=== PATIENT | male | born 1945 | race Caucasian/White ===

== ENCOUNTER 2016-08-31 17:15 | Observation (INO) | payer OTHER ==
[~2016-08-31] VITALS: Ht 162.6 cm; Wt 79.0 kg
[~2016-08-31 17:15] MED LIST: ASPI81TA21 PO; CITA20TA9 PO; LISI-729 PO; LPT/40 PO; METF500T PO; NITR0.4S UT; PLV75 PO; TRAV0.00 OPB; ZIPR60CA PO
[2016-08-31 19:19] LABS: BASO % 0.5 %; BASO ABS # 0.04 K/uL (0-0.2); COMPLETE YES; EOS % 1.8 %; HEMATOCRIT 40.5 % (42-52); IG% 0.4 %; LYMPH % 16.1 %; LYMPH ABS # 1.24 K/uL (1.2-3.4); MEAN CELL VOLUME 91.6 fL (80-100); MEAN CORPUSCULAR HEMOGLOBIN 32.1 pg (25-34); MEAN CORPUSCULAR HGB CONC 35.1 g/dl (32-36); MEAN PLATELET VOLUME 10.1 fL (7.4-10.4); NEUT % 75.2 %; PLATELET COUNT 170 K/uL (130-400); RED BLOOD COUNT 4.42 M/uL (4.7-6.1); WHITE BLOOD COUNT 7.72 K/uL (4.8-10.8)
--- NOTE | 2016-08-31 19:31 | DIAGNOSTIC IMAGING REPORT ---
CHEST ONE VIEW PORTABLE CLINICAL HISTORY: Chest pain. Short of breath. COMPARISON STUDY: Chest radiograph April 03, 2015. FINDINGS: Lung volumes are normal. There is no consolidation. There is no evidence of pulmonary edema. Cardiomediastinal silhouette is normal. There is no pneumothorax or pleural effusion. IMPRESSION: No acute cardiopulmonary findings. Electronically signed by: Benjie Calhoun M.D. 08/31/2016 7:29 PM Dictated Date/Time: 08/31/2016 7:28 PM
[2016-08-31 19:41] LABS: BLOOD UREA NITROGEN 11 mg/dl (7-18); BUN/CREATININE RATIO 8.5 (10-20); CALCIUM 8.4 mg/dl (8.5-10.1); CARBON DIOXIDE 29 mmol/L (21-32); CHLORIDE 110 mmol/L (98-107); GLUCOSE 102 mg/dl (70-99); POTASSIUM 4.2 mmol/L (3.5-5.1); SODIUM 143 mmol/L (136-145)
[2016-08-31 19:46] LABS: CKMB/CK RATIO 1.4 (0-3.0)
[2016-08-31 20:44] LABS: PARTIAL THROMBOPLASTIN RATIO 1.1
[2016-08-31] MEDS ORDERED: NITROGLYCERIN 0.4 MG SL PER TAB CHARGE SL PRN (21:00)
[2016-08-31] MEDS ORDERED: TRAMADOL HCL 50 MG TAB PO PRN (21:00)
[2016-08-31] MEDS ORDERED: DEXTROSE 50% 50 ML SYR IV PRN (21:00)
[2016-08-31] MEDS ORDERED: GLUCAGON FOR INJ 1 MG VIAL SQ PRN (21:00)
[2016-08-31] MEDS ORDERED: ACETAMINOPHEN 325 MG TAB PO PRN (21:00)
[2016-08-31] MEDS ORDERED: GLUCOSE 40% GEL 15 GM TUBE PO PRN (21:00)
[2016-08-31] MEDS ORDERED: HYDROmorphone INJ 0.5 MG/0.5 ML SYR IV PRN (21:00)
[2016-08-31] MEDS ORDERED: GLUCOSE 10 TABS/TUBE PO PRN (21:00)
[2016-08-31] MEDS ORDERED: LORAZEPAM 2 MG/ML 1 ML VIAL IV PRN (21:00)
[2016-08-31] MEDS ORDERED: ONDANSETRON INJ 2 MG/ML 2 ML VIAL IV PRN (21:00)
[2016-08-31 21:04] LABS: ALKALINE PHOSPHATASE 101 U/L (45-117); ALT/SGPT 35 U/L (12-78)
[2016-08-31 21:08] LABS: AST/SGOT 24 U/L (15-37)
[2016-08-31] MEDS ORDERED: IV FLUIDS COMPLETED PRN (21:15)
--- NOTE | 2016-08-31 21:58 | EMERGENCY ROOM VISIT NOTE ---
History Report prepared by Mahendraibangelo: Kelby Hargrove Under the Supervision of: Dr. Estuardo Berger D.O. First contact with patient: 18:27 Chief Complaint: CHEST PAIN Stated Complaint: CHEST PAIN, SOB History of Present Illness The patient is a 70 year old male who presents to the Emergency Room with complaints of resolved chest tightness that occurred at 1500 today. The patient had pain and shortness of breath with exertion. The pain was rated 3/10 in severity and did not radiate to his arms or jaw. The pain lasted about 30 minutes. The patient has not had pain like this since he had stents placed. He was six stents in total. He has not had coronary bypass. The patient had a baby aspirin today. His last bowel movement was earlier today which was normal. Patient denies headache, change in vision, fevers, nausea, vomiting, diarrhea, pain with urination, and melena. Source of History: patient Onset: 1500 today Position: chest Symptom Intensity: 3/10 Quality: other (tightness) Timing: resolved Modifying Factors (Worsening): exertion Associated Symptoms: + SOB, No diarrhea, No fevers, No headache, No melena, No nausea, No urinary symptoms, No vomiting Review of Systems See HPI for pertinent positives & negatives. A total of 10 systems reviewed and were otherwise negative. Past Medical & Surgical Medical Problems: (1) CAD (coronary artery disease) (2) CKD (chronic kidney disease), stage III (3) Depression (4) DM type 2 (diabetes mellitus, type 2) (5) Duodenal ulcer (6) Dyslipidemia (7) GERD (gastroesophageal reflux disease) (8) Glaucoma (9) Paranoid schizophrenia Surgical Problems: (1) H/O colonoscopy (2) S/P cardiac cath (3) S/P tonsillectomy and adenoidectomy Family History Cancer Diabetes mellitus FH: depression SISTER FH: heart disease MOTHER UNCLE FH: leukemia Hypertension Social History Smoking Status: Never Smoker Alcohol Use: none Marital Status: Housing Status: lives with family Occupation Status: employed Current/Historical Medications Scheduled Aspirin Enteric Coated (Ecotrin Or Generic), 81 MG PO QAM Atorvastatin (Lipitor), 20 MG PO QPM Citalopram Hydrobromide (Celexa), 20 MG PO HS Clopidogrel Bisulfate (Clopidogrel), 75 MG PO QAM Lisinopril (Zestril), 5 MG PO QAM Metformin Hcl (Glucophage), 500 MG PO QAM Travoprost (Travatan Z), 1 DROP OPB HS Ziprasidone Hcl (Geodon), 60 MG PO BID Scheduled PRN Nitroglycerin (Nitrostat), 0.4 MG UT UD PRN for Chest Pain Allergies Coded Allergies: Codeine (Verified Allergy, Unknown, UNKNOWN, 08/31/16) Morphine (Verified Allergy, Unknown, unknown, 06/23/15) Physical Exam Vital Signs Date Time Temp Pulse Resp B/P Pulse Ox O2 Delivery O2 Flow Rate FiO2 08/31/16 21:10 54 18 131/90 96 Room Air 08/31/16 20:00 54 18 141/89 96 Room Air 08/31/16 19:00 57 18 153/87 98 Room Air 08/31/16 18:43 59 08/31/16 17:17 36.8 72 18 172/84 99 Room Air Physical Exam GENERAL: Sitting up in bed, chronically ill appearing, disheveled, no acute distress. EYE EXAM: normal conjunctiva. OROPHARYNX: no exudate, no erythema, lips, buccal mucosa, and tongue normal and mucous membranes are moist NECK: supple, no nuchal rigidity, no adenopathy, non-tender LUNGS: Clear to auscultation. Normal chest wall mechanics HEART: no murmurs, S1 normal and S2 normal ABDOMEN: abdomen soft, non-tender, normo-active bowel sounds, no masses, no rebound or guarding. BACK: Back is symmetrical on inspection and there is no deformity, no midline tenderness, no CVA tenderness. SKIN: no rashes and no bruising UPPER EXTREMITIES: upper extremities are grossly normal. LOWER EXTREMITIES: No pitting edema. Calves are equal bilaterally. NEURO EXAM: Normal sensorium, cranial nerves II-XII grossly intact, normal speech, no gross weakness of arms, no gross weakness of legs. Gross sensation intact. Medical Decision & Procedures ER Provider Diagnostic Interpretation: Xray results per the radiologist and my interpretation. CHEST ONE VIEW PORTABLE CLINICAL HISTORY: Chest pain. Short of breath. COMPARISON STUDY: Chest radiograph April 03, 2015. FINDINGS: Lung volumes are normal. There is no consolidation. There is no evidence of pulmonary edema. Cardiomediastinal silhouette is normal. There is no pneumothorax or pleural effusion. IMPRESSION: No acute cardiopulmonary findings. Electronically signed by: Benjie Calhoun M.D. 08/31/2016 7:29 PM Dictated Date/Time: 08/31/2016 7:28 PM Laboratory Results 08/31/16 19:00 Red Blood Count 4.42, Mean Corpuscular Volume 91.6, Mean Corpuscular Hemoglobin 32.1, Mean Corpuscular Hemoglobin Concent 35.1, Mean Platelet Volume 10.1, Neutrophils (%) (Auto) 75.2, Lymphocytes (%) (Auto) 16.1, Monocytes (%) (Auto) 6.0, Eosinophils (%) (Auto) 1.8, Basophils (%) (Auto) 0.5, Neutrophils # (Auto) 5.81, Lymphocytes # (Auto) 1.24, Monocytes # (Auto) 0.46, Eosinophils # (Auto) 0.14, Basophils # (Auto) 0.04 08/31/16 19:00 Test 08/31/16 19:00 White Blood Count 7.72 K/uL (4.8-10.8) Red Blood Count 4.42 M/uL (4.7-6.1) Hemoglobin 14.2 g/dL (14.0-18.0) Hematocrit 40.5 % (42-52) Mean Corpuscular Volume 91.6 fL (80-100) Mean Corpuscular Hemoglobin 32.1 pg (25-34) Mean Corpuscular Hemoglobin Concent 35.1 g/dl (32-36) Platelet Count 170 K/uL (130-400) Mean Platelet Volume 10.1 fL (7.4-10.4) Neutrophils (%) (Auto) 75.2 % Lymphocytes (%) (Auto) 16.1 % Monocytes (%) (Auto) 6.0 % Eosinophils (%) (Auto) 1.8 % Basophils (%) (Auto) 0.5 % Neutrophils # (Auto) 5.81 K/uL (1.4-6.5) Lymphocytes # (Auto) 1.24 K/uL (1.2-3.4) Monocytes # (Auto) 0.46 K/uL (0.11-0.59) Eosinophils # (Auto) 0.14 K/uL (0-0.5) Basophils # (Auto) 0.04 K/uL (0-0.2) RDW Standard Deviation 48.3 fL (36.4-46.3) RDW Coefficient of Variation 14.2 % (11.5-14.5) Immature Granulocyte % (Auto) 0.4 % Immature Granulocyte # (Auto) 0.03 K/uL (0.00-0.02) Activated Partial Thromboplast Time 27.6 SECONDS (21.0-31.0) Partial Thromboplastin Ratio 1.1 Anion Gap 4.0 mmol/L (3-11) Est Creatinine Clear Calc Drug Dose 52.1 ml/min Estimated GFR () 64.5 Estimated GFR (Non- 55.7 BUN/Creatinine Ratio 8.5 (10-20) Calcium Level 8.4 mg/dl (8.5-10.1) Magnesium Level 2.0 mg/dl (1.8-2.4) Total Bilirubin 0.2 mg/dl (0.2-1) Direct Bilirubin < 0.1 mg/dl (0-0.2) Aspartate Amino Transf (AST/SGOT) 24 U/L (15-37) Alanine Aminotransferase (ALT/SGPT) 35 U/L (12-78) Alkaline Phosphatase 101 U/L (45-117) Total Creatine Kinase 95 U/L (39-308) Creatine Kinase MB 1.3 ng/ml (0.5-3.6) Creatine Kinase MB Ratio 1.4 (0-3.0) Troponin I < 0.015 ng/ml (0-0.045) Total Protein 7.0 gm/dl (6.4-8.2) Albumin 3.8 gm/dl (3.4-5.0) Thyroid Stimulating Hormone (TSH) 2.040 uIu/ml (0.300-4.500) Laboratory results per my review. ECG Indication: chest pain Rate (beats per minute): 72 Rhythm: sinus rhythm Findings: left axis deviation, no ectopy, other (poor baseline inferiorly) ED Course ED COURSE: Vital signs were reviewed and showed hypertension. The patients medical record was reviewed The above diagnostic studies were performed and reviewed. ED treatments and interventions as stated above. 1830: The patient was evaluated in room C1a. A complete history and physical examination was performed. 2018: Case discussed with Dr. Joe, [facility]. The patient will be evaluated. 2020: Upon reevaluation, the patient is stable.I discussed my findings with the patient and he understands and agrees with the treatment plan. Based on the patients age, coexisting illnesses, exam and lab findings the decision to treat as an inpatient was made. The patient remained stable while under my care. The patient will be evaluated for further management. Medical Decision Differential diagnoses includes but is not limited to acute coronary syndrome, myocardial infarction, pericarditis, pulmonary embolus, aortic dissection, pneumonia, pneumothorax, musculoskeletal, shingles, esophageal. Patient is a 70-year-old male who presents the ER for exertional chest pain which felt like his previous MIs. He has a total of 6/10. Last cath was several years ago. He is chest pain-free at this time. He did take aspirin. EKG shows no acute ischemia. Troponin was negative. No significant leukocytosis or anemia. Chest x-ray was unremarkable. Patient was updated bedside admitted to internal medicine. Consults Time Called: 2009 [facility]ing Physician[facility]: 2017 2018: Case discussed with Brandon Dobbins. The patient will be evaluated. Impression Primary Impression: Exertional chest pain Scribe Attestation The scribe's documentation has been prepared under my direction and personally reviewed by me in its entirety. I confirm that the note above accurately reflects all work, treatment, procedures, and medical decision making performed by me. Departure Information Dispostion Being Evaluated By Hospitalist Referrals Horace Marc D.O. (PCP) Patient Instructions My [facility]
--- NOTE | 2016-08-31 22:54 | HISTORY & PHYSICAL EXAMINATION ---
DATE OF ADMISSION: 08/31/2016 PRIMARY CARE DOCTOR: Dr. Marc. History obtained from patient and records. CHIEF COMPLAINT: Chest pain. HISTORY OF PRESENT ILLNESS: Medical history significant for CAD status post stenting, hypertension, hyperlipidemia, schizophrenia, depression, chronic bradycardia. DM2, on oral meds. Recent confinement 2014, for chest pain attributed to anxiety. The patient was walking up the hill to his garage earlier today. He had substernal discomfort with some shortness of breath, nonradiating, similar to an anginal attack in the past. Spontaneous resolution. Compliant with medications. No unusual cough symptoms. MEDICAL HISTORY: As above. SURGERIES: He has had tonsillectomy, adenoidectomy. HOME MEDICATIONS: Include Lipitor, Ecotrin, Celexa, Plavix, lisinopril, metformin, Nitrostat, Geodon. ALLERGIES: CODEINE, MORPHINE. FAMILY HISTORY: heart disease, diabetes. PERSONAL AND SOCIAL HISTORY: Nonsmoker, no chronic intake of alcoholic beverages. 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 REVIEW OF SYSTEMS: As per HPI, all other ROS negative. PHYSICAL EXAMINATION: VITAL SIGNS: Blood pressure was noted to be 170/80, later 140/80, pulse 76, respiratory rate 18, temperature 36.6, sats 98 on room air. GENERAL: Noted to be obese, slightly anxious, no respiratory distress. SKIN: Normal color. HEENT: [place] palpebral conjunctivae. Dry buccal mucosa. NECK: Short neck. LUNGS: Decreased breath sounds. HEART: Bradycardic. ABDOMEN: Some distention, nontender. EXTREMITIES: No edema, no tenderness. NEUROLOGIC: No gross focality. LABS: Hemoglobin was 14.2, hematocrit 40, white cells 7.7, platelets 170. Sodium 140, potassium 4.2, chloride 110, CO2 29, BUN 11, creatinine 1.3, glucose 102, Troponin was normal. Hemoglobin A1c from March 2016 was 5.5. Chest x-ray showed no acute cardiopulmonary findings. EKG rate of 75, normal sinus rhythm, negative ischemia. ASSESSMENT: 1. Chest pain possible unstable angina history of coronary artery disease status post-stenting 2. hypertension, slightly elevated 3. hyperlipidemia on statin therapy 4. DM2, on oral medications, well controlled as of recent HgA1c. 5. Chronic bradycardia 6. mood disorder/schizophrenia stable on medications as per patient. PLAN: Observation PCU. Continue antiplatelets, statin medications for secondary CAD prevention. follow cardiac markers, 2D echo, Cardio consult RE chest pain. Patient known to Dr. Henry. ISS BG goal 140-180. Patient due for hemoglobin A1c check. DVT prophylaxis with Lovenox subQ. Full code. MTDD
[2016-08-31 23:13] LABS: INR 0.9 (0.9-1.1)
[2016-08-31 23:37] VITALS: BP 165/78; PULSE 56; TEMP 36.4; O2SAT 98; Ht 162.6 cm; Wt 79.0 kg
[2016-09-01] VITALS (19 sets, daily range): BP systolic 109–144; BP diastolic 61–86; PULSE 51–97; TEMP 36.4–36.9; O2SAT 95–99
[2016-09-01] MEDS ORDERED: CALCIUM GLUCONATE 10% 1,000 MG in SODIUM CHLORIDE 0.9% 50ML 50 ML IV STA (00:05)
[2016-09-01] MEDS: SODIUM CHLORIDE 0.45% 1000ML 1,000 ML IV SCH ×2 (00:36→17:11)
[2016-09-01 06:34] LABS: ESTIMATED AVERAGE GLUCOSE 111 mg/dl; HA1C FLAG Normal (Normal)
[2016-09-01] MEDS: INSULIN ASPART 100 UNITS/ML 3 ML PEN SC SCH ×4 (07:00→21:44)
[2016-09-01] MEDS ORDERED: PERFLUTREN LIPID MICROSPHERE (DEFINITY) IV ONE (07:22)
[2016-09-01 07:52] LABS: BASO % 0.6 %; BASO ABS # 0.03 K/uL (0-0.2); COMPLETE YES; EOS % 2.6 %; HEMATOCRIT 40.1 % (42-52); IG% 0.6 %; LYMPH % 19.5 %; LYMPH ABS # 1.04 K/uL (1.2-3.4); MEAN CELL VOLUME 92.8 fL (80-100); MEAN CORPUSCULAR HEMOGLOBIN 33.1 pg (25-34); MEAN CORPUSCULAR HGB CONC 35.7 g/dl (32-36); MEAN PLATELET VOLUME 10.4 fL (7.4-10.4); NEUT % 69.7 %; PLATELET COUNT 162 K/uL (130-400); RED BLOOD COUNT 4.32 M/uL (4.7-6.1); WHITE BLOOD COUNT 5.32 K/uL (4.8-10.8)
[2016-09-01] MEDS: ENOXAPARIN 40 MG/0.4 ML SYR SC SCH (08:40)
[2016-09-01] MEDS: ZIPRASIDONE 20 MG CAP PO SCH ×2 (08:40→20:39)
[2016-09-01] MEDS: ASPIRIN 81 MG ECTAB PO SCH (08:41)
[2016-09-01] MEDS: LISINOPRIL 5 MG TAB PO SCH (08:41)
[2016-09-01] MEDS: CLOPIDOGREL BISULFATE 75 MG TAB PO SCH (08:41)
--- NOTE | 2016-09-01 09:01 | ECHOCARDIOGRAM REPORT ---
*NOTICE TO RECEIVING LIBERTARIAN AGENCY This information is strictly Confidential and protected under [place] law. [place] law prohibits you from making any further disclosure of this information unless further disclosure is expressly permitted by the written consent of the person to whom it pertains or is authorized by law. A general authorization for the release of medical or other information is not sufficient for this purpose. Hospital accepts no responsibility if the information is made available to any other person, INCLUDING THE PATIENT. Interpretation Summary * Name: ROMI QUIROGA Study Date: 09/01/2016 06:50 AM BP: 134/75 mmHg * Patient Location: C.2T\S\S242\S\1 HR: 51 * : 1945 (M/d/yyyy) Gender: Male Height: 64 in * Age: 71 yrs Ethnicity: CA Weight: 182 lb * Ordering Physician: Clint Joe * Performed By: Kelly Aleman RDCS * * Reason For Study: Chest pain * BSA: 1.9 m2 * The study was technically adequate. * Compared to prior study, there is no significant change. * -- Conclusions -- * Left ventricular systolic function is normal. * Ejection Fraction = 55-60%. * There is mild concentric left ventricular hypertrophy. * Grade I diastolic dysfunction, (abnormal relaxation pattern). * No significant valvular pathology. Procedure Details * A complete two-dimensional transthoracic echocardiogram was performed (2D, M-mode, Doppler and color flow Doppler). * A contrast injection of Definity was performed to improve assessment of LV function. * Contrast was injected into an intravenous site in the left arm. * One vial of Definity ultrasound contrast was diluted in normal saline to a total volume of 10 ml. A total of '2' ml of solution was administered during imaging. * Lot # [id number] of Definity utilized for procedure. * Expiration date SEP 19. * The attending nurse who injected the contrast agent was Tequila Lyons RN. Left Ventricle * The left ventricle is normal in size. * There is no thrombus. * There is mild concentric left ventricular hypertrophy. * Ejection Fraction = 55-60%. * Left ventricular systolic function is normal. * No regional wall motion abnormalities noted. Right Ventricle * The right ventricle is normal size. * The right ventricular systolic function is normal as assessed by tricuspid annular plane systolic excursion (TAPSE) (normal >1.5 cm). Atria * The left atrial size is normal. * Right atrial size is normal. * There is no evidence of atrial septal defect, but resolution does not allow assessment for a patent foramen ovale. Mitral Valve * The mitral valve is normal. * The mitral valve leaflets appear thickened, but open well. * There is no mitral valve stenosis. * Significant mitral regurgitation is absent. Tricuspid Valve * The tricuspid valve is normal. * There is no tricuspid stenosis. * Significant tricuspid regurgitation is absent. Aortic Valve * The aortic valve is trileaflet. * Aortic stenosis is absent. * There is no significant aortic regurgitation. Pulmonic Valve * The pulmonary valve is not well seen, but the Doppler examination is normal without significant regurgitation or stenosis. Great Vessels * The aortic root and proximal ascending aorta are normal sized. Pericardium/Pleural * There is no pericardial effusion. Great Vessels * Normal inferior vena cava diameter and respiratory variation suggests normal central venous pressure. Left Ventricular Diastolic Function * Grade I diastolic dysfunction, (abnormal relaxation pattern). MMode 2D Measurements and Calculations IVSd 1.3 cm LVIDd 4.2 cm LVIDs 2.9 cm LVPWd 1.1 cm IVS/LVPW 1.1 FS 31.2 % EDV(Teich) 78.5 ml ESV(Teich) 31.9 ml EF(Teich) 59.4 % EDV(cubed) 74.0 ml ESV(cubed) 24.1 ml EF(cubed) 67.4 % LV mass(C)d 179.4 grams LV mass(C)dI 95.5 grams/m\S\2 CO(Teich) 2.8 l/min CI(Teich) 1.5 l/min/m\S\2 SV(Teich) 46.6 ml SI(Teich) 24.8 ml/m\S\2 CO(cubed) 3.0 l/min CI(cubed) 1.6 l/min/m\S\2 SV(cubed) 49.9 ml SI(cubed) 26.5 ml/m\S\2 Ao root diam 2.9 cm Ao root area 6.4 cm\S\2 ACS 1.8 cm asc Aorta Diam 3.2 cm LVOT diam 2.0 cm LVOT area 3.0 cm\S\2 LVAd ap4 29.8 cm\S\2 LVLd ap4 7.9 cm EDV(MOD-sp4) 91.6 ml LVAs ap4 17.1 cm\S\2 LVLs ap4 6.4 cm ESV(MOD-sp4) 37.6 ml EF(MOD-sp4) 59.0 % LVAd ap2 33.9 cm\S\2 LVLd ap2 8.3 cm EDV(MOD-sp2) 114.0 ml LVAs ap2 17.8 cm\S\2 LVLs ap2 6.0 cm ESV(MOD-sp2) 43.3 ml EF(MOD-sp2) 62.0 % CO(MOD-sp4) 3.2 l/min CI(MOD-sp4) 1.7 l/min/m\S\2 SV(MOD-sp4) 54.0 ml SI(MOD-sp4) 28.7 ml/m\S\2 CO(MOD-sp2) 4.2 l/min CI(MOD-sp2) 2.3 l/min/m\S\2 SV(MOD-sp2) 70.7 ml SI(MOD-sp2) 37.6 ml/m\S\2 Doppler Measurements and Calculations MV E max uma 68.9 cm/sec MV A max uma 79.5 cm/sec MV E/A 0.87 MV dec time 0.20 sec Ao V2 max 86.2 cm/sec Ao max PG 3.0 mmHg Ao max PG (full) 1.6 mmHg MICHELLE(V,A) 2.1 cm\S\2 MICHELLE(V,D) 2.1 cm\S\2 LV V1 max PG 1.4 mmHg LV V1 max 59.2 cm/sec PA V2 max 96.4 cm/sec PA max PG 3.7 mmHg PA acc slope 535.1 cm/sec\S\2 PA acc time 0.09 sec TR max uma 225.3 cm/sec PA pr(Accel) 37.8 mmHg
[2016-09-01] MEDS ORDERED: NiCARDipine HCL INJ 2.5 MG/ML 10 ML AMP ONE (10:49)
[2016-09-01] MEDS ORDERED: HEPARIN SOD (PORCINE) 1000 UNIT/ML 10 ML VIAL ONE (10:49)
[2016-09-01] MEDS ORDERED: MIDAZOLAM HCL 1 MG/ML 2ML VIAL ONE (10:49)
[2016-09-01] MEDS ORDERED: FENTANYL CITRATE INJ 50 MCG/1 ML 2 ML VIAL ONE (10:49)
[2016-09-01] MEDS ORDERED: NITROGLYCERIN/D5W 100MCG/ML 20ML SYR ONE (10:50)
[2016-09-01] MEDS ORDERED: ADENOSINE IV SOLN 3 MG/ML 20 ML VIAL ONE (11:39)
--- NOTE | 2016-09-01 11:43 | Procedure Note ---
Pre-Mod Sedation Assessment General Date of Moderate Sedation: Sep 01, 2016. Vital Signs: Vital Signs Past 12 Hours Date Time Temp Pulse Resp B/P Pulse Ox O2 Delivery O2 Flow Rate FiO2 09/01/16 10:38 36.5 59 20 139/86 98 Room Air 09/01/16 08:50 139/86 09/01/16 08:15 36.5 59 20 130/73 98 Room Air 09/01/16 08:00 Room Air 09/01/16 04:00 Room Air 09/01/16 03:33 36.4 51 17 134/75 97 Room Air Review Cardiovascular: regular rate, rhythm, no edema, no gallop Abdomen: normal bowel sounds, non tender, soft Lungs: chest non-tender, lungs clear Pre-Sedation Airway Assessment Oral Cavity: Dentures Short Thick Neck: No Hx of Sleep Apnea: No Smoking Status: Never Smoker ASA Classification: Class III Procedure Planning Contraindications-for Mod Sed: None Yes Notes The planned sedation has been discussed with the patient and consent obtained. I have identified the patient, determined the appropriateness of sedation and have assessed the patient immediately prior to the procedure. All medicine(s) and interventions are by my order.
--- NOTE | 2016-09-01 11:44 | Procedure Note ---
Post-Mod Sedation Assessment General Date of Moderate Sedation Sep 01, 2016. Vital Signs: Vital Signs Past 12 Hours Date Time Temp Pulse Resp B/P Pulse Ox O2 Delivery O2 Flow Rate FiO2 09/01/16 10:38 36.5 59 20 139/86 98 Room Air 09/01/16 08:50 139/86 09/01/16 08:15 36.5 59 20 130/73 98 Room Air 09/01/16 08:00 Room Air 09/01/16 04:00 Room Air 09/01/16 03:33 36.4 51 17 134/75 97 Room Air Review - Discharge Criteria Vital Signs Stable: Yes Alert/Oriented/Conversant: Yes Returned to Baseline Mental St: Yes Nausea Absent/Minimal: Yes Pain/Discomfort/Absent/Minimal: Yes Normal/Baseline Respirations: Yes Active Bleeding?: No Pt Received D/C Instructions: N/A Prescriptions Given: None Specific Proced. D/C Criteria Distal Pulses Present (Cardiac: N/A Groin site assessed-Card Cath: N/A Voided Prior To Discharge: N/A Discharged Patients Adult Escort/Transportation: Yes
--- NOTE | 2016-09-01 11:47 | [facility] Post Operative Brief Note ---
Preliminary Procedure Note Procedure Date Sep 01, 2016. Pre-Procedure Diagnosis Acute Coronary Syndrome, Angina Post-Procedure Diagnosis Severe CAD Procedure(s) Performed Coronary Angiography, Left Heart Cath Technical Sales Engineer Dr. Henry Business Information Manager(s) Tori CORK CUTTER Estimated Blood Loss 5cc Medication(s) Heparin, Nicardipine, Nitroglycerin, Versed, Lidocaine 1% Preliminary Findings Moderate and diffuse proximal to ostial LAD Severe distal diagonal branch vessel disease Patent LAD, diagonal, RCA, and OM stents. Recommendations management recommendations (patient remained in cardiac cath tech for FFR to LAD band possible IVUS) Specimens None Procedural Complication(s) None Disposition patient remained in cardiac cath tech for FFR
--- NOTE | 2016-09-01 12:01 | CARDIOLOGY CONSULTATION ---
DATE OF CONSULTATION: 09/01/2016 REFERRING PHYSICIAN: Dr. Clint Lucas. REASON FOR CONSULTATION: Chest discomfort, history of CAD and stenting. CHIEF COMPLAINT ON ADMISSION: Chest pain. HISTORY OF PRESENT ILLNESS: Mr. Bill is a 71-year-old gentleman who [facility] listed below. He was walking up a hill yesterday when he developed moderate 5/10 chest tightness and heaviness with associated shortness of breath. Discomfort was identical to previously reported angina. With rest, his discomfort improved to 2/10. He proceeded to the Emergency Department for further evaluation. Cardiac enzymes have been negative. He received a dose of nitro which resolved his pain. He had a recurrent episode of chest discomfort at rest this a.m., which was relieved with sublingual nitroglycerin. His resting 2D transthoracic echo was performed, demonstrating no regional wall motion abnormalities or significant valvular disease. He has been maintained on chronic dual antiplatelet therapy due to history of stent thrombosis in 2014. Complex history listed below. He is currently asymptomatic and resting comfortably. REVIEW OF SYSTEMS: The pertinent positive noted above, a comprehensive 10-system review is otherwise negative. PAST MEDICAL HISTORY: 1. Complex coronary disease with drug-eluting stent implantation to the LAD and diagonal branch vessel 12/10/2014. 2. Acute stent thrombosis 12/10/2014, requiring emergent catheterization and bare-metal stenting to diagonal branch vessel. 3. Drug-eluting stent implantation to the right coronary artery and obtuse marginal in October 2011. 4. Diabetes type 2. 5. Dyslipidemia. 6. Chronic bradycardia with beta piedad intolerance. PAST SURGICAL HISTORY: Cardiac catheterization as noted above. SOCIAL HISTORY: Lifelong nonsmoker. Denies any alcohol or illicit drug use. FAMILY HISTORY: Negative for premature coronary artery disease or sudden cardiac . ALLERGIES: CODEINE, MORPHINE. CURRENT OUTPATIENT MEDICATIONS: 1. Glucophage XR 500 mg daily. 2. Atorvastatin 40 mg daily. 3. Plavix 75 mg daily. 4. Lisinopril 5 mg daily. 5. Sublingual nitroglycerin as needed. 6. Ativan 0.5 mg every 12 hours as needed. 7. Travatan eyedrops. 8. Celexa 20 mg at bedtime. 9. Aspirin 81 mg daily. 10. Geodon 60 mg twice daily. LABORATORY DATA: Cardiac enzymes are negative x2 sets. White blood cell count 5.32, hemoglobin is 14.3, platelet count is 162. Sodium 143, potassium 4.2, chloride 110, CO2 29, BUN is 11, creatinine is 1.30. Troponin negative x3 sets. Chest x-ray on admission: No acute cardiopulmonary findings. ECG: Sinus rhythm. No acute ST changes. PHYSICAL EXAMINATION: VITAL SIGNS: Stable. GENERAL: NAD, awake, alert and oriented x3. THROAT: His mucous membranes are moist. There is no scleral icterus. The conjunctivae are pink. NECK: Supple without JVD or HJR. No carotid bruit. HEART: Regular with a normal S1 and S2. There is no murmur, rub, or gallop. LUNGS: Clear without rales, rhonchi or wheeze. ABDOMEN: Soft, nontender. No rebound or guarding. Normal bowel sounds. EXTREMITIES: Warm and dry without clubbing, cyanosis, or edema. NEUROLOGIC: Demonstrates no focal motor deficit. FINAL IMPRESSION: 1. A 71-year-old male presents with unstable angina. 2. Complex cardiovascular disease with history of multivessel stenting as listed above as well as acute stent thrombosis in December 2014. 3. History of symptomatic bradycardia, current beta piedad intolerance. 4. Diabetes type 2. 5. Dyslipidemia. 6. Chronic kidney disease stage III. 7. History of upper gastrointestinal bleeding. PLAN AND RECOMMENDATIONS: I had a long discussion with the patient regarding his recurrent symptoms and underlying coronary disease. I suspect high probability of recurrent obstructive coronary disease. Further evaluation including stress testing versus coronary angiography and left heart catheterization were discussed at length. The patient is agreeable to cardiac catheterization with coronary angiography at [facility]. Risks, benefits, alternatives to procedure discussed at length. We will continue current medications as noted above. Further recommendations, pending result of catheterization.
--- NOTE | 2016-09-01 17:29 | Cardiology Progress Note ---
Cardiology Progress Note Date of Service Sep 01, 2016. Cardiology Progress Note Patient underwent FFR evaluation of an intermediate proximal LAD stenosis, that was not hemodynamically significant. Recommend ongoing medication therapy. Start Imdur 30 mg daily. Patient has history of sinus bradycardia and is not able to tolerate beta blockers. I discussed the plan with patient and spouse at the bedside, and they were agreeable with pt staying in hospital tonight, increasing activity tomorrow and starting imdur tomorrow. Dr Henry to see patient tomorrow. Mita Aguilar, DO
--- NOTE | 2016-09-01 18:12 | Progress Note ---
Internal Med Progress Note Date of Service: Sep 01, 2016. Provider Documentation: SUBJECTIVE: patient had a episode of chest pain early in am but resolved with nitro denies sob or dizziness no sweating say s came to er yesterday as he had chest pain while going up hill 5/10 in severity had stents placed couple of times in the past OBJECTIVE: Vital Signs-as noted below Exam: General-alert and oriented x 3 Not in distress ENT-normal hearing Neck-no neck masses Lungs-cta b/l no wheezing no crackles Heart-s1 and s2 heard regular rate and rhythm no murmurs' Abdomen-soft bowel sounds present non tender no distension Extremities-no edema no erythema Neuro-alert and awake moves extremities Lab data as noted below. ASSESSMENT & PLAN: 1. Chest pain possible unstable angina hx of cad s/p stenting s/p cardiac cath today - intermediate proximal LAD stenosis. previous stents patent plan to add Imdur and monitor to continue aspirin and Plavix and statin. No b piedad secondary to bradycardia. 2. hypertension, on lisinopril Imdur added will monitor. 3. hyperlipidemia on statin therapy. 4. DM2, on oral medications, metformin on hold hba1c 5.5. 5. Chronic bradycardia 6. mood disorder/schizophrenia stable on medications as per patient DVT PROPHYLAXIS lovenox DISPOSITION monitor in tele Vital Signs: Date Time Temp Pulse Resp B/P Pulse Ox O2 Delivery O2 Flow Rate FiO2 09/01/16 17:30 66 18 131/74 97 Room Air 09/01/16 17:00 61 18 139/77 97 Room Air 09/01/16 16:30 63 18 144/81 99 Room Air 09/01/16 16:00 36.5 58 18 128/76 98 Room Air 09/01/16 16:00 Room Air 09/01/16 15:30 56 18 125/76 98 Room Air 09/01/16 15:00 54 18 117/66 98 Room Air 09/01/16 14:30 63 18 122/82 98 Room Air 09/01/16 14:00 58 18 121/74 97 Room Air 09/01/16 13:30 58 18 124/74 98 Room Air 09/01/16 13:00 54 18 123/70 98 Room Air 09/01/16 12:45 54 18 115/62 98 Room Air 09/01/16 12:30 57 18 109/67 98 Room Air 09/01/16 12:20 Room Air 09/01/16 12:20 36.4 55 18 109/61 98 Room Air 09/01/16 10:38 36.5 59 20 139/86 98 Room Air 09/01/16 08:50 139/86 09/01/16 08:15 36.5 59 20 130/73 98 Room Air 09/01/16 08:00 Room Air 09/01/16 04:00 Room Air 09/01/16 03:33 36.4 51 17 134/75 97 Room Air 08/31/16 23:37 36.4 56 18 165/78 98 Room Air 08/31/16 23:03 Room Air 08/31/16 22:17 36.8 57 18 123/69 98 08/31/16 22:16 57 18 123/69 98 Room Air 08/31/16 21:10 54 18 131/90 96 Room Air 08/31/16 20:00 54 18 141/89 96 Room Air 08/31/16 19:00 57 18 153/87 98 Room Air 08/31/16 18:43 59 Lab Results: Results Past 24 Hours Test 08/31/16 19:00 08/31/16 23:30 09/01/16 06:55 09/01/16 07:37 Range/Units White Blood Count 7.72 5.32 4.8-10.8 K/uL Red Blood Count 4.42 4.32 4.7-6.1 M/uL Hemoglobin 14.2 14.3 14.0-18.0 g/dL Hematocrit 40.5 40.1 42-52 % Mean Corpuscular Volume 91.6 92.8 80-100 fL Mean Corpuscular Hemoglobin 32.1 33.1 25-34 pg Mean Corpuscular Hemoglobin Concent 35.1 35.7 32-36 g/dl Platelet Count 170 162 130-400 K/uL Mean Platelet Volume 10.1 10.4 7.4-10.4 fL Neutrophils (%) (Auto) 75.2 69.7 % Lymphocytes (%) (Auto) 16.1 19.5 % Monocytes (%) (Auto) 6.0 7.0 % Eosinophils (%) (Auto) 1.8 2.6 % Basophils (%) (Auto) 0.5 0.6 % Neutrophils # (Auto) 5.81 3.71 1.4-6.5 K/uL Lymphocytes # (Auto) 1.24 1.04 1.2-3.4 K/uL Monocytes # (Auto) 0.46 0.37 0.11-0.59 K/uL Eosinophils # (Auto) 0.14 0.14 0-0.5 K/uL Basophils # (Auto) 0.04 0.03 0-0.2 K/uL RDW Standard Deviation 48.3 48.3 36.4-46.3 fL RDW Coefficient of Variation 14.2 14.1 11.5-14.5 % Immature Granulocyte % (Auto) 0.4 0.6 % Immature Granulocyte # (Auto) 0.03 0.03 0.00-0.02 K/uL Prothrombin Time 10.0 9.0-12.0 SECONDS Prothromb Time International Ratio 0.9 0.9-1.1 Activated Partial Thromboplast Time 27.6 21.0-31.0 SECONDS Partial Thromboplastin Ratio 1.1 Sodium Level 143 136-145 mmol/L Potassium Level 4.2 3.5-5.1 mmol/L Chloride Level 110 98-107 mmol/L Carbon Dioxide Level 29 21-32 mmol/L Anion Gap 4.0 3-11 mmol/L Blood Urea Nitrogen 11 7-18 mg/dl Creatinine 1.30 0.60-1.40 mg/dl Est Creatinine Clear Calc Drug Dose 52.1 ml/min Estimated GFR () 64.5 Estimated GFR (Non- 55.7 BUN/Creatinine Ratio 8.5 10-20 Random Glucose 102 70-99 mg/dl Estimated Average Glucose 111 mg/dl Hemoglobin A1c 5.5 4.5-5.6 % Calcium Level 8.4 8.5-10.1 mg/dl Magnesium Level 2.0 1.8-2.4 mg/dl Total Bilirubin 0.2 0.2-1 mg/dl Direct Bilirubin < 0.1 0-0.2 mg/dl Aspartate Amino Transf (AST/SGOT) 24 15-37 U/L Alanine Aminotransferase (ALT/SGPT) 35 12-78 U/L Alkaline Phosphatase 101 45-117 U/L Total Creatine Kinase 95 39-308 U/L Creatine Kinase MB 1.3 0.5-3.6 ng/ml Creatine Kinase MB Ratio 1.4 0-3.0 Troponin I < 0.015 < 0.015 < 0.015 0-0.045 ng/ml Total Protein 7.0 6.4-8.2 gm/dl Albumin 3.8 3.4-5.0 gm/dl Thyroid Stimulating Hormone (TSH) 2.040 0.300-4.500 uIu/ml Bedside Glucose 96 70-99 mg/dl Test 09/01/16 11:46 09/01/16 16:26 Range/Units Kaolin Activated Coagulation Time 219 94-140 SECONDS Bedside Glucose 86 70-99 mg/dl
[2016-09-01] MEDS ORDERED: TRAVOPROST Z 0.004% OPH SOLN 2.5 ML BTL OPB SCH (21:00)
[2016-09-01] MEDS ORDERED: ATORVASTATIN 20 MG TAB PO SCH (21:00)
[2016-09-01] MEDS ORDERED: CITALOPRAM 20 MG TAB PO SCH (21:00)
--- NOTE | 2016-09-01 23:52 | Cardiac Catheterization ---
Procedure Note Procedure Date Sep 01, 2016. Pre-Procedure Diagnosis Angina AUC Score 7 Post-Procedure Diagnosis Moderate CAD Procedure(s) Performed Fractional Flow [place] Old[employer] Worker Specialist Dr. Bartholomew Sausage Inspector(s) Tori Estimated Blood Loss 10 Medication(s) Fentanyl, Versed, Adenosine Summary of Findings FFR Procedure Briefly, patient found to have an intermediate ostial LAD stenosis on diagnostic angiography by Dr. Henry. Decision made to proceed with FFR to further evaluate. LM cannulated with JL3.0 guide FFR wire placed into mid LAD. FFR 0.82 Post procedure angiogram showed no coronary complications. Arterial access closure with TR Band Hemodynamics Rest Ao: 97/60/76 Final Ao: 124/58/86 LV: 128/9 Recommendations Medical therapy and/or Counseling Specimens None Radiation Exposure (mGy) 1082 Contrast (mls) 90 Opti Anesthesia moderate Procedural Complication(s) None Disposition PCU ACC Data Cardiac Status Clinical evaluation leading to the procedure CAD Presntation: Stable angina Anginal Classification: CCS III Heart Failure: No, NYHA Class: CCS I Cardiogenic Shock w/in 24Hrs: No Cardiac Arrest w/in 24Hrs: No Imaging studies past 6 months: Yes Stress studies past 6 months: Yes Standard Exercise Stress Test: No Stress Echocardiogram: No Stress Testing w/SPECT MPI: No Cardiac CTA: No Diagnostic Physician's Name: Hilario Bartholomew MD Closure Device Percutaneous Entry Location: Radial Closure Device: Radial Band Recommendations: Medical therapy and/or Counseling Lesion Segment Name: ostial LAD Culprit Artery: Yes Stenosis Prior to Rx (%): 60-70 FFR: Yes Ratio: greater than 0.75% Pre-Procedure BO Flow: 3 Previously Treated Lesion: No Lesion Complexity: Non-High/Non-C Thrombus Present: No Bifurcation Lesion: No Guidewire Across Lesion: Yes Guidewire: Device(s) Deployed: No Intraprocedure Events Significant Dissection: No Perforation: No
[2016-09-02 03:26] VITALS: BP 116/69; PULSE 78; TEMP 36.6; O2SAT 90
[2016-09-02] MEDS: INSULIN ASPART 100 UNITS/ML 3 ML PEN SC SCH ×2 (07:00→11:00)
[2016-09-02 07:52] VITALS: BP 116/72; PULSE 82; TEMP 36.5; O2SAT 97
[2016-09-02] MEDS: ZIPRASIDONE 20 MG CAP PO SCH (07:53)
[2016-09-02] MEDS: ASPIRIN 81 MG ECTAB PO SCH (07:53)
[2016-09-02] MEDS: LISINOPRIL 5 MG TAB PO SCH (07:54)
[2016-09-02] MEDS: ENOXAPARIN 40 MG/0.4 ML SYR SC SCH (07:54)
[2016-09-02] MEDS: CLOPIDOGREL BISULFATE 75 MG TAB PO SCH (07:55)
[2016-09-02] MEDS ORDERED: NURSING VERBAL MED ORDER ONE (08:00)
[2016-09-02] MEDS ORDERED: ISOSORBIDE MONONITRATE 30 MG TABCR PO SCH (09:00)
--- NOTE | 2016-09-02 10:10 | Cardiac Catheterization ---
Procedure Note Procedure Date Sep 02, 2016. Pre-Procedure Diagnosis Angina AUC Score 8 Post-Procedure Diagnosis Severe CAD Procedure(s) Performed Coronary Angiography (Start time 1057, Stop Time 1133. Light sedation.), Left Heart Cath Procedure Manager Dr. Henry Group Insurance Specialist(s) Tori SHARP. Qualified monitoring RN: Ben Jeffers RN Estimated Blood Loss 5cc Medication(s) Heparin, Nicardipine, Nitroglycerin, Versed (2mg), Lidocaine 1% Summary of Findings Moderate and diffuse proximal to ostial LAD Severe distal diagonal branch vessel disease, (distal to previously placed stent ) Patent LAD, diagonal, RCA, and OM stents. Hemodynamics Rest Ao: 97/60/76 Final Ao: 124/60/86 LV: 128/1/9 Recommendations management recommendations (Interventional cardiology consulted for FFR to LAD. 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 ACC Data Cardiac Status Clinical evaluation leading to the procedure CAD Presntation: Unstable angina Anginal Classification: CCS III Heart Failure: No Cardiogenic Shock w/in 24Hrs: No Cardiac Arrest w/in 24Hrs: No Imaging studies past 6 months: No Stress studies past 6 months: No Coronary Anatomy Dominant: Right Left Main (% Stenosis): Ostial (0%), Proximal (0%), Mid (20%), Distal (30% taper) LAD (% Stenosis): Ostial (60%), Proximal (50%), Mid (stent patent), Distal (10% ) D1 (% Stenosis): Ostial (30%), Proximal (stent patent with 20% ISR.), Mid (90% stenosis distal to stent), Distal (10%) Circumflex (% Stenosis): Ostial (30%), Proximal (10%) OM1 (% Stenosis): Ostial (30%), Proximal (10%), Mid (10%), Distal (10%) OM2 (% Stenosis): Ostial (0%), Proximal (10%), Mid (stent patent), Distal (10%) RCA (% Stenosis): Ostial (0%), Proximal (10%), Mid (stent patent with 30% ISR) , Distal (0%) R PDA (% Stenosis): Normal R PL1 (% Stenosis): Normal Diagnostic Status: Urgent Closure Device Percutaneous Entry Location: Radial Closure Device: Radial Band Intraprocedure Events Significant Dissection: No Perforation: No
--- NOTE | 2016-09-02 10:20 | Cardiology Follow-Up ---
Subjective General Date of Service: Sep 02, 2016. Pt evaluation today including: conversation w/ patient, conversation w/ family , physical exam, chart review, lab review, review of studies, conversation w/ wireless sales consultant, review of inpatient medication list History of Present Illness The patient is a 71 year old male seen in follow up. Feels well today. No recurrent CP overnight. LAD FFR not significant. Diagonal stenosis not amenable to PCI due to small caliber vessel. Patient tolerated 2 doses of imdur. Offers no complaints. Allergies Coded Allergies: Codeine (Verified Allergy, Unknown, UNKNOWN, 08/31/16) Morphine (Verified Allergy, Unknown, unknown, 06/23/15) Social History Smoking Status: Never Smoker Hx Tobacco Use In Past Year?: No Hx Alcohol Use - Type And Amou: No Hx Substance Use - Type And Am: No Problem List Medical Problems: (1) Exertional chest pain Status: Acute Review of Systems Respiratory: + dyspnea on exertion, No cough, No dyspnea at rest, No hemoptysis , No shortness of breath, No wheezing Cardiac: No PND, No chest pain, No edema, No orthopnea, No palpitations Physical Exam Vital Signs Last Vital Signs Documentation Date Time Temp Pulse Resp B/P Pulse Ox O2 Delivery O2 Flow Rate FiO2 09/02/16 08:04 Room Air 09/02/16 07:52 36.5 82 18 116/72 97 Physical Exam Constitutional: General Apperance: well-nourished Level of Distress: NAD Ambulation: ambulating normally Head: normocephalic, atraumatic ENMT: normal ENT inspection Neck: supple Lungs: Auscultation: breath sounds normal, no wheezing, no rales/crackles, no rhonchi Cardiovascular: Heart Auscultation: RRR, normal S1, normal S2, no murmurs Peripheral Pulses: Radial Pulse: normal on the left, normal on the right Abdomen: Bowel Sounds: normal Inspection & Palpation: soft, non-distended, no tenderness, guarding & rebound, no masses Liver: non-tender Extremities: no cyanosis, no edema, no clubbing, no ulcers Neurologic: Gait & Station: pertinent finding (No focal motor deficit.) Cranial Nerves: grossly intact Assessment and Plan Assessment and Plan Imp: 1. 71 year old admitted with exertional angina - LAD FFR not significant - small diagonal branch vessel stenosis not amenable to PCI - tolerating imdur without recurrent CP 2. Chronic complex CAD with h/o multivessel PCI 3. Dyslipidemia 4. Chronic bradycardia with beta piedad intolerance 5. CKD - 3 Plan/Recommendations: Continue imdur 30mg daily in addition to other cardiovascular medications as previous ordered. Repeat BMP in 1 week. (ordered by laborer tanbark) Post-catheterization activity restrictions : Excess manipulation of the wrist should be avoided for the next 24-48 hours. * No lifting over 2 pounds (approximately a 1/2 gallon of milk) with the utilized arm for 24 hours. * No strenuous activity such as bowling or tennis for 3 days. * Keep the site of the procedure covered with a bandage for 24 hours. *You may shower the day after the procedure. Do not take a tub bath or submerge the puncture site in water for the next 3 days. *Do not operate any motorized equipment for 3 days. SPECIAL CARE INSTRUCTIONS: The site may be slightly bruised and sore following your procedure. Should any of the following occur, contact the Dr. who performed your procedure. 1. Redness/inflammation, swelling, chills, or fever, or colored drainage at procedure site within 3-7 days after your procedure. 2. Coldness, discoloration, ongoing numbness, severe pain, or swelling. Expect mild tingling of hand and tenderness at the puncture site for up to three days. If this persists beyond three days, or other symptoms develop, notify the Dr. who performed your procedure. BLEEDING: If the procedure site on your wrist begins to bleed, do not panic 1. Place 1 or 2 fingers firmly just slightly above the insertion site to stop the bleeding. You may be able to feel your pulse as you hold pressure. 2. Lift your finger after 5 minutes to see if the bleeding has stopped. 3. Once the bleeding has stopped, gently wipe the wrist area clean with a bandage. * If the bleeding from your wrist does not stop after 10 minutes, or if there is a large amount of bleeding or spurting, call 911 (do not drive yourself to the hospital). SKIN IRRITATION: * You may experience some redness and/or swelling in the area where radiation was administered. If any skin irritation occurs, please contact your family physician. FOLLOW UP VISIT: Patient may be discharged from a cardiovascular perspective. I will schedule cardiology follow up in 2-4 weeks. Laboratory Results Last 24 Hours Test 09/01/16 11:46 09/01/16 16:26 09/01/16 21:04 09/02/16 06:40 Kaolin Activated Coagulation Time 219 SECONDS Bedside Glucose 86 mg/dl 96 mg/dl 94 mg/dl
[2016-09-02 12:43] VITALS: BP 97/56; PULSE 80; TEMP 36.5; O2SAT 96
[2016-09-02] MEDS ORDERED: IMDSR30 PO (13:09)
--- NOTE | 2016-09-02 13:12 | Discharge Instructions ---
Discharge Instructions Date of Service Sep 02, 2016. Admission Reason for Admission: Chest Pain Discharge Discharge Diagnosis / Problem: chest pain Discharge Goals Goal(s): Decrease discomfort, Improve function Activity Recommendations Activity Limitations: resume your previous activity .Post-catheterization activity restrictions : Excess manipulation of the wrist should be avoided for the next 24-48 hours. * No lifting over 2 pounds (approximately a 1/2 gallon of milk) with the utilized arm for 24 hours. * No strenuous activity such as bowling or tennis for 3 days. * Keep the site of the procedure covered with a bandage for 24 hours. *You may shower the day after the procedure. Do not take a tub bath or submerge the puncture site in water for the next 3 days. *Do not operate any motorized equipment for 3 days. SPECIAL CARE INSTRUCTIONS: The site may be slightly bruised and sore following your procedure. Should any of the following occur, contact the Dr. who performed your procedure. 1. Redness/inflammation, swelling, chills, or fever, or colored drainage at procedure site within 3-7 days after your procedure. 2. Coldness, discoloration, ongoing numbness, severe pain, or swelling. Expect mild tingling of hand and tenderness at the puncture site for up to three days. If this persists beyond three days, or other symptoms develop, notify the Dr. who performed your procedure. BLEEDING: If the procedure site on your wrist begins to bleed, do not panic 1. Place 1 or 2 fingers firmly just slightly above the insertion site to stop the bleeding. You may be able to feel your pulse as you hold pressure. 2. Lift your finger after 5 minutes to see if the bleeding has stopped. 3. Once the bleeding has stopped, gently wipe the wrist area clean with a bandage. * If the bleeding from your wrist does not stop after 10 minutes, or if there is a large amount of bleeding or spurting, call 911 (do not drive yourself to the hospital). SKIN IRRITATION: * You may experience some redness and/or swelling in the area where radiation was administered. If any skin irritation occurs, please contact your family physician. Instructions / Follow-Up Instructions / Follow-Up FOLLOWUP WITH FAMILY DOCTOR Horace Alston ON September AT 11:10AM FOLLOWUP WITH CARDIOLOGY SCHEDULED IN 2-4 WEEKS LAB: BMP IN ONE WEEK AND FOLLOW RESULTS WITH FAMILY DOCTOR. Current Hospital Diet Patient's current hospital diet: Diabetes Type 2 Diet, AHA Diet (Heart Healthy) Discharge Diet Recommended Diet: AHA Diet (Heart Healthy) Pending Studies Studies pending at discharge: no Laboratory Results Hemoglobin A1c Test 08/31/16 19:00 Range/Units Estimated Average Glucose 111 mg/dl Hemoglobin A1c 5.5 4.5-5.6 % Medical Emergencies . Who to Call and When: Medical Emergencies: If at any time you feel your situation is an emergency, please call 911 immediately. . Non-Emergent Contact Non-Emergency issues call your: Primary Care Provider . . "Provider Documentation" section prepared by Jostin Luis. VTE Core Measure Inpt VTE Proph given/why not?: Enoxaparin (Lovenox)SQ
[2016-09-02 13:31] VITALS: BP 97/56; PULSE 80; TEMP 36.5; O2SAT 96
--- NOTE | 2016-09-02 18:48 | Progress Note ---
Internal Med Progress Note Date of Service: Sep 02, 2016. Provider Documentation: SUBJECTIVE: denies chest pain or sob afebrile ok to go home OBJECTIVE: Vital Signs-as noted below Exam: General-alert and oriented x 3 Not in distress ENT-normal hearing Neck-no neck masses Lungs-cta b/l no wheezing no crackles Heart-s1 and s2 heard regular rate and rhythm no murmurs' Abdomen-soft bowel sounds present non tender no distension Extremities-no edema no erythema Neuro-alert and awake moves extremities Lab data as noted below. ASSESSMENT & PLAN: 1. Chest pain possible unstable angina hx of cad s/p stenting s/p cardiac cath today - intermediate proximal LAD stenosis. previous stents patent plan to add Imdur and monitor to continue aspirin and Plavix and statin. No b piedad secondary to bradycardia. stable 2. hypertension, on lisinopril Imdur added f/u with pcp 3. hyperlipidemia on statin therapy. 4. DM2, on oral medications, metformin on hold hba1c 5.5. 5. Chronic bradycardia 6. mood disorder/schizophrenia stable on medications as per patient Discharged home Vital Signs: Date Time Temp Pulse Resp B/P Pulse Ox O2 Delivery O2 Flow Rate FiO2 09/02/16 13:31 36.5 80 18 96 Room Air 09/02/16 12:43 36.5 80 18 97/56 96 Room Air 09/02/16 08:04 Room Air 09/02/16 07:52 36.5 82 18 116/72 97 Room Air 09/02/16 04:00 Room Air 09/02/16 03:26 36.6 78 17 116/69 90 Room Air 09/01/16 23:59 Room Air 09/01/16 23:48 36.7 97 17 112/68 97 Room Air 09/01/16 20:30 36.9 70 20 111/70 95 Room Air 09/01/16 20:00 Room Air Lab Results: Results Past 24 Hours Test 09/01/16 21:04 09/02/16 06:40 09/02/16 11:41 Range/Units Bedside Glucose 96 94 99 70-99 mg/dl
--- NOTE | 2016-09-02 18:53 | Discharge Summary ---
Discharge Summary Date of Service Sep 02, 2016. Discharge Summary Admission Date: Aug 31, 2016 at 20:34 Discharge Date: Sep 02, 2016 Discharge Disposition: Home Principal Diagnosis: CHEST PAIN Secondary Diagnoses/Problems: CAD status post stenting, hypertension, hyperlipidemia, schizophrenia, depression, chronic bradycardia. DM2, on oral meds. Procedures: S/P CARDIAC CATH Consultations: CARDIOLOGY Medication Reconciliation New Medications: Isosorbide Mononitrate (Isosorbide Mononitrate ER) 30 Mg Tabcr 30 MG PO QAM, #30 2 Refills Continued Medications: Aspirin Enteric Coated (Ecotrin Or Generic) 81 Mg Tab 81 MG PO QAM, TAB Atorvastatin (Lipitor) 40 Mg Tab 20 MG PO QPM, TAB at 5 pm Citalopram Hydrobromide (Celexa) 20 Mg Tab 20 MG PO HS, TAB Clopidogrel Bisulfate (Clopidogrel) 75 Mg Tab 75 MG PO QAM, #30 Lisinopril (Zestril) 5 Mg Tab 5 MG PO QAM, TAB Metformin Hcl (Glucophage) 500 Mg Tab 500 MG PO QAM, TAB Nitroglycerin (Nitrostat) 0.4 Mg Sub 0.4 MG UT UD PRN for Chest Pain, SUB Travoprost (Travatan Z) 0.004 % Celso 1 DROP OPB HS Ziprasidone Hcl (Geodon) 60 Mg Cap 60 MG PO BID, CAP Admission Information HPI (per Admitting provider): Medical history significant for CAD status post stenting, hypertension, hyperlipidemia, schizophrenia, depression, chronic bradycardia. DM2, on oral meds. Recent confinement 2014, for chest pain attributed to anxiety. The patient was walking up the hill to his garage earlier today. He had substernal discomfort with some shortness of breath, nonradiating, similar to an anginal attack in the past. Spontaneous resolution. Compliant with medications. No unusual cough symptoms Physical Exam (per Admitting): VITAL SIGNS: Blood pressure was noted to be 170/80, later 140/80, pulse 76, respiratory rate 18, temperature 36.6, sats 98 on room air. GENERAL: Noted to be obese, slightly anxious, no respiratory distress. SKIN: Normal color. HEENT: [place] palpebral conjunctivae. Dry buccal mucosa. NECK: Short neck. LUNGS: Decreased breath sounds. HEART: Bradycardic. ABDOMEN: Some distention, nontender. EXTREMITIES: No edema, no tenderness. NEUROLOGIC: No gross focality. Hospital Course 1. Chest pain possible unstable angina hx of cad s/p stenting s/p cardiac cath today - intermediate proximal LAD stenosis. previous stents patent plan to add Imdur and monitor to continue aspirin and Plavix and statin. No b piedad secondary to bradycardia. stable 2. hypertension, on lisinopril Imdur added f/u with pcp 3. hyperlipidemia on statin therapy. 4. DM2, on oral medications, metformin on hold hba1c 5.5. 5. Chronic bradycardia 6. mood disorder/schizophrenia stable on medications as per patient Discharged home Total time spent on discharge = 35MINUTES This includes examination of the patient, discharge planning, medication reconciliation, and communication with other providers. Discharge Instructions Discharge Instructions Date of Service Sep 02, 2016. Admission Reason for Admission: Chest Pain Discharge Discharge Diagnosis / Problem: chest pain Discharge Goals Goal(s): Decrease discomfort, Improve function Activity Recommendations Activity Limitations: resume your previous activity .Post-catheterization activity restrictions : Excess manipulation of the wrist should be avoided for the next 24-48 hours. * No lifting over 2 pounds (approximately a 1/2 gallon of milk) with the utilized arm for 24 hours. * No strenuous activity such as bowling or tennis for 3 days. * Keep the site of the procedure covered with a bandage for 24 hours. *You may shower the day after the procedure. Do not take a tub bath or submerge the puncture site in water for the next 3 days. *Do not operate any motorized equipment for 3 days. SPECIAL CARE INSTRUCTIONS: The site may be slightly bruised and sore following your procedure. Should any of the following occur, contact the Dr. who performed your procedure. 1. Redness/inflammation, swelling, chills, or fever, or colored drainage at procedure site within 3-7 days after your procedure. 2. Coldness, discoloration, ongoing numbness, severe pain, or swelling. Expect mild tingling of hand and tenderness at the puncture site for up to three days. If this persists beyond three days, or other symptoms develop, notify the Dr. who performed your procedure. BLEEDING: If the procedure site on your wrist begins to bleed, do not panic 1. Place 1 or 2 fingers firmly just slightly above the insertion site to stop the bleeding. You may be able to feel your pulse as you hold pressure. 2. Lift your finger after 5 minutes to see if the bleeding has stopped. 3. Once the bleeding has stopped, gently wipe the wrist area clean with a bandage. * If the bleeding from your wrist does not stop after 10 minutes, or if there is a large amount of bleeding or spurting, call 911 (do not drive yourself to the hospital). SKIN IRRITATION: * You may experience some redness and/or swelling in the area where radiation was administered. If any skin irritation occurs, please contact your family physician. Instructions / Follow-Up Instructions / Follow-Up FOLLOWUP WITH FAMILY DOCTOR Horace Alston ON September AT 11:10AM FOLLOWUP WITH CARDIOLOGY SCHEDULED IN 2-4 WEEKS LAB: BMP IN ONE WEEK AND FOLLOW RESULTS WITH FAMILY DOCTOR. Current Hospital Diet Patient's current hospital diet: Diabetes Type 2 Diet, AHA Diet (Heart Healthy) Discharge Diet Recommended Diet: AHA Diet (Heart Healthy) Pending Studies Studies pending at discharge: no Laboratory Results Hemoglobin A1c Test 08/31/16 19:00 Range/Units Estimated Average Glucose 111 mg/dl Hemoglobin A1c 5.5 4.5-5.6 % Medical Emergencies . Who to Call and When: Medical Emergencies: If at any time you feel your situation is an emergency, please call 911 immediately. . Non-Emergent Contact Non-Emergency issues call your: Primary Care Provider . . "Provider Documentation" section prepared by Jostin Luis. VTE Core Measure Inpt VTE Proph given/why not?: Enoxaparin (Lovenox)SQ
== END 2016-09-02 13:49 | disposition home or self-care (01) ==
LOC: ENRESERVTM → ENRESERVDT → C.EDB 17:16 → C.2T 20:34
PROVIDERS: ADMIT Internal Medicine; ATTEND Internal Medicine
DX: I25.10 Atherosclerotic heart disease of native coronary artery without angina pectoris (principal); E78.5 Hyperlipidemia, unspecified; F20.9 Schizophrenia, unspecified; R00.1 Bradycardia, unspecified; E11.9 Type 2 diabetes mellitus without complications; I12.9 Hypertensive chronic kidney disease with stage 1 through stage 4 chronic kidney disease, or unspecified chronic kidney disease; N18.3 Chronic kidney disease, stage 3 (moderate); K21.9 Gastro-esophageal reflux disease without esophagitis; Z98.62 Peripheral vascular angioplasty status; Z79.82 Long term (current) use of aspirin; Z82.49 Family history of ischemic heart disease and other diseases of the circulatory system; Z83.3 Family history of diabetes mellitus

== ENCOUNTER 2018-11-29 15:09 | Observation (INO) ==
--- OUTSIDE RECORDS SUMMARY | 2018-11-29 15:12 | External Medical Summary | Continuity of Care Document ---
:1945 Author Name Todd Billings Address Unavailable Unavailable , Care Team Providers Name Role Phone Puma Billings Unavailable [email or web address], [email or web address] Unavailable Unavailable Problems Active medical history not documented Allergies and Adverse Reactions Allergy history not documented Medications Medications not documented Procedures Procedures not documented Immunizations Immunizations not documented Plan of Treatment Planned Observations Planned Goals not documented Results No Known Results Results not documented
[2018-11-29 15:34] LABS: Basophils # (auto) 0.04 K/uL (0-0.2); Basophils % (auto) 0.6 %; Eosinophils # (auto) 0.19 K/uL (0-0.5); Eosinophils % (auto) 2.7 %; Hematocrit (blood only) 41.8 % (42-52); Hemoglobin 14.7 g/dL (14.0-18.0); Immature Granulocytes # (auto) 0.03 K/uL (0.00-0.02); Immature Granulocytes % (auto) 0.4 %; Lymphocytes # (auto) 2.05 K/uL (1.2-3.4); Lymphocytes % (auto) 28.8 %; Mean Corpuscular Hgb Conc 35.2 g/dL (32-36); Mean Platelet Volume 10.4 fL (7.4-10.4); Monocytes # (auto) 0.69 K/uL (0.11-0.59); Monocytes % (auto) 9.7 %; Neutrophils # (auto) 4.12 K/uL (1.4-6.5); Neutrophils % (auto) 57.8 %; Platelet Count 166 K/uL (130-400); RDW Coefficient of Variation 14.1 % (11.5-14.5); RDW Standard Deviation 49.4 fL (36.4-46.3); White Blood Count 7.12 K/uL (4.8-10.8)
[2018-11-29] MEDS ORDERED: ASPIRIN CHEW 324 MG PO STA (15:34)
[2018-11-29] MEDS ORDERED: NITROGLYCERIN SL 0.4 MG/TAB TAB SL STA (15:34)
--- NOTE | 2018-11-29 15:37 | XRay Report ---
XR chest 1V portable CLINICAL HISTORY: Chest Pain dyspnea COMPARISON STUDY: 08/31/2016 FINDINGS: The bones soft tissues and hemidiaphragms are normal. The cardiomediastinal silhouette is n ormal. The lungs are clear. The pulmonary vasculature is normal. IMPRESSION: Negative chest. The above report was generated using voice recognition software. It may contain grammatical, syntax or spelling errors. Electronically signed by: Bam Flores M.D. 11/29/2018 3:36 PM
[2018-11-29 15:46] LABS: Partial Thromboplastin Time 26.9 Seconds (21.0-31.0); Prothrombin Time 10.3 Seconds (9.0-12.0)
[2018-11-29 15:53] LABS: Alanine Aminotransferase 36 U/L (12-78); Albumin Level 3.9 gm/dl (3.4-5.0); Aspartate Aminotransferase 22 U/L (15-37); BUN Creatinine Ratio 10.6 (10-20); Blood Urea Nitrogen 15 mg/dl (7-18); Calcium 8.9 mg/dl (8.5-10.1); Carbon Dioxide 24 mmol/L (21-32); Chloride 110 mmol/L (98-107); Creatinine Clr Calc Pharmacy 45.5 ml/min; Est GFR (African American) 55.4; Est GFR (Non-African American) 47.8; Glucose 110 mg/dl (70-99); Magnesium 2.2 mg/dl (1.8-2.4); Potassium 3.9 mmol/L (3.5-5.1); Sodium 141 mmol/L (136-145)
[2018-11-29 15:59] LABS: Albumin Globulin Ratio 1.2 (0.9-2); Alkaline Phosphatase 97 U/L (45-117); Bilirubin,Total 0.4 mg/dl (0.2-1); Globulin 3.3 gm/dl (2.5-4.0); Total Protein 7.2 gm/dl (6.4-8.2); Troponin I < 0.015 ng/ml (0-0.045)
[2018-11-29] MEDS ORDERED: GLUCOSE 10 TABS/TUBE PO PRN (17:52)
[2018-11-29] MEDS ORDERED: CARBOHYDRATES FOR HYPOGLYCEMIA PO PRN (17:52)
[2018-11-29] MEDS ORDERED: GLUCAGON FOR INJ 1 MG VIAL SQ PRN (17:52)
[2018-11-29] MEDS ORDERED: DEXTROSE 50% 50 ML SYRINGE IV PRN (17:52)
[2018-11-29] MEDS ORDERED: GLUCOSE 40% GEL 15 GM TUBE PO PRN (17:52)
--- NOTE | 2018-11-29 17:58 | History & Physical Report ---
Date of Service November 29, 2018 Assessment & Plan (1) Chest pain: This is a 73yo M with a PMH of CAD (s/p stents in 2011, 2014), DM II CKD III, paranoid schizophrenia and other medical problems listed below who presents after 2 episodes of chest pain at home that have since resolved. -H/o CAD with stents placed in 2011 and 2014 -Cardiac cath performed in August 2016 with patent stents, no intervention required -Initial troponin negative. EKG with normal sinus rhythm. CXR negative for acute abnormalities -Given full dose aspirin in ED. Will increase atorvastatin to 80mg -Trend serial cardiac enzymes -Check 2D echo -Repeat EKG in am -Routine cardiology consult (2) CAD (coronary artery disease): Continue aspirin, statin, Imdur -Intolerant to beta piedad due to history of symptomatic bradycardia (3) DM type 2 (diabetes mellitus, type 2): A1c of 5.2 in Jul 2018 -Hold home agents -SSI while in-patient -BSG AC HS (4) CKD (chronic kidney disease), stage III: Kidney function at baseline -Continue monitoring BMP (5) Dyslipidemia: Increased statin dose to 80mg (6) Paranoid schizophrenia: Continue Geodon (7) Depression: Continue Celexa DVT Ppx: SQ Lovenox Code status: FULL PCP: Ritesh Marc Dispo: Observation tele. Plan to return home once medically stable. Patient seen in collaboration with Dr. Snigleton. Please see addendum. History of Present Illness Chief Complaint: chest pain Primary Care Provider: Horace Marc, DO This is a 73yo M with a PMH of CAD (s/p stents in 2011, 2014), DM II CKD III, paranoid schizophrenia and other medical problems listed below who presents after 2 episodes of chest pain at home that have since resolved. Patient was sitting at home this morning when he developed sharp pressure his chest with associated shortness of breath. Pain radiated down left arm and episode lasted a few minutes before resolving. Denies any associated diaphoresis, nausea or vomiting. Few hours later, patient was driving when pain returned, similar in character and duration 2 episode prior. Came to ED for further evaluation. Patient was given sublingual nitroglycerin and full dose aspirin to chew upon arrival. Pain has since resolved. Still feels a bit lightheaded when he sits upright. Denies fever, chills, headache, visual changes, cough, chest pain, palpitations, shortness of breath, abdominal pain, nausea, vomiting, dysuria, constipation or diarrhea. Has history of SAMARA to RCA and OM in 2011 as well as SAMARA to LAD and diagonal branch vessel in 2014. Is on aspirin and Plavix but states he has not taken aspirin for the past few months. Cardiac catheterization in 2017 revealed patent stents. Follows with Dr. Henry in clinic. Allergies Allergy/AdvReac Type Severity Reaction Status Date / Time codeine Allergy Unknown UNKNOWN Verified 11/29/18 15:47 morphine Allergy Unknown unknown Verified 11/29/18 15:47 Home Medications Home Medications Medication Instructions Recorded Confirmed Type albuterol sulfate [ProAir HFA] 2 puff INHALATION QID PRN 11/29/18 11/29/18 History aspirin [Aspir-81] 81 mg PO DAILY 11/29/18 11/29/18 History atorvastatin [Lipitor] 20 mg PO HS 11/29/18 11/29/18 History citalopram [Celexa] 20 mg PO QPM 11/29/18 11/29/18 History clopidogrel [Plavix] 75 mg PO QAM 11/29/18 11/29/18 History isosorbide mononitrate 30 mg PO QAM 11/29/18 11/29/18 History lisinopril 5 mg PO DAILY 11/29/18 11/29/18 History metformin 500 mg PO QAM 11/29/18 11/29/18 History nitroglycerin [Nitrostat] 0.4 mg SUBLINGUAL UD PRN 11/29/18 11/29/18 History tamsulosin [Flomax] 0.4 mg PO DAILY 11/29/18 11/29/18 History travoprost [Travatan Z] 1 drp OPB HS 11/29/18 11/29/18 History ziprasidone HCl [Geodon] 60 mg PO BID 11/29/18 11/29/18 History Past Med/Surg History Medical History CAD (coronary artery disease) (Chronic) "echo 08/29/2013- LV EF =50-55%" DM type 2 (diabetes mellitus, type 2) (Chronic) Depression (Chronic) Paranoid schizophrenia (Chronic) GERD (gastroesophageal reflux disease) (Chronic) Glaucoma (Chronic) Duodenal ulcer (Resolved) "seen on EGD with GI bleeding 08/2013" CKD (chronic kidney disease), stage III (Chronic) Dyslipidemia (Chronic) Surgical History S/P tonsillectomy and adenoidectomy (Chronic) H/O colonoscopy (Chronic) S/P cardiac cath (Chronic) "10/20/2011- SAMARA to RCA and OM 12/10/2014- SAMARA to LAD and diagonal branch vessel. 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, had 2nd bare metal stent to diagonal branch vessel" Hx of heart artery stent (Chronic) SAMARA to RCA and OM in 2011 SAMARA to LAD and diagonal branch vessel in 2014 Family History Other Cancer Diabetes Hypertension Social History Preferred Language: Romanian Communication Ability: Effective Beliefs That Will Affect Care: None marital status: Current Living Situation: Spouse current occupational status: retired Other Information That Helps Us Care for You: No Feels Safe at Home: Yes Safety Concerns: Feels Safe At This Time Smoking Status: Never smoker Do You Dip or Chew Tobacco: No Second Hand Exposure: No Tobacco Cessation Education Requested by Patient: No Hx Alcohol Use: No Hx Substance Use: No Review of Systems Review of Systems: At least ten systems reviewed and negative except as noted in the HPI. Physical Exam Physical Exam: General Appearance: WD/WN, resting comfortably, no apparent distress Head: normocephalic, atraumatic Eyes: normal inspection, PERRL, EOMI ENT: hearing grossly normal, pharynx normal (moist mucous membranes) Neck: supple, no JVD, no adenopathy Respiratory/Chest: No chest wall tenderness. Lungs clear to auscultation. No wheezes, rales or rhonci. No respiratory distress or accessory muscle use Cardiovascular: regular rate, rhythm, no murmur, normal peripheral pulses Abdomen/GI: normal bowel sounds, soft, non-tender to palpation Extremities/Musculoskelatal: normal inspection, no calf tenderness, normal capillary refill, no pedal edema Neurologic/Psych: alert, normal mood/affect, oriented x 3 Skin: normal color, warm/dry Results & Data Vital Signs (Past 12 Hours) Vital Signs Temp Pulse Resp BP Pulse Ox 11/29/18 17:00 76 23 97 11/29/18 16:39 66 16 129/79 11/29/18 16:00 68 14 06/28/19 15:26 81 22 11/29/18 15:20 86 16 175/95 H 11/29/18 15:19 83 98 11/29/18 15:10 36.4 C L 90 20 182/87 H 97 Laboratory Results Short CBC 11/29/18 Range/Units 15:23 WBC 7.12 (4.8-10.8) K/uL Hgb 14.7 (14.0-18.0) g/dL Hct 41.8 L (42-52) % Plt Count 166 (130-400) K/uL BMP 11/29/18 15:23 Sodium 141 Potassium 3.9 Chloride 110 H Carbon Dioxide 24 BUN 15 Creatinine 1.45 H Glucose 110 H Calcium 8.9 Cardiac Enzymes 11/29/18 Range/Units 15:23 Troponin I < 0.015 (0-0.045) ng/ml Liver Function 11/29/18 Range/Units 15:23 Total Bilirubin 0.4 (0.2-1) mg/dl AST 22 (15-37) U/L ALT 36 (12-78) U/L Alkaline Phosphatase 97 (45-117) U/L Albumin 3.9 (3.4-5.0) gm/dl Diagnostic Findings CXR: IMPRESSION: Negative chest. ECG Rhythm: normal sinus Supervising Physician Co-Signing Physician Notes I have seen and examined the patient and have discussed the case with the provider above. I agree with the assessment and plan as stated with the following exceptions. Mr. Bill reports only one episode of chest pain to me that began while driving this afternoon. He states his pain was a 1 out of 10 and was substernal without radiation. He reports that his concern came because of some shortness of breath. He states the pain did not improve until he received nitroglycerin at the ER. He did report having nitroglycerin on his person, but did not take it and he cannot tell me why. He reports compliance with his medications except for aspirin which he stopped taking a couple of months ago. He also has stopped taking metformin at least a year ago with a nondiabetic A1c reported earlier this year. He denies any history of chest pain since his last cardiac cath in August 2016 and has been on Imdur since that time per his report. He is very sedentary in his lifestyle reporting his most active thing weekly is taking the garbage out. He reports he can climb a flight of stairs without stopping. He reports feeling his day with shuttling grandchildren around in his vehicle. He lives alone and takes care of himself. He reports not being able to exercise secondary to hip arthritis. He is currently hemodynamically stable and my physical exam is consistent with above findings. Patient reports his pain as his index angina. Trending cardiac enzymes which are currently negative, EKG not reflecting acute ischemia. Increase Lipitor to 80 mg, continue aspirin with load given in ER. Intolerant of beta-piedad historically. Reports no issues with hypertension in the past and does not take his blood pressure regularly. Continue to monitor this closely as was elevated to 180 systolic on arrival. Continue lisinopril 5 per home regimen. Insulin sliding scale ordered but this may be discontinued if consistently below range. No carb coverage was ordered with nondiabetic A1c. Cardiology consulted, appreciate recommendations. DO Mani
[2018-11-29] MEDS ORDERED: ATORVASTATIN 40 MG TAB PO ONE (18:23)
[2018-11-29] MEDS ORDERED: ACETAMINOPHEN 325 MG TAB PO PRN (18:26)
[2018-11-29] MEDS ORDERED: ALBUTEROL HFA 8 GM INHALER INH PRN (18:26)
[2018-11-29] MEDS ORDERED: POLYETHYLENE (MIRALAX) 17 GM PACK PO PRN (18:26)
[2018-11-29] MEDS ORDERED: NITROGLYCERIN SL 0.4 MG/TAB TAB SL PRN (18:26)
[2018-11-29] MEDS ORDERED: ATORVASTATIN 40 MG TAB PO SCH ×2 (18:30→21:00)
--- NOTE | 2018-11-29 19:35 | Emergency Department Note ---
Entered by Lucrecia Mccormick acting as a scribe for History of Present Illness General Chief complaint: Cardiac Assessment Stated complaint: SOB,PAIN IN LEFT ARM Time Seen by Provider: 11/29/18 15:14 Source: patient History of Present Illness Onset (ago): hour(s) (2.5) Location: chest Severity: similar to prior episodes (for need of stent placement) Pain Consistency: + intermittent Maximum Pain Intensity: 1 Quality: + other (shortness of breath) Exacerbated By: + movement (walking) Associated symptoms: + denies other symptoms (leg swelling, abdominal pain, calf pain) and + other (left arm pain); no chest pain, no cough, no fever/chills and no nausea/vomiting The patient is a 73 male w/ PMHx CAD, DM, Depression, Paranoid Schizophrenia, GERD, Glaucoma, CKD, Dyslipidemia, and Cardiac Stents who presents to the ED w/ CC of intermittent shortness of breath starting 2.5 hours ago. The patient states that he was driving when he suddenly started to feel short of breath. He states that over the past 2.5 hours it has come and gone, but he became concerned when he started having left arm pain 1.5 hours ago. He states that this feels similar to his prior issues which required stent placement, but not as severe. He notes that his shortness of breath is worse with walking. The patient notes that he is on Plavix and is supposed to be on Aspirin, but he forgets to take it. He notes that he just started taking Flomax a few days ago. The patient denies leg swelling, a history of blood clots, recent long travel, cough, fever, chills, abdominal pain, nausea, vomiting, calf pain, and chest pain. Home Medications Home Medications Medication Instructions Recorded Confirmed Type albuterol sulfate [ProAir HFA] 2 puff INHALATION QID PRN 11/29/18 11/29/18 History aspirin [Aspir-81] 81 mg PO DAILY 11/29/18 11/29/18 History atorvastatin [Lipitor] 20 mg PO HS 11/29/18 11/29/18 History citalopram [Celexa] 20 mg PO QPM 11/29/18 11/29/18 History clopidogrel [Plavix] 75 mg PO QAM 11/29/18 11/29/18 History isosorbide mononitrate 30 mg PO QAM 11/29/18 11/29/18 History lisinopril 5 mg PO DAILY 11/29/18 11/29/18 History metformin 500 mg PO QAM 11/29/18 11/29/18 History nitroglycerin [Nitrostat] 0.4 mg SUBLINGUAL UD PRN 11/29/18 11/29/18 History tamsulosin [Flomax] 0.4 mg PO DAILY 11/29/18 11/29/18 History travoprost [Travatan Z] 1 drp OPB HS 11/29/18 11/29/18 History ziprasidone HCl [Geodon] 60 mg PO BID 11/29/18 11/29/18 History Allergies Allergy/AdvReac Type Severity Reaction Status Date / Time codeine Allergy Unknown UNKNOWN Verified 11/29/18 15:47 morphine Allergy Unknown unknown Verified 11/29/18 15:47 Past Med/Surg History Medical History CAD (coronary artery disease) (Chronic) "echo 08/29/2013- LV EF =50-55%" DM type 2 (diabetes mellitus, type 2) (Chronic) Depression (Chronic) Paranoid schizophrenia (Chronic) GERD (gastroesophageal reflux disease) (Chronic) Glaucoma (Chronic) Duodenal ulcer (Resolved) "seen on EGD with GI bleeding 08/2013" CKD (chronic kidney disease), stage III (Chronic) Dyslipidemia (Chronic) Surgical History S/P tonsillectomy and adenoidectomy (Chronic) H/O colonoscopy (Chronic) S/P cardiac cath (Chronic) "10/20/2011- SAMARA to RCA and OM 12/10/2014- SAMARA to LAD and diagonal branch vessel. 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, had 2nd bare metal stent to diagonal branch vessel" Hx of heart artery stent (Chronic) SAMARA to RCA and OM in 2011 SAMARA to LAD and diagonal branch vessel in 2014 Family History Other Cancer Diabetes Hypertension Social History Preferred Language: Bengali Communication Ability: Effective Beliefs That Will Affect Care: None marital status: Current Living Situation: Spouse current occupational status: retired Other Information That Helps Us Care for You: No Feels Safe at Home: Yes Safety Concerns: Feels Safe At This Time Smoking Status: Never smoker Do You Dip or Chew Tobacco: No Second Hand Exposure: No Tobacco Cessation Education Requested by Patient: No Hx Alcohol Use: No Hx Substance Use: No Review of Systems See HPI for pertinent positives & negatives. and A total of 10 systems reviewed and were otherwise negative Physical Exam Vital Signs Vital Signs - 24 hr 11/29/18 15:10 11/29/18 15:19 11/29/18 15:20 Temperature 36.4 C L Temperature Source Oral Sepsis Recent Fever Within 48 Hours No Sepsis New/Unexplained Change in Mental Status No Sepsis Action Taken by Nursing No Action Required Pulse Rate 90 83 86 Pulse Rhythm Regular Respiratory Rate 20 16 Respiratory Effort / Characteristics Non-Labored Spontaneous Blood Pressure 182/87 H 175/95 H Blood Pressure Mean 118 121 Blood Pressure Position Sitting Pulse Oximetry 97 98 Oxygen Delivery Method Room Air Room Air 11/29/18 15:26 11/29/18 16:00 11/29/18 16:39 Temperature Temperature Source Sepsis Recent Fever Within 48 Hours Sepsis New/Unexplained Change in Mental Status Sepsis Action Taken by Nursing Pulse Rate 81 68 66 Pulse Rhythm Respiratory Rate 22 14 16 Respiratory Effort / Characteristics Blood Pressure 129/79 Blood Pressure Mean 95 Blood Pressure Position Pulse Oximetry Oxygen Delivery Method GENERAL: Well appearing, well nourished, NAD, non-toxic. Wearing glasses. EYE EXAM: Normal conjunctiva. PERRL, no anisocoria and EOM's grossly intact w/o pain. OROPHARYNX: Moist mucous membranes. Grossly normal dentition. NECK: Supple, no nuchal rigidity, no adenopathy, non-tender. No signs of meningismus. LUNGS: Clear to auscultation. Normal chest wall mechanics. HEART: NSR, no MRG. ABDOMEN: Abdomen soft, non-tender, normo-active bowel sounds, no masses, no rebound or guarding. BACK: No CVA TTP. SKIN: No rashes and no bruising. UPPER EXTREMITIES: Upper extremities are grossly normal. LOWER EXTREMITIES: Trace pretibial edema. No erythema. No calf pain. Negative Edwin's sign. NEURO EXAM: A&O x3, cranial nerves II-XII grossly intact, normal speech, moves all 4 extremities on command w/o issue. Course 1529: Past medical records reviewed. The patient was evaluated in room B3B. A complete history and physical exam was performed. 1614: I reevaluated the patient and he is still short of breath. I updated him on his test results. I discussed the treatment plan with him. He verbally agrees and understands. 1621: I discussed the patient's case with ANA Quinonez Hospitalist. She will evaluate the patient for further management. Consultations Consultation #1: I discussed the patient's case with ANA Quinonezist. She will evaluate the patient for further management. Time: 16:21 Administered Medications Discontinued Medications Aspirin (Aspirin) 324 mg PO NOW STA Stop: 11/29/18 15:35 Last Admin: 11/29/18 16:21 Dose: 324 mg Documented by: [id number] Nitroglycerin (Nitrostat) 0.4 mg SL NOW STA Stop: 11/29/18 15:35 Last Admin: 11/29/18 16:21 Dose: 0.4 mg Documented by: [id number] Medical Decision Making Medical Records Attestation: I reviewed the patient's medical records. Home Medications Current Medication List: was personally reviewed by me Laboratory Data Attestation: I reviewed the patient's lab results. Result diagrams: 11/29/18 15:23 11/29/18 15:23 Lab Results 11/29/18 11/29/18 11/29/18 Range/Units 15:23 15:23 15:23 WBC 7.12 (4.8-10.8) K/uL RBC 4.40 L (4.7-6.1) M/uL Hgb 14.7 (14.0-18.0) g/dL Hct 41.8 L (42-52) % MCV 95.0 (80-100) fL MCH 33.4 (25-34) pg MCHC 35.2 (32-36) g/dL RDW Std Deviation 49.4 H (36.4-46.3) fL RDW Coeff of Shilo 14.1 (11.5-14.5) % Plt Count 166 (130-400) K/uL MPV 10.4 (7.4-10.4) fL Immature Gran % (Auto) 0.4 % Neut % (Auto) 57.8 % Lymph % (Auto) 28.8 % [place] % (Auto) 9.7 % Eos % (Auto) 2.7 % Baso % (Auto) 0.6 % Immature Gran # (Auto) 0.03 H (0.00-0.02) K/uL Neut # (Auto) 4.12 (1.4-6.5) K/uL Lymph # (Auto) 2.05 (1.2-3.4) K/uL [place] # (Auto) 0.69 H (0.11-0.59) K/uL Eos # (Auto) 0.19 (0-0.5) K/uL Baso # (Auto) 0.04 (0-0.2) K/uL PT 10.3 (9.0-12.0) Seconds INR 1.0 (0.9-1.1) APTT 26.9 (21.0-31.0) Seconds PTT Ratio 1.0 Sodium 141 (136-145) mmol/L Potassium 3.9 (3.5-5.1) mmol/L Chloride 110 H (98-107) mmol/L Carbon Dioxide 24 (21-32) mmol/L Anion Gap 7.0 (3-11) BUN 15 (7-18) mg/dl Creatinine 1.45 H (0.6-1.4) mg/dl Est Cr Clr Drug Dosing 45.5 ml/min Est GFR ( Amer) 55.4 Est GFR (Non-Af Amer) 47.8 BUN/Creatinine Ratio 10.6 (10-20) Glucose 110 H (70-99) mg/dl Calcium 8.9 (8.5-10.1) mg/dl Magnesium 2.2 (1.8-2.4) mg/dl Total Bilirubin 0.4 (0.2-1) mg/dl AST 22 (15-37) U/L ALT 36 (12-78) U/L Alkaline Phosphatase 97 (45-117) U/L Troponin I < 0.015 (0-0.045) ng/ml Total Protein 7.2 (6.4-8.2) gm/dl Albumin 3.9 (3.4-5.0) gm/dl Globulin 3.3 (2.5-4.0) gm/dl Albumin/Globulin Ratio 1.2 (0.9-2) Lipase 361 (73-393) U/L Imaging Data Radiologist's Impression: Radiology results as stated below per my review and the radiologist's interpretation: XR chest 1V portable CLINICAL HISTORY: Chest Pain dyspnea COMPARISON STUDY: 08/31/2016 FINDINGS: The bones soft tissues and hemidiaphragms are normal. The cardiomediastinal silhouette is normal. The lungs are clear. The pulmonary vasculature is normal. IMPRESSION: Negative chest. The above report was generated using voice recognition software. It may contain grammatical, syntax or spelling errors. Electronically signed by: Bam Flores M.D. 11/29/2018 3:36 PM ECG Data Attestation: I personally reviewed and interpreted this ECG as follows: Indication: SOB/dyspnea Rate (beats per minute): 81 Rhythm: sinus rhythm Findings: + other (normal intervals) and + left axis deviation; no ST depression, no ST elevation and no acute ischemic change Blood Pressure Blood Pressure Findings: Elevated blood pressure Blood Pressure Disposition: further management by hospitalist PAT Narrative The patient is a 73 male w/ PMHx CAD, DM, Depression, Paranoid Schizophrenia, GERD, Glaucoma, CKD, Dyslipidemia, and Cardiac Stents who presents to the ED w/ CC of intermittent shortness of breath starting 2.5 hours ago. Differential diagnoses includes but is not limited to pneumonia, bronchitis, COPD/Asthma exacerbation, pneumothorax, pulmonary embolism, congestive heart failure, acute coronary syndrome. Patient was seen and evaluated the bedside. Patient was complaining of some shortness of breath and associated left upper extremity pain. The patient states that it is not severe but is similar to when he had prior PR. Patient has had 2 separate cardiac catheterizations that did require a total of 6 stents 3 to each time. The patient does not complain of chest pain. The patient does have some mild pretibial edema but is fairly unremarkable. Patient does not have any calf pain. No prior history of DVT or PE. The patient does follow with Dr. Henry. Patient did a blood work completed along with an EKG troponin chest x-ray. Patient has a normal white count. The patient's creatinine is more or less at baseline. Patient has an undetectable troponin. EKG does not show any acute ischemic change. Patient was given a nitro to see this as well as an anginal. Given the relatively early onset of symptoms I believe optimization, cardiac enzyme trending. I did speak with the patient discussed this and he is agreeable to stay. I did speak the on-call hospitalist who agreed to further evaluate treat the patient. Impression & Plan Shortness of breath Discharge Plan Visit Data *Final* Discharge Date/Time: 11/29/18 18:30 Chief Complaint: Cardiac Assessment Stated Complaint: SOB,PAIN IN LEFT ARM ED Provider: Mukund Lowery Discharge Problem: Shortness of breath Patient Disposition: Admitted As Inpatient Discharge Instructions Interventions: ED Discharge Assessment Last Done: 11/29/18 18:30 The scribe's documentation has been prepared under my direction and personally reviewed by me in its entirety. I confirm that the note above accurately reflects all work, treatment, procedures, and medical decision making performed by me.
[2018-11-29] MEDS: ZIPRASIDONE HCL 20 MG CAP PO SCH (19:43)
[2018-11-29] MEDS ORDERED: CITALOPRAM 20 MG TAB PO SCH (21:00)
[2018-11-29] MEDS ORDERED: TRAVOPROST Z 0.004% OPH SOLN 2.5 ML BTL OPB SCH (21:00)
[2018-11-29] MEDS ORDERED: ENOXAPARIN INJ 40 MG/0.4 ML SYR SQ SCH (21:00)
[2018-11-29] MEDS: INSULIN ASPART 100 UNITS/ML 3 ML PEN SC SCH (21:06)
[2018-11-30 03:38] LABS: Hematocrit (blood only) 37.9 % (42-52); Hemoglobin 13.2 g/dL (14.0-18.0); Mean Corpuscular Hgb Conc 34.8 g/dL (32-36); Mean Corpuscular Volume 93.8 fL (80-100); Mean Platelet Volume 10.4 fL (7.4-10.4); Platelet Count 144 K/uL (130-400); RDW Coefficient of Variation 14.1 % (11.5-14.5); RDW Standard Deviation 48.7 fL (36.4-46.3); Red Blood Count 4.04 M/uL (4.7-6.1); White Blood Count 4.56 K/uL (4.8-10.8)
[2018-11-30 03:55] LABS: BUN Creatinine Ratio 11.3 (10-20); Blood Urea Nitrogen 14 mg/dl (7-18); Calcium 8.1 mg/dl (8.5-10.1); Carbon Dioxide 26 mmol/L (21-32); Chloride 112 mmol/L (98-107); Creatinine Clr Calc Pharmacy 51.7 ml/min; Est GFR (Non-African American) 56.1; Glucose 86 mg/dl (70-99); Sodium 141 mmol/L (136-145)
[2018-11-30 04:00] LABS: Chol HDL Ratio 2; Cholesterol 91 mg/dl (0-200); HDL Cholesterol 49 mg/dl; LDL Cholesterol Calculated 29 mg/dl; Triglycerides 67 mg/dl (0-150); Troponin I < 0.015 ng/ml (0-0.045); VLDL Cholesterol 13 mg/dl
[2018-11-30 07:37] LABS: Estimated Average Glucose 117 mg/dl; Hemoglobin A1C 5.7 % (4.5-5.6)
[2018-11-30] MEDS: INSULIN ASPART 100 UNITS/ML 3 ML PEN SC SCH ×2 (08:40→13:08)
[2018-11-30] MEDS: ZIPRASIDONE HCL 20 MG CAP PO SCH (08:42)
[2018-11-30] MEDS ORDERED: TAMSULOSIN HCL 0.4 MG CAP PO SCH (09:00)
[2018-11-30] MEDS ORDERED: CLOPIDOGREL BISULFATE 75 MG TAB PO SCH (09:00)
[2018-11-30] MEDS ORDERED: ASPIRIN 81 MG ECTAB PO SCH (09:00)
[2018-11-30] MEDS ORDERED: LISINOPRIL 5 MG TAB PO SCH (09:00)
[2018-11-30] MEDS ORDERED: ATORVASTATIN 40 MG TAB PO SCH (09:00)
[2018-11-30] MEDS ORDERED: ISOSORBIDE MONO EXTENDED REL 30 MG TABCR PO SCH (09:00)
[2018-11-30] MEDS ORDERED: DOBUTamine HCL 12.5 MG/ML 20 ML VIAL IV ONE (12:03)
[2018-11-30] MEDS ORDERED: METOPROLOL TARTRATE 1 MG/ML VIAL IV ONE (12:03)
[2018-11-30] MEDS ORDERED: ATROPINE SULFATE 0.1 MG/ML 10ML SYR IV ONE (12:04)
--- NOTE | 2018-11-30 13:31 | Hospitalist Progress Note ---
Date of Service November 30, 2018 Assessment & Plan (1) Chest pain: This is a 73yo M with a PMH of CAD (s/p stents in 2011, 2014), DM II CKD III, paranoid schizophrenia and other medical problems listed below who presents after 2 episodes of chest pain at home that have since resolved. NON CARDIAC CHEST PAIN -H/o CAD with stents placed in 2011 and 2014 -Cardiac cath performed in August 2016 with patent stents, no intervention required -Given full dose aspirin in ED. and increased atorvastatin to 80mg when presented to the ED on 11/30/18 for chest pain. Pain symptoms appeared generally resolved or benign when assessed by admitting hospitalist -clear lung nicolas on X ray -negative troponins x 3, normal Left ventricular systolic function on echocardiogram with EF of 55-60%, and stress test that was not inducible for ischemia -patient was seen by blood bank assistant Dr. Reyes and cleared to go home -Patient recommended to resume home medications and should be on aspirin 81 mg and resume home dose atorvastatin 20 mg and follow up with primary care doctor 12/03/2018 2:40 PM Provider Horace Marc DO [facility] 01/15/2019 8:50 AM Provider Horace Marc DO [facility] 06/03/2019 3:00 PM Provider Abdi Henry DO Department Cardiology, [facility] (2) CAD (coronary artery disease): Continue aspirin, statin, Imdur -Intolerant to beta piedad due to history of symptomatic bradycardia (3) DM type 2 (diabetes mellitus, type 2): Type 2 diabetes mellitus without [place] [facility] current use of insulin and without complications HbA1c 5.7 -SSI while in-patient -patient may resume home dose metformin on discharge (4) CKD (chronic kidney disease), stage III: Kidney function at baseline (5) Dyslipidemia: -Given full dose aspirin in ED. and increased atorvastatin to 80mg when presented to the ED on 11/30/18 for chest pain. -given good lipid panel and acute coronary syndrome ruled out, the patient can continue atorvastatin 20 mg daily (6) Paranoid schizophrenia: on ziprasidone 60 mg BID patient cooperative on exam. no acute behavioral issues (7) Depression: on Celexa DVT Ppx: SQ Lovenox Code status: FULL Discharge Diagnosis non cardiac chest pain; Type 2 diabetes mellitus without filler leaf cutter long current use of insulin and without complications, chronic kidney disease stage 3 Subjective Patient seen and examined prior to stress test and no chest pain or symptoms. stress test was reported to be negative by blood bank assistant Dr. Reyes. patient seen after stress test and no symptoms. no chest pain. no shortness of breath. no palpitations. no dizziness. no headache. discharge plans discussed with patient and patient's at bedside Physical Exam Constitutional: WD/WN, vitals as above Eyes: PERRL, conjunctivae normal, anicteric sclerae EOM intact bilaterally ENMT: external ear and nose normal, oropharynx normal Neck: trachea midline, no thyromegaly normal visual inspection Respiratory: normal respiratory effort, lungs clear to auscultation Cardiovascular: RRR, no murmur, no edema Gastrointestinal (Abdomen): normal bowel sounds, soft, nontender, no hepatosplenomegaly Musculoskeletal: no cyanosis or clubbing, extremities motor strength 5/5 Head/Neck/Chest: normocephalic and head atraumatic Neurologic: PERRL, EOMI, accommodation nl, no face palsy, no dysarthria CN's II-XI intact bilaterally Psychiatric: A+Ox3, euthymic affect Results & Data Vital Signs (Past 12 Hours) Vital Signs Temp Pulse Pulse Resp BP Pulse Ox 11/30/18 11:08 36.5 C 72 19 123/68 95 11/30/18 07:44 64 11/30/18 07:29 36.7 C 62 20 138/83 95 11/30/18 03:56 36.6 C 65 19 138/73 93
--- NOTE | 2018-11-30 13:41 | Discharge Summary ---
Date of Service November 30, 2018 Admission HPI Per Admitting Provider This is a 73yo M with a PMH of CAD (s/p stents in 2011, 2014), DM II CKD III, paranoid schizophrenia and other medical problems listed below who presents after 2 episodes of chest pain at home that have since resolved. Patient was sitting at home this morning when he developed sharp pressure his chest with associated shortness of breath. Pain radiated down left arm and episode lasted a few minutes before resolving. Denies any associated diaphoresis, nausea or vomiting. Few hours later, patient was driving when pain returned, similar in character and duration 2 episode prior. Came to ED for further evaluation. Patient was given sublingual nitroglycerin and full dose aspirin to chew upon arrival. Pain has since resolved. Still feels a bit lightheaded when he sits upright. Denies fever, chills, headache, visual changes, cough, chest pain, palpitations, shortness of breath, abdominal pain, nausea, vomiting, dysuria, constipation or diarrhea. Has history of SAMARA to RCA and OM in 2011 as well as SAMARA to LAD and diagonal branch vessel in 2014. Is on aspirin and Plavix but states he has not taken aspirin for the past few months. Cardiac catheterization in 2017 revealed patent stents. Follows with Dr. Henry in clinic. Admission Exam Per Admitting Provider General Appearance: WD/WN, resting comfortably, no apparent distress Head: normocephalic, atraumatic Eyes: normal inspection, PERRL, EOMI ENT: hearing grossly normal, pharynx normal (moist mucous membranes) Neck: supple, no JVD, no adenopathy Respiratory/Chest: No chest wall tenderness. Lungs clear to auscultation. No wheezes, rales or rhonci. No respiratory distress or accessory muscle use Cardiovascular: regular rate, rhythm, no murmur, normal peripheral pulses Abdomen/GI: normal bowel sounds, soft, non-tender to palpation Extremities/Musculoskelatal: normal inspection, no calf tenderness, normal capillary refill, no pedal edema Neurologic/Psych: alert, normal mood/affect, oriented x 3 Skin: normal color, warm/dry Principal Diagnosis non cardiac chest pain; Type 2 diabetes mellitus without remote computer terminal operator current use of insulin and without complications, chronic kidney disease stage 3 Discharge Exam Constitutional WD/WN, vitals as above Eyes PERRL, conjunctivae normal, anicteric sclerae EOM intact bilaterally ENMT external ear and nose normal, oropharynx normal Neck trachea midline, no thyromegaly normal visual inspection Respiratory normal respiratory effort, lungs clear to auscultation Cardiovascular RRR, no murmur, no edema Gastrointestinal (Abdomen) normal bowel sounds, soft, nontender, no hepatosplenomegaly Musculoskeletal no cyanosis or clubbing, extremities motor strength 5/5 Head/Neck/Chest: normocephalic and head atraumatic Neurologic PERRL, EOMI, accommodation nl, no face palsy, no dysarthria CN's II-XI intact bilaterally Psychiatric A+Ox3, euthymic affect Discharge Data Allergies Allergy/AdvReac Type Severity Reaction Status Date / Time codeine Allergy Unknown UNKNOWN Verified 11/29/18 15:47 morphine Allergy Unknown unknown Verified 11/29/18 15:47 Consultations 11/29/18 16:22 ED Decision to Admit Stat 11/30/18 08:00 Consult Cardiology Routine Hospital Course (1) Chest pain: This is a 73yo M with a PMH of CAD (s/p stents in 2011, 2014), DM II CKD III, paranoid schizophrenia and other medical problems listed below who presents after 2 episodes of chest pain at home that have since resolved. NON CARDIAC CHEST PAIN -H/o CAD with stents placed in 2011 and 2014 -Cardiac cath performed in August 2016 with patent stents, no intervention required -Given full dose aspirin in ED. and increased atorvastatin to 80mg when presented to the ED on 11/30/18 for chest pain. Pain symptoms appeared generally resolved or benign when assessed by admitting hospitalist -clear lung nicolas on X ray -negative troponins x 3, normal Left ventricular systolic function on echocardiogram with EF of 55-60%, and stress test that was not inducible for ischemia -patient was seen by mirror polisher Dr. Reyes and cleared to go home -Patient recommended to resume home medications and should be on aspirin 81 mg and resume home dose atorvastatin 20 mg and follow up with primary care doctor 12/03/2018 2:40 PM Provider Horace Marc DO Department [facility] 01/15/2019 8:50 AM Provider DO David Ragsdale [facility] 06/03/2019 3:00 PM Provider Abdi Henry DO Department Cardiology, [facility] (2) CAD (coronary artery disease): Continue aspirin, statin, Imdur -Intolerant to beta piedad due to history of symptomatic bradycardia (3) DM type 2 (diabetes mellitus, type 2): Type 2 diabetes mellitus without remote computer terminal operator current use of insulin and without complications HbA1c 5.7 -SSI while in-patient -patient may resume home dose metformin on discharge (4) CKD (chronic kidney disease), stage III: Kidney function at baseline (5) Dyslipidemia: -Given full dose aspirin in ED. and increased atorvastatin to 80mg when presented to the ED on 11/30/18 for chest pain. -given good lipid panel and acute coronary syndrome ruled out, the patient can continue atorvastatin 20 mg daily (6) Paranoid schizophrenia: on ziprasidone 60 mg BID patient cooperative on exam. no acute behavioral issues (7) Depression: on Celexa DVT Ppx: SQ Lovenox Code status: FULL Discharge Diagnosis non cardiac chest pain; Type 2 diabetes mellitus without detention current use of insulin and without complications, chronic kidney disease stage 3 Total Time Total Time Spent Total Time Spent (In Minutes): 40 minutes Total Time Includes: Examination of the Patient, Discharge Planning, Medication Reconciliation and Communication With Other Providers Discharge Plan Discharge Items Patient Disposition: Home - Self-Care Reason For Visit: CHEST PAIN Discharge Diagnosis: non cardiac chest pain; Type 2 diabetes mellitus without detention current use of insulin and without complications, chronic kidney disease stage 3 Condition: Good Discharge Goals: Improve disease control Activity: Per 'Additional Instructions' section Non-emergency contact: Primary Care Provider Call non-emergency contact if: you have any medication questions Follow-up/Referrals: Horace Marc DO [Primary Care Provider] - Diet: Heart Healthy Addtl Provider Instructions: Patient was evaluated for chest pain with clear lung nicolas on X ray, negative troponins x 3, normal Left ventricular systolic function on echocardiogram with EF of 55-60%, and stress test that was not inducible for ischemia Patient recommended to resume home medications and should be on aspirin 81 mg and resume home dose atorvastatin 20 mg and follow up with primary care doctor 12/03/2018 2:40 PM Provider DO David Ragsdale [facility] 01/15/2019 8:50 AM Provider DO David Ragsdale [facility] 06/03/2019 3:00 PM Provider Abdi Henry DO Department Cardiology, [facility] Prescriptions: Continued atorvastatin [Lipitor] 40 mg tablet 20 mg PO HS RF: 0 metformin 500 mg Tablet 500 mg PO QAM RF: 0 isosorbide mononitrate 30 mg tablet extended release 24 hr 30 mg PO QAM RF: 0 Travatan Z 0.004 % drops 1 drp OPB HS RF: 0 clopidogrel [Plavix] 75 mg tablet 75 mg PO QAM RF: 0 aspirin [Aspir-81] 81 mg Tablet,Delayed Release (Dr/Ec) 81 mg PO DAILY RF: 0 citalopram [Celexa] 20 mg tablet 20 mg PO QPM RF: 0 nitroglycerin [Nitrostat] 0.4 mg tablet, sublingual 0.4 mg sublingual UD PRN (Reason: Chest Pain) RF: 0 lisinopril 5 mg tablet 5 mg PO DAILY RF: 0 ziprasidone HCl [Geodon] 60 mg capsule 60 mg PO BID RF: 0 tamsulosin [Flomax] 0.4 mg capsule 0.4 mg PO DAILY RF: 0 albuterol sulfate [ProAir HFA] 90 mcg/actuation HFA aerosol inhaler 2 puff inhalation QID PRN (Reason: Shortness Of Breath Or Wheezing) RF: 0 Stand-Alone Forms: [facility] Discharge Orders: Discharge Order (Routine); Ordered 11/30/18 Ordered By: Javier Church Admission Data Admit Date/Time: 11/29/18 16:50 Attending Provider: Javier Church Admit Provider: Clare Singleton Primary Care Provider: Horace Marc Other Providers: Clare Singleton ; Hossein Reyes Service: Telemetry
--- NOTE | 2018-11-30 14:41 | Consultation Report ---
DATE OF CONSULTATION: 11/30/2018 INPATIENT CARDIOLOGY CONSULTATION CONSULTATION REQUESTED BY: Elmer Ghosh PA-C. REASON FOR CONSULTATION: Chest pain. HISTORY OF PRESENT ILLNESS: Mr. Bill is a 73-year-old gentleman who normally follows with Dr. Henry of our cardiology practice, who presented to [facility] on 11/29/2018 with complaints of chest pain. The patient states he was sitting at home in his normal state of health on the morning of presentation when he suddenly developed a sharp stabbing chest pain in the center of his chest. He states it felt as though a knife was plunged into his chest and he became short of breath with this. He states that the pain radiated down his left arm and lasted for a few moments. He states it was somewhat but not completely similar to the pain he had prior to his previous PCIs. Upon presentation to [facility], he has been symptom free and ischemic workup has been unremarkable so far. Of note, the patient states that a few months ago he stopped taking his aspirin due to concern for GI upset, but he has continued his Plavix. He neglected to mention this to Dr. Henry at his last visit on 11/13. PAST SURGICAL HISTORY: 1. PCI to the RCA and OM in 2011. 2. Drug-eluting stent to the LAD and diagonal in 2014. 3. Acute stent thrombosis with balloon angioplasty of the LAD and a second bare-metal stent implant to the diagonal. 4. Cardiac catheterization in 2016 with a negative FFR of the proximal LAD lesion. 5. Colonoscopies. 6. Tonsillectomy as a child. MEDICAL ILLNESSES: 1. Coronary artery disease with multiple PCIs. 2. Diabetes. 3. Depression. 4. Paranoid schizophrenia. 5. GERD. 6. History of beta piedad intolerance with significant bradycardia. 7. Asthma. FAMILY HISTORY: Noncontributory. SOCIAL HISTORY: Denies any alcohol, tobacco or recreational drug use. REVIEW OF SYSTEMS: As per HPI, all other review of systems are reviewed and negative at this time. ALLERGIES: 1. CODEINE. 2. MORPHINE. MEDICATIONS AN OUTPATIENT: 1. Aspirin 81 mg daily, again not taking for several months. 2. Plavix 75 mg daily. 3. Lisinopril 5 mg daily. 4. Imdur 30 mg daily. 5. Atorvastatin 20 mg daily. 6. Celexa. 7. Geodon. 8. Flomax. PHYSICAL EXAMINATION: VITAL SIGNS: Temperature 36.5, pulse 72, respiratory rate 12, blood pressure 123/68. GENERAL: Awake, alert, oriented x3, in no acute distress, flattened affect. HEENT: Normocephalic, atraumatic. Pupils equal, round, reactive to light and accommodation. Extraocular muscles intact. Anicteric sclerae. Moist mucous membranes. NECK: No JVD, no bruit. CARDIOVASCULAR: Regular. Positive S4. Normal S1 and S2. No S3. No murmurs or rubs. PULMONARY: Clear to auscultation bilaterally. No rales, rhonchi, or wheezing. ABDOMEN: Bowel sounds x4, soft. No rebound, guarding, or tenderness. No organomegaly. EXTREMITIES: No clubbing, cyanosis or edema. +2 pedal pulses bilaterally. SKIN: Warm and dry. TEST RESULTS: Laboratory studies of significance: Troponin negative x3. A 12-lead EKG performed in the Emergency Department independently reviewed at this time shows normal sinus rhythm at 81 beats per minute, normal axis, normal intervals, no signs of active ischemia, normal study. Dobutamine stress echocardiogram was nonischemic. IMPRESSION: 1. Chest pain with nonischemic dobutamine stress echocardiogram. 2. Extensive coronary artery disease, stable. 3. Paranoid schizophrenia. 4. Diabetes. RECOMMENDATIONS: It was my pleasure to see Mr. Bill in consultation today. From a cardiac standpoint, given the fact that his stress test was nonischemic, no further cardiac testing or intervention is necessary at this time, and the pain does not appear to be ischemic in nature. It is okay for the patient to be discharged to home from a cardiac standpoint. I would recommend followup with his primary care provider for further evaluation of the discomfort. Otherwise, he should follow up with Dr. Henry as regularly scheduled in May. His aspirin will be restarted today. Otherwise, no other medication changes will be made.
== END 2018-11-30 14:41 | disposition home or self-care (01) ==
LOC: 2E 15:09 → ED 15:09 → SUATTDRO 16:50 → 2E 18:30

== ENCOUNTER 2020-09-08 21:31 | Inpatient (IN) ==
--- NOTE | 2020-09-08 21:59 | Emergency Department Note ---
Impression & Plan Acute respiratory distress, Hypoxia, Pneumonia due to 2019 novel coronavirus, Acute kidney injury, Acidosis, lactic, Acute non-ST elevation myocardial infarction (NSTEMI) ED Provider Note NAME: ROMI QUIROGA AGE: 75 SEX: M : 1945 ARRIVES VIA: Ambulance INFORMANT: Patient, the patient's significant other, the prehospital personnel ED PROVIDER(S): Saqib Huitron DO CHIEF COMPLAINT: Shortness of breath HPI: The patient is a 75-year-old male who presented to the emergency department by ambulance for shortness of breath. The patient was experiencing shortness of breath since yesterday according to his significant other. The patient describes a very severe shortness of breath. He has had a slight cough. He denies having any fever. The patient has had no recent traveling. The patient was found to have very agonal respirations. He was placed on BiPAP prior to arrival. His initial oxygen saturation was noted to be in the 20s. It was then improved into the 70s on supplemental oxygen and positive pressure ventilation. The patient states the symptoms began yesterday and have been slowly worsening. He has no history of venous thromboembolic disease. He denies having any chest pain. He denies having any fever. The patient has no recent trauma. His symptoms are moderate to severe. They are mildly improved after the BiPAP. ROS: See above HPI for pertinent positives & negatives. A total of 10 systems reviewed and were otherwise negative. PAST MEDICAL HISTORY: See Below PAST SURGICAL HISTORY: See Below FAMILY HISTORY: See Below SOCIAL HISTORY: See Below HOME MEDICATIONS: See Below ALLERGIES: See Below VITALS: See Below PHYSICAL EXAMINATION: GENERAL: The patient is awake and alert. The patient is very anxious appearing. EYES: The conjunctivae are clear. The pupils are round and reactive. EARS, NOSE, MOUTH AND THROAT: The nose is without any evidence of any deformity. NECK: The neck is nontender and supple. RESPIRATORY: Shallow respirations were noted. Diminished breath sounds are noted in the right lung field. There were rales in the left lung field. CARDIOVASCULAR: Tachycardic rate with regular rhythm was noted. There is no definite murmur. GASTROINTESTINAL: The abdomen was moderately distended. There was no tenderness guarding or rigidity. MUSCULOSKELETAL/EXTREMITIES: There is no evidence of gross deformity full range of motion is noted in the hips and shoulders. SKIN: There is no obvious evidence of any rash. Trace pedal edema was noted bilaterally. NEUROLOGIC: Patient is awake alert and oriented x3. MEDICAL DECISION MAKING: The patient is a 75-year-old male who presented to the emergency department with respiratory distress. The patient was found to be hypoxic in the field. He was placed on positive pressure ventilation. He arrived at the emergency department significantly improved. I discussed the patient's laboratory and radiographic studies with him. [facility] At this time the patient's condition is significantly improved. He was treated with IV fluids IV Decadron and IV antibiotics. The patient may require IV heparin given the elevated troponin. He also may require a CT of the chest to rule out pulmonary venous thromboembolic disease but given the elevated creatinine I do not feel the CAT scan should be done at this time. Triage Nursing notes reviewed. Prior medical records reviewed Vital Signs: reviewed and remarkable for hypotension, tachycardia, tachypnea and hypoxia. Differential diagnosis: Reactive airway disease, pneumonia, pneumothorax, COPD, CHF, infections, cardiac ischemia, pulmonary embolism, musculoskeletal, gastrointestinal, as well as other pathologies. ER treatment provided: See below Diagnostics interpreted by me: ECG: EKG was obtained in the emergency department. My interpretation is sinus tachycardia at 119 bpm. There was no ectopy. There is diffuse ST segment abnormalities noted. This was compared to a tracing from November 302018. The ST segment abnormalities are new compared to the previous tracing. Cardiac Monitoring: An order was placed for continuous cardiac monitoring. The monitor shows a rate of 110 bpm with sinus tachycardia rhythm. Laboratory studies: As stated above and show below. Imaging studies: See below Consultation(s): I discussed this case with Dr. Godwin who [facility] He will evaluate the patient. ED COURSE: Procedures: none PDMP:reviewed and no issues Critical Care: I have personally spent greater than 45 minutes of critical care time in the direct management of this patient. This includes bedside care, interpretation of diagnostic studies, and testing, discussion with consultants, patient, and family members, and other required patient management activities. This 45 minutes is in excess of all separately billable procedures. Past Med/Surg History Medical History CAD (coronary artery disease) "echo 08/29/2013- LV EF =50-55%" CKD (chronic kidney disease), stage III Depression DM type 2 (diabetes mellitus, type 2) Duodenal ulcer "seen on EGD with GI bleeding 08/2013" Dyslipidemia GERD (gastroesophageal reflux disease) Glaucoma Paranoid schizophrenia Surgical History H/O colonoscopy Hx of heart artery stent SAMARA to RCA and OM in 2011 SAMARA to LAD and diagonal branch vessel in 2014 S/P cardiac cath "10/20/2011- SAMARA to RCA and OM 12/10/2014- SAMARA to LAD and diagonal branch vessel. 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 diagonal branch vessel" S/P tonsillectomy and adenoidectomy Family History Other Cancer Diabetes Hypertension Social History Smoking Status: Unknown if ever smoked Second Hand Exposure: No; Hx Alcohol Use: No Hx Substance Use: No Preferred Language: Bengali Communication Ability: Effective Beliefs That Will Affect Care: None marital status: Current Living Situation: Spouse current occupational status: retired Feels Safe at Home: Yes Assistive Devices: Glasses Allergies Allergies Allergy/AdvReac Type Severity Reaction Status Date / Time codeine Allergy Unknown UNKNOWN Verified 09/08/20 22:48 morphine Allergy Unknown unknown Verified 09/08/20 22:48 Home Meds Home Medications Medication Instructions Recorded Confirmed albuterol sulfate [ProAir HFA] 2 puff INHALATION Q4 PRN 09/08/20 09/08/20 aspirin [Baby Aspirin] 81 mg PO DAILY 09/08/20 09/08/20 atorvastatin [Lipitor] 20 mg PO QPM 09/08/20 09/08/20 citalopram 20 mg PO HS 09/08/20 09/08/20 clopidogrel 75 mg PO DAILY 09/08/20 09/08/20 cyclobenzaprine 10 mg PO UD PRN 09/08/20 09/08/20 isosorbide mononitrate 30 mg PO DAILY 09/08/20 09/08/20 lisinopril 5 mg PO DAILY 09/08/20 09/08/20 nitroglycerin [Nitrostat] 0.4 mg SUBLINGUAL UD PRN 09/08/20 09/08/20 tamsulosin 0.4 mg PO DAILY 09/08/20 09/08/20 triamcinolone acetonide 1 applic TOPICAL BID 09/08/20 09/08/20 ziprasidone HCl [Geodon] 60 mg PO BID 09/08/20 09/08/20 Results & Data (ED) Vital Signs Vital Signs - 24 hr 09/08/20 21:37 09/08/20 21:51 09/08/20 21:59 Temperature 36.1 C L Temperature Source Temporal Artery Scan Pulse Rate 111 H 117 H Pulse Rate from SpO2 Sensor Respiratory Rate 36 H 32 H Respiratory Effort / Characteristics Spontaneous Labored Respiratory Depth Deep Respiratory Pattern Tachypnea Blood Pressure 120/87 Blood Pressure Mean 98 Pulse Oximetry 97 98 97 Oxygen Delivery Method CPAP CPAP Oxygen Flow Rate 98 Fraction of Inspired Oxygen 100 Sepsis Recent Fever Within 48 Hours No Sepsis New/Unexplained Change in Mental Status N/A Sepsis Action Taken by Nursing Physician Notified 09/08/20 22:02 09/08/20 22:17 09/08/20 22:30 Temperature Temperature Source Pulse Rate 111 H 110 H Pulse Rate from SpO2 Sensor 112 H 110 H Respiratory Rate 32 H 31 H Respiratory Effort / Characteristics Labored Respiratory Depth Respiratory Pattern Blood Pressure 93/62 L 94/64 L Blood Pressure Mean 72 74 Pulse Oximetry 97 92 Oxygen Delivery Method CPAP CPAP Oxygen Flow Rate Fraction of Inspired Oxygen Sepsis Recent Fever Within 48 Hours Sepsis New/Unexplained Change in Mental Status Sepsis Action Taken by Nursing 09/08/20 23:00 09/08/20 23:30 09/09/20 00:00 Temperature Temperature Source Pulse Rate 107 H 101 H 108 H Pulse Rate from SpO2 Sensor 108 H 101 H 108 H Respiratory Rate 16 20 25 H Respiratory Effort / Characteristics Respiratory Depth Respiratory Pattern Blood Pressure 88/63 L 79/53 L 92/71 L Blood Pressure Mean 71 61 78 Pulse Oximetry 92 92 94 Oxygen Delivery Method BiPAP Oxygen Flow Rate Fraction of Inspired Oxygen 100 Sepsis Recent Fever Within 48 Hours Sepsis New/Unexplained Change in Mental Status Sepsis Action Taken by Nursing 09/09/20 00:30 09/09/20 00:59 09/09/20 01:00 Temperature Temperature Source Pulse Rate 108 H 109 H 110 H Pulse Rate from SpO2 Sensor 107 H 111 H Respiratory Rate 19 22 21 Respiratory Effort / Characteristics Non-Labored Spontaneous Respiratory Depth Normal Respiratory Pattern Regular Blood Pressure 109/68 120/78 Blood Pressure Mean 81 92 Pulse Oximetry 96 93 94 Oxygen Delivery Method BiPAP Oxygen Flow Rate Fraction of Inspired Oxygen 90 90 Sepsis Recent Fever Within 48 Hours Sepsis New/Unexplained Change in Mental Status Sepsis Action Taken by Nursing 09/09/20 01:30 09/09/20 01:31 09/09/20 02:00 Temperature Temperature Source Pulse Rate 108 H 105 H 104 H Pulse Rate from SpO2 Sensor 107 H 105 H 105 H Respiratory Rate 21 20 32 H Respiratory Effort / Characteristics Respiratory Depth Respiratory Pattern Blood Pressure 112/78 108/76 Blood Pressure Mean 89 86 Pulse Oximetry 92 91 89 L Oxygen Delivery Method BiPAP Oxygen Flow Rate Fraction of Inspired Oxygen 90 Sepsis Recent Fever Within 48 Hours Sepsis New/Unexplained Change in Mental Status Sepsis Action Taken by [facility] Medications Current Medication List: was personally reviewed by me Laboratory Data Attestation: I reviewed the patient's lab results. Result diagrams: 09/08/20 22:03 09/09/20 00:20 Lab Results 09/08/20 09/08/20 09/08/20 Range/Units 21:50 21:50 22:00 WBC (4.8-10.8) K/uL RBC (4.7-6.1) M/uL Hgb (14.0-18.0) g/dL Hct (42-52) % MCV (80-100) fL MCH (25-34) pg MCHC (32-36) g/dL RDW Std Deviation (36.4-46.3) fL RDW Coeff of Shilo (11.5-14.5) % Plt Count (130-400) K/uL MPV (7.4-10.4) fL Immature Gran % (Auto) % Neut % (Auto) % Lymph % (Auto) % [place] % (Auto) % Eos % (Auto) % Baso % (Auto) % Neut # (Auto) (1.4-6.5) K/uL Lymph # (Auto) (1.2-3.4) K/uL [place] # (Auto) (0.11-0.59) K/uL Eos # (Auto) (0-0.5) K/uL Baso # (Auto) (0-0.2) K/uL Immature Gran # (Auto) (0.00-0.02) K/uL ESR (0-14) mm/hr PT (9.0-12.0) Seconds INR (0.9-1.1) APTT (21.0-31.0) Seconds PTT Ratio D-Dimer (0-500) ug/L FEU VBG pH (7.36-7.41) VBG pCO2 (38-50) mmHg VBG pO2 mmHg VBG HCO3 mmol/L VBG O2 Saturation % VBG Base Excess mEq/L Barometric Pressure mm/Hg Sodium (136-145) mmol/L Potassium (3.5-5.1) mmol/L Chloride (98-107) mmol/L Carbon Dioxide (21-32) mmol/L Anion Gap (3-11) BUN (7-18) mg/dl Creatinine (0.6-1.4) mg/dl Est Cr Clr Drug Dosing ml/min Est GFR ( Amer) Est GFR (Non-Af Amer) BUN/Creatinine Ratio (10-20) Glucose (70-99) mg/dl Lactate (0.4-2.0) mmol/L Calcium (8.5-10.1) mg/dl Magnesium (1.8-2.4) mg/dl Total Bilirubin (0.2-1) mg/dl AST (15-37) U/L ALT (12-78) U/L Alkaline Phosphatase (45-117) U/L Troponin I (0-0.045) ng/ml C-Reactive Protein (0-0.29) mg/dl NT-Pro-B Natriuret Pep (0-900) pg/ml Total Protein (6.4-8.2) gm/dl Albumin (3.4-5.0) gm/dl Globulin (2.5-4.0) gm/dl Albumin/Globulin Ratio (0.9-2) Procalcitonin 0.40 (0-0.5) ng/ml COVID-19 Eval Order CovFluRsv at [facility] SARS-CoV-2 (PCR) POSITIVE A* (Negative) Influenza Type A (PCR) Negative (Neg) Influenza Type B (PCR) Negative (Neg) RSV (RT-PCR) Negative (Neg) Blood Type Antibody Screen 09/08/20 09/08/20 09/08/20 Range/Units 22:03 22:03 22:03 WBC 7.99 (4.8-10.8) K/uL RBC 4.06 L (4.7-6.1) M/uL Hgb 13.7 L (14.0-18.0) g/dL Hct 39.2 L (42-52) % MCV 96.6 (80-100) fL MCH 33.7 (25-34) pg MCHC 34.9 (32-36) g/dL RDW Std Deviation 49.7 H (36.4-46.3) fL RDW Coeff of Shilo 13.9 (11.5-14.5) % Plt Count 139 (130-400) K/uL MPV 9.8 (7.4-10.4) fL Immature Gran % (Auto) 0.3 % Neut % (Auto) 88.2 % Lymph % (Auto) 7.5 % [place] % (Auto) 3.9 % Eos % (Auto) 0.0 % Baso % (Auto) 0.1 % Neut # (Auto) 7.05 H (1.4-6.5) K/uL Lymph # (Auto) 0.60 L (1.2-3.4) K/uL [place] # (Auto) 0.31 (0.11-0.59) K/uL Eos # (Auto) 0.00 (0-0.5) K/uL Baso # (Auto) 0.01 (0-0.2) K/uL Immature Gran # (Auto) 0.02 (0.00-0.02) K/uL ESR 41 H (0-14) mm/hr PT 10.5 (9.0-12.0) Seconds INR 1.0 (0.9-1.1) APTT 28.5 (21.0-31.0) Seconds PTT Ratio 1.1 D-Dimer 2550 H* (0-500) ug/L FEU VBG pH (7.36-7.41) VBG pCO2 (38-50) mmHg VBG pO2 mmHg VBG HCO3 mmol/L VBG O2 Saturation % VBG Base Excess mEq/L Barometric Pressure mm/Hg Sodium (136-145) mmol/L Potassium (3.5-5.1) mmol/L Chloride (98-107) mmol/L Carbon Dioxide (21-32) mmol/L Anion Gap (3-11) BUN (7-18) mg/dl Creatinine (0.6-1.4) mg/dl Est Cr Clr Drug Dosing ml/min Est GFR ( Amer) Est GFR (Non-Af Amer) BUN/Creatinine Ratio (10-20) Glucose (70-99) mg/dl Lactate (0.4-2.0) mmol/L Calcium (8.5-10.1) mg/dl Magnesium (1.8-2.4) mg/dl Total Bilirubin (0.2-1) mg/dl AST (15-37) U/L ALT (12-78) U/L Alkaline Phosphatase (45-117) U/L Troponin I (0-0.045) ng/ml C-Reactive Protein (0-0.29) mg/dl NT-Pro-B Natriuret Pep (0-900) pg/ml Total Protein (6.4-8.2) gm/dl Albumin (3.4-5.0) gm/dl Globulin (2.5-4.0) gm/dl Albumin/Globulin Ratio (0.9-2) Procalcitonin (0-0.5) ng/ml COVID-19 Eval Order SARS-CoV-2 (PCR) (Negative) Influenza Type A (PCR) (Neg) Influenza Type B (PCR) (Neg) RSV (RT-PCR) (Neg) Blood Type Antibody Screen 09/08/20 09/08/20 09/08/20 Range/Units 22:03 22:03 22:09 WBC (4.8-10.8) K/uL RBC (4.7-6.1) M/uL Hgb (14.0-18.0) g/dL Hct (42-52) % MCV (80-100) fL MCH (25-34) pg MCHC (32-36) g/dL RDW Std Deviation (36.4-46.3) fL RDW Coeff of Shilo (11.5-14.5) % Plt Count (130-400) K/uL MPV (7.4-10.4) fL Immature Gran % (Auto) % Neut % (Auto) % Lymph % (Auto) % [place] % (Auto) % Eos % (Auto) % Baso % (Auto) % Neut # (Auto) (1.4-6.5) K/uL Lymph # (Auto) (1.2-3.4) K/uL [place] # (Auto) (0.11-0.59) K/uL Eos # (Auto) (0-0.5) K/uL Baso # (Auto) (0-0.2) K/uL Immature Gran # (Auto) (0.00-0.02) K/uL ESR (0-14) mm/hr PT (9.0-12.0) Seconds INR (0.9-1.1) APTT (21.0-31.0) Seconds PTT Ratio D-Dimer (0-500) ug/L FEU VBG pH 7.32 L (7.36-7.41) VBG pCO2 38 (38-50) mmHg VBG pO2 28 mmHg VBG HCO3 19 mmol/L VBG O2 Saturation < 60.0 % VBG Base Excess -6.8 mEq/L Barometric Pressure 731.5 mm/Hg Sodium 137 (136-145) mmol/L Potassium 5.0 (3.5-5.1) mmol/L Chloride 106 (98-107) mmol/L Carbon Dioxide 19 L (21-32) mmol/L Anion Gap 12.0 H (3-11) BUN 32 H (7-18) mg/dl Creatinine 2.34 H (0.6-1.4) mg/dl Est Cr Clr Drug Dosing 26.1 ml/min Est GFR ( Amer) 30.6 Est GFR (Non-Af Amer) 26.4 BUN/Creatinine Ratio 13.7 (10-20) Glucose 165 H (70-99) mg/dl Lactate 6.8 H* (0.4-2.0) mmol/L Calcium 7.1 L (8.5-10.1) mg/dl Magnesium 2.5 H (1.8-2.4) mg/dl Total Bilirubin 0.6 (0.2-1) mg/dl AST 66 H (15-37) U/L ALT 36 (12-78) U/L Alkaline Phosphatase 70 (45-117) U/L Troponin I 4.200 H* (0-0.045) ng/ml C-Reactive Protein 13.70 H (0-0.29) mg/dl NT-Pro-B Natriuret Pep 428 (0-900) pg/ml Total Protein 5.9 L (6.4-8.2) gm/dl Albumin 2.7 L (3.4-5.0) gm/dl Globulin 3.2 (2.5-4.0) gm/dl Albumin/Globulin Ratio 0.8 L (0.9-2) Procalcitonin (0-0.5) ng/ml COVID-19 Eval Order SARS-CoV-2 (PCR) (Negative) Influenza Type A (PCR) (Neg) Influenza Type B (PCR) (Neg) RSV (RT-PCR) (Neg) Blood Type Antibody Screen 09/09/20 09/09/20 09/09/20 Range/Units 00:20 00:20 00:20 WBC (4.8-10.8) K/uL RBC (4.7-6.1) M/uL Hgb (14.0-18.0) g/dL Hct (42-52) % MCV (80-100) fL MCH (25-34) pg MCHC (32-36) g/dL RDW Std Deviation (36.4-46.3) fL RDW Coeff of Shilo (11.5-14.5) % Plt Count (130-400) K/uL MPV (7.4-10.4) fL Immature Gran % (Auto) % Neut % (Auto) % Lymph % (Auto) % [place] % (Auto) % Eos % (Auto) % Baso % (Auto) % Neut # (Auto) (1.4-6.5) K/uL Lymph # (Auto) (1.2-3.4) K/uL [place] # (Auto) (0.11-0.59) K/uL Eos # (Auto) (0-0.5) K/uL Baso # (Auto) (0-0.2) K/uL Immature Gran # (Auto) (0.00-0.02) K/uL ESR (0-14) mm/hr PT (9.0-12.0) Seconds INR (0.9-1.1) APTT (21.0-31.0) Seconds PTT Ratio D-Dimer (0-500) ug/L FEU VBG pH (7.36-7.41) VBG pCO2 (38-50) mmHg VBG pO2 mmHg VBG HCO3 mmol/L VBG O2 Saturation % VBG Base Excess mEq/L Barometric Pressure mm/Hg Sodium 138 (136-145) mmol/L Potassium 4.4 (3.5-5.1) mmol/L Chloride 109 H (98-107) mmol/L Carbon Dioxide 22 (21-32) mmol/L Anion Gap 7.0 (3-11) BUN 34 H (7-18) mg/dl Creatinine 2.03 H D (0.6-1.4) mg/dl Est Cr Clr Drug Dosing 30.1 ml/min Est GFR ( Amer) 36.3 Est GFR (Non-Af Amer) 31.4 BUN/Creatinine Ratio 16.6 (10-20) Glucose 146 H (70-99) mg/dl Lactate 2.3 H* (0.4-2.0) mmol/L Calcium 6.7 L (8.5-10.1) mg/dl Magnesium (1.8-2.4) mg/dl Total Bilirubin (0.2-1) mg/dl AST (15-37) U/L ALT (12-78) U/L Alkaline Phosphatase (45-117) U/L Troponin I 16.600 H* (0-0.045) ng/ml C-Reactive Protein (0-0.29) mg/dl NT-Pro-B Natriuret Pep (0-900) pg/ml Total Protein (6.4-8.2) gm/dl Albumin (3.4-5.0) gm/dl Globulin (2.5-4.0) gm/dl Albumin/Globulin Ratio (0.9-2) Procalcitonin (0-0.5) ng/ml COVID-19 Eval Order SARS-CoV-2 (PCR) (Negative) Influenza Type A (PCR) (Neg) Influenza Type B (PCR) (Neg) RSV (RT-PCR) (Neg) Blood Type A Positive Antibody Screen NEGATIVE Administered Medications Lactated Ringer's (Lr) 1,000 mls @ 200 mls/hr IV .Q5H STA Stop: 09/09/20 06:01 Last Admin: 09/09/20 01:02 Dose: 200 mls/hr Documented by: [id number] Heparin Sodium/Dextrose (Heparin Sodium/Dextrose) 25,000 units in 500 mls @ 24 mls/hr IV .[id number] [facility]; Protocol Stop: 10/09/20 01:14 Last Admin: 09/09/20 01:15 Dose: 1,200 units/hr, 24 mls/hr Documented by: [id number] Cosigned by: [id number] Discontinued Medications Dexamethasone Sodium Phosphate (DexamethasonePf 10 Mg/Ml Vial) 10 mg IV NOW ONE Stop: 09/08/20 22:50 Last Admin: 09/08/20 23:06 Dose: 10 mg Documented by: [id number] Heparin Sodium/Dextrose (Heparin Iv Standard *No* Bolus) 1 ea N/A NOW STA; Protocol Stop: 09/09/20 01:05 Last Admin: 09/09/20 01:18 Dose: 1 ea Documented by: [id number] Heparin Sodium/Dextrose (Heparin 70944 Unit/500 Ml D5w) Confirm Administered Dose 25,000 units IV .STK-MED ONE Stop: 09/09/20 01:11 Last Admin: 09/09/20 01:26 Dose: Not Given Documented by: [id number] Sodium Chloride (Nss 1000ml) 500 mls @ 999 mls/hr IV .Q31M ONE Stop: 09/08/20 22:40 Last Infusion: 09/08/20 23:07 Dose: 0 mls/hr Documented by: [id number] Admin: 09/08/20 22:13 Dose: 999 mls/hr Documented by: [id number] Piperacillin Sod/Tazobactam Sod (Zosyn) 4.5 gm in 120 mls @ 240 mls/hr IV NOW ONE Stop: 09/08/20 23:18 Last Infusion: 09/08/20 23:48 Dose: 0 mls/hr Documented by: [id number] Admin: 09/08/20 23:06 Dose: 240 mls/hr Documented by: [id number] Sodium Chloride (Nss) 500 mls @ 999 mls/hr IV .Q31M ONE Stop: 09/08/20 23:19 Last Infusion: 09/08/20 23:48 Dose: 0 mls/hr Documented by: [id number] Admin: 09/08/20 23:06 Dose: 999 mls/hr Documented by: [id number] Sodium Chloride (Nss 1000ml) 1,000 mls @ 999 mls/hr IV .Q1H1M ONE Stop: 09/09/20 00:22 Last Infusion: 09/09/20 00:56 Dose: 0 mls/hr Documented by: [id number] Admin: 09/08/20 23:47 Dose: 999 mls/hr Documented by: [id number] Sodium Chloride (Nss 1000ml) 1,000 mls @ 200 mls/hr IV .Q5H ONE Stop: 09/09/20 04:27 Last Admin: 09/09/20 00:56 Dose: Not Given Documented by: [id number] Sodium Chloride (Nss 1000ml) 1,000 mls @ 200 mls/hr IV .Q5H STA Stop: 09/09/20 04:33 Last Admin: 09/09/20 00:56 Dose: Not Given Documented by: [id number] Calcium Gluconate 1,000 mg/ (Sodium Chloride) 60 mls @ 240 mls/hr IV NOW STA Stop: 09/08/20 23:57 Last Infusion: 09/09/20 00:40 Dose: 0 mls/hr Documented by: [id number] Admin: 09/09/20 00:24 Dose: 240 mls/hr Documented by: [id number] Imaging Data Attestation: I personally reviewed and interpreted this imaging study as follows: My Impression: 1 view chest x-ray was obtained in the emergency department. My interpretation is bilateral hazy infiltrates noted left greater than right. There is no free air, poor inspiratory effort was noted. Discharge Plan Visit Data Chief Complaint: Shortness of Breath/Dyspnea Stated Complaint: HYPOXIA, SOB ED Provider: Saqib Huitron Discharge Problem: Acute respiratory distress, Hypoxia, Pneumonia due to 2019 novel coronavirus, Acute kidney injury, Acidosis, lactic, Acute non-ST elevation myocardial infarction (NSTEMI) Patient Disposition: Admitted As Inpatient Condition: Good Forms Stand Alone Forms: My [facility] Prescriptions Prescriptions: No Action cyclobenzaprine 10 mg Tablet 10 mg PO UD PRN (Reason: Muscle Spasm) RF: 0 atorvastatin [Lipitor] 40 mg tablet 20 mg PO QPM RF: 0 isosorbide mononitrate 30 mg tablet extended release 24 hr 30 mg PO DAILY RF: 0 clopidogrel 75 mg tablet 75 mg PO DAILY RF: 0 citalopram 20 mg tablet 20 mg PO HS RF: 0 tamsulosin 0.4 mg capsule 0.4 mg PO DAILY RF: 0 triamcinolone acetonide 0.1 % ointment 1 applic TOPICAL BID RF: 0 nitroglycerin [Nitrostat] 0.4 mg Tablet, Sublingual 0.4 mg sublingual UD PRN (Reason: Chest Pain) RF: 0 aspirin [Baby Aspirin] 81 mg Tablet,Chewable 81 mg PO DAILY RF: 0 lisinopril 5 mg tablet 5 mg PO DAILY RF: 0 albuterol sulfate [ProAir HFA] 90 mcg/actuation Hfa Aerosol Inhaler 2 puff INHALATION Q4 PRN (Reason: Wheezing) RF: 0 ziprasidone HCl [Geodon] 60 mg capsule 60 mg PO BID RF: 0 Referrals Referrals: Horace Marc DO [Primary Care Provider] -
[2020-09-08] MEDS ORDERED: SODIUM CHLORIDE 0.9% 1000ML 500 ML IV ONE (22:10)
[2020-09-08 22:16] LABS: Basophils # (auto) 0.01 K/uL (0-0.2); Basophils % (auto) 0.1 %; Hematocrit (blood only) 39.2 % (42-52); Hemoglobin 13.7 g/dL (14.0-18.0); Immature Granulocytes # (auto) 0.02 K/uL (0.00-0.02); Immature Granulocytes % (auto) 0.3 %; Lymphocytes % (auto) 7.5 %; Mean Corpuscular Hemoglobin 33.7 pg (25-34); Mean Corpuscular Hgb Conc 34.9 g/dL (32-36); Mean Corpuscular Volume 96.6 fL (80-100); Mean Platelet Volume 9.8 fL (7.4-10.4); Monocytes # (auto) 0.31 K/uL (0.11-0.59); Monocytes % (auto) 3.9 %; Neutrophils # (auto) 7.05 K/uL (1.4-6.5); Neutrophils % (auto) 88.2 %; Platelet Count 139 K/uL (130-400); RDW Coefficient of Variation 13.9 % (11.5-14.5); RDW Standard Deviation 49.7 fL (36.4-46.3); Red Blood Count 4.06 M/uL (4.7-6.1); White Blood Count 7.99 K/uL (4.8-10.8)
[2020-09-08 22:19] LABS: Base Excess VBG -6.8 mEq/L; HCO3 VBG 19 mmol/L; PCO2 VBG 38 mmHg (38-50); PO2 VBG 28 mmHg; pH VBG 7.32 (7.36-7.41)
[2020-09-08 22:22] LABS: Oxygen Saturation VBG < 60.0 %
[2020-09-08 22:31] LABS: Partial Thromboplastin Ratio 1.1; Partial Thromboplastin Time 28.5 Seconds (21.0-31.0); Prothrombin Time 10.5 Seconds (9.0-12.0)
[2020-09-08 22:36] LABS: Influenza A virus by PCR Negative (Neg); Influenza B virus by PCR Negative (Neg); RSV by PCR Negative (Neg)
[2020-09-08 22:38] LABS: D Dimer 2550 ug/L FEU (0-500)
[2020-09-08 22:48] LABS: SARS CoV2 RNA(COVID-19) InHosp POSITIVE (Negative)
[2020-09-08] MEDS ORDERED: PIPERACILLIN/TAZOBACTAM 4.5 GM/120 ML BAG IV ONE (22:49)
[2020-09-08] MEDS ORDERED: PIPERACILL/TAZOBAC CONSULT ACTIVE PRN (22:49)
[2020-09-08] MEDS ORDERED: SODIUM CHLORIDE 0.9% 500 ML IV ONE (22:49)
[2020-09-08] MEDS ORDERED: dexAMETHasone**PF** 10 MG/ML VIAL IV ONE (22:49)
[2020-09-08 23:09] LABS: Albumin Level 2.7 gm/dl (3.4-5.0); BUN Creatinine Ratio 13.7 (10-20); Calcium 7.1 mg/dl (8.5-10.1); Creatinine Clr Calc Pharmacy 26.1 ml/min; Est GFR (African American) 30.6; Est GFR (Non-African American) 26.4; Magnesium 2.5 mg/dl (1.8-2.4)
[2020-09-08] MEDS ORDERED: SODIUM CHLORIDE 0.9% 1000ML 1,000 ML IV ONE ×2 (23:22→23:28)
[2020-09-08] MEDS ORDERED: LEVALBUTEROL TARTRATE 15 GM HFA.AER.AD INH STA (23:23)
[2020-09-08 23:25] LABS: Albumin Globulin Ratio 0.8 (0.9-2); Bilirubin,Total 0.6 mg/dl (0.2-1); C Reactive Protein 13.7 mg/dl (0-0.29); Globulin 3.2 gm/dl (2.5-4.0); Total Protein 5.9 gm/dl (6.4-8.2); Troponin I 4.2 ng/ml (0-0.045)
[2020-09-08] MEDS ORDERED: ALBUMIN 25% 12.5 GM/50 ML VIAL IV SCH (23:30)
[2020-09-08] MEDS ORDERED: SODIUM CHLORIDE 0.9% 1000ML 1,000 ML IV STA (23:34)
[2020-09-08] MEDS ORDERED: CALCIUM GLUCONATE 10% 1,000 MG in SODIUM CHLORIDE 0.9% 50 ML IV STA (23:43)
--- NOTE | 2020-09-09 00:33 | History & Physical Report ---
Date of Service September 09, 2020 Assessment & Plan (1) Acute hypoxemic respiratory failure: Severe COVID-19 pneumonia Rule out pulmonary embolism given troponin elevation HTN, patient hypotensive upon arrival at the ER Improved BP post initial fluid resuscitation at the ER ARF on CRI, lactic acidosis secondary to illness hx CAD status post stenting schizophrenia/depression at baseline Hyperglycemia, possible prediabetes, hemoglobin A1c of 5.08 December 2019 PCU Continue BiPAP Decadron indicated for severe COVID-19 pneumonia Remdesivir first dose once kidney function improves. Pulmonology consult if without improvement in a.m. IVF, follow lactic acid Appropriate to hold antihypertensives for now given hypotension Follow troponin TTE Re: Troponin elevation IV heparin for presumptive PE/DVT until PE work-up results known LE venous Dopplers rule out DVT, CT angio currently precluded by kidney dysfunction Check hemoglobin A1c DVT prophylaxis. IV heparin Full code Patient's requesting updates from providers. Ms. Geeta Bill, contact #[phone]. Total critical care time was 45 minutes. Text document was generated using [employer] voice recognition software. It may contain grammatical or spelling errors. Kindly contact undersigned for clarification of any documentation item in question. History of Present Illness Chief Complaint: Shortness of breath Primary Care Provider: Horace Marc, History obtained from patient, family, and records. Medical history significant for CAD status post stenting, hypertension, hyperlipidemia, CRI (baseline creatinine 1.7), schizophrenia, depression. Last confinement November 2018 for chest pain. 2 days history of dry cough symptoms with worsening shortness of breath, poor appetite. No chest pain. No fever. Some chills. No known recent COVID-19 contacts. Patient noted to be in respiratory distress upon EMS arrival at home. O2 sats 20s as per report. BiPAP initiated by EMS. Patient hypotensive upon arrival at the ER. Decadron and Zosyn given at the ER. SBP currently 100s. Patient feeling much better. MEDICAL HISTORY: As above. SURGERIES: He has had tonsillectomy, adenoidectomy, cataract surgery, goniotomy FAMILY HISTORY: heart disease, diabetes. PERSONAL AND SOCIAL HISTORY: Nonsmoker, no chronic intake of alcoholic beverages. Retired [employer]/ vet. Allergies Allergy/AdvReac Type Severity Reaction Status Date / Time codeine Allergy Unknown UNKNOWN Verified 09/08/20 22:48 morphine Allergy Unknown unknown Verified 09/08/20 22:48 Home Medications Medication Instructions Recorded Confirmed Type albuterol sulfate [ProAir HFA] 2 puff INHALATION Q4 PRN 09/08/20 09/08/20 History aspirin [Baby Aspirin] 81 mg PO DAILY 09/08/20 09/08/20 History atorvastatin [Lipitor] 20 mg PO QPM 09/08/20 09/08/20 History citalopram 20 mg PO HS 09/08/20 09/08/20 History clopidogrel 75 mg PO DAILY 09/08/20 09/08/20 History cyclobenzaprine 10 mg PO UD PRN 09/08/20 09/08/20 History isosorbide mononitrate 30 mg PO DAILY 09/08/20 09/08/20 History lisinopril 5 mg PO DAILY 09/08/20 09/08/20 History nitroglycerin [Nitrostat] 0.4 mg SUBLINGUAL UD PRN 09/08/20 09/08/20 History tamsulosin 0.4 mg PO DAILY 09/08/20 09/08/20 History triamcinolone acetonide 1 applic TOPICAL BID 09/08/20 09/08/20 History ziprasidone HCl [Geodon] 60 mg PO BID 09/08/20 09/08/20 History Past Med/Surg History Medical History CAD (coronary artery disease) "echo 08/29/2013- LV EF =50-55%" CKD (chronic kidney disease), stage III Depression DM type 2 (diabetes mellitus, type 2) Duodenal ulcer "seen on EGD with GI bleeding 08/2013" Dyslipidemia GERD (gastroesophageal reflux disease) Glaucoma Paranoid schizophrenia Surgical History H/O colonoscopy Hx of heart artery stent SAMARA to RCA and OM in 2011 SAMARA to LAD and diagonal branch vessel in 2014 S/P cardiac cath "10/20/2011- SAMARA to RCA and OM 12/10/2014- SAMARA to LAD and diagonal branch vessel. 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" S/P tonsillectomy and adenoidectomy Family History Other Cancer Diabetes Hypertension Social History Smoking Status: Never smoker Second Hand Exposure: No; Hx Alcohol Use: No Hx Substance Use: No Preferred Language: Romansh Communication Ability: Effective Climate Change Analyst Required: No Beliefs That Will Affect Care: None marital status: Current Living Situation: Spouse current occupational status: retired Other Information That Helps Us Care for You: No Feels Safe at Home: Yes Safety Concerns: Feels Safe At This Time Assistive Devices: Denture - Upper and Denture - Lower Review of Systems Review of Systems: As per HPI, all 10 systems reviewed, all other ROS negative Physical Exam Physical Exam: GENERAL: Slightly anxious and uncomfortable, no respiratory distress SKIN: Normal color, warm HEENT: Alopecia, pink palpebral conjunctivae, no ptosis, dry buccal mucosa, BiPAP in place NECK : Supple, no tenderness CHEST : Decreased breath sounds, occasional expiratory wheezes, no tenderness HEART : Tachycardic, no obvious murmurs ABDOMEN: Some distention, nontender EXTREMITIES : No LE swelling/tenderness, no other conspicuous deformities noted NEUROLOGIC : Coherent, no facial asymmetry, no other gross focality Results & Data Results & Data ([facility]) Vital Signs (Past 12 Hours) Vital Signs Temp Pulse Resp BP Pulse Ox 09/09/20 00:30 108 H 19 109/68 96 09/09/20 00:00 108 H 25 H 92/71 L 94 09/08/20 23:30 101 H 20 79/53 L 92 09/08/20 23:00 107 H 16 88/63 L 92 09/08/20 22:30 110 H 31 H 94/64 L 92 09/08/20 22:02 111 H 32 H 93/62 L 97 09/08/20 21:59 117 H 32 H 97 09/08/20 21:51 98 09/08/20 21:37 36.1 C L 111 H 36 H 120/87 97 Laboratory Results Laboratory Results WBC 7.99 K/uL (4.8-10.8) 09/08/20 22:03 RBC 4.06 M/uL (4.7-6.1) L 09/08/20 22:03 Hgb 13.7 g/dL (14.0-18.0) L 09/08/20 22:03 Hct 39.2 % (42-52) L 09/08/20 22:03 MCV 96.6 fL (80-100) 09/08/20 22:03 MCH 33.7 pg (25-34) 09/08/20 22:03 MCHC 34.9 g/dL (32-36) 09/08/20 22:03 RDW Std Deviation 49.7 fL (36.4-46.3) H 09/08/20 22:03 RDW Coeff of Shilo 13.9 % (11.5-14.5) 09/08/20 22:03 Plt Count 139 K/uL (130-400) 09/08/20 22:03 MPV 9.8 fL (7.4-10.4) 09/08/20 22:03 Immature Gran % (Auto) 0.3 % 09/08/20 22:03 Neut % (Auto) 88.2 % 09/08/20 22:03 Lymph % (Auto) 7.5 % 09/08/20 22:03 [place] % (Auto) 3.9 % 09/08/20 22:03 Eos % (Auto) 0.0 % 09/08/20 22:03 Baso % (Auto) 0.1 % 09/08/20 22:03 Neut # (Auto) 7.05 K/uL (1.4-6.5) H 09/08/20 22:03 Lymph # (Auto) 0.60 K/uL (1.2-3.4) L 09/08/20 22:03 [place] # (Auto) 0.31 K/uL (0.11-0.59) 09/08/20 22:03 Eos # (Auto) 0.00 K/uL (0-0.5) 09/08/20 22:03 Baso # (Auto) 0.01 K/uL (0-0.2) 09/08/20 22:03 Immature Gran # (Auto) 0.02 K/uL (0.00-0.02) 09/08/20 22:03 ESR 41 mm/hr (0-14) H 09/08/20 22:03 PT 10.5 Seconds (9.0-12.0) 09/08/20 22:03 INR 1.0 (0.9-1.1) 09/08/20 22:03 APTT 28.5 Seconds (21.0-31.0) 09/08/20 22:03 PTT Ratio 1.1 09/08/20 22:03 D-Dimer 2550 ug/L FEU (0-500) H* 09/08/20 22:03 VBG pH 7.32 (7.36-7.41) L 09/08/20 22:03 VBG pCO2 38 mmHg (38-50) 09/08/20 22:03 VBG pO2 28 mmHg 09/08/20 22:03 VBG HCO3 19 mmol/L 09/08/20 22:03 VBG O2 Saturation < 60.0 % 09/08/20 22:03 VBG Base Excess -6.8 mEq/L 09/08/20 22:03 Barometric Pressure 731.5 mm/Hg 09/08/20 22:03 Sodium 137 mmol/L (136-145) 09/08/20 22:09 Potassium 5.0 mmol/L (3.5-5.1) 09/08/20 22:09 Chloride 106 mmol/L (98-107) 09/08/20 22:09 Carbon Dioxide 19 mmol/L (21-32) L 09/08/20 22:09 Anion Gap 12.0 (3-11) H 09/08/20 22:09 BUN 32 mg/dl (7-18) H 09/08/20 22:09 Creatinine 2.34 mg/dl (0.6-1.4) H 09/08/20 22:09 Est Cr Clr Drug Dosing 26.1 ml/min 09/08/20 22:09 Est GFR ( Amer) 30.6 09/08/20 22:09 Est GFR (Non-Af Amer) 26.4 09/08/20 22:09 BUN/Creatinine Ratio 13.7 (10-20) 09/08/20 22:09 Glucose 165 mg/dl (70-99) H 09/08/20 22:09 Lactate 6.8 mmol/L (0.4-2.0) H* 09/08/20 22:03 Calcium 7.1 mg/dl (8.5-10.1) L 09/08/20 22:09 Magnesium 2.5 mg/dl (1.8-2.4) H 09/08/20 22:09 Total Bilirubin 0.6 mg/dl (0.2-1) 09/08/20 22:09 AST 66 U/L (15-37) H 09/08/20 22:09 ALT 36 U/L (12-78) 09/08/20 22:09 Alkaline Phosphatase 70 U/L (45-117) 09/08/20 22:09 Troponin I 4.200 ng/ml (0-0.045) H* 09/08/20 22:09 C-Reactive Protein 13.70 mg/dl (0-0.29) H 09/08/20 22:09 NT-Pro-B Natriuret Pep 428 pg/ml (0-900) 09/08/20 22:09 Total Protein 5.9 gm/dl (6.4-8.2) L 09/08/20 22:09 Albumin 2.7 gm/dl (3.4-5.0) L 09/08/20 22:09 Globulin 3.2 gm/dl (2.5-4.0) 09/08/20 22:09 Albumin/Globulin Ratio 0.8 (0.9-2) L 09/08/20 22:09 Procalcitonin 0.40 ng/ml (0-0.5) 09/08/20 22:00 COVID-19 Eval [address] CovFluRsv at [facility] 09/08/20 21:50 SARS-CoV-2 (PCR) POSITIVE (Negative) A* 09/08/20 21:50 Influenza Type A (PCR) Negative (Neg) 09/08/20 21:50 Influenza Type B (PCR) Negative (Neg) 09/08/20 21:50 RSV (RT-PCR) Negative (Neg) 09/08/20 21:50 Diagnostic Findings Chest x-ray as per my interpretation bilateral opacities EKG could not be located at time of dictation
[2020-09-09 00:48] LABS: BUN Creatinine Ratio 16.6 (10-20); Calcium 6.7 mg/dl (8.5-10.1); Creatinine Clr Calc Pharmacy 30.1 ml/min; Est GFR (African American) 36.3; Est GFR (Non-African American) 31.4; Potassium 4.4 mmol/L (3.5-5.1)
[2020-09-09 01:01] LABS: Troponin I 16.6 ng/ml (0-0.045)
[2020-09-09] MEDS ORDERED: LACTATED RINGER'S 1,000 ML IV STA (01:02)
[2020-09-09] MEDS ORDERED: Heparin IV Adult Wt-Based Standard *NO* Bolus Protocol STA (01:04)
[2020-09-09] MEDS ORDERED: HEPARIN 25000 UNIT/500 ML D5W IV ONE (01:10)
[2020-09-09] MEDS: HEPARIN SODIUM/DEXTROSE 25,000 UNITS/500 ML BAG IV SCH (01:15)
[2020-09-09] MEDS ORDERED: REMDESIVIR 200 MG in SODIUM CHLORIDE 0.9% 210 ML IV STA (02:16)
[2020-09-09] MEDS ORDERED: NSS 30mL Flush, Days 1-5 IV SCH (02:45)
[2020-09-09] MEDS ORDERED: ACETAMINOPHEN 325 MG TAB PO PRN (03:52)
[2020-09-09] MEDS ORDERED: PROMETHAZINE HCL 12.5 MG in SODIUM CHLORIDE 0.9% 50 ML IV PRN (03:52)
[2020-09-09] MEDS ORDERED: traMADol HCL 50 MG TABLET PO PRN (03:52)
--- NOTE | 2020-09-09 04:34 | Communication Note ---
Date of Service: September 09, 2020 Made aware by RN of worsening respiratory distress on BiPAP. Transfer to ICU for closer monitoring and potential intubation. Case discussed with ICU provider, Cyrus Williamson PA-C.
[2020-09-09] MEDS: dexAMETHasone 6 MG in SYRINGE 0 ML IV SCH (05:02)
[2020-09-09] MEDS ORDERED: RAPID SEQUENCE INDUCTION BAG ONE (05:03)
[2020-09-09] MEDS ORDERED: STAT IV Infusion **Titration per Protocol STA ×2 (05:04→05:57)
[2020-09-09] MEDS ORDERED: PHENYLEPHRINE 100MCG/ML 5ML SYR IV PRN (05:05)
--- NOTE | 2020-09-09 05:06 | Critical Care Consultation ---
Date of Consultation September 09, 2020 Assessment & Plan (1) Admitted to intensive care unit: Reason Critically Ill: Patient is a 75-year-old male with acute hypoxic respiratory failure in the setting of COVID-19 pneumonia requiring emergent endotracheal and close ongoing monitoring. NEURO - * CAM ICU: Initially negative. Now sedated. * Sedation: Versed * Pain: Fentanyl * Paralytic: Nimbex CARDIAC/VASCULAR - * NSTEMI: * Troponin trending up from 4 --> 16 * Heparin gtt started in the setting of ??cardiac ischemia vs. PE vs. demand * Trend troponins. * EKGs as needed. * Borderline Hypotension: * Initially responded to IV fluids. * Will start on Levophed as sedation has caused acute hypotension. * Monitor on telemetry. RESPIRATORY - * Acute hypoxic respiratory failure: * Secondary to COVID-19 pneumonia. * Failed noninvasive ventilatory techniques. * Emergently intubated. * Patient currently proned * PRONE AT 0630. * ARDSNet protocol currently. * Wean down settings as tolerated. * Currently on Dex, remdesivir. * Tocilizumab added per attending. GI/NUTRITION - * OG in place. * Prophylaxis: Famotidine RENAL/LYTES - * EDUARD on CKD III: * Initially responded well to IVF. * Making great amounts of urine currently. - * Colvin in place - Strict I&Os. ENDO - * DMII * BSGs per unit protocol. ISS --> gtt per unit policy. HEME - * Stable H&H ID - * COVID-19 Pneumonia: * Initially treated w/ Zosyn, Decadron, remdesivir. * Will add Tocilizumab as patient meets criteria. * PCT initially not elevated. * Lactate trending down. LINES/IV ACCESS - * PIVs x2 * LEFT Subclavian CVL * LEFT Radial Arterial Line * Colvin * ET Tube * OG DVT PROPHYLAXIS - * Heparin gtt * SCDs I have personally spent 65 minutes of critical care time in the direct management of this patient. This is a life/limb threatening event. This includes time spent evaluating patient, direct bedside care, chart review, placing or ders, interpretation of diagnostic studies, discussion with consultants, patient, and family members, as well as other required patient management activities. This time is exclusive of all separately billable procedures, and teaching time and separate from and in addition to any other critical care service time. Thank you for allowing us to participate in the care of this patient. Please refer to my attending physician's documentation for any further recommendations. (2) Acute hypoxemic respiratory failure: (3) Pneumonia due to 2019 novel coronavirus: (4) Hypoxia: (5) Acute respiratory distress: (6) Acute kidney injury: (7) Acute non-ST elevation myocardial infarction (NSTEMI): (8) Acidosis, lactic: (9) CAD (coronary artery disease): (10) DM type 2 (diabetes mellitus, type 2): (11) CKD (chronic kidney disease), stage III: (12) Duodenal ulcer: History of Present Illness Attending Physician: Andreas Branch MD History of Present Illness Patient is a 75-year-old male with a significant past medical history of coronary artery disease, hypertension, hyperlipidemia, CKD 3, and diabetes who presented to the emergency department today in respiratory distress. Patient developed shortness of breath acutely on 46. His symptoms worsened which promp robert him to contact EMS. Upon EMS arrival, the patient was noted to be saturating in the 20s apparently. He was placed on CPAP at 100% in route and his saturations improved to the 70s. His symptoms apparently stabilized while in the emergency department and they were able to trend down his FiO2 slightly. Patient was noted to have an elevated troponin of 4 which did bump to 16. Patient was placed on a heparin drip with concern for coronary injury versus possible PE. Patient was noted to decompensate upon arrival in room 209. Patient became increasingly hypoxic and tachypneic. He was long and ashen. I was contacted by hospitalist for evaluation for admission to the ICU. Upon evaluation at the bedside, the patient is awake, alert, and oriented. He is in respiratory distress on BiPAP with high settings at 100%. He is saturating in the high 80s. Patient reports feeling tired and is having continued complaints of difficulty with breathing. He denies any complaints of chest pain. He denies any palpitations. Otherwise, HPI and ROS limited secondary to current state of extremis. Allergies Allergy/AdvReac Type Severity Reaction Status Date / Time codeine Allergy Unknown UNKNOWN Verified 09/08/20 22:48 morphine Allergy Unknown unknown Verified 09/08/20 22:48 Home Medications Medication Instructions Recorded Confirmed Type albuterol sulfate [ProAir HFA] 2 puff INHALATION Q4 PRN 09/08/20 09/08/20 History aspirin [Baby Aspirin] 81 mg PO DAILY 09/08/20 09/08/20 History atorvastatin [Lipitor] 20 mg PO QPM 09/08/20 09/08/20 History citalopram 20 mg PO HS 09/08/20 09/08/20 History clopidogrel 75 mg PO DAILY 09/08/20 09/08/20 History cyclobenzaprine 10 mg PO UD PRN 09/08/20 09/08/20 History isosorbide mononitrate 30 mg PO DAILY 09/08/20 09/08/20 History lisinopril 5 mg PO DAILY 09/08/20 09/08/20 History nitroglycerin [Nitrostat] 0.4 mg SUBLINGUAL UD PRN 09/08/20 09/08/20 History tamsulosin 0.4 mg PO DAILY 09/08/20 09/08/20 History triamcinolone acetonide 1 applic TOPICAL BID 09/08/20 09/08/20 History ziprasidone HCl [Geodon] 60 mg PO BID 09/08/20 09/08/20 History Patient History Medical History CAD (coronary artery disease) "echo 08/29/2013- LV EF =50-55%" CKD (chronic kidney disease), stage III Depression DM type 2 (diabetes mellitus, type 2) Duodenal ulcer "seen on EGD with GI bleeding 08/2013" Dyslipidemia GERD (gastroesophageal reflux disease) Glaucoma Paranoid schizophrenia Surgical History H/O colonoscopy Hx of heart artery stent SAMARA to RCA and OM in 2011 SAMARA to LAD and diagonal branch vessel in 2014 S/P cardiac cath "10/20/2011- SAMARA to RCA and OM 12/10/2014- SAMARA to LAD and diagonal branch vessel. 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" S/P tonsillectomy and adenoidectomy Family History Other Cancer Diabetes Hypertension Social History Smoking Status: Never smoker Second Hand Exposure: No; Hx Alcohol Use: No Hx Substance Use: No Preferred Language: Citizen [place] Communication Ability: Effective Custodial Maintenance Worker Required: No Beliefs That Will Affect Care: None marital status: Current Living Situation: Spouse current occupational status: retired Other Information That Helps Us Care for You: No Feels Safe at Home: Yes Safety Concerns: Feels Safe At This Time Assistive Devices: Denture - Upper and Denture - Lower Review of Systems Review of Systems: A complete 10 point review of systems was reviewed with the patient with pertinent positives and negatives as per history of present illness. All else were negative. Physical Exam Physical Exam: VITAL SIGNS - Vital signs and nursing notes were reviewed. GENERAL - 75-year-old male appearing his stated age who is in significant respiratory distress. SKIN - Without rashes. HEAD - NC/AT. EYES - PERRL with EOMI bilaterally. Sclera anicteric. EARS - No deformities of external structures noted on gross examination bilaterally. NOSE - Midline and without cyanosis. No epistaxis or purulent drainage noted. MOUTH/OROPHARYNX - Without perioral cyanosis. NECK - Neck with FROM. Supple to palpation. No nuchal rigidity. LUNGS -tachypneic and in respiratory distress. Accessory muscle use noted. Coarse breath sounds noted. CARDIAC - RRR with S1/S2. No murmur, rubs, or gallops appreciated. ABDOMEN - Abdominal contour protuberant without pulsations or visible masses. BS normoactive all four quadrants. No tenderness, palpable masses, hepatosplenomegaly, or ascites noted. EXTREMITIES - No clubbing or peripheral cyanosis. No pretibial edema present. +3/5 radial and dorsalis pedis pulses palpated throughout. NEUROLOGIC - Cranial nerves II through XII grossly intact. PSYCH - A&Ox3 and cooperates fully with examiner. Results & Data Results & Data ([facility]) Vital Signs (Past 12 Hours) Vital Signs Temp Pulse Pulse Resp BP BP Pulse Ox 09/09/20 03:33 119 H 35 H 88 L 09/09/20 03:15 37 C 115 H 30 H 135/84 88 L 09/09/20 02:30 106 H 32 H 108/83 88 L 09/09/20 02:00 104 H 32 H 108/76 89 L 09/09/20 01:31 105 H 20 112/78 91 09/09/20 01:30 108 H 21 92 09/09/20 01:00 110 H 21 120/78 94 09/09/20 00:59 109 H 22 93 09/09/20 00:30 108 H 19 109/68 96 09/09/20 00:00 108 H 25 H 92/71 L 94 09/08/20 23:30 101 H 20 79/53 L 92 09/08/20 23:00 107 H 16 88/63 L 92 09/08/20 22:30 110 H 31 H 94/64 L 92 09/08/20 22:02 111 H 32 H 93/62 L 97 09/08/20 21:59 117 H 32 H 97 09/08/20 21:51 98 09/08/20 21:37 36.1 C L 111 H 36 H 120/87 97 Coding Level of Care Code Critical Care 1st 30-74 mins Diagnoses Admitted to intensive care unit Z78.9 Acute hypoxemic respiratory failure J96.01 Pneumonia due to 2019 novel coronavirus U07.1; J12.82 Hypoxia R09.02 Acute respiratory distress R06.03 Acute kidney injury N17.9 Acute non-ST elevation myocardial infarction (NSTEMI) I21.4 Acidosis, lactic E87.2 CAD (coronary artery disease) I25.10 DM type 2 (diabetes mellitus, type 2) E11.9 CKD (chronic kidney disease), stage III N18.3 Duodenal ulcer K26.9 Time Spent (min) 65
[2020-09-09] MEDS ORDERED: ICU PROTOCOL FOR HYPERGLYCEMIA PRN (05:15)
[2020-09-09] MEDS ORDERED: NOREPINEPHRINE/D5W 8 MG/508 ML IV ONE (05:16)
[2020-09-09] MEDS ORDERED: PROPOFOL IV EMULSION 10 MG/ML 100 ML VIAL IV ONE (05:40)
[2020-09-09] MEDS: NOREPINEPHRINE/D5W 8 MG/508 ML BAG IV SCH (05:40)
[2020-09-09] MEDS ORDERED: ROCURONIUM BROMIDE 10 MG/ML 5 ML VIAL IV ONE (05:55)
[2020-09-09] MEDS ORDERED: SUCCINYLCHOLINE CHLORIDE 20 MG/ML 10 ML VIAL IV ONE (05:55)
[2020-09-09] MEDS ORDERED: ETOMIDATE 2 MG/ML 20 ML VIAL IV ONE (05:55)
[2020-09-09] MEDS ORDERED: CISATRACURIUM BESYLATE 40 MG in 0.9 % SODIUM CHLORIDE 80 ML IV SCH (06:00)
[2020-09-09] MEDS ORDERED: LACTATED RINGER'S 1,000 ML IV SCH (06:00)
[2020-09-09] MEDS ORDERED: TOCILIZUMAB 400 MG, TOCILIZUMAB 200 MG in 0.9 % SODIUM CHLORIDE 70 ML IV ONE (06:00)
[2020-09-09] MEDS ORDERED: MIDAZOLAM HCL 125MG/250ML D5W ONE (06:02)
[2020-09-09] MEDS: MIDAZOLAM HCL 125 MG/250 ML BAG IV PRN (06:15)
[2020-09-09 06:30] LABS: Hematocrit (blood only) 38.2 % (42-52); Hemoglobin 13.4 g/dL (14.0-18.0); Immature Granulocytes # (auto) 0.03 K/uL (0.00-0.02); Immature Granulocytes % (auto) 0.3 %; Lymphocytes # (auto) 0.61 K/uL (1.2-3.4); Lymphocytes % (auto) 5.7 %; Mean Corpuscular Hemoglobin 33.6 pg (25-34); Mean Corpuscular Hgb Conc 35.1 g/dL (32-36); Mean Corpuscular Volume 95.7 fL (80-100); Mean Platelet Volume 10.3 fL (7.4-10.4); Monocytes # (auto) 0.68 K/uL (0.11-0.59); Monocytes % (auto) 6.4 %; Neutrophils # (auto) 9.36 K/uL (1.4-6.5); Neutrophils % (auto) 87.6 %; Platelet Count 150 K/uL (130-400); RDW Coefficient of Variation 14.1 % (11.5-14.5); RDW Standard Deviation 49.9 fL (36.4-46.3); Red Blood Count 3.99 M/uL (4.7-6.1); White Blood Count 10.68 K/uL (4.8-10.8)
[2020-09-09 06:34] LABS: Base Excess ABG -6.8 mEq/L (-9-1.8); HCO3 ABG 18 mmol/L (19-24); Oxygen Saturation ABG 94.8 % (90-95); PCO2 ABG 35 mmHg (35-46); PO2 ABG 74 mmHg (80-95); pH ABG 7.33 (7.35-7.45)
[2020-09-09 06:35] LABS: Allen Test A LINE (Pos)
[2020-09-09] MEDS: CISATRACURIUM BESYLATE 40 MG in 0.9 % SODIUM CHLORIDE 80 ML IV SCH ×2 (06:37→17:00)
--- NOTE | 2020-09-09 06:44 | XRay Report ---
XR chest 1V portable HISTORY: 75 years-old Male s/p intubation/CVL acute respiratory failure COMPARISON: Chest radiograph of same day at 4:22 AM TECHNIQUE: Portable AP view of the chest FINDINGS: Cardiac silhouette is enlarged. Endotracheal tube overlies the midline, 4.7 cm superior to the kathy . Left subclavian central venous catheter distal tip terminates in the expected location of the mid S VC. Extensive bilateral mixed interstitial and alveolar opacities appear stable to slightly improved. No pneumothorax. The lateral left costophrenic angle is excluded from the [id number]. Mild blunti ng of the costophrenic angles. Degenerative changes of the shoulders and spine. IMPRESSION: 1. Endotracheal tube terminates 4.7 cm superior to the kathy. 2. Left subclavian central venous catheter distal tip terminates in the region of the mid SVC. 3. Extensive bilateral mixed interstitial and alveolar opacities redemonstrated. ACT 112: Negative or not required by law. The above report was generated using voice recognition software. It may contain grammatical, syntax o r spelling errors. Electronically signed by: Alexandr Pena M.D. 09/09/2020 6:42 AM
--- NOTE | 2020-09-09 06:46 | XRay Report ---
XR chest 1V portable HISTORY: 75 years-old Male SEPSIS acute sepsis COMPARISON: Chest radiograph 11/29/2018 TECHNIQUE: Portable AP view of the chest FINDINGS: Cardiac silhouette is mildly enlarged. No pneumothorax or large pleural effusion. Mild diffuse reticu lar interstitial opacities. Degenerative changes of the shoulders and spine. IMPRESSION: Mild diffuse bilateral reticular interstitial opacities suggestive of interstitial pneumo nitis versus pulmonary edema. ACT 112: Negative or not required by law. The above report was generated using voice recognition software. It may contain grammatical, syntax o r spelling errors. Electronically signed by: Alexandr Pena M.D. 09/09/2020 6:44 AM
[2020-09-09] MEDS ORDERED: LEVALBUTEROL TARTRATE 15 GM HFA.AER.AD INH SCH (07:00)
[2020-09-09 07:08] LABS: BUN Creatinine Ratio 18.6 (10-20); Calcium 7.1 mg/dl (8.5-10.1); Creatinine Clr Calc Pharmacy 38.2 ml/min; Est GFR (African American) 43.5; Est GFR (Non-African American) 37.5; Potassium 4.7 mmol/L (3.5-5.1)
[2020-09-09 07:10] LABS: Troponin I 24.3 ng/ml (0-0.045)
--- NOTE | 2020-09-09 07:34 | Procedure Note ---
Procedure Note Date of Service September 09, 2020 APC: Cyrus Williamson PA-C. Attending: Dr. Garcia A time-out was completed verifying correct patient, procedure, site, positioning. Patient was evaluated and required intubation for respiratory failure in the setting of COVID-19 Pneumonia. Sedative agent used: Etomidate Paralysis agent used: Succinylcholine Emergent consent was implied given patients rapidly declining clinical status and need for airway protection. The patient was prepared in the appropriate fashion. Sedation was achieved utilizing Etomidate and Succinylcholine, per Dr. Garcia administration. The patient was easily ventilated using [id number] to achieve adequate oxygenation. A 7.5 Ivorian endotracheal tube was placed using video laryngoscope to 24 cm at the lip. The stylette was removed and balloon was inflated with 10mL of air. Appropriate Colorimetric change was appreciated. Bilateral breath sounds were heard without air sounds in the abdomen. Patient did desaturate into the 60s to 70s transiently but was brought up with aggressive bagging and high oxygen flow rates. Patient normalized when placed on ventilator and was with SaO2's in the 80s Dr. Garcia was present for the entire procedure. Post Intubation Chest X-ray confirms placement without pneumothorax. Patient tolerated the procedure well and there were no immediate complications. Coding CPT Codes Resuscitation - Resuscitation: 02328 Endotracheal Intubation, emergency ([id number]) [facility] [place] ([place]arges) Resuscitation Resuscitation: 67367 Endotracheal Intubation, emergency
[2020-09-09] MEDS: fentaNYL DRIP 1,250 MCG/250 ML BAG IV SCH (07:39)
--- NOTE | 2020-09-09 07:48 | Procedure Note ---
Procedure Note Date of Service September 09, 2020 Procedure: Arterial Line Placement Attending: Dr. Garcia APC: Cyrus Williamson PA-C Indication: Monitoring on Pressors Anesthesia: Lidocaine 1% Emergent consent implied in the setting of need for close hemodynamic monitoring and the patient in respiratory failure with COVID-19 pneumonia requiring frequent ABGs and pronation therapy. A time-out was completed verifying correct patient, procedure, site, positioning, and implant(s) or special equipment if applicable. Allens test was performed to ensure adequate perfusion. Patients LEFT wrist was prepped and draped in the usual sterile fashion. Ultrasound guidance was used to aid needle placement. A 20g Arrow arterial line was introduced into the LEFT Radial artery. Catheter was threaded, and the needle was removed with appropriate blood return. Good waveform was observed. The patient tolerated the procedure well. Images saved to medical record. Blood Loss: Minimal Complications: None Procedural Ultrasound Guidance: Procedure Date: 09/09/2020 Indication: ABGs, Pressors, frequent lab draws. Attending: Dr. Garcia APC: Cyrus Williamson PA-C Artery Identified: YES Line confirmed in Artery with ultrasound: YES Complications: NONE Patient tolerated procedure: WELL Coding CPT Codes Tubes, Drains, and Vasc Access - Tubes, Drains, and Vasc Access: [id number] Place Catheter In Artery ([id number]) [facility] [place]) Tubes, Drains, and Vasc Access Procedure 1: Tubes, Drains, and Vasc Access: [id number] Place Catheter In Artery
[2020-09-09 08:22] LABS: Partial Thromboplastin Ratio 1.8
[2020-09-09 08:23] LABS: Partial Thromboplastin Time 47.3 Seconds (21.0-31.0)
[2020-09-09] MEDS ORDERED: LEVALBUTEROL HCL 0.63 MG/3 ML NEB NEB PRN (08:28)
--- NOTE | 2020-09-09 08:44 | XRay Report ---
XR chest 1V portable CLINICAL HISTORY: low o2 COMPARISON STUDY: Chest radiograph September 08, 2020. FINDINGS: Lung volumes are normal. There is no pneumothorax. There is a trace left pleural effusion. Diffuse interstitial thickening has increased. There are are additional bilateral airspace opacities. Mild cardiomegaly is noted. Left hilar prominence is noted. IMPRESSION: 1. Progression of interstitial thickening and bilateral opacities. The findings could reflect pulmona ry edema or pneumonia. Radiographic follow-up is recommended. 2. Trace left pleural effusion. ACT 112: Negative or not required by law. Electronically signed by: Benjie Calhoun M.D. 09/09/2020 8:42 AM
[2020-09-09] MEDS ORDERED: dexAMETHasone 6 MG in SYRINGE 0 ML IV SCH (09:00)
[2020-09-09] MEDS ORDERED: guaiFENesin 600 MG TABCR PO SCH (09:00)
[2020-09-09 09:04] LABS: Estimated Average Glucose 128 mg/dl; Hemoglobin A1C 6.1 % (4.5-5.6)
[2020-09-09] MEDS: ASPIRIN 81 MG ECTAB PO SCH (10:01)
[2020-09-09 10:12] LABS: Appearance Urine Cloudy (Clear); Bilirubin Urine Negative (Negative); Blood Urine 3+ (Negative); Color Urine Dark Yellow; Epithelial Cell Urine Auto >30 /lpf (0-5); Glucose Urine UA Negative (Negative); Ketones Urine 2+ (Negative); Leukocyte Esterase Urine Negative (Negative); Nitrite Urine Negative (Negative); Protein Urine 1+ (Negative); Specific Gravity Urine 1.035 (1.000-1.030); Urobilinogen Urine Negative (Negative)
[2020-09-09] MEDS: CLOPIDOGREL BISULFATE 75 MG TAB PO SCH (10:13)
[2020-09-09 10:15] LABS: iSTAT Art Bld Gas pCO2 Correct 28 mmHg (35-46); iSTAT Art Bld Gas pH Corrected 7.353 (7.35-7.45); iSTAT Arterial Blood Gas HCO3 16 meg/L (19-24); iSTAT Arterial Blood Gas pCO2 27 mmHg (35-46); iSTAT Arterial Blood Gas pH 7.36 (7.35-7.45); iSTAT Arterial Blood Gas pO2 100 mmHg (80-95); iSTAT Arterial Blood Gas pO2 C 104; iSTAT Carbon Dioxide 16 mmol/L (24-31); iSTAT Hematocrit 37 % (42-52); iSTAT Hemoglobin 12.6 g/dl (14.0-18.0); iSTAT Potassium 4.2 mmol/L (3.3-5.0); iSTAT Site Art Line; iSTAT Sodium 137 mmol/L (135-144)
[2020-09-09 10:24] LABS: Amorphous Sediment Urine Present (None Prsent); Bacteria Urine Automated 1+ (Negative)
--- NOTE | 2020-09-09 11:14 | Communication Note ---
Date of Service: September 09, 2020 Patient seen and examined. EMR reviewed. Discussed with critical care RADHA overnight. Discussed with ICU bedside nurse and on multidisciplinary rounds. Patient vented with hypoxemic respiratory failure. He was Covid positive. He developed progressive hypoxemia and needed to be intubated. He was proned at 6:00 this morning. He has been initiated on a small dose of vasopressors. He has been intermittently febrile. His troponin is continued to increase. Due to Covid restrictions, we have been unable to get an echocardiogram. We will continue heparin infusion for now. Try and get echo once the patient is converted back to supine position. Would target supine position for 18 to 20 hours so can flipped back around 4:00 in the morning. Discussed briefly with cardiology. Patient was on APRV with tidal volumes of over 700 cc. Transitioned to arginate ventilatory strategy with 6 cc/kg ideal body weight. Will adjust PEEP. Ideally would like to try and diurese however the patient's blood pressures make this somewhat tenuous so we will hold off for now. Should the patient's hemodynamics decline, would have a low threshold for flipping him back to the supine position to allow for echocardiogram and repeat evaluation of cardiac function. Previous echocardiogram in 2019 showed no evidence of dobutamine inducible ischemia and normal ejection fraction. Hold tube feeding for now. Trend liver function tests. The patient is critically ill at this point time with significant possibility of clinical deterioration and/or . A total of 50 minutes additional critical care time spent evaluating and managing this critically ill patient. Coding Level of Care Code Critical Care juan j [email or web address] 30 min
[2020-09-09 11:56] LABS: iSTAT Art Bld Gas pCO2 Correct 32 mmHg (35-46); iSTAT Art Bld Gas pH Corrected 7.339 (7.35-7.45); iSTAT Arterial Blood Gas HCO3 17 meg/L (19-24); iSTAT Arterial Blood Gas pCO2 32 mmHg (35-46); iSTAT Arterial Blood Gas pH 7.34 (7.35-7.45); iSTAT Arterial Blood Gas pO2 60 mmHg (80-95); iSTAT Arterial Blood Gas pO2 C 60; iSTAT Carbon Dioxide 18 mmol/L (24-31); iSTAT FiO2 60 %; iSTAT Hematocrit 37 % (42-52); iSTAT Hemoglobin 12.6 g/dl (14.0-18.0); iSTAT Site Art Line; iSTAT Sodium 136 mmol/L (135-144)
--- NOTE | 2020-09-09 14:06 | Hospitalist Progress Note ---
Date of Service September 09, 2020 Assessment & Plan (1) Acute hypoxemic respiratory failure: Acute respiratory failure with hypoxia Ventilatory dependent Severe COVID-19 pneumonia Septic Shock CXR:Endotracheal tube terminates 4.7 cm superior to the kathy. Left subclavian central venous catheter distal tip terminates in the region of the mid SVC. Extensive bilateral mixed interstitial and alveolar opacities redemonstrated. Blood culture pending Elevated lactate levels Normal procalcitonin CRP:13.7 Continue IV dexamethasone Wean off of pressors as able Continue nebs as needed Consider IV diuretics as able Appreciate critical care input Continue Vent support NSTEMI H/O CAD S/P Stent EKG showed nonspecific T wave changes in anterolateral leads Elevated troponins Currently on IV heparin Plan to perform ECHO once off of prone position Continue aspirin, Plavix, statin Imdur, Lisinopril on hold due to Low BP on presentation Elevated D dimer Could not perform CTA due to renal Insufficiency Venous Doppler pending HTN Hypotensive on presentations Given IV fluids Home meds on hold Acute Kidney Injury on CKD III Likely ATN Cr:2.43>1.75 Avoid nephrotoxic agents as able Monitor renal function Schizophrenia/depression Continue Celexa, Ziprasidone Prediabetes HbA1C:6.1 DVT Px: IV heparin Code Status Full code Admission and Anticipated Discharge Date Admission Date: September 09, 2020 Subjective Patient is seen and examined at bedside Currently intubated on minimal pressors Low-grade fever today noted On IV heparin, no bleeding issues CXR suggestive of extensive bilateral interstitial and alveolar opacities Could not perform echo secondary to prone position Review of Systems 2 Review of Systems: All systems reviewed & are unremarkable except as noted in HPI & below Physical Exam Physical Exam: Physical Exam: Vitals signs as noted above General Appearance:Moderately built and nourished, no apparent distress,+Intubated Head: normocephalic, Atraumatic Eyes: normal inspection Neck: supple, Trachea midline Respiratory/Chest: Decreased breath sounds, CTA Cardiovascular: S1, S2, No murmur Abdomen/GI:Soft, Non tender, Bowel sounds present Extremities/Musculoskeletal:normal inspection, no edema Neurologic/Psych:AAOX3, grossly no focal neurological deficits Skin: normal color, warm Results & Data Results & Data ([facility]) Vital Signs (Past 12 Hours) Vital Signs Temp Pulse Pulse Resp BP BP Pulse Ox 09/09/20 12:00 77 38 H 123/86 91 09/09/20 11:30 77 24 90 09/09/20 11:00 80 123/81 90 09/09/20 10:15 84 24 90 09/09/20 10:00 37.8 C H 87 134/92 97 09/09/20 09:01 38 C H 92 H 12 97 09/09/20 09:00 92 H 119/89 96 09/09/20 08:01 87 11 L 97 09/09/20 08:00 88 118/83 97 09/09/20 07:00 87 99 09/09/20 06:45 86 99 09/09/20 06:30 87 99 09/09/20 06:15 94 H 94 09/09/20 06:01 92 H 87 L 09/09/20 06:00 91 H 109/80 87 L 09/09/20 05:51 92 H 11 L 86 L 09/09/20 05:45 80 24 85 L 09/09/20 05:43 77 10 L 83/55 L 81 L 09/09/20 05:30 110 H 50 H 90 09/09/20 05:15 111 H 41 H 91 09/09/20 04:00 129 H 09/09/20 03:33 119 H 35 H 88 L 09/09/20 03:15 37 C 115 H 30 H 135/84 88 L 09/09/20 02:30 106 H 32 H 108/83 88 L 09/09/20 02:00 104 H 32 H 108/76 89 L Laboratory Results Short CBC 09/08/20 09/09/20 Range/Units 22:03 06:05 WBC 7.99 10.68 (4.8-10.8) K/uL Hgb 13.7 L 13.4 L (14.0-18.0) g/dL Hct 39.2 L 38.2 L (42-52) % Plt Count 139 150 (130-400) K/uL BMP 09/08/20 09/09/20 09/09/20 22:09 00:20 06:05 Sodium 137 138 137 Potassium 5.0 4.4 4.7 Chloride 106 109 H 110 H Carbon Dioxide 19 L 22 19 L BUN 32 H 34 H 33 H Creatinine 2.34 H 2.03 H D 1.75 H Glucose 165 H 146 H 181 H Calcium 7.1 L 6.7 L 7.1 L Cardiac Enzymes 09/08/20 09/09/20 09/09/20 Range/Units 22:09 00:20 06:05 Troponin I 4.200 H* 16.600 H* 24.300 H* (0-0.045) ng/ml Liver Function 09/08/20 Range/Units 22:09 Total Bilirubin 0.6 (0.2-1) mg/dl AST 66 H (15-37) U/L ALT 36 (12-78) U/L Alkaline Phosphatase 70 (45-117) U/L Albumin 2.7 L (3.4-5.0) gm/dl Urine 09/09/20 Range/Units 09:35 Urine Color Dark Yellow Urine Appearance Cloudy A (Clear) Urine pH 5.0 (4.5-7.5) Ur Specific [place] 1.035 H (1.000-1.030) Urine Protein 1+ H (Negative) Urine Glucose (UA) Negative (Negative)
--- NOTE | 2020-09-09 15:53 | Electrocardiogram Report ---
Test Reason : Blood Pressure : / mmHG Vent. Rate : 089 BPM Atrial Rate : 089 BPM P-R Int : 156 ms QRS Dur : 092 ms QT Int : 368 ms P-R-T Axes : 062 -44 052 degrees QTc Int : 447 ms Normal sinus rhythm Left axis deviation Low voltage QRS Possible Anterolateral infarct , age undetermined Abnormal ECG When compared with ECG of 30-NOV-2018 06:53, Borderline criteria for Anterolateral infarct are now Present Nonspecific T wave abnormality now evident in Anterolateral leads QRS voltage has decreased Confirmed by Jose Alberto Ching ([id number]) on 09/09/2020 3:53:44 PM Referred By: REFERRED SELF Confirmed By:Jose Alberto Ching
[2020-09-09 16:46] LABS: iSTAT FiO2 0 %
[2020-09-09] MEDS ORDERED: VANCOMYCIN HCL 1,000 MG in SODIUM CHLORIDE 0.9% 500 ML IV ONE (18:19)
[2020-09-09] MEDS: CITALOPRAM 20 MG TAB PO SCH (20:43)
[2020-09-09] MEDS: ATORVASTATIN 20 MG TAB PO SCH (20:46)
--- NOTE | 2020-09-10 00:49 | Communication Note ---
Date of Service: September 10, 2020 Patient turned to supine position at 0030 approximately 18 hours after being proned. I reported to the patient's bedside and was present during turning. P atient did desaturate into the low 80s and now requiring PEEP of 8 and 60% FiO2, but otherwise tolerated well. Coding Level of Care Code None
[2020-09-10] MEDS: CISATRACURIUM BESYLATE 40 MG in 0.9 % SODIUM CHLORIDE 80 ML IV SCH ×3 (02:02→11:43)
[2020-09-10] MEDS: MIDAZOLAM BOLUS FROM BAG IV PRN (02:31)
[2020-09-10] MEDS: fentaNYL DRIP 1,250 MCG/250 ML BAG IV SCH ×4 (02:54→18:04)
[2020-09-10] MEDS: HEPARIN SODIUM/DEXTROSE 25,000 UNITS/500 ML BAG IV SCH (02:54)
[2020-09-10 05:01] LABS: iSTAT Art Bld Gas pCO2 Correct 26 mmHg (35-46); iSTAT Art Bld Gas pH Corrected 7.435 (7.35-7.45); iSTAT Arterial Blood Gas HCO3 18 meg/L (19-24); iSTAT Arterial Blood Gas pCO2 28 mmHg (35-46); iSTAT Arterial Blood Gas pH 7.41 (7.35-7.45); iSTAT Arterial Blood Gas pO2 64 mmHg (80-95); iSTAT Arterial Blood Gas pO2 C 58; iSTAT Carbon Dioxide 19 mmol/L (24-31); iSTAT FiO2 40 %; iSTAT Hematocrit 38 % (42-52); iSTAT Hemoglobin 12.9 g/dl (14.0-18.0); iSTAT Potassium 4.1 mmol/L (3.3-5.0); iSTAT Site Art Line; iSTAT Sodium 138 mmol/L (135-144)
[2020-09-10 06:23] LABS: Hematocrit (blood only) 36.5 % (42-52); Hemoglobin 13.6 g/dL (14.0-18.0); Mean Corpuscular Hemoglobin 34.8 pg (25-34); Mean Corpuscular Hgb Conc 37.3 g/dL (32-36); Mean Corpuscular Volume 93.4 fL (80-100); Mean Platelet Volume 10.9 fL (7.4-10.4); Platelet Count 180 K/uL (130-400); RDW Coefficient of Variation 14.2 % (11.5-14.5); RDW Standard Deviation 48.4 fL (36.4-46.3); Red Blood Count 3.91 M/uL (4.7-6.1)
[2020-09-10 06:47] LABS: Partial Thromboplastin Ratio 4.3
[2020-09-10 06:48] LABS: Partial Thromboplastin Time 112.9 Seconds (21.0-31.0)
[2020-09-10 06:52] LABS: BUN Creatinine Ratio 28.3 (10-20); Creatinine Clr Calc Pharmacy 60.8 ml/min; Est GFR (African American) 76.2; Est GFR (Non-African American) 65.8; Magnesium 2.6 mg/dl (1.8-2.4); Potassium 4.2 mmol/L (3.5-5.1)
[2020-09-10 06:54] LABS: Phosphorus 3.2 mg/dl (2.5-4.9); Troponin I 9.13 ng/ml (0-0.045)
--- NOTE | 2020-09-10 07:22 | Ultrasound Report ---
ULTRASOUND BILATERAL LOWER EXTREMITY VENOUS CLINICAL HISTORY: Dyspnea. Clinical concern for pulmonary embolus. Covid. COMPARISON STUDY: No priors. TECHNIQUE: Real-time, grayscale, and color Doppler sonography of the deep veins of the right and left lower extremity was performed from the inguinal crease to the calf. Compression and augmentation wer e utilized. FINDINGS: There is no sonographic evidence of deep venous thrombosis identified in the right or left lower extremity. The common femoral, superficial femoral, and popliteal veins are patent and normally compressible bilaterally. The greater saphenous vein and the profunda femoris vein at the junction w ith the common femoral vein are clear in both legs. The visualized calf veins are patent bilaterally. IMPRESSION: There is no sonographic evidence of deep venous thrombosis identified in the right or lef t lower extremity. ACT 112: Negative or not required by law. Electronically signed by: Sohail Bush M.D. 09/10/2020 7:20 AM
[2020-09-10] MEDS: ASPIRIN 81 MG ECTAB PO SCH (07:23)
[2020-09-10] MEDS: NOREPINEPHRINE/D5W 8 MG/508 ML BAG IV SCH (08:57)
--- NOTE | 2020-09-10 09:06 | XRay Report ---
XR chest 1V portable HISTORY: 75 years-old Male resp failure acute respiratory failure. COVID Positive. COMPARISON: Chest radiograph 09/09/2020 TECHNIQUE: Portable AP view of the chest FINDINGS: Endotracheal tube overlies the midline, 3.5 cm superior to the kathy. Left subclavian central venous catheter distal tip overlies the expected location of the mid SVC. Enteric tube courses into the sto mach. Cardiomegaly. Pulmonary vascular congestion with mixed interstitial and alveolar opacities and small pleural effusions. Mildly progressed opacification of the lungs. No pneumothorax. Degenerative changes of the shoulders and spine. IMPRESSION: 1. Lines and tubes as above. 2. Mild progression of the extensive mixed interstitial and alveolar opacities. 3. Cardiomegaly. ACT 112: Negative or not required by law. The above report was generated using voice recognition software. It may contain grammatical, syntax o r spelling errors. Electronically signed by: Alexandr Pena M.D. 09/10/2020 9:05 AM
[2020-09-10] MEDS: ASPIRIN 81 MG CHEW PO SCH (10:31)
[2020-09-10] MEDS: dexAMETHasone 6 MG in SYRINGE 0 ML IV SCH (10:32)
[2020-09-10] MEDS: CLOPIDOGREL BISULFATE 75 MG TAB PO SCH (10:32)
--- NOTE | 2020-09-10 11:16 | Critical Care Progress Note ---
Date of Service September 10, 2020 Assessment & Plan (1) Admitted to intensive care unit: Reason Critically Ill: Patient is a 75-year-old male with acute hypoxic respiratory failure in the setting of COVID-19 pneumonia requiring emergent endotracheal intubation. 24-hour events: Patient completed about 20 hours of proning and was returned to the supine position. Echocardiogram was completed this morning. He has been weaned off of pressors. His vent settings are decreasing. Patient did have a blood culture positive with gram-positive cocci yesterday and was started on vancomycin. This may be a contaminant. Recommendations: NEURO -we will discontinue paralytics. Continue fentanyl and Versed. Maintain sedation until the patient is able to complete a spontaneous breathing trial. Neurologically intact prior to intubation. Continue his home Geodon. CARDIAC/VASCULAR -non-ST elevation myocardial infarction. Echocardiogram with apical wall motion abnormalities. Continue heparin drip. Cardiology consultation. Now off pressors. Will await formal cardiology opinion prior to consideration of extubation to ensure additional procedures or not necessary. RESPIRATORY -acute hypoxemic respiratory failure with pulmonary infiltrates. Differential would include atypical edema, pulmonary hemorrhage, and infectious etiologies including secondary to Covid pneumonia. Continue dexamethasone at this point time. The patient's current ventilatory settings are stable and it does not appear that he requires additional proning procedures. Continue ARDS net protocol. GI/NUTRITION -hold tube feedings in hopes of liberation for mechanical ventilation in the next 24 hours. Stress ulcer prophylaxis is in place. RENAL/LYTES -renal function acceptable. Replete electrolytes as needed. -no current issues. Continue to trend I/O. ENDO -glycemic control per protocol HEME -no current issues. Mild elevation in white blood cell count likely secondary to margination from steroids. Continue to trend at this point time. ID Covid pneumonia: The patient received Decadron and remdesivir as well as Tocilizumab. No indication for continuing remdesivir at this point time. 1 out of 2 blood cultures growing gram-positive cocci. Will hold additional vancomycin pending culture results. LINES/IV ACCESS - PIVs x2 LEFT Subclavian CVL LEFT Radial Arterial Line Colvin ET Tube OG DVT PROPHYLAXIS - Heparin gtt SCDs Patient remains critically ill with multiorgan system dysfunction. He was discussed on multidisciplinary rounds as well as with the bedside critical care nurse. A total of 49 minutes critical care time was spent in evaluation management stabilization of this patient to this point. (2) Acute hypoxemic respiratory failure: (3) Pneumonia due to 2019 novel coronavirus: (4) Acute kidney injury: (5) Acidosis, lactic: (6) Acute non-ST elevation myocardial infarction (NSTEMI): Admission and Anticipated Discharge Date Admission Date: September 09, 2020 Subjective Patient is intubated and sedated. Review of Systems Review of Systems: Unobtainable due to endotracheal tube Physical Exam Constitutional: + mechanically ventilated; not ill appearing Intubated and sedated Neck: trachea midline, no thyromegaly Respiratory: no labored breathing Auscultation: no rales and no wheezes Cardiovascular: RRR, no murmur, no edema Gastrointestinal (Abdomen): normal bowel sounds, soft, nontender, no hepatosplenomegaly Musculoskeletal: Extremities: extremities normal to inspection Skin: no rashes, warm and dry Neurologic: Intubated and sedated Lymphatic: no cervical lymphadenopathy Results & Data Results & Data ([facility]) Vital Signs (Past 12 Hours) Vital Signs Temp Pulse Resp BP Pulse Ox 09/10/20 07:52 63 20 90 09/10/20 07:42 35.7 C L 09/10/20 07:31 35.7 C L 56 L 09/10/20 07:00 35.7 C L 63 103/64 91 09/10/20 06:00 55 L 113/54 L 93 09/10/20 05:45 53 L 93 09/10/20 05:30 51 L 91 09/10/20 05:15 61 85 L 09/10/20 05:01 55 L 89 L 09/10/20 05:00 55 L 103/68 89 L 09/10/20 04:45 53 L 91 09/10/20 04:30 51 L 24 92 09/10/20 04:15 52 L 91 09/10/20 04:09 35.5 C L 09/10/20 04:01 53 L 92 09/10/20 04:00 51 L 107/68 92 09/10/20 03:45 53 L 91 09/10/20 03:30 52 L 91 09/10/20 03:15 55 L 91 09/10/20 03:01 54 L 91 09/10/20 03:00 54 L 114/73 91 09/10/20 02:45 55 L 91 09/10/20 02:30 51 L 92 09/10/20 02:15 56 L 91 09/10/20 02:01 54 L 91 09/10/20 02:00 53 L 114/72 92 09/10/20 01:45 60 92 09/10/20 01:30 62 92 09/10/20 01:15 59 L 89 L 09/10/20 01:02 59 L 80/56 L 88 L 09/10/20 01:00 60 88 L 09/10/20 00:45 57 L 90 09/10/20 00:30 59 L 92 09/10/20 00:25 64 99/69 L 92 09/10/20 00:15 64 92 09/10/20 00:12 35.6 C L 09/10/20 00:00 61 99/69 L 91 09/09/20 23:30 63 91 09/09/20 23:13 63 24 93 Laboratory Results 09/10/20 05:56 09/10/20 05:56 Diagnostic Findings Chest x-ray from today was independently reviewed. Endotracheal tube and subclavian line are in good position. There are hazy opacities throughout both lung nicolas. Echocardiogram from this morning showed an EF of 45% with hypokinesis within the apical wall. EF previously had been 55-60. Coding Level of Care Code Critical Care 1st 30-74 mins Diagnoses Admitted to intensive care unit Z78.9 Acute hypoxemic respiratory failure J96.01 Pneumonia due to 2019 novel coronavirus U07.1; J12.82 Acute kidney injury N17.9 Acidosis, lactic E87.2 Acute non-ST elevation myocardial infarction (NSTEMI) I21.4 Time Spent (min) 49
[2020-09-10] MEDS ORDERED: CALCIUM CHLORIDE 10% 1,000 MG in SODIUM CHLORIDE 0.9% 50 ML IV STA (11:45)
[2020-09-10] MEDS ORDERED: SODIUM CHLORIDE 0.9% 10ML FLUSH IV SCH (12:00)
[2020-09-10] MEDS: MIDAZOLAM HCL 125 MG/250 ML BAG IV PRN (12:18)
[2020-09-10] MEDS ORDERED: ATROPINE SULFATE 0.1 MG/ML 10ML SYR IV ONE (12:47)
[2020-09-10] MEDS ORDERED: DOPamine 400MG / 250ML D5W IV ONE (13:13)
[2020-09-10] MEDS ORDERED: STAT IV Infusion **Titration per Protocol STA (13:18)
[2020-09-10] MEDS: DOPamine / D5W 400 MG/250 ML BAG IV SCH (13:36)
--- NOTE | 2020-09-10 13:36 | Cardiology Consultation ---
Date of Consultation September 10, 2020 Assessment & Plan (1) Acute hypoxemic respiratory failure: (2) Pneumonia due to 2019 novel coronavirus: (3) Acute non-ST elevation myocardial infarction (NSTEMI): (4) Sinus bradycardia: CXR this am reveals mild progression of the interstitial and alveolar opacities. Clinical picture suggests demand myocardial ischemia in setting of severe systemic illness rather than acute coronary plaque rupture. Continue chronic ASA and plavix. Continue heparin. Continue supportive care. Start low dose dopamine 2.5 mcg/ kg/min for HR support , goal of 60-80. History of Present Illness Reason for Consultation: NSTEMI Requesting Physician: Dr Branch Attending Physician: Andreas Branch MD History of Present Illness Mr Bill is a 75 year old male with a past history of CAD who presented with COVID-19 related pneumonia and hypoxia requiring ventilator support. On he has had a NSTEMI with peak troponin of 24 ng/ml and has trended down to 9 ng/ml this am. He remains on the ventilator, on minimal sedation, minimal norepinephrine. At time of my assessment in room 209 sinus bradycardia in the range of 45-49 bpm noted. SBP 100-111 mm Hg by arterial line.FI02 of 60%. PAST CARDIAC HISTORY: 1. PCI to the RCA and OM in 2011. 2. Drug-eluting stent to the LAD and diagonal in 2014. 3. Acute stent thrombosis with balloon angioplasty of the LAD and a second bare-metal stent implant to the diagonal. 4. Cardiac catheterization in 2016 with a negative FFR of the proximal LAD lesion. 5. Per records , history of beta piedad intolerance with significant bradycardia Allergies Allergy/AdvReac Type Severity Reaction Status Date / Time codeine Allergy Unknown UNKNOWN Verified 09/08/20 22:48 morphine Allergy Unknown unknown Verified 09/08/20 22:48 Home Medications Medication Instructions Recorded Confirmed Type albuterol sulfate [ProAir HFA] 2 puff INHALATION Q4 PRN 09/08/20 09/08/20 History aspirin [Baby Aspirin] 81 mg PO DAILY 09/08/20 09/08/20 History atorvastatin [Lipitor] 20 mg PO QPM 09/08/20 09/08/20 History citalopram 20 mg PO HS 09/08/20 09/08/20 History clopidogrel 75 mg PO DAILY 09/08/20 09/08/20 History cyclobenzaprine 10 mg PO UD PRN 09/08/20 09/08/20 History isosorbide mononitrate 30 mg PO DAILY 09/08/20 09/08/20 History lisinopril 5 mg PO DAILY 09/08/20 09/08/20 History nitroglycerin [Nitrostat] 0.4 mg SUBLINGUAL UD PRN 09/08/20 09/08/20 History tamsulosin 0.4 mg PO DAILY 09/08/20 09/08/20 History triamcinolone acetonide 1 applic TOPICAL BID 09/08/20 09/08/20 History ziprasidone HCl [Geodon] 60 mg PO BID 09/08/20 09/08/20 History Patient History Medical History CAD (coronary artery disease) "echo 08/29/2013- LV EF =50-55%" CKD (chronic kidney disease), stage III Depression DM type 2 (diabetes mellitus, type 2) Duodenal ulcer "seen on EGD with GI bleeding 08/2013" Dyslipidemia GERD (gastroesophageal reflux disease) Glaucoma Paranoid schizophrenia Surgical History H/O colonoscopy Hx of heart artery stent SAMARA to RCA and OM in 2011 SAMARA to LAD and diagonal branch vessel in 2014 S/P cardiac cath "10/20/2011- SAMARA to RCA and OM 12/10/2014- SAMARA to LAD and diagonal branch vessel. 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 to diagonal branch vessel" S/P tonsillectomy and adenoidectomy Family History Other Cancer Diabetes Hypertension Social History Smoking Status: Never smoker Second Hand Exposure: No; Hx Alcohol Use: No Hx Substance Use: No Preferred Language: Kinyarwanda Communication Ability: Effective Clinical Trial Coordinator Required: No Beliefs That Will Affect Care: None marital status: Current Living Situation: Spouse current occupational status: retired Other Information That Helps Us Care for You: No Feels Safe at Home: Yes Safety Concerns: Feels Safe At This Time Assistive Devices: Denture - Upper and Denture - Lower Review of Systems Review of Systems: Unobtainable due to endotracheal tube Physical Exam Physical Exam: Temp Pulse Resp BP Pulse Ox 36.2 C L 47 L 20 113/65 94 09/10/20 11:00 09/10/20 12:30 09/10/20 11:07 09/10/20 12:00 09/10/20 12:30 Respiratory: course BS at bases Cardiovascular: Heart Sounds: no murmur Gastrointestinal (Abdomen): normal bowel sounds, soft, nontender, no hepatosplenomegaly Neurologic: Sedated on ventilator Results & Data ([facility]) Vital Signs (Past 12 Hours) Vital Signs Temp Pulse Resp BP Pulse Ox 09/10/20 12:30 47 L 94 09/10/20 12:01 56 L 93 09/10/20 12:00 53 L 113/65 93 09/10/20 11:07 52 L 20 90 09/10/20 11:06 63 108/64 87 L 09/10/20 11:00 36.2 C L 58 L 87 L 09/10/20 10:00 36 C L 65 121/68 93 09/10/20 09:00 36.1 C L 63 89/62 L 92 09/10/20 08:00 35.9 C L 63 101/60 91 09/10/20 07:52 63 20 90 09/10/20 07:42 35.7 C L 09/10/20 07:31 35.7 C L 56 L 09/10/20 07:00 35.7 C L 63 103/64 91 09/10/20 06:00 55 L 113/54 L 93 09/10/20 05:45 53 L 93 09/10/20 05:30 51 L 91 09/10/20 05:15 61 85 L 09/10/20 05:01 55 L 89 L 09/10/20 05:00 55 L 103/68 89 L 09/10/20 04:45 53 L 91 09/10/20 04:30 51 L 24 92 09/10/20 04:15 52 L 91 09/10/20 04:09 35.5 C L 09/10/20 04:01 53 L 92 09/10/20 04:00 51 L 107/68 92 09/10/20 03:45 53 L 91 09/10/20 03:30 52 L 91 09/10/20 03:15 55 L 91 09/10/20 03:01 54 L 91 09/10/20 03:00 54 L 114/73 91 09/10/20 02:45 55 L 91 09/10/20 02:30 51 L 92 09/10/20 02:15 56 L 91 09/10/20 02:01 54 L 91 09/10/20 02:00 53 L 114/72 92 09/10/20 01:45 60 92 09/10/20 01:30 62 92 Laboratory Results Cardiac Enzymes 09/10/20 Range/Units 05:56 Troponin I 9.130 H* (0-0.045) ng/ml Coagulation 09/10/20 Range/Units 05:56 APTT 112.9 H* (21.0-31.0) Seconds CBC 09/10/20 Range/Units 05:56 WBC 13.30 H (4.8-10.8) K/uL RBC 3.91 L (4.7-6.1) M/uL Hgb 13.6 L (14.0-18.0) g/dL Hct 36.5 L (42-52) % Plt Count 180 (130-400) K/uL Comprehensive Metabolic Panel 09/10/20 Range/Units 05:56 Sodium 140 (136-145) mmol/L Potassium 4.2 (3.5-5.1) mmol/L Chloride 113 H (98-107) mmol/L Carbon Dioxide 23 (21-32) mmol/L BUN 31 H (7-18) mg/dl Creatinine 1.10 D (0.6-1.4) mg/dl Glucose 154 H (70-99) mg/dl Calcium 7.0 L (8.5-10.1) mg/dl Intake and Output 09/09/20 09/10/20 09/10/20 22:59 06:59 14:59 Intake Total 648.012 / 2480.323 1037.382 / 2480.323 324.887 / 324.887 Output Total 350 / 1890 740 / 1890 200 / 200 Balance 298.012 / 590.323 297.382 / 590.323 124.887 / 124.887 Intake: IV 648.012 / 2480.323 1037.382 / 2480.323 324.887 / 324.887 Calcium Chloride 10% 1,000 mg 60 / 60 In Nss 50 ml @ 240 mls/hr IV NOW STA Rx#:[id number] Nimbex 40 mg In Sodium Chloride 128.012 / 242.697 114.685 / 242.697 35.897 / 35.897 80 ml @ 20 MCG/KG/MIN 177.6 mls/hr IV .Q34M LAUREN Rx#: [id number] HEPARIN SODIUM/DEXTROSE 25,000 383.2 / 594.0 0 / 0 units In 500 ml @ 1,000 UNITS/ HR 20 mls/hr IV .Q24H LAUREN Rx#: [id number] VERSED 125 mg In 250 ml @ 1 MG/ 197.467 / 197.467 42.933 / 42.933 HR 2 mls/hr IV .Q96H PRN Rx#: [id number] LEVOPHED/D5W 8 mg In 508 ml @ 0 58.28 / 265.659 91.14 / 91.14 .05 MCG/KG/MIN 15.526 mls/hr IV .Q24H [facility] Rx#:[id number] Vancomycin HCl 1,000 mg In Nss 520 / 520 500 ml @ 200 mls/hr IV NOW ONE Rx#:[id number] fentaNYL DRIP 1,250 mcg In 250 283.75 / 310.50 94.917 / 94.917 ml @ 100 MCG/HR 20 mls/hr IV . [id number] [facility] Rx#:[id number] Output: Urine Amount (Catheter) 350 / 1765 615 / 1765 200 / 200 Colvin/Indwelling 350 / 1765 615 / 1765 200 / 200 Gastric Drainage 125 / 125 Oral Orogastric 125 / 125 Other: Other Intake Source NPO NPO Weight 78 kg Weight Measurement Method Built in [facility] Diagnostic Findings EKG this am 09/10/20 : SR at 61 T wave inversions in precordial leads consistent with ischemia. Compared to tracing at 1254 am the T wave changes are more prominent. Echocardiogram: Small sized apical wall motion abnormality . LVEF 45%, had been 55-59% in 2019. The apical wall motion abnormality is new.
--- NOTE | 2020-09-10 14:18 | Communication Note ---
Date of Service: September 10, 2020 Repeat EKG obtained with patient on low dose dopamine. Based on P wave morphology consistent with ectopic atrial rhythm at 70 bpm. The previously noted T wave inversions in the inferior and lateral precordial leads is improved. Continue dopamine 2.5 ug/min/ kg. MAP stable in the 60s. No significant ectopy. I called and updated his spouse, Geeta, by phone.
--- NOTE | 2020-09-10 15:00 | Electrocardiogram Report ---
Test Reason : Blood Pressure : / mmHG Vent. Rate : 059 BPM Atrial Rate : 059 BPM P-R Int : 154 ms QRS Dur : 106 ms QT Int : 500 ms P-R-T Axes : 050 -44 -20 degrees QTc Int : 495 ms Sinus bradycardia Left axis deviation Nonspecific ST and T wave abnormality Prolonged QT Abnormal ECG When compared with ECG of 09-SEP-2020 09:16, HR has decreased Confirmed by Jose Alberto Ching ([id number]) on 09/10/2020 3:00:04 PM Referred By: REFERRED SELF Confirmed By:Jose Alberto Ching
[2020-09-10 15:02] LABS: Partial Thromboplastin Ratio 2.2
[2020-09-10 16:10] LABS: Partial Thromboplastin Time 56.7 Seconds (21.0-31.0)
--- NOTE | 2020-09-10 16:55 | Hospitalist Progress Note ---
Date of Service September 10, 2020 Assessment & Plan (1) Acute hypoxemic respiratory failure: Acute respiratory failure with hypoxia Ventilatory dependent Severe COVID-19 pneumonia Septic Shock CXR:Endotracheal tube terminates 4.7 cm superior to the kathy. Left subclavian central venous catheter distal tip terminates in the region of the mid SVC. Extensive bilateral mixed interstitial and alveolar opacities redemonstrated. Blood culture: 1/2: Gram-positive cocci Elevated lactate levels Normal procalcitonin CRP:13.7 Received Tocilizumab Continue IV dexamethasone Wean off of pressors as able Continue nebs as needed Consider IV diuretics as needed Appreciate critical care input Continue Vent support Paralytics discontinued On dopamine drip for bradycardia NSTEMI H/O CAD S/P Stent ECHO: Mild concentric LVH. EF 45%. Moderate size apical wall motion abnormality with hypokinesis of the segments. No pericardial effusion. No significant valvular disease. Troponin trending down Plan to perform ECHO once off of prone position Continue aspirin, Plavix, statin Imdur, Lisinopril on hold due to Low BP on presentation Continue IV heparin Elevated D dimer Could not perform CTA due to renal Insufficiency Venous Doppler pending HTN Hypotensive on presentations Received IV fluids Wean off of pressors as able Acute Kidney Injury on CKD III Likely ATN Cr:2.43>1.75>1.1 Avoid nephrotoxic agents as able Monitor renal function Schizophrenia/depression Continue Celexa, Ziprasidone Prediabetes HbA1C:6.1 DVT Px: IV heparin Code Status Full code Admission and Anticipated Discharge Date Admission Date: September 09, 2020 Subjective Patient is seen and examined at bedside Sedated and Intubated On Dopamine drip for bradycardia Discussed with Cardiology On IV heparin ECHO suggestive of moderate sized apical wall motion abnormality with hypokinesis of the segments. Review of Systems Review of Systems: Unobtainable due to endotracheal tube Physical Exam Physical Exam: Physical Exam: Vitals signs as noted above General Appearance:Moderately built and nourished, no apparent distress,+Intubated Head: normocephalic, Atraumatic Eyes: normal inspection Neck: supple, Trachea midline Respiratory/Chest: Decreased breath sounds, CTA Cardiovascular: S1, S2, No murmur Abdomen/GI:Soft, Non tender, Bowel sounds present Extremities/Musculoskeletal:normal inspection, no edema Neurologic/Psych:AAOX3, grossly no focal neurological deficits Skin: normal color, warm Results & Data Results & Data ([facility]) Vital Signs (Past 12 Hours) Vital Signs Temp Pulse Resp BP Pulse Ox 09/10/20 16:00 62 134/72 91 09/10/20 15:14 63 20 92 09/10/20 15:00 36.2 C L 63 132/73 92 09/10/20 14:25 66 138/69 90 09/10/20 14:01 69 92 09/10/20 13:30 52 L 93 09/10/20 13:00 36.2 C L 51 L 119/67 94 09/10/20 12:30 47 L 94 09/10/20 12:01 56 L 93 09/10/20 12:00 53 L 113/65 93 09/10/20 11:07 52 L 20 90 09/10/20 11:06 63 108/64 87 L 09/10/20 11:00 36.2 C L 58 L 87 L 09/10/20 10:00 36 C L 65 121/68 93 09/10/20 09:00 36.1 C L 63 89/62 L 92 09/10/20 08:00 35.9 C L 63 101/60 91 09/10/20 07:52 63 20 90 09/10/20 07:42 35.7 C L 09/10/20 07:31 35.7 C L 56 L 09/10/20 07:00 35.7 C L 63 103/64 91 09/10/20 06:00 55 L 113/54 L 93 09/10/20 05:45 53 L 93 09/10/20 05:30 51 L 91 09/10/20 05:15 61 85 L 09/10/20 05:01 55 L 89 L 09/10/20 05:00 55 L 103/68 89 L Laboratory Results Short CBC 09/10/20 Range/Units 05:56 WBC 13.30 H (4.8-10.8) K/uL Hgb 13.6 L (14.0-18.0) g/dL Hct 36.5 L (42-52) % Plt Count 180 (130-400) K/uL BMP 09/10/20 05:56 Sodium 140 Potassium 4.2 Chloride 113 H Carbon Dioxide 23 BUN 31 H Creatinine 1.10 D Glucose 154 H Calcium 7.0 L Cardiac Enzymes 09/10/20 09/10/20 Range/Units 05:56 14:19 Troponin I 9.130 H* 8.200 H* (0-0.045) ng/ml
[2020-09-10] MEDS: CITALOPRAM 20 MG TAB PO SCH (20:23)
[2020-09-10] MEDS: ATORVASTATIN 20 MG TAB PO SCH (20:23)
[2020-09-11] MEDS: HEPARIN SODIUM/DEXTROSE 25,000 UNITS/500 ML BAG IV SCH ×2 (00:50→06:36)
[2020-09-11 03:57] LABS: iSTAT Art Bld Gas pCO2 Correct 31 mmHg (35-46); iSTAT Art Bld Gas pH Corrected 7.474 (7.35-7.45); iSTAT Arterial Blood Gas HCO3 23 meg/L (19-24); iSTAT Arterial Blood Gas pCO2 33 mmHg (35-46); iSTAT Arterial Blood Gas pH 7.45 (7.35-7.45); iSTAT Arterial Blood Gas pO2 59 mmHg (80-95); iSTAT Arterial Blood Gas pO2 C 54; iSTAT Carbon Dioxide 24 mmol/L (24-31); iSTAT FiO2 55 %; iSTAT Hematocrit 42 % (42-52); iSTAT Hemoglobin 14.3 g/dl (14.0-18.0); iSTAT Potassium 4.6 mmol/L (3.3-5.0); iSTAT Site Art Line; iSTAT Sodium 140 mmol/L (135-144)
[2020-09-11] MEDS: MIDAZOLAM BOLUS FROM BAG IV PRN (05:25)
[2020-09-11 06:14] LABS: Hemoglobin 14.7 g/dL (14.0-18.0); Mean Corpuscular Hemoglobin 33.4 pg (25-34); Mean Corpuscular Hgb Conc 35.9 g/dL (32-36); Mean Corpuscular Volume 93.2 fL (80-100); Mean Platelet Volume 10.6 fL (7.4-10.4); Platelet Count 218 K/uL (130-400); White Blood Count 14.88 K/uL (4.8-10.8)
[2020-09-11 06:43] LABS: BUN Creatinine Ratio 28.4 (10-20); Calcium 7.4 mg/dl (8.5-10.1); Creatinine Clr Calc Pharmacy 53.5 ml/min; Est GFR (African American) 65.3; Est GFR (Non-African American) 56.4; Potassium 4.6 mmol/L (3.5-5.1)
[2020-09-11 06:57] LABS: Magnesium 2.7 mg/dl (1.8-2.4); Phosphorus 3.1 mg/dl (2.5-4.9); Troponin I 6.32 ng/ml (0-0.045)
--- NOTE | 2020-09-11 07:21 | Electrocardiogram Report ---
Test Reason : Blood Pressure : / mmHG Vent. Rate : 061 BPM Atrial Rate : 061 BPM P-R Int : 156 ms QRS Dur : 114 ms QT Int : 490 ms P-R-T Axes : 050 -34 -20 degrees QTc Int : 493 ms Normal sinus rhythm Left axis deviation Prolonged QT Abnormal ECG When compared with ECG of 10-SEP-2020 00:54, (unconfirmed) No significant change Confirmed by Jose Alberto Ching ([id number]) on 09/11/2020 7:21:03 AM Referred By: REFERRED SELF Confirmed By:Jose Alberto Ching
[2020-09-11] MEDS: DOPamine / D5W 400 MG/250 ML BAG IV SCH ×3 (07:28→21:09)
--- NOTE | 2020-09-11 07:33 | Electrocardiogram Report ---
Test Reason : Blood Pressure : / mmHG Vent. Rate : 070 BPM Atrial Rate : 070 BPM P-R Int : 106 ms QRS Dur : 106 ms QT Int : 426 ms P-R-T Axes : 000 -44 048 degrees QTc Int : 460 ms Ectopic atrial rhythm with short AR Left axis deviation Nonspecific T wave abnormality Prolonged QT Abnormal ECG When compared with ECG of 10-SEP-2020 08:14, (unconfirmed) AR interval has decreased Non-specific change in ST segment in Anterior leads T wave inversion no longer evident in Inferior leads T wave inversion no longer evident in Lateral leads Confirmed by Jose Alberto Ching ([id number]) on 09/11/2020 7:32:38 AM Referred By: REFERRED SELF Confirmed By:Jose Alberto Ching
[2020-09-11 07:44] LABS: iSTAT Arterial Blood Gas HCO3 24 meg/L (19-24); iSTAT Arterial Blood Gas pCO2 49 mmHg (35-46); iSTAT Arterial Blood Gas pH 7.31 (7.35-7.45); iSTAT Arterial Blood Gas pO2 119 mmHg (80-95); iSTAT Carbon Dioxide 26 mmol/L (24-31); iSTAT FiO2 80 %; iSTAT Site Art Line
[2020-09-11] MEDS: fentaNYL DRIP 1,250 MCG/250 ML BAG IV SCH ×2 (07:55→23:29)
[2020-09-11] MEDS: dexAMETHasone 6 MG in SYRINGE 0 ML IV SCH (07:55)
[2020-09-11] MEDS: ASPIRIN 81 MG CHEW PO SCH (07:56)
[2020-09-11] MEDS: CLOPIDOGREL BISULFATE 75 MG TAB PO SCH (07:57)
--- NOTE | 2020-09-11 07:59 | XRay Report ---
XR chest 1V portable CLINICAL HISTORY: Respiratory failure. COMPARISON STUDY: Chest radiograph September 10, 2020. FINDINGS: Tip of the endotracheal tube is 3.7 cm above the kathy. Tip of nasogastric tube is at leas t within the proximal stomach. Left subclavian central line remains in place. There is no pneumothora x. Small left and trace right pleural effusions are noted. Interstitial thickening and bilateral opac ities have slightly improved. Cardiomediastinal silhouette is stable. IMPRESSION: 1. Satisfactory positioning of lines and tubes. 2. Slight improvement in interstitial thickening and bilateral opacities. 2. Small left and trace right pleural effusions. ACT 112: Negative or not required by law. Electronically signed by: Benjie Calhoun M.D. 09/11/2020 7:58 AM
[2020-09-11 08:05] LABS: Partial Thromboplastin Ratio 2.4
[2020-09-11 08:06] LABS: Partial Thromboplastin Time 63.7 Seconds (21.0-31.0)
[2020-09-11] MEDS: MIDAZOLAM HCL 125 MG/250 ML BAG IV PRN (10:38)
[2020-09-11] MEDS ORDERED: FUROSEMIDE 40 MG/4 ML VIAL IV ONE (10:41)
[2020-09-11] MEDS: FUROSEMIDE 40 MG in SYRINGE 0 ML IV SCH (10:43)
--- NOTE | 2020-09-11 11:01 | Critical Care Progress Note ---
Date of Service September 11, 2020 Assessment & Plan (1) Admitted to intensive care unit: Reason Critically Ill: Patient is a 75-year-old male with acute hypoxic respiratory failure in the setting of COVID-19 pneumonia and non-ST elevation myocardial infarction requiring emergent endotracheal intubation. 24-hour events: Patient had been doing well on the ventilator up until this morning when he had an acute episode requiring increasing FiO2 to 80% and increase the PEEP to 14. Chest x-ray did not demonstrate any acute abnormality. He is improved significantly and we have been able to wean his FiO2 back down to 50%. He is been on dopamine for bradycardia. Efforts to lower it below 7 mics per kilo per minute have resulted in persistent bradycardia. Recommendations: NEURO -off paralytics. Continue fentanyl and Versed. Maintain sedation until the patient is able to complete a spontaneous breathing trial. Neurologically intact prior to intubation. Continue his home Geodon. CARDIAC/VASCULAR -non-ST elevation myocardial infarction. Echocardiogram with apical wall motion abnormalities suspicious for supply demand mismatch. Continue heparin drip. Cardiology consultation reviewed. They did not recommend cardiac catheterization at this point time as the patient has known three-vessel coronary disease. Continued medical management. With the regards to his pressors, we have not been able to wean his dopamine below 7 mics due to bradycardia. Patient sedation may be contributing. RESPIRATORY -acute hypoxemic respiratory failure with pulmonary infiltrates. Differential would include atypical edema, pulmonary hemorrhage, and infectious etiologies including secondary to Covid pneumonia. Continue dexamethasone at this point time for Covid pneumonia. We will again attempt to wean FiO2 and PEEP. [place] gentle diuresis to see if there may be a component of fluid overload. GI/NUTRITION -nutrition consult for enteral feeding. Stress ulcer prophylaxis is in place. RENAL/LYTES -renal function acceptable. Replete electrolytes as needed. -no current issues. Continue to trend I/O. ENDO -glycemic control per protocol HEME -no current issues. Mild elevation in white blood cell count likely secondary to margination from steroids. Continue to trend at this point time. ID Covid pneumonia: The patient received Decadron and remdesivir as well as Tocilizumab. No indication for continuing remdesivir at this point time. 1 out of 2 blood cultures growing gram-positive cocci, suspect contaminant. Afebrile but white count is mildly persistently elevated, possibly secondary to concom itant steroid use. LINES/IV ACCESS - PIVs x2 LEFT Subclavian CVL LEFT Radial Arterial Line Colvin ET Tube OG DVT PROPHYLAXIS - Heparin gtt SCDs Patient remains critically ill with multiorgan system dysfunction. He was discussed with the bedside critical care nurse and with RT. A total of 50 matt jamari critical care time was spent in evaluation management stabilization of this patient to this point. (2) Acute hypoxemic respiratory failure: (3) Pneumonia due to 2019 novel coronavirus: (4) Acute kidney injury: (5) Acidosis, lactic: (6) Acute non-ST elevation myocardial infarction (NSTEMI): Admission and Anticipated Discharge Date Admission Date: September 09, 2020 Subjective Patient remains intubated and sedated. Review of Systems Review of Systems: Unobtainable due to endotracheal tube Physical Exam Constitutional: + mechanically ventilated; not ill appearing Neck: trachea midline, no thyromegaly Respiratory: no labored breathing Auscultation: no rales and no wheezes Cardiovascular: RRR, no murmur, no edema Gastrointestinal (Abdomen): normal bowel sounds, soft, nontender, no hepatosplenomegaly Musculoskeletal: Extremities: extremities normal to inspection Skin: no rashes, warm and dry Lymphatic: no cervical lymphadenopathy Results & Data Results & Data ([facility]) Vital Signs (Past 12 Hours) Vital Signs Temp Pulse Resp BP Pulse Ox 09/11/20 09:01 73 94 09/11/20 09:00 82 124/81 94 09/11/20 08:45 83 93 09/11/20 08:30 36 C L 82 90 09/11/20 08:15 78 96 09/11/20 08:01 84 95 09/11/20 08:00 83 138/83 95 09/11/20 07:45 86 96 09/11/20 07:30 93 H 93 09/11/20 07:15 97 H 95 09/11/20 07:11 89 19 97 09/11/20 07:01 101 H 91 09/11/20 07:00 99 H 119/91 91 09/11/20 06:23 35.6 C L 09/11/20 06:15 91 H 87 L 09/11/20 06:01 86 84 L 09/11/20 06:00 82 133/83 86 L 09/11/20 05:45 75 86 L 09/11/20 05:30 66 91 09/11/20 05:15 63 91 09/11/20 05:00 132/80 95 09/11/20 04:45 63 90 09/11/20 04:30 63 89 L 09/11/20 04:15 60 92 09/11/20 04:01 62 92 09/11/20 04:00 63 144/76 H 92 09/11/20 03:45 66 91 09/11/20 03:30 63 91 09/11/20 03:24 63 20 91 09/11/20 03:15 62 92 09/11/20 03:01 75 91 09/11/20 03:00 70 142/72 H 92 09/11/20 02:45 78 91 09/11/20 02:30 78 92 09/11/20 02:15 78 92 09/11/20 02:01 87 92 09/11/20 02:00 88 150/87 H 92 09/11/20 01:45 76 92 09/11/20 01:30 71 92 09/11/20 01:15 54 L 91 09/11/20 01:01 56 L 90 09/11/20 01:00 54 L 126/70 90 09/11/20 00:45 55 L 90 09/11/20 00:30 57 L 89 L 09/11/20 00:15 61 88 L 09/11/20 00:01 61 91 09/11/20 00:00 62 136/77 91 09/10/20 23:45 62 91 09/10/20 23:30 60 90 09/10/20 23:15 67 88 L 09/10/20 23:12 68 20 90 09/10/20 23:01 65 91 09/10/20 23:00 67 136/78 91 Laboratory Results 09/11/20 05:48 09/11/20 05:48 Blood gas: 7.31/49/119 Troponin 9.1, 8.2, 6.3 Diagnostic Findings Chest x-ray from today was independently reviewed. Tubes and support lines in good position. There are hazy bibasilar opacities with potential small pleural effusions. Coding Level of Care Code Critical Care 1st 30-74 mins Diagnoses Admitted to intensive care unit Z78.9 Acute hypoxemic respiratory failure J96.01 Pneumonia due to 2019 novel coronavirus U07.1; J12.82 Acute kidney injury N17.9 Acidosis, lactic E87.2 Acute non-ST elevation myocardial infarction (NSTEMI) I21.4 Time Spent (min) 50
[2020-09-11] MEDS ORDERED: CALCIUM CHLORIDE 10% 1,000 MG in SODIUM CHLORIDE 0.9% 50 ML IV ONE (11:30)
[2020-09-11] MEDS: NOREPINEPHRINE/D5W 8 MG/508 ML BAG IV SCH (14:52)
[2020-09-11] MEDS: PEPTAMEN INTENSE VHP 1.0 CAL 1,000 ML BAG OG SCH (15:34)
[2020-09-11] MEDS: TUBE FEEDING WATER FLUSH GT SCH ×4 (15:35→23:30)
--- NOTE | 2020-09-11 15:38 | Cardiology Progress Note ---
Date of Service September 11, 2020 Assessment & Plan (1) Acute hypoxemic respiratory failure: (2) Pneumonia due to 2019 novel coronavirus: (3) Acute non-ST elevation myocardial infarction (NSTEMI): (4) Sinus bradycardia: Chest x-ray today reveals mild improvement of interstitial thickening and bilateral opacities. No change in small bilateral effusions. Agree with IV diuresis. Follow GFR, electrolytes, and fluid balance. Continue intravenous dopamine infusion for heart rate support. Wean as tolerated to maintain heart rate 60-80 bpm. Discussed with nursing staff.she will attempt to reduce dose to 6 mcg/kg/min and continue to monitor. Continue chronic aspirin, and Plavix. Clinical scenario suggests demand ischemia with elevated troponin in the setting of profound hypoxemia/Covid 19 pneumonia/VDRF. Continue IV heparin. Repeat without evidence of ischemic ST changes. Troponin trending downward. Continue supportive care. Admission and Anticipated Discharge Date Admission Date: September 09, 2020 Subjective Patient seen and examined at the bedside. Sedated on ventilator. Periods of sinus bradycardia as well as junctional bradycardia recorded on telemetry overnight. Dopamine infusion being maintained at 7 mcg/kg/min. Heart rate currently 70 bpm in sinus rhythm. Blood pressure controlled. Norepinephrine discontinued. No concerns reported by nursing staff. Per chart review, patient became progressively hypoxic in the early a.m. hours requiring increase of FiO2. Oxygen requirements returned to baseline. Repeat ECG without ischemic changes. Serum troponin trending downward. Echocardiogram performed 09/10/2020 demonstrating mild left ventricular systolic dysfunction with ejection fraction 45%, no pericardial effusion, apical wall motion abnormality with hypokinesis of the segments. Review of Systems Review of Systems: Unobtainable due to endotracheal tube Physical Exam Constitutional: well nourished; no acute distress Respiratory: no respiratory distress and no labored breathing Auscultation: + diminished lung sounds; no crackles, no rales, no rhonchi and no wheezes Cardiovascular: Rate/Rhythm: regular rate and regular rhythm Heart Sounds: normal S1 and normal S2; no murmur Vessels: no JVD Extremities: + edema (Mild bilateral pedal and ankle edema.) Gastrointestinal (Abdomen): Inspection/Auscultation: abdomen normal to inspection and normal bowel sounds; abdomen not distended Percussion/Palpation: abdomen soft; no guarding and abdomen not rigid Results & Data ([facility]) Vital Signs (Past 12 Hours) Vital Signs Temp Pulse Resp BP Pulse Ox 09/11/20 11:30 71 93 09/11/20 11:10 77 18 93 09/11/20 11:01 77 95 09/11/20 11:00 79 128/86 95 09/11/20 10:30 76 95 09/11/20 10:01 73 94 09/11/20 10:00 74 139/81 94 09/11/20 09:30 70 95 09/11/20 09:01 73 94 09/11/20 09:00 82 124/81 94 09/11/20 08:45 83 93 09/11/20 08:30 36 C L 82 90 09/11/20 08:15 78 96 09/11/20 08:01 84 95 09/11/20 08:00 83 138/83 95 09/11/20 07:45 86 96 09/11/20 07:30 93 H 93 09/11/20 07:15 97 H 95 09/11/20 07:11 89 19 97 09/11/20 07:01 101 H 91 09/11/20 07:00 99 H 119/91 91 09/11/20 06:23 35.6 C L 09/11/20 06:15 91 H 87 L 09/11/20 06:01 86 84 L 09/11/20 06:00 82 133/83 86 L 09/11/20 05:45 75 86 L 09/11/20 05:30 66 91 09/11/20 05:15 63 91 09/11/20 05:00 132/80 95 09/11/20 04:45 63 90 09/11/20 04:30 63 89 L 09/11/20 04:15 60 92 09/11/20 04:01 62 92 09/11/20 04:00 63 144/76 H 92 09/11/20 03:45 66 91 09/11/20 03:30 63 91
--- NOTE | 2020-09-11 17:36 | Hospitalist Progress Note ---
Date of Service September 11, 2020 Assessment & Plan (1) Acute hypoxemic respiratory failure: Acute respiratory failure with hypoxia Ventilatory dependent Severe COVID-19 pneumonia Septic Shock CXR:Endotracheal tube terminates 4.7 cm superior to the kathy. Left subclavian central venous catheter distal tip terminates in the region of the mid SVC. Extensive bilateral mixed interstitial and alveolar opacities redemonstrated. Blood culture: 1/2: Gram-positive cocci Elevated lactate levels Normal procalcitonin CRP:13.7 Received Tocilizumab Continue IV dexamethasone Wean off of pressors as able Continue nebs as needed IV diuretics as needed Appreciate critical care input Continue Vent support Off Paralytics Dopamine drip being titrated down FiO2 decreased to 50% Started on tube feeds NSTEMI H/O CAD S/P Stent ECHO: Mild concentric LVH. EF 45%. Moderate size apical wall motion abnormality with hypokinesis of the segments. No pericardial effusion. No significant valvular disease. Troponin trending down Plan to perform ECHO once off of prone position Continue aspirin, Plavix, statin Imdur, Lisinopril on hold Continue IV heparin Elevated D dimer Could not perform CTA due to renal Insufficiency Venous Doppler:No DVT HTN Hypotensive on presentations Received IV fluids Wean off of pressors as able Acute Kidney Injury on CKD III Likely ATN Cr:2.43>1.75>1.2 Avoid nephrotoxic agents as able Monitor renal function Schizophrenia/depression Continue Celexa, Ziprasidone Prediabetes HbA1C:6.1 DVT Px: IV heparin Code Status Full code Admission and Anticipated Discharge Date Admission Date: September 09, 2020 Subjective Patient is seen and examined at bedside Remains sedated and Intubated Dopamine drip being titrated down FiO2 decreased to 50% No distress on exam Review of Systems Review of Systems: All systems reviewed & are unremarkable except as noted in HPI & below Physical Exam Physical Exam: Physical Exam: Vitals signs as noted above General Appearance:Moderately built and nourished, no apparent distress,+Intubated Head: normocephalic, Atraumatic Eyes: normal inspection Neck: supple, Trachea midline Respiratory/Chest: Decreased breath sounds, CTA Cardiovascular: S1, S2, No murmur Abdomen/GI:Soft, Non tender, Bowel sounds present Extremities/Musculoskeletal:normal inspection, no edema Neurologic/Psych:Sedated and Itubated Skin: normal color, warm Results & Data Results & Data ([facility]) Vital Signs (Past 12 Hours) Vital Signs Temp Pulse Resp BP Pulse Ox 09/11/20 15:29 66 18 94 09/11/20 11:30 71 93 09/11/20 11:10 77 18 93 09/11/20 11:01 77 95 09/11/20 11:00 79 128/86 95 09/11/20 10:30 76 95 09/11/20 10:01 73 94 09/11/20 10:00 74 139/81 94 09/11/20 09:30 70 95 09/11/20 09:01 73 94 09/11/20 09:00 82 124/81 94 09/11/20 08:45 83 93 09/11/20 08:30 36 C L 82 90 09/11/20 08:15 78 96 09/11/20 08:01 84 95 09/11/20 08:00 83 138/83 95 09/11/20 07:45 86 96 09/11/20 07:30 93 H 93 09/11/20 07:15 97 H 95 09/11/20 07:11 89 19 97 09/11/20 07:01 101 H 91 09/11/20 07:00 99 H 119/91 91 09/11/20 06:23 35.6 C L 09/11/20 06:15 91 H 87 L 09/11/20 06:01 86 84 L 09/11/20 06:00 82 133/83 86 L 09/11/20 05:45 75 86 L 09/11/20 05:30 66 91 Laboratory Results Short CBC 09/11/20 Range/Units 05:48 WBC 14.88 H (4.8-10.8) K/uL Hgb 14.7 (14.0-18.0) g/dL Hct 41.0 L (42-52) % Plt Count 218 (130-400) K/uL BMP 09/11/20 05:48 Sodium 140 Potassium 4.6 Chloride 112 H Carbon Dioxide 24 BUN 35 H Creatinine 1.25 Glucose 156 H Calcium 7.4 L Cardiac Enzymes 09/11/20 Range/Units 05:48 Troponin I 6.320 H* (0-0.045) ng/ml
[2020-09-11] MEDS: CITALOPRAM 20 MG TAB PO SCH (21:55)
[2020-09-11] MEDS: ATORVASTATIN 20 MG TAB PO SCH (21:55)
[2020-09-12] MEDS: TUBE FEEDING WATER FLUSH GT SCH ×5 (04:00→20:42)
[2020-09-12 04:18] LABS: iSTAT Art Bld Gas pCO2 Correct 40 mmHg (35-46); iSTAT Art Bld Gas pH Corrected 7.422 (7.35-7.45); iSTAT Arterial Blood Gas HCO3 26 meg/L (19-24); iSTAT Arterial Blood Gas pCO2 41 mmHg (35-46); iSTAT Arterial Blood Gas pH 7.42 (7.35-7.45); iSTAT Arterial Blood Gas pO2 67 mmHg (80-95); iSTAT Arterial Blood Gas pO2 C 66; iSTAT Carbon Dioxide 27 mmol/L (24-31); iSTAT FiO2 45 %; iSTAT Hematocrit 41 % (42-52); iSTAT Hemoglobin 13.9 g/dl (14.0-18.0); iSTAT Potassium 4.4 mmol/L (3.3-5.0); iSTAT Site Art Line; iSTAT Sodium 138 mmol/L (135-144)
[2020-09-12] MEDS: NOREPINEPHRINE/D5W 8 MG/508 ML BAG IV SCH (07:20)
[2020-09-12 07:29] LABS: Basophils # (auto) 0.02 K/uL (0-0.2); Basophils % (auto) 0.1 %; Hematocrit (blood only) 41.2 % (42-52); Hemoglobin 14.6 g/dL (14.0-18.0); Immature Granulocytes # (auto) 0.18 K/uL (0.00-0.02); Immature Granulocytes % (auto) 1.3 %; Lymphocytes % (auto) 8.1 %; Mean Corpuscular Hemoglobin 33.4 pg (25-34); Mean Corpuscular Hgb Conc 35.4 g/dL (32-36); Mean Corpuscular Volume 94.3 fL (80-100); Mean Platelet Volume 10.5 fL (7.4-10.4); Monocytes # (auto) 0.09 K/uL (0.11-0.59); Monocytes % (auto) 0.7 %; Neutrophils # (auto) 12.13 K/uL (1.4-6.5); Neutrophils % (auto) 89.8 %; Nucleated RBC # (auto) 0.04 K/uL (0-0); Nucleated RBC % (auto) 0.3 %; Platelet Count 219 K/uL (130-400); RDW Standard Deviation 48.7 fL (36.4-46.3); Red Blood Count 4.37 M/uL (4.7-6.1); White Blood Count 13.52 K/uL (4.8-10.8)
[2020-09-12] MEDS: dexAMETHasone 6 MG in SYRINGE 0 ML IV SCH (07:33)
[2020-09-12] MEDS: FUROSEMIDE 40 MG in SYRINGE 0 ML IV SCH ×2 (07:33→20:42)
[2020-09-12] MEDS: CLOPIDOGREL BISULFATE 75 MG TAB PO SCH (07:34)
[2020-09-12] MEDS: ASPIRIN 81 MG CHEW PO SCH (07:34)
[2020-09-12] MEDS: MIDAZOLAM HCL 125 MG/250 ML BAG IV PRN (07:36)
[2020-09-12 07:52] LABS: Partial Thromboplastin Ratio 3.9
[2020-09-12 07:54] LABS: Calcium 7.7 mg/dl (8.5-10.1); Creatinine Clr Calc Pharmacy 55.8 ml/min; Est GFR (African American) 68.6; Est GFR (Non-African American) 59.2; Magnesium 2.6 mg/dl (1.8-2.4); Phosphorus 3.5 mg/dl (2.5-4.9); Potassium 4.5 mmol/L (3.5-5.1)
[2020-09-12 08:07] LABS: Partial Thromboplastin Time 102.4 Seconds (21.0-31.0)
--- NOTE | 2020-09-12 08:16 | XRay Report ---
XR chest 1V portable CLINICAL HISTORY: Respiratory failure. COMPARISON STUDY: Chest radiograph September 11, 2020. FINDINGS: Tip of the endotracheal tube is 4.3 cm above the kathy. Tip of nasogastric tube is at leas t within the proximal stomach. Left subclavian central line remains in place. There is no pneumothora x. Small bilateral pleural effusions persist. Bibasilar opacities have slightly increased. Interstiti al thickening is again noted. IMPRESSION: 1. Satisfactory positioning of lines and tubes. 2. Slight progression of bibasilar opacities and interstitial thickening. 3. Small bilateral pleural effusions. ACT 112: Negative or not required by law. Electronically signed by: Benjie Calhoun M.D. 09/12/2020 8:15 AM
--- NOTE | 2020-09-12 08:44 | Cardiology Progress Note ---
Date of Service September 12, 2020 Assessment & Plan (1) Acute hypoxemic respiratory failure: (2) Pneumonia due to 2019 novel coronavirus: (3) Acute non-ST elevation myocardial infarction (NSTEMI): (4) Sinus bradycardia: Repeat chest x-ray today reveals chest x-ray today reveals progression of bibasilar opacities and interstitial thickening. Continue daily furosemide. Monitor fluid balance, GFR, and electrolytes. Continue intravenous dopamine infusion for heart rate support. Wean as tolerated to maintain heart rate 60-80 bpm. Discussed with nursing staff. Clinical scenario suggests demand ischemia with elevated troponin in the setting of profound hypoxemia/Covid 19 pneumonia/VDRF. Repeat ECG 09/11/2020 without evidence of ischemic ST changes. Troponin trending downward. Patient carries history of multivessel coronary disease and stent thrombosis in 2014. Continue dual antiplatelet therapy and intravenous heparin infusion at this time. Vent management and corticosteroid therapy as per critical care. Admission and Anticipated Discharge Date Admission Date: September 09, 2020 Subjective Patient clinical status discussed with nursing in the Covid unit. Remains on 7 mcg/kg/min of dopamine infusion. Heart rate unchanged. Blood pressure remained stable. Fluid balance -494 cc since yesterday. Renal function remained stable and unchanged. Currently requiring 45% FiO2 on ventilator. No concerns reported by nursing staff. Patient remains intubated and sedated. Review of Systems Review of Systems: Unobtainable due to endotracheal tube Physical Exam Physical Exam: Not performed. Results & Data ([facility]) Vital Signs (Past 12 Hours) Vital Signs Temp Pulse Resp BP Pulse Ox 09/12/20 08:01 61 89 L 09/12/20 08:00 61 103/57 L 89 L 09/12/20 07:45 61 18 122/68 92 09/12/20 07:31 63 92 09/12/20 07:30 36 C L 61 121/66 92 09/12/20 07:15 61 124/66 92 09/12/20 07:01 66 92 09/12/20 07:00 64 116/63 92 09/12/20 04:00 60 18 92 09/12/20 02:18 61 18 92 09/12/20 00:52 62 09/12/20 00:07 36.0 C L 09/12/20 00:01 65 91 09/12/20 00:00 68 140/82 91 09/11/20 23:46 65 92 04/10/21 23:45 62 146/80 H 92 09/11/20 23:31 64 92 09/11/20 23:30 66 135/82 92 09/11/20 23:16 63 92 09/11/20 23:15 62 144/82 H 92 09/11/20 23:01 63 92 09/11/20 23:00 63 144/80 H 92 09/11/20 22:46 63 92 09/11/20 22:45 62 18 142/81 H 92 09/11/20 22:31 62 93 09/11/20 22:30 60 147/80 H 93 09/11/20 22:16 62 93 09/11/20 22:15 62 144/78 H 93 09/11/20 22:01 63 93 09/11/20 22:00 63 143/80 H 93 09/11/20 21:46 65 92 09/11/20 21:45 64 148/80 H 92 09/11/20 21:31 63 93 09/11/20 21:30 64 146/78 H 93 09/11/20 21:16 63 93 09/11/20 21:15 62 147/80 H 92 09/11/20 21:01 58 L 93 09/11/20 21:00 61 145/78 H 92 09/11/20 20:46 60 93 09/11/20 20:45 60 144/79 H 93
[2020-09-12] MEDS: DOPamine / D5W 400 MG/250 ML BAG IV SCH ×2 (11:30→23:28)
[2020-09-12] MEDS: fentaNYL DRIP 1,250 MCG/250 ML BAG IV SCH (12:51)
[2020-09-12] MEDS: PEPTAMEN INTENSE VHP 1.0 CAL 1,000 ML BAG OG SCH (12:52)
--- NOTE | 2020-09-12 13:56 | Critical Care Progress Note ---
Date of Service September 12, 2020 Assessment & Plan (1) Admitted to intensive care unit: Reason Critically Ill: Patient is a 75-year-old male with acute hypoxic respiratory failure in the setting of COVID-19 pneumonia and non-ST elevation myocardial infarction requiring emergent endotracheal intubation. Unclear how much of the patient's respiratory failure is related to Covid pneumonia and how much may be related to his non-ST elevation [place] and fluid issues. 24-hour events: Attempted to try and wean dopamine however the patient again became bradycardic down into the 40s which necessitated increasing his dopamine. Otherwise has been hemodynamically stable. He tolerated attempts at diuresis yesterday Recommendations: NEURO -off paralytics. Continue fentanyl and Versed. Maintain sedation until the patient is able to complete a spontaneous breathing trial. Neurologically intact prior to intubation. Continue his home Geodon. CARDIAC/VASCULAR -non-ST elevation myocardial infarction. Echocardiogram with apical wall motion abnormalities suspicious for supply demand mismatch. Continue heparin drip. Cardiology consultation reviewed. They did not recommend cardiac catheterization at this point time as the patient has known three-vessel coronary disease. Continued medical management. Dopamine is being titrated for bradycardia which apparently has been an issue in the past. He is hemodynamically stable and will continue attempts at diuresis. RESPIRATORY -acute hypoxemic respiratory failure with pulmonary infiltrates. Differential would include atypical edema, pulmonary hemorrhage, and infectious etiologies including secondary to Covid pneumonia. Continue dexamethasone at this point time for Covid pneumonia. We will again attempt to wean FiO2 and PEEP. Continue gentle diuresis to see if there may be a component of fluid overload. Increase Lasix to 40 IV twice daily and follow kidney function and electrolytes GI/NUTRITION -continue enteral feeding and advance as tolerated to goal. Stress ulcer prophylaxis is in place. RENAL/LYTES -renal function acceptable. Replete electrolytes as needed. -no current issues. Continue to trend I/O. ENDO -glycemic control per protocol HEME -no current issues. Mild elevation in white blood cell count likely secondary to margination from steroids. Continue to trend at this point time. ID Covid pneumonia: The patient received Decadron and remdesivir as well as Tocilizumab. Now off remdesivir. 1 out of 2 blood cultures growing gram-pos itive cocci, suspect contaminant. Afebrile but white count is mildly persistently elevated, possibly secondary to concomitant steroid use. LINES/IV ACCESS - PIVs x2 LEFT Subclavian CVL LEFT Radial Arterial Line Colvin ET Tube OG DVT PROPHYLAXIS - Heparin gtt SCDs Patient remains critically ill with multiorgan system dysfunction. He was discussed with the bedside critical care nurse and with RT. A total of 35 minutes critical care time was spent in evaluation management stabilization of this patient to this point. (2) Acute hypoxemic respiratory failure: (3) Pneumonia due to 2019 novel coronavirus: (4) Acute kidney injury: (5) Acidosis, lactic: (6) Acute non-ST elevation myocardial infarction (NSTEMI): Admission and Anticipated Discharge Date Admission Date: September 09, 2020 Subjective Intubated and sedated Review of Systems Review of Systems: Unobtainable due to endotracheal tube Physical Exam Constitutional: + mechanically ventilated; not ill appearing Neck: trachea midline, no thyromegaly Respiratory: no labored breathing Auscultation: no rales and no wheezes Cardiovascular: RRR, no murmur, no edema Gastrointestinal (Abdomen): normal bowel sounds, soft, nontender, no hepatosplenomegaly Musculoskeletal: Extremities: extremities normal to inspection Skin: no rashes, warm and dry Lymphatic: no cervical lymphadenopathy Results & Data Results & Data ([facility]) Vital Signs (Past 12 Hours) Vital Signs Temp Pulse Resp BP Pulse Ox 09/12/20 12:31 59 L 91 09/12/20 12:30 36 C L 60 117/66 91 09/12/20 12:15 59 L 121/67 91 09/12/20 12:02 56 L 18 92 09/12/20 12:01 56 L 92 09/12/20 12:00 58 L 117/67 09/12/20 11:45 58 L 114/61 92 09/12/20 11:31 62 92 09/12/20 11:30 60 115/66 92 09/12/20 11:15 58 L 127/72 92 09/12/20 11:01 56 L 92 09/12/20 11:00 57 L 117/66 92 09/12/20 10:45 58 L 116/68 92 09/12/20 10:31 59 L 91 09/12/20 10:30 59 L 121/70 91 09/12/20 10:15 59 L 111/68 90 09/12/20 10:01 58 L 92 09/12/20 10:00 58 L 120/68 92 09/12/20 09:45 58 L 116/67 91 09/12/20 09:31 57 L 91 09/12/20 09:30 58 L 117/66 91 09/12/20 09:15 57 L 103/60 88 L 09/12/20 09:01 58 L 90 09/12/20 09:00 59 L 109/65 91 09/12/20 08:45 56 L 116/65 86 L 09/12/20 08:31 45 L 89 L 09/12/20 08:30 47 L 111/58 L 88 L 09/12/20 08:15 44 L 99/51 L 87 L 09/12/20 08:01 61 89 L 09/12/20 08:00 61 103/57 L 89 L 09/12/20 07:45 61 18 122/68 92 09/12/20 07:31 63 92 09/12/20 07:30 36 C L 61 121/66 92 09/12/20 07:15 61 124/66 92 09/12/20 07:01 66 92 09/12/20 07:00 64 116/63 92 09/12/20 04:00 60 18 92 09/12/20 02:18 61 18 92 I/O: -511 Laboratory Results 09/12/20 06:50 09/12/20 06:50 Diagnostic Findings Chest x-ray from today was independently reviewed. Essentially unchanged from prior with some hazy basilar opacities and small bilateral effusions. Tubes and lines in appropriate position Coding Level of Care Code Critical Care 1st 30-74 mins Diagnoses Admitted to intensive care unit Z78.9 Acute hypoxemic respiratory failure J96.01 Pneumonia due to 2019 novel coronavirus U07.1; J12.82 Acute kidney injury N17.9 Acidosis, lactic E87.2 Acute non-ST elevation myocardial infarction (NSTEMI) I21.4 Time Spent (min) 35
[2020-09-12 15:11] LABS: Partial Thromboplastin Ratio 2.2
[2020-09-12 15:18] LABS: Partial Thromboplastin Time 58.5 Seconds (21.0-31.0)
[2020-09-12] MEDS: HEPARIN SODIUM/DEXTROSE 25,000 UNITS/500 ML BAG IV SCH (16:12)
--- NOTE | 2020-09-12 17:57 | Hospitalist Progress Note ---
Date of Service September 12, 2020 Assessment & Plan (1) Acute hypoxemic respiratory failure: Acute respiratory failure with hypoxia Ventilatory dependent Severe COVID-19 pneumonia Septic Shock CXR:Endotracheal tube terminates 4.7 cm superior to the kathy. Left subclavian central venous catheter distal tip terminates in the region of the mid SVC. Extensive bilateral mixed interstitial and alveolar opacities redemonstrated. Blood culture: /: Preliminary--Staph species --Likely contaminant Repeat Blood Cx:pending Elevated lactate levels Normal procalcitonin CRP:13.7 Received Tocilizumab Continue IV dexamethasone Off pressors and paralytics Continue nebs as needed Continue IV lasix Appreciate critical care input Continue Vent support Wean off of Dopamine drip as able FiO2 decreased to 40% Continue tube feeds Sinus Bradycardia On Dopamine drip NSTEMI H/O CAD S/P Stent ECHO: Mild concentric LVH. EF 45%. Moderate size apical wall motion abnormality with hypokinesis of the segments. No pericardial effusion. No significant valvular disease. Troponin trending down Plan to perform ECHO once off of prone position Continue aspirin, Plavix, statin Imdur, Lisinopril on hold Continue IV heparin Elevated D dimer Could not perform CTA due to renal Insufficiency Venous Doppler:No DVT HTN Hypotensive on presentations Received IV fluids Wean off of pressors as able Acute Kidney Injury on CKD III Likely ATN Cr:2.43>1.75>1.2 Avoid nephrotoxic agents as able Monitor renal function Schizophrenia/depression Continue Celexa, Ziprasidone Prediabetes HbA1C:6.1 DVT Px: IV heparin Code Status Full code Admission and Anticipated Discharge Date Admission Date: September 09, 2020 Subjective Patient is seen and examined at bedside sedated and Intubated On Dopamin, Heparin drip FiO2 decreased to 40% On Tube feeds Review of Systems Review of Systems: Unobtainable due to endotracheal tube Physical Exam Physical Exam: Physical Exam: Vitals signs as noted above General Appearance:Moderately built and nourished, no apparent distress,+Intubated Head: normocephalic, Atraumatic Eyes: normal inspection Neck: supple, Trachea midline Respiratory/Chest: Decreased breath sounds, CTA Cardiovascular: S1, S2, No murmur, bradycardia Abdomen/GI:Soft, Non tender, Bowel sounds present Extremities/Musculoskeletal:normal inspection, no edema Neurologic/Psych:Sedated and Itubated Skin: normal color, warm Results & Data Results & Data ([facility]) Vital Signs (Past 12 Hours) Vital Signs Temp Pulse Resp BP Pulse Ox 09/12/20 16:19 59 L 18 90 09/12/20 12:31 59 L 91 09/12/20 12:30 36 C L 60 117/66 91 09/12/20 12:15 59 L 121/67 91 09/12/20 12:02 56 L 18 92 09/12/20 12:01 56 L 92 09/12/20 12:00 58 L 117/67 92 09/12/20 11:45 58 L 114/61 92 09/12/20 11:31 62 92 09/12/20 11:30 60 115/66 92 09/12/20 11:15 58 L 127/72 92 09/12/20 11:01 56 L 92 09/12/20 11:00 57 L 117/66 92 09/12/20 10:45 58 L 116/68 92 09/12/20 10:31 59 L 91 09/12/20 10:30 59 L 121/70 91 09/12/20 10:15 59 L 111/68 90 09/12/20 10:01 58 L 92 09/12/20 10:00 58 L 120/68 92 09/12/20 09:45 58 L 116/67 91 09/12/20 09:31 57 L 91 09/12/20 09:30 58 L 117/66 91 09/12/20 09:15 57 L 103/60 88 L 09/12/20 09:01 58 L 90 09/12/20 09:00 59 L 109/65 91 09/12/20 08:45 56 L 116/65 86 L 09/12/20 08:31 45 L 89 L 09/12/20 08:30 47 L 111/58 L 88 L 09/12/20 08:15 44 L 99/51 L 87 L 09/12/20 08:01 61 89 L 09/12/20 08:00 61 103/57 L 89 L 09/12/20 07:45 61 18 122/68 92 09/12/20 07:31 63 92 09/12/20 07:30 36 C L 61 121/66 92 09/12/20 07:15 61 124/66 92 09/12/20 07:01 66 92 09/12/20 07:00 64 116/63 92 Laboratory Results Short CBC 09/12/20 Range/Units 06:50 WBC 13.52 H (4.8-10.8) K/uL Hgb 14.6 (14.0-18.0) g/dL Hct 41.2 L (42-52) % Plt Count 219 (130-400) K/uL BMP 09/12/20 06:50 Sodium 140 Potassium 4.5 Chloride 110 H Carbon Dioxide 25 BUN 42 H Creatinine 1.20 Glucose 176 H Calcium 7.7 L
[2020-09-12] MEDS: CITALOPRAM 20 MG TAB PO SCH (20:42)
[2020-09-12] MEDS: ATORVASTATIN 20 MG TAB PO SCH (20:42)
[2020-09-13] MEDS: TUBE FEEDING WATER FLUSH GT SCH ×6 (00:36→19:35)
[2020-09-13] MEDS: fentaNYL DRIP 1,250 MCG/250 ML BAG IV SCH ×7 (01:05→16:21)
[2020-09-13 05:03] LABS: iSTAT Arterial Blood Gas HCO3 29 meg/L (19-24); iSTAT Arterial Blood Gas pCO2 44 mmHg (35-46); iSTAT Arterial Blood Gas pH 7.43 (7.35-7.45); iSTAT Arterial Blood Gas pO2 65 mmHg (80-95); iSTAT Carbon Dioxide 30 mmol/L (24-31); iSTAT FiO2 40 %; iSTAT Site Art Line
--- NOTE | 2020-09-13 06:09 | Electrocardiogram Report ---
Test Reason : Blood Pressure : / mmHG Vent. Rate : 081 BPM Atrial Rate : 081 BPM P-R Int : 182 ms QRS Dur : 112 ms QT Int : 400 ms P-R-T Axes : 052 -35 048 degrees QTc Int : 465 ms Normal sinus rhythm Left axis deviation Abnormal ECG When compared with ECG of 10-SEP-2020 14:08, Sinus rhythm has replaced Ectopic atrial rhythm T wave inversion no longer evident in Anterior leads Confirmed by Lj Fitch ([id number]) on 09/13/2020 6:09:33 AM Referred By: REFERRED SELF Confirmed By:Lj Fitch
[2020-09-13 07:30] LABS: Partial Thromboplastin Ratio 3.8
[2020-09-13 07:33] LABS: Partial Thromboplastin Time 100.8 Seconds (21.0-31.0)
--- NOTE | 2020-09-13 08:21 | XRay Report ---
XR chest 1V portable CLINICAL HISTORY: Respiratory failure. COMPARISON STUDY: Chest radiograph September 12, 2020. FINDINGS: Tip of the endotracheal tube is 4.1 cm above the kathy. Left subclavian central line remai ns in place. Tip of nasogastric tube is at least within the proximal stomach. There is no pneumothora x. Small left and trace right pleural effusions are noted. Interstitial thickening and bibasilar opac ities have slightly improved. Cardiomediastinal silhouette is stable. IMPRESSION: 1. Satisfactory positioning of lines and tubes. 2. Slight improvement in bibasilar opacities and interstitial thickening. 3. Small left and trace right pleural effusion. ACT 112: Negative or not required by law. Electronically signed by: Benjie Calhoun M.D. 09/13/2020 8:20 AM
[2020-09-13] MEDS: MIDAZOLAM HCL 125 MG/250 ML BAG IV PRN (08:23)
[2020-09-13] MEDS: ASPIRIN 81 MG CHEW PO SCH (08:45)
[2020-09-13] MEDS: dexAMETHasone 6 MG in SYRINGE 0 ML IV SCH (08:46)
[2020-09-13 08:55] LABS: Hemoglobin 15.3 g/dL (14.0-18.0); Mean Corpuscular Hemoglobin 33.3 pg (25-34); Mean Corpuscular Volume 95.9 fL (80-100); Mean Platelet Volume 10.7 fL (7.4-10.4); Platelet Count 219 K/uL (130-400); RDW Coefficient of Variation 14.4 % (11.5-14.5); RDW Standard Deviation 50.1 fL (36.4-46.3); Red Blood Count 4.59 M/uL (4.7-6.1); White Blood Count 16.22 K/uL (4.8-10.8)
[2020-09-13] MEDS: CLOPIDOGREL BISULFATE 75 MG TAB PO SCH (08:58)
[2020-09-13 09:02] LABS: Mean Corpuscular Hgb Conc 34.8 g/dL (32-36)
[2020-09-13 09:20] LABS: BUN Creatinine Ratio 39.2 (10-20); Calcium 7.8 mg/dl (8.5-10.1); Creatinine Clr Calc Pharmacy 53.5 ml/min; Est GFR (African American) 65.3; Est GFR (Non-African American) 56.4; Magnesium 2.7 mg/dl (1.8-2.4); Phosphorus 2.8 mg/dl (2.5-4.9); Potassium 4.6 mmol/L (3.5-5.1)
[2020-09-13] MEDS: FUROSEMIDE 40 MG in SYRINGE 0 ML IV SCH ×2 (09:25→20:31)
[2020-09-13 09:26] LABS: Partial Thromboplastin Ratio 1.9
[2020-09-13 09:27] LABS: Partial Thromboplastin Time 49.4 Seconds (21.0-31.0)
[2020-09-13 09:28] LABS: ALC (manual) 0.44 K/uL (1.2-3.4); ANC (manual) 14.05 K/uL (1.4-6.5); Lymphocytes # (manual) 0.44 K/uL (1.2-3.4); Lymphocytes % (manual) 2.7 %; Metamyelocytes # (manual) 0.15 K/uL (0-0); Metamyelocytes % (manual) 0.9 %; Myelocytes # (manual) 0.29 K/uL (0-0); Myelocytes % (manual) 1.8 %; Neutrophils # (manual) 14.05 K/uL (1.4-6.5); Neutrophils % (manual) 86.6 %
[2020-09-13] MEDS: NOREPINEPHRINE/D5W 8 MG/508 ML BAG IV SCH (10:10)
--- NOTE | 2020-09-13 10:33 | XRay Report ---
XR chest 1V portable CLINICAL HISTORY: Respiratory failure. COMPARISON STUDY: Chest radiograph September 13, 2020 at 7:49 AM. FINDINGS: Tip of endotracheal tube is 4.8 cm above the kathy. Tip of nasogastric tube is below the l ower aspect of this image but at least within the proximal stomach. Left subclavian central line kishor ins in place. There is no pneumothorax. Suspected small left and trace right pleural effusions are no robert. There is persistent interstitial thickening and bibasilar opacities. IMPRESSION: 1. Satisfactory positioning of lines and tubes. 2. Persistent bibasilar opacities and interstitial thickening. 3. Small left and trace right pleural effusions. No pneumothorax. ACT 112: Negative or not required by law. Electronically signed by: Benjie Calhoun M.D. 09/13/2020 10:32 AM
[2020-09-13 10:38] LABS: Base Excess ABG 3.6 mEq/L (-9-1.8); HCO3 ABG 28 mmol/L (19-24); PCO2 ABG 42 mmHg (35-46); PO2 ABG 52 mmHg (80-95); pH ABG 7.44 (7.35-7.45)
[2020-09-13 10:41] LABS: Allen Test Pos (Pos)
--- NOTE | 2020-09-13 11:48 | Critical Care Progress Note ---
Date of Service September 13, 2020 Assessment & Plan (1) Admitted to intensive care unit: Reason Critically Ill: Patient is a 75-year-old male with acute hypoxic respiratory failure in the setting of COVID-19 pneumonia and non-ST elevation myocardial infarction requiring emergent endotracheal intubation. Unclear how much of the patient's respiratory failure is related to Covid pneumonia and how much may be related to his non-ST elevation [place] and fluid issues. Recommendations: NEURO -off paralytics. Weaning down fentanyl and Versed. Neurologically intact prior to intubation. Continue his home Geodon. CARDIAC/VASCULAR -non-ST elevation myocardial infarction. Echocardiogram with apical wall motion abnormalities suspicious for supply demand mismatch. Continue heparin drip. Cardiology is following the patient. QTC is stable. Bradycardia likely related to sedation and hypoxic respiratory failure. We will continue to wean sedation as possible. No therapeutic hypothermia is indicated at this time as he did not require CPR or ACLS. We will leave the patient on 3 mics of dopamine. RESPIRATORY -acute hypoxemic respiratory failure with pulmonary infiltrates. Differential would include atypical edema, pulmonary hemorrhage, and infectious etiologies including secondary to Covid pneumonia. Continue dexamethasone at this point time for Covid pneumonia. Continue to wean ventilatory support as able. Continue with 40 mg IV twice daily of Lasix for today and reevaluate tomorrow. GI/NUTRITION -continue enteral feeding and advance as tolerated to goal. Stress ulcer prophylaxis is in place. RENAL/LYTES -renal function acceptable. Replete electrolytes as needed. He is +2.6 L. -no current issues. Continue to trend I/O. ENDO -glycemic control per protocol HEME -no current issues. Mild elevation in white blood cell count likely secondary to margination from steroids. Continue to trend at this point time. IDreceived remdesivir and Tocilizumab earlier in the hospital course. Blood cultures from 09/08/2020 grew Staphylococcus lugdunensis. Repeat blood cultures have been negative. Likely contaminant. No indication for antibiotics at this time. LINES/IV ACCESS - PIVs x2 LEFT Subclavian CVL LEFT Radial Arterial Line Colvin ET Tube OG DVT PROPHYLAXIS - Heparin gtt SCDs CRITICAL CARE TIME - I have personally spent 41 minutes of critical care time in the direct management of this patient. This is a life/limb threatening event. This includes time spent evaluating patient, direct bedside care, chart review, placing orders, interpretation of diagnostic studies, discussion with consultants, patient, and family members, as well as other required patient management activities. This time is exclusive of all separately billable procedures, and teaching time and separate from and in addition to any other critical care service time. (2) Acute hypoxemic respiratory failure: (3) Pneumonia due to 2019 novel coronavirus: (4) Acute kidney injury: (5) Acidosis, lactic: (6) Acute non-ST elevation myocardial infarction (NSTEMI): Admission and Anticipated Discharge Date Admission Date: September 09, 2020 Subjective Patient seen and examined. This morning a CODE BLUE was called due to brief loss of pulses. No CPR was initiated. No shock or epinephrine was required. He was started on a Levophed drip briefly. Nursing reports that he was profoundly bradycardic prior to the CODE BLUE event. He is currently on 3 mcg/min of dopamine and we are weaning off the Levophed. Chest x-ray obtained which is largely unchanged from prior. ABG with normal acid-base status and severe hypoxia with a PO2 of 52. Review of Systems Review of Systems: Unobtainable due to cognitive status and Unobtainable due to endotracheal tube Physical Exam Constitutional: + mechanically ventilated; not ill appearing Neck: trachea midline, no thyromegaly Respiratory: no labored breathing Auscultation: no rales and no wheezes Cardiovascular: RRR, no murmur, no edema Gastrointestinal (Abdomen): normal bowel sounds, soft, nontender, no hepatosplenomegaly Musculoskeletal: Extremities: extremities normal to inspection Skin: no rashes, warm and dry Lymphatic: no cervical lymphadenopathy Results & Data Results & Data ([facility]) Vital Signs (Past 12 Hours) Vital Signs Temp Pulse Pulse Resp BP BP Pulse Ox 09/13/20 11:31 73 91 09/13/20 11:30 71 124/80 91 09/13/20 11:15 63 114/72 86 L 09/13/20 11:12 59 L 18 85 L 09/13/20 11:01 68 88 L 09/13/20 11:00 70 137/79 89 L 09/13/20 10:45 68 119/73 89 L 09/13/20 10:31 65 84 L 09/13/20 10:30 63 125/75 85 L 09/13/20 10:16 80 135/71 86 L 09/13/20 10:01 75 93 09/13/20 10:00 76 207/102 H 93 09/13/20 09:58 85 215/109 H 93 09/13/20 09:51 96 H 61/48 L 89 L 09/13/20 09:50 113 H 75/60 L 09/13/20 09:30 85 92 09/13/20 09:01 58 L 91 09/13/20 09:00 59 L 138/78 91 09/13/20 08:53 61 122/67 89 L 09/13/20 08:48 57 L 82/53 L 89 L 09/13/20 08:36 60 97/61 L 09/13/20 08:30 63 09/13/20 08:05 66 18 91 09/13/20 08:00 59 L 114/65 90 09/13/20 07:30 60 92 09/13/20 07:01 60 92 09/13/20 03:41 98.1 F 64 18 118/60 91 09/13/20 02:17 79 18 92 09/13/20 02:01 60 91 09/13/20 02:00 60 109/66 91 09/13/20 01:30 59 L 90 09/13/20 01:00 65 104/64 91 09/13/20 00:30 66 92 09/13/20 00:01 66 91 09/13/20 00:00 62 118/72 92 I reviewed the vital signs, labs and imaging Coding Level of Care Code Critical Care 1st 30-74 mins Diagnoses Admitted to intensive care unit Z78.9 Acute hypoxemic respiratory failure J96.01 Pneumonia due to 2019 novel coronavirus U07.1; J12.82 Acute kidney injury N17.9 Acidosis, lactic E87.2 Acute non-ST elevation myocardial infarction (NSTEMI) I21.4 Time Spent (min) 41
[2020-09-13] MEDS: DOPamine / D5W 400 MG/250 ML BAG IV SCH ×3 (11:54→16:21)
--- NOTE | 2020-09-13 14:52 | Cardiology Progress Note ---
Date of Service September 13, 2020 Assessment & Plan (1) Sinus bradycardia: (2) Sinus pause: (3) Junctional bradycardia: (4) Acute hypoxemic respiratory failure: (5) Pneumonia due to 2019 novel coronavirus: (6) Acute non-ST elevation myocardial infarction (NSTEMI): As noted above, telemetry reviewed revealing transient sinus bradycardia with 4- second pause. Potentially related to intravenous benzodiazepine infusion or hypoxemia/VDRF on 10cm Peep/COVID-19 pneumonia. His rhythm and blood pressure are currently stable. Repeat ECG without ischemic changes. Recommend continuing intravenous dopamine infusion for heart rate and blood pressure support. Discussed with critical care medicine. Intravenous benzodiazepine infusion will be reduced as tolerated. If recurrent bradycardia continues to be an issue, will consider temporary transvenous pacemaker insertion. Ventilator management as per critical care. Repeat chest x-ray reviewed without significant changes. Agree with continuing daily intravenous Lasix to maintain negative fluid balance and in turn possibly improve oxygenation. Monitor fluid balance, GFR, and electrolytes daily. With history of complex multivessel coronary disease and prior stent thrombosis, recommend continuing intravenous heparin and dual antiplatelet therapy at this time. Admission and Anticipated Discharge Date Admission Date: September 09, 2020 Subjective Patient seen and examined at the bedside. JOE NEW called this morning due to transient bradycardia. Telemetry reviewed demonstrating. Of sinus tachycardia with heart rate up to 120. Dopamine was reduced to 5 mics per kilogram per minute and patient subsequently became bradycardic. A 4-second pause noted. Heart rate spontaneously improved with evidence of sinus rhythm, junctional rhythm, accelerated junctional rhythm, as well as accelerated idioventricular rhythm. Norepinephrine added by critical care. Transient hypotension recorded corresponding with bradycardia. Currently he is hemodynamically stable. Arousable to tactile stimuli on the vent. His intravenous Versed infusion was reduced. No further episodes of bradycardia. Dobutamine infusion currently running at 3 mcg/kg/min. Norepinephrine infusion at 1 mcg/kg/min. Repeat chest x-ray reviewed without significant changes compared to 09/12/2020. Fluid balance is -1219 cc. Review of Systems Review of Systems: Unobtainable due to endotracheal tube Physical Exam Physical Exam: Not performed. Constitutional: well nourished; no acute distress Respiratory: no respiratory distress and no labored breathing Auscultation: + diminished lung sounds; no crackles, no rales, no rhonchi and no wheezes Cardiovascular: Rate/Rhythm: regular rate and regular rhythm Heart Sounds: normal S1 and normal S2; no murmur Vessels: no JVD Extremities: + edema (Mild bilateral pedal and ankle edema.) Gastrointestinal (Abdomen): Inspection/Auscultation: abdomen normal to inspection and normal bowel sounds; abdomen not distended Percussion/Palpation: abdomen soft; no guarding and abdomen not rigid [facility] Vital Signs (Past 12 Hours) Vital Signs Temp Pulse Pulse Resp BP BP Pulse Ox 09/13/20 11:31 73 91 09/13/20 11:30 71 124/80 91 09/13/20 11:15 63 114/72 86 L 09/13/20 11:12 59 L 18 85 L 09/13/20 11:01 68 88 L 09/13/20 11:00 70 137/79 89 L 09/13/20 10:45 68 119/73 89 L 09/13/20 10:31 65 84 L 09/13/20 10:30 63 125/75 85 L 09/13/20 10:16 80 135/71 86 L 09/13/20 10:01 75 93 09/13/20 10:00 76 207/102 H 93 09/13/20 09:58 85 215/109 H 93 09/13/20 09:51 96 H 61/48 L 89 L 09/13/20 09:50 113 H 75/60 L 09/13/20 09:30 85 92 09/13/20 09:01 58 L 91 09/13/20 09:00 59 L 138/78 91 09/13/20 08:53 61 122/67 89 L 09/13/20 08:48 57 L 82/53 L 89 L 09/13/20 08:36 60 97/61 L 09/13/20 08:30 63 09/13/20 08:05 66 18 91 09/13/20 08:00 59 L 114/65 90 09/13/20 07:30 60 92 09/13/20 07:01 60 92 09/13/20 03:41 36.7 C 64 18 118/60 91
[2020-09-13] MEDS: PEPTAMEN INTENSE VHP 1.0 CAL 1,000 ML BAG OG SCH (15:25)
[2020-09-13] MEDS: HEPARIN SODIUM/DEXTROSE 25,000 UNITS/500 ML BAG IV SCH ×2 (16:18→16:20)
[2020-09-13 16:59] LABS: Partial Thromboplastin Ratio 3.3
--- NOTE | 2020-09-13 17:43 | Hospitalist Progress Note ---
Date of Service September 13, 2020 Assessment & Plan (1) Acute hypoxemic respiratory failure: Acute respiratory failure with hypoxia Ventilatory dependent Severe COVID-19 pneumonia Septic Shock CXR:Endotracheal tube terminates 4.7 cm superior to the kathy. Left subclavian central venous catheter distal tip terminates in the region of the mid SVC. Extensive bilateral mixed interstitial and alveolar opacities redemonstrated. Blood culture: 06/05: Preliminary--Staph Lugdunesis -Likely contaminant Repeat Blood Cx:pending Elevated lactate levels Normal procalcitonin CRP:13.7 Received Tocilizumab Continue IV dexamethasone Off pressors and paralytics Continue nebs as needed Continue IV lasix 40mg BID Appreciate critical care input Continue Vent support Wean off of Dopamine drip as able FiO2 decreased to 40% Continue tube feeds CXR today showed slight improvement in bibasilar opacities and interstitial thickening. Leukocytosis likely secondary to steroids Sinus Bradycardia 4 second Pause On Dopamine drip May need a pacer if no improvement NSTEMI H/O CAD S/P Stent ECHO: Mild concentric LVH. EF 45%. Moderate size apical wall motion abnormality with hypokinesis of the segments. No pericardial effusion. No significant valvular disease. Troponin trending down Plan to perform ECHO once off of prone position Continue aspirin, Plavix, statin Imdur, Lisinopril on hold Continue IV heparin Elevated D dimer Could not perform CTA due to renal Insufficiency Venous Doppler:No DVT HTN Hypotensive on presentations Received IV fluids Wean off of pressors as able Acute Kidney Injury on CKD III Likely ATN Cr:2.43>1.75>1.2 Avoid nephrotoxic agents as able Monitor renal function Schizophrenia/depression Continue Celexa, Ziprasidone Prediabetes HbA1C:6.1 DVT Px: IV heparin Code Status Full code Admission and Anticipated Discharge Date Admission Date: September 09, 2020 Subjective Patient is seen and examined at bedside sedated and Intubated Patient has transient episode of Asystole while on Dopamine ggt thought o be secondary to sedation and respiratory failure Titrated down sedation and dopamine drip adjusted On 40 % FiO2 On Tube feeds Updated Patient's over the phone Discussed with Cardiology and Pulmnology Review of Systems Review of Systems: Unobtainable due to endotracheal tube Physical Exam Physical Exam: Physical Exam: Vitals signs as noted above General Appearance:Moderately built and nourished, no apparent distress,+Intubated Head: normocephalic, Atraumatic Eyes: normal inspection Neck: supple, Trachea midline Respiratory/Chest: Decreased breath sounds, CTA Cardiovascular: S1, S2, No murmur, bradycardia Abdomen/GI:Soft, Non tender, Bowel sounds present Extremities/Musculoskeletal:normal inspection, no edema Neurologic/Psych:Sedated and Itubated Skin: normal color, warm Results & Data Results & Data ([facility]) Vital Signs (Past 12 Hours) Vital Signs Pulse Resp BP Pulse Ox 09/13/20 16:00 51 L 85 L 09/13/20 15:51 65 18 92 09/13/20 15:30 59 L 94 09/13/20 15:01 67 93 09/13/20 15:00 65 107/65 93 09/13/20 14:45 67 107/69 93 09/13/20 14:31 68 93 09/13/20 14:30 67 105/65 93 09/13/20 14:15 69 103/69 93 09/13/20 14:01 70 93 09/13/20 14:00 68 117/74 93 09/13/20 13:45 70 89/62 L 92 09/13/20 13:31 69 93 09/13/20 13:30 67 130/76 93 09/13/20 13:15 70 131/77 92 09/13/20 13:01 68 89 L 09/13/20 13:00 66 121/73 90 09/13/20 12:45 67 134/76 92 09/13/20 12:31 69 91 09/13/20 12:30 69 128/78 92 09/13/20 12:15 70 123/75 91 09/13/20 12:01 69 91 09/13/20 12:00 71 127/79 90 09/13/20 11:45 67 112/70 86 L 09/13/20 11:31 73 91 09/13/20 11:30 71 124/80 91 09/13/20 11:15 63 114/72 86 L 09/13/20 11:12 59 L 18 85 L 09/13/20 11:01 68 88 L 09/13/20 11:00 70 137/79 89 L 09/13/20 10:45 68 119/73 89 L 09/13/20 10:31 65 84 L 09/13/20 10:30 63 125/75 85 L 09/13/20 10:16 80 135/71 86 L 09/13/20 10:01 75 93 09/13/20 10:00 76 207/102 H 93 09/13/20 09:58 85 215/109 H 93 09/13/20 09:51 96 H 61/48 L 89 L 09/13/20 09:50 113 H 75/60 L 09/13/20 09:30 85 92 09/13/20 09:01 58 L 91 09/13/20 09:00 59 L 138/78 91 09/13/20 08:53 61 122/67 89 L 09/13/20 08:48 57 L 82/53 L 89 L 09/13/20 08:36 60 97/61 L 09/13/20 08:30 63 09/13/20 08:05 66 18 91 09/13/20 08:00 59 L 114/65 90 09/13/20 07:30 60 92 09/13/20 07:01 60 92 Laboratory Results Short CBC 09/13/20 09/13/20 Range/Units 06:37 08:35 WBC Cancelled 16.22 H Hgb Cancelled 15.3 Hct Cancelled 44.0 Plt Count Cancelled 219 BMP 09/13/20 09/13/20 06:37 08:35 Sodium Cancelled 139 Potassium Cancelled 4.6 Chloride Cancelled 106 Carbon Dioxide Cancelled 30 BUN Cancelled 49 H Creatinine Cancelled 1.25 Glucose Cancelled 164 H Calcium Cancelled 7.8 L
[2020-09-13 18:07] LABS: Partial Thromboplastin Time 85.7 Seconds (21.0-31.0)
[2020-09-13] MEDS: ATORVASTATIN 20 MG TAB PO SCH (20:31)
[2020-09-13] MEDS: CITALOPRAM 20 MG TAB PO SCH (20:31)
[2020-09-13] MEDS: FAMOTIDINE 20 MG in SYRINGE 3 ML IV SCH (20:50)
[2020-09-14] MEDS: TUBE FEEDING WATER FLUSH GT SCH ×6 (00:41→20:26)
[2020-09-14] MEDS: HEPARIN SODIUM/DEXTROSE 25,000 UNITS/500 ML BAG IV SCH (01:10)
[2020-09-14 01:48] LABS: Partial Thromboplastin Ratio 2.4
[2020-09-14 02:02] LABS: Partial Thromboplastin Time 63.5 Seconds (21.0-31.0)
[2020-09-14 03:55] LABS: iSTAT Art Bld Gas pCO2 Correct 41 mmHg (35-46); iSTAT Art Bld Gas pH Corrected 7.471 (7.35-7.45); iSTAT Arterial Blood Gas HCO3 30 meg/L (19-24); iSTAT Arterial Blood Gas pCO2 42 mmHg (35-46); iSTAT Arterial Blood Gas pH 7.46 (7.35-7.45); iSTAT Arterial Blood Gas pO2 74 mmHg (80-95); iSTAT Arterial Blood Gas pO2 C 70; iSTAT Carbon Dioxide 31 mmol/L (24-31); iSTAT FiO2 50 %; iSTAT Hematocrit 44 % (42-52); iSTAT Potassium 4.2 mmol/L (3.3-5.0); iSTAT Site Art Line; iSTAT Sodium 139 mmol/L (135-144)
--- NOTE | 2020-09-14 05:16 | Electrocardiogram Report ---
Test Reason : Blood Pressure : / mmHG Vent. Rate : 062 BPM Atrial Rate : 062 BPM P-R Int : 206 ms QRS Dur : 110 ms QT Int : 436 ms P-R-T Axes : 059 -26 023 degrees QTc Int : 442 ms Normal sinus rhythm Normal ECG When compared with ECG of 11-SEP-2020 08:11, No significant change Confirmed by Lj Fitch ([id number]) on 09/14/2020 5:15:50 AM Referred By: REFERRED SELF Confirmed By:Lj Fitch
--- NOTE | 2020-09-14 05:33 | Electrocardiogram Report ---
Test Reason : Blood Pressure : / mmHG Vent. Rate : 060 BPM Atrial Rate : 060 BPM P-R Int : 186 ms QRS Dur : 110 ms QT Int : 446 ms P-R-T Axes : 061 -28 030 degrees QTc Int : 446 ms Normal sinus rhythm Normal ECG When compared with ECG of 12-SEP-2020 07:39, No significant change was found Confirmed by Lj Fitch ([id number]) on 09/14/2020 5:32:57 AM Referred By: REFERRED SELF Confirmed By:Lj Fitch
--- NOTE | 2020-09-14 05:49 | Electrocardiogram Report ---
Test Reason : Blood Pressure : / mmHG Vent. Rate : 073 BPM Atrial Rate : 073 BPM P-R Int : 176 ms QRS Dur : 100 ms QT Int : 416 ms P-R-T Axes : 060 -49 060 degrees QTc Int : 458 ms Normal sinus rhythm Left anterior fascicular block Poor R wave progression, consider anterior VT vs. lead placement vs. LVH Abnormal ECG When compared with ECG of 13-SEP-2020 04:55, Nonspecific T wave abnormality no longer evident in Inferior leads Confirmed by Lj Ficth ([id number]) on 09/14/2020 5:48:30 AM Referred By: REFERRED SELF Confirmed By:Lj Fitch
--- NOTE | 2020-09-14 06:13 | Electrocardiogram Report ---
Test Reason : Blood Pressure : / mmHG Vent. Rate : 070 BPM Atrial Rate : 070 BPM P-R Int : 128 ms QRS Dur : 094 ms QT Int : 406 ms P-R-T Axes : -05 -34 057 degrees QTc Int : 438 ms Normal sinus rhythm Left axis deviation Nonspecific T wave abnormality Abnormal ECG When compared with ECG of 13-SEP-2020 10:02, T wave inversion now evident in Anterior leads Confirmed by Lj Fitch ([id number]) on 09/14/2020 6:12:38 AM Referred By: REFERRED SELF Confirmed By:Lj Fitch
[2020-09-14 06:54] LABS: Hematocrit (blood only) 43.2 % (42-52); Hemoglobin 15.3 g/dL (14.0-18.0); Mean Corpuscular Hemoglobin 33.6 pg (25-34); Mean Corpuscular Hgb Conc 35.4 g/dL (32-36); Mean Corpuscular Volume 94.9 fL (80-100); Mean Platelet Volume 10.8 fL (7.4-10.4); Nucleated RBC # (auto) 0.09 K/uL (0-0); Nucleated RBC % (auto) 0.5 %; Platelet Count 241 K/uL (130-400); RDW Coefficient of Variation 14.5 % (11.5-14.5); RDW Standard Deviation 50.3 fL (36.4-46.3); Red Blood Count 4.55 M/uL (4.7-6.1); White Blood Count 18.79 K/uL (4.8-10.8)
[2020-09-14] MEDS: DOPamine / D5W 400 MG/250 ML BAG IV SCH ×4 (07:11→18:12)
[2020-09-14] MEDS: fentaNYL DRIP 1,250 MCG/250 ML BAG IV SCH ×4 (07:11→18:12)
[2020-09-14] MEDS: NOREPINEPHRINE/D5W 8 MG/508 ML BAG IV SCH ×2 (07:14→22:52)
[2020-09-14 07:18] LABS: Partial Thromboplastin Ratio 2.5
[2020-09-14 07:23] LABS: BUN Creatinine Ratio 44.9 (10-20); Calcium 7.4 mg/dl (8.5-10.1); Creatinine Clr Calc Pharmacy 53.5 ml/min; Est GFR (African American) 65.3; Est GFR (Non-African American) 56.4; Magnesium 2.7 mg/dl (1.8-2.4); Partial Thromboplastin Time 66.5 Seconds (21.0-31.0); Phosphorus 3.1 mg/dl (2.5-4.9); Potassium 4.3 mmol/L (3.5-5.1)
[2020-09-14] MEDS: FAMOTIDINE 20 MG in SYRINGE 3 ML IV SCH ×2 (07:58→20:26)
[2020-09-14] MEDS: dexAMETHasone 6 MG in SYRINGE 0 ML IV SCH (07:59)
[2020-09-14] MEDS: FUROSEMIDE 40 MG in SYRINGE 0 ML IV SCH ×2 (07:59→20:26)
[2020-09-14] MEDS: ASPIRIN 81 MG CHEW PO SCH (07:59)
[2020-09-14] MEDS: CLOPIDOGREL BISULFATE 75 MG TAB PO SCH (08:00)
[2020-09-14 08:03] LABS: ALC (manual) 0.38 K/uL (1.2-3.4); ANC (manual) 16.91 K/uL (1.4-6.5); Lymphocytes # (manual) 0.38 K/uL (1.2-3.4); Metamyelocytes # (manual) 0.38 K/uL (0-0); Monocytes # (manual) 0.75 K/uL (0.11-0.59); Myelocytes # (manual) 0.38 K/uL (0-0); Neutrophils # (manual) 16.91 K/uL (1.4-6.5)
--- NOTE | 2020-09-14 08:24 | XRay Report ---
SINGLE VIEW CHEST CLINICAL HISTORY: Respiratory failure. FINDINGS: An AP, portable, upright chest radiograph is compared to study dated 09/13/2020. The examina tion is degraded by portable technique and patient rotation. An endotracheal tube, an enteric tube, and a left subclavian central venous catheter are unchanged in position. The heart is top normal for projection noting atherosclerotic calcification of the thoracic aorta. There is bibasilar airspace c onsolidation. Small pleural effusions are suspected. No pneumothorax is seen. The skeletal structures are osteopenic. The bony thorax is grossly intact. IMPRESSION: 1. Stable lines and tubes 2. Bibasilar airspace consolidation and trace pleural effusions are similar to yesterday. ACT 112: Negative or not required by law. Electronically signed by: Sohail Bush M.D. 09/14/2020 8:23 AM
--- NOTE | 2020-09-14 08:30 | XRay Report ---
KUB CLINICAL HISTORY: high gastric residuals COMPARISON STUDY: None. FINDINGS: Tip of nasogastric tube projects over the distal stomach. Rectal probe is in place. Paucity of small bowel gas is noted. There is no convincing evidence for a bowel obstruction. IMPRESSION: 1. Paucity of small bowel gas, technically a nonspecific bowel gas pattern. However, no convincing ev idence for a bowel obstruction. 2. Nasogastric tube projects over the distal stomach. ACT 112: Negative or not required by law. Electronically signed by: Benjie Calhoun M.D. 09/14/2020 8:29 AM
[2020-09-14] MEDS ORDERED: ATROPINE SULFATE 0.1 MG/ML 10ML SYR IV ONE (09:33)
[2020-09-14] MEDS: PEPTAMEN INTENSE VHP 1.0 CAL 1,000 ML BAG OG SCH (11:21)
--- NOTE | 2020-09-14 11:47 | Cardiology Progress Note ---
Date of Service September 14, 2020 Assessment & Plan (1) Sinus node dysfunction: (2) Sinus bradycardia: (3) Sinus pause: (4) Junctional bradycardia: (5) Acute hypoxemic respiratory failure: (6) Pneumonia due to 2019 novel coronavirus: (7) Acute non-ST elevation myocardial infarction (NSTEMI): Recurrent sinus bradycardia with heart rate in the 40s recorded this a.m. associated with hypotension. Titration of dopamine resulting in sinus tachycardia and hypertension. Recommend transvenous pacemaker insertion for heart rate support. This will allow us to reduce dopamine and avoid further episodes of tachycardia and hypertension. Hold intravenous heparin. Recommendations discussed with patient's who is in agreement. Agree with continuing daily intravenous Lasix to maintain negative fluid balance and optimize oxygenation. Monitor fluid balance, GFR, and electrolytes daily. With history of complex multivessel coronary disease and prior stent thrombosis, recommend continuing dual antiplatelet therapy at this time. Admission and Anticipated Discharge Date Admission Date: September 09, 2020 Subjective Patient seen and examined the bedside. Sinus bradycardia with heart rate in the 40s recorded this a.m. with reduction of norepinephrine infusion. Transient hypotension also recorded. Dopamine subsequently titrated to 7 mcg/kg/min resulting in sinus tachycardia and borderline hypotension. No significant pauses recorded. Patient is more awake today on the ventilator. Versed infusion on hold. Heart rate currently 126 bpm and sinus tachycardia. Review of Systems Review of Systems: Unobtainable due to endotracheal tube Physical Exam Physical Exam: Not performed. Constitutional: well nourished; no acute distress Respiratory: no respiratory distress and no labored breathing Auscultation: + diminished lung sounds; no crackles, no rales, no rhonchi and no wheezes Cardiovascular: Rate/Rhythm: regular rate, regular rhythm and + tachycardic Heart Sounds: normal S1 and normal S2; no murmur Vessels: no JVD Extremities: + edema (Mild bilateral pedal and ankle edema.) Gastrointestinal (Abdomen): Inspection/Auscultation: abdomen normal to inspection and normal bowel sounds; abdomen not distended Percussion/Palpation: abdomen soft; no guarding and abdomen not rigid Results & Data ([facility]) Vital Signs (Past 12 Hours) Vital Signs Temp Pulse Resp BP Pulse Ox 09/14/20 11:00 36.6 C 69 18 104/65 93 09/14/20 10:40 36.5 C 99 H 18 92 09/14/20 10:30 36.5 C 128 H 18 99/72 L 91 09/14/20 10:15 36.4 C L 124 H 18 92 09/14/20 10:00 36.4 C L 129 H 92 09/14/20 09:45 36.3 C L 83 18 88 L 09/14/20 09:40 36.3 C L 76 19 88 L 09/14/20 09:35 36.3 C L 71 19 88 L 09/14/20 09:30 36.3 C L 62 18 175/79 H 90 09/14/20 09:25 36.3 C L 56 L 18 91 09/14/20 09:20 36.3 C L 45 L 18 92 09/14/20 09:15 36.3 C L 41 L 18 90 09/14/20 09:10 36.3 C L 42 L 18 89 L 09/14/20 09:05 36.3 C L 46 L 18 89 L 09/14/20 08:40 36.3 C L 56 L 88 L 09/14/20 08:30 36.2 C L 58 L 19 135/74 92 09/14/20 08:01 36.2 C L 70 19 92 09/14/20 08:00 36.1 C L 60 18 132/68 90 09/14/20 07:30 36.3 C L 59 L 19 131/67 93 09/14/20 07:00 36.3 C L 55 L 18 124/66 93 09/14/20 05:00 36.4 C L 57 L 18 95/52 L 92 09/14/20 04:30 36.3 C L 58 L 18 114/60 93 09/14/20 04:00 36.3 C L 58 L 18 115/63 93 09/14/20 03:35 57 L 18 92 09/14/20 03:30 36.3 C L 53 L 18 101/55 L 93 09/14/20 03:00 36.3 C L 55 L 18 102/56 L 93 09/14/20 02:30 36.2 C L 52 L 18 109/59 L 93 09/14/20 02:00 36.1 C L 50 L 18 105/56 L 93 09/14/20 01:30 36.0 C L 54 L 18 104/59 L 93 09/14/20 01:00 36.0 C L 54 L 18 104/61 93 09/14/20 00:30 36.0 C L 55 L 18 107/61 93 09/14/20 00:00 36.0 C L 55 L 18 108/59 L 93
--- NOTE | 2020-09-14 13:17 | Critical Care Progress Note ---
Date of Service September 14, 2020 Assessment & Plan (1) Admitted to intensive care unit: Reason Critically Ill: Patient is a 75-year-old male with acute hypoxic respiratory failure in the setting of COVID-19 pneumonia and non-ST elevation myocardial infarction requiring emergent endotracheal intubation. Unclear how much of the patient's respiratory failure is related to Covid pneumonia and how much may be related to his non-ST elevation MS and fluid issues. Recommendations: NEURO -off paralytics. Patient is currently on Versed. Continue weaning fentanyl as able. Neurologically intact prior to intubation. Holding Geodon and Celexa today. CARDIAC/VASCULAR -non-ST elevation myocardial infarction. Patient with continued episodic bradycardia. Will attempt placement of a temporary pacemaker along with cardiology later today. Heparin has been held. Geodon and Celexa held today due to prolonged QTC. This was discussed with Dr. Henry. Consent for introducer and pacer wire insertion obtained from patient's family. RESPIRATORY -acute hypoxemic respiratory failure with pulmonary infiltrates. Differential would include atypical edema, pulmonary hemorrhage, and infectious etiologies including secondary to Covid pneumonia. Continue dexamethasone at this point time for Covid pneumonia. Continue to wean ventilatory support as able. GI/NUTRITION -having increased residuals on tube feeding. Decreased tube feeds by half. Continue GI prophylaxis. KUB demonstrates nonspecific bowel pattern. RENAL/LYTES -renal function acceptable. Continue with 40 mg twice daily IV Lasix. -no current issues. Continue to trend I/O. ENDO -glycemic control per protocol HEME -no current issues. Mild elevation in white blood cell count likely secondary to margination from steroids. Continue to trend at this point time. IDreceived remdesivir and Tocilizumab earlier in the hospital course. Blood cultures from 09/08/2020 grew Staphylococcus lugdunensis. Repeat blood cultures have been negative. Likely contaminant. No indication for antibiotics at this time. LINES/IV ACCESS - PIVs x2 LEFT Subclavian CVL LEFT Radial Arterial Line Colvin ET Tube OG DVT PROPHYLAXIS - Heparin gtt SCDs CRITICAL CARE TIME - I have personally spent 50 minutes of critical care time in the direct management of this patient. This is a life/limb threatening event. This includes time spent evaluating patient, direct bedside care, chart review, placing orders, interpretation of diagnostic studies, discussion with consultants, patient, and family members, as well as other required patient management activities. This time is exclusive of all separately billable procedures, and teaching time and separate from and in addition to any other critical care service time. (2) Acute hypoxemic respiratory failure: (3) Pneumonia due to 2019 novel coronavirus: (4) Acute kidney injury: (5) Acidosis, lactic: (6) Acute non-ST elevation myocardial infarction (NSTEMI): (7) Sinus pause: (8) Junctional bradycardia: (9) Sinus node dysfunction: Admission and Anticipated Discharge Date Admission Date: September 09, 2020 Subjective Patient seen and examined this morning. Continues to have episodic periods of sinus pauses and bradycardia. We weaned off the Versed and he is currently only on fentanyl. He opens his eyes spontaneously but does not follow commands. Unable to obtain full review of systems. Physical Exam Constitutional: + mechanically ventilated Neck: trachea midline, no thyromegaly Respiratory: normal respiratory effort Coarse breath sounds on the ventilator. Cardiovascular: RRR, no murmur, no edema Gastrointestinal (Abdomen): normal bowel sounds, soft, nontender, no hepatosplenomegaly Musculoskeletal: Extremities: extremities normal to inspection Skin: no rashes, warm and dry Neurologic: Opens eyes spontaneously. No obvious focal deficits Psychiatric: Unable to assess due to intubation status Lymphatic: no cervical lymphadenopathy Results & Data Results & Data ([facility]) Vital Signs (Past 12 Hours) Vital Signs Temp Pulse Resp BP Pulse Ox 09/14/20 12:32 97.9 F 64 108/56 L 93 09/14/20 12:30 97.9 F 85 18 92 09/14/20 12:00 97.9 F 74 18 87 L 09/14/20 11:44 69 18 92 09/14/20 11:30 97.9 F 90 18 90 09/14/20 11:00 97.9 F 69 18 104/65 93 09/14/20 10:40 97.7 F 99 H 18 92 09/14/20 10:30 97.7 F 128 H 18 99/72 L 91 09/14/20 10:15 97.5 F L 124 H 18 92 09/14/20 10:00 97.5 F L 129 H 92 09/14/20 09:45 97.3 F L 83 18 88 L 09/14/20 09:40 97.3 F L 76 19 88 L 09/14/20 09:35 97.3 F L 71 19 88 L 09/14/20 09:30 97.3 F L 62 18 175/79 H 90 09/14/20 09:25 97.3 F L 56 L 18 91 09/14/20 09:20 97.3 F L 45 L 18 92 09/14/20 09:15 97.3 F L 41 L 18 90 09/14/20 09:10 97.3 F L 42 L 18 89 L 09/14/20 09:05 97.3 F L 46 L 18 89 L 09/14/20 08:40 97.3 F L 56 L 88 L 09/14/20 08:30 97.2 F L 58 L 19 135/74 92 09/14/20 08:01 97.2 F L 70 19 92 09/14/20 08:00 97.0 F L 60 18 132/68 90 09/14/20 07:30 97.3 F L 59 L 19 131/67 93 09/14/20 07:00 97.3 F L 55 L 18 124/66 93 09/14/20 05:00 97.5 F L 57 L 18 95/52 L 92 09/14/20 04:30 97.3 F L 58 L 18 114/60 93 09/14/20 04:00 97.3 F L 58 L 18 115/63 93 09/14/20 03:35 57 L 18 92 09/14/20 03:30 97.3 F L 53 L 18 101/55 L 93 09/14/20 03:00 97.3 F L 55 L 18 102/56 L 93 09/14/20 02:30 97.2 F L 52 L 18 109/59 L 93 09/14/20 02:00 97.0 F L 50 L 18 105/56 L 93 09/14/20 01:30 96.8 F L 54 L 18 104/59 L 93 I reviewed the vital signs, labs and imaging Coding Level of Care Code Critical Care 1st 30-74 mins Diagnoses Admitted to intensive care unit Z78.9 Acute hypoxemic respiratory failure J96.01 Pneumonia due to 2019 novel coronavirus U07.1; J12.82 Acute kidney injury N17.9 Acidosis, lactic E87.2 Acute non-ST elevation myocardial infarction (NSTEMI) I21.4 Sinus pause I45.5 Junctional bradycardia R00.1 Sinus node dysfunction I49.5 Time Spent (min) 50
[2020-09-14 15:00] LABS: Partial Thromboplastin Ratio 0.9; Partial Thromboplastin Time 24.3 Seconds (21.0-31.0)
[2020-09-14] MEDS ORDERED: LIDOCAINE HCL 2% (LOCAL) INJ 50 ML VIAL ONE (15:09)
[2020-09-14] MEDS ORDERED: LIDOCAINE HCL 1% 20 ML VIAL ONE (15:10)
--- NOTE | 2020-09-14 15:50 | Procedure Note ---
Procedure Note Date of Service September 14, 2020 Note Introducer catheter insertion note: Procedure: Right internal Jugular introducer central line Indication: Placement of temporary pacemaker Anesthesia: Patient was on continuous Versed and fentanyl during the procedure. 5 mL of lidocaine was utilized. Verbal consent was obtained from the patient's , Geeta Bill. She understood the risks and benefits of the procedure. A time-out was completed verifying correct patient, procedure, site, positioning, and implants(s) or special equipment if applicable. Patients right neck was cleansed and draped in the typical sterile fashion using Chloraprep. The Internal Jugular Vein and Carotid Artery were identified using ultrasound. The superficial tissue was anesthetized using 5 mL of 1% lidocaine without epinephrine under direct visualization with the ultrasound. After adequate an esthetization was achieved, the Internal Jugular vein was cannulated under direct ultrasound guidance using an introducer needle on a syringe. Good venous blood return was maintained prior to removal of syringe from introducer needle. Using Seldinger Technique, a guide wire was advanced through the introducer needle without resistance. The introducer needle was removed and ultrasound images were obtained of the guide wire within the Internal Jugular Vein and saved to the patients medical record. A small incision was made in penetrating fashion at the guide wire insertion site utilizing an 11 blade scalpel. Both the dilator apparatus and introducer catheter were inserted simultaneously. The guide wire was removed intact from the catheter without issue. 1 clave was placed on the catheter tip with confirmation of good blood flow from the lumen. The port was easily flushed with sterile saline. The catheter was placed at 15 cm and sut[address] in place. Catheter was sutured in place. Tegaderm dressing was placed over the catheter. Post procedure x-ray was completed, placement was appropriate and no pneumothorax was noted. Images obtained are saved for permanent record Procedural Ultrasound Guidance used Images obtained are saved for permanent record. Coding CPT Codes Tubes, Drains, and Vasc Access - Tubes, Drains, and Vasc Access: [id number] Place catheter in vein superior or inferior vena cava ([id number]) Tubes, Drains, and Vasc Access - Tubes, Drains, and Vasc Access: [id number] Ultrasonic Guide For Needle Placement ([id number]) [facility] Procedure Codes (Charges) Tubes, Drains, and Vasc Access Procedure 1: Tubes, Drains, and Vasc Access: [id number] Place catheter in vein superior or inferior vena cava Procedure 2: Tubes, Drains, and Vasc Access: [id number] Ultrasonic Guide For Needle Placeme nt
--- NOTE | 2020-09-14 16:51 | Operative Report ---
Post Operative Report Pre & Post Diagnosis Operation Date: 09/14/20 15:00 <No data on this case meets the specified criteria> I identified the patient and participated in the time-out.: Yes Procedure Operation Date: 09/14/20 15:00 Actual Procedures p Temporary Transcutaneous Pacing - Abdi Henry DO Patient was brought to the electrophysiology lab on the ventilator. Standard PPE utilized due to COVID-19 pneumonia. Patient sedated on ventilator. 6 Ghanaian right-sided intrajugular access in place. Area was prepped and draped in the usual sterile fashion. A 5 Ghanaian transvenous pacemaker advance through internal jugular access to the right ventricular apex without difficulty. Capture obtained at 1.5 MA. Output programmed to 3.5 MA with rate of 60 bpm. Appropriate sensing confirmed. No complications. No blood loss. Pacemaker secured to the hub. Tegaderm placed x2. Patient tolerated procedure well. He was returned to the Covid unit in satisfactory condition. Surgeon Abdi Henry DO Sustainability Project Manager Ladi RTR Estimated Blood Loss 0 Findings Consistent with Post-Op Diagnosis Specimens N/A Description of Procedure Successful insertion of temporary transvenous pacemaker via right sided internal jugular vein access. I attest to the content of the Intraoperative Record and any orders documented therein. Any exceptions are noted below.
[2020-09-14] MEDS ORDERED: Nursing to Pharmacy Communication SCH (17:30)
--- NOTE | 2020-09-14 17:44 | XRay Report ---
XR chest 1V portable HISTORY: right ij transducer COMPARISON: Chest 09/14/2020. FINDINGS: Interval placement of a right jugular transducer with the leads terminating in expected loc ation of the right ventricle. Nasogastric tube terminates in the stomach. Endotracheal tube terminate s 3.5 cm from the kathy. Left subclavian central venous catheter terminates at the distal SVC. No pn eumothorax. The heart is normal in size. Bibasilar hazy airspace opacities remain unchanged. There ar e trace bilateral pleural effusions, unchanged. IMPRESSION: 1. Interval placement of a right jugular transducer with the lead terminating in the expected locatio n of the right ventricle. No pneumothorax. 2. Satisfactory support line placement. 3. No change in the bibasilar airspace opacities. ACT 112: Negative or not required by law. Electronically signed by: Cresencio Ng M.D. 09/14/2020 5:43 PM
--- NOTE | 2020-09-14 19:48 | Hospitalist Progress Note ---
Date of Service September 14, 2020 Assessment & Plan (1) Acute hypoxemic respiratory failure: Acute respiratory failure with hypoxia Ventilatory dependent Severe COVID-19 pneumonia Septic Shock CXR:Endotracheal tube terminates 4.7 cm superior to the kathy. Left subclavian central venous catheter distal tip terminates in the region of the mid SVC. Extensive bilateral mixed interstitial and alveolar opacities redemonstrated. Blood culture: 06/05: Preliminary--Staph Lugdunensis -Likely contaminant Repeat Blood Cx:no growth to date Elevated lactate levels Normal procalcitonin CRP:13.7 Received Tocilizumab Continue IV dexamethasone Off pressors and paralytics Continue nebs as needed Continue IV lasix 40mg BID Appreciate critical care input Continue Vent support Wean off of Dopamine drip as able FiO2 decreased to 40% Continue tube feeds CXR today showed no change in bibasilar airspace opacities Sinus Bradycardia 4 second Pause On Dopamine drip Cardiology recommends transvenous pacemaker insertion NSTEMI H/O CAD S/P Stent ECHO: Mild concentric LVH. EF 45%. Moderate size apical wall motion abnormality with hypokinesis of the segments. No pericardial effusion. No significant valvular disease. Troponin trending down Plan to perform ECHO once off of prone position Continue aspirin, Plavix, statin Imdur, Lisinopril on hold Continue IV heparin Elevated D dimer Could not perform CTA due to renal Insufficiency Venous Doppler:No DVT HTN Hypotensive on presentations Received IV fluids Wean off of pressors as able Acute Kidney Injury on CKD III Likely ATN Cr:2.43>1.75>1.2 Avoid nephrotoxic agents as able Monitor renal function Schizophrenia/depression Celexa, Ziprasidone--held today Prediabetes HbA1C:6.1 DVT Px: IV heparin Code Status Full code Admission and Anticipated Discharge Date Admission Date: September 09, 2020 Subjective Patient is seen and examined at bedside Remains sedated and Intubated On Dopamine and Heparin ggt Also on Tube feeds No distress on exam Had R IJ line placed today Review of Systems Review of Systems: Unobtainable due to endotracheal tube Physical Exam Physical Exam: Physical Exam: Vitals signs as noted above General Appearance:Moderately built and nourished, no apparent distress,+Intubated Head: normocephalic, Atraumatic Eyes: normal inspection Neck: supple, Trachea midline Respiratory/Chest: Decreased breath sounds, CTA Cardiovascular: S1, S2, No murmur, bradycardia Abdomen/GI:Soft, Non tender, Bowel sounds present Extremities/Musculoskeletal:normal inspection, no edema Neurologic/Psych:Sedated and Itubated Skin: normal color, warm Results & Data Results & Data ([facility]) Vital Signs (Past 12 Hours) Vital Signs Temp Pulse Resp BP Pulse Ox 09/14/20 18:00 36.3 C L 60 18 114/70 99 09/14/20 17:30 36.3 C L 69 18 102/67 98 09/14/20 17:06 19 09/14/20 15:00 36.4 C L 67 18 129/77 93 09/14/20 14:00 36.5 C 64 18 123/64 95 09/14/20 13:00 36.6 C 63 18 118/63 94 09/14/20 12:32 36.6 C 64 108/56 L 93 09/14/20 12:30 36.6 C 85 18 92 09/14/20 12:00 36.6 C 74 18 87 L 09/14/20 11:44 69 18 92 09/14/20 11:30 36.6 C 90 18 90 09/14/20 11:00 36.6 C 69 18 104/65 93 09/14/20 10:40 36.5 C 99 H 18 92 09/14/20 10:30 36.5 C 128 H 18 99/72 L 91 09/14/20 10:15 36.4 C L 124 H 18 92 09/14/20 10:00 36.4 C L 129 H 92 09/14/20 09:45 36.3 C L 83 18 88 L 09/14/20 09:40 36.3 C L 76 19 88 L 09/14/20 09:35 36.3 C L 71 19 88 L 09/14/20 09:30 36.3 C L 62 18 175/79 H 90 09/14/20 09:25 36.3 C L 56 L 18 91 09/14/20 09:20 36.3 C L 45 L 18 92 09/14/20 09:15 36.3 C L 41 L 18 90 09/14/20 09:10 36.3 C L 42 L 18 89 L 09/14/20 09:05 36.3 C L 46 L 18 89 L 09/14/20 08:40 36.3 C L 56 L 88 L 09/14/20 08:30 36.2 C L 58 L 19 135/74 92 09/14/20 08:01 36.2 C L 70 19 92 09/14/20 08:00 36.1 C L 60 18 132/68 90 Laboratory Results Short CBC 09/14/20 Range/Units 06:22 WBC 18.79 H (4.8-10.8) K/uL Hgb 15.3 (14.0-18.0) g/dL Hct 43.2 (42-52) % Plt Count 241 (130-400) K/uL BMP 09/14/20 06:22 Sodium 140 Potassium 4.3 Chloride 106 Carbon Dioxide 28 BUN 56 H Creatinine 1.25 Glucose 151 H Calcium 7.4 L
[2020-09-14] MEDS ORDERED: PHARMACY GLYCEMIC MGMT CONSULT PRN (19:51)
[2020-09-14] MEDS ORDERED: GLUCOSE 40% GEL 15 GM TUBE PO PRN (20:00)
[2020-09-14] MEDS ORDERED: GLUCAGON FOR INJ 1 MG VIAL IM PRN (20:00)
[2020-09-14] MEDS ORDERED: GLUCOSE 10 TABS/TUBE PO PRN (20:00)
[2020-09-14] MEDS ORDERED: DEXTROSE 50% 50 ML SYRINGE IV PRN (20:00)
[2020-09-14] MEDS ORDERED: CARBOHYDRATES FOR HYPOGLYCEMIA PO PRN (20:00)
[2020-09-14] MEDS: ATORVASTATIN 20 MG TAB PO SCH (20:28)
[2020-09-14] MEDS: INSULIN ASPART 100 UNITS/ML 3 ML PEN SC SCH (20:58)
[2020-09-14] MEDS ORDERED: STAT IV Infusion **Titration per Protocol STA (22:17)
[2020-09-14] MEDS ORDERED: DEXMEDETOMIDINE HCL 200 MCG in SODIUM CHLORIDE 0.9% 48 ML IV SCH (22:30)
[2020-09-15 00:18] LABS: Partial Thromboplastin Ratio 2.4
[2020-09-15 00:19] LABS: Partial Thromboplastin Time 63.7 Seconds (21.0-31.0)
[2020-09-15] MEDS: TUBE FEEDING WATER FLUSH GT SCH ×5 (00:30→17:41)
[2020-09-15] MEDS: INSULIN ASPART 100 UNITS/ML 3 ML PEN SC SCH ×6 (00:35→18:18)
[2020-09-15] MEDS: fentaNYL DRIP 1,250 MCG/250 ML BAG IV SCH ×2 (01:34→08:00)
[2020-09-15] MEDS: DEXMEDETOMIDINE HCL 400 MCG in 0.9 % SODIUM CHLORIDE 96 ML IV SCH ×3 (01:34→10:42)
[2020-09-15 03:52] LABS: iSTAT Allen Test Pass; iSTAT Art Bld Gas pCO2 Correct 42 mmHg (35-46); iSTAT Art Bld Gas pH Corrected 7.482 (7.35-7.45); iSTAT Arterial Blood Gas HCO3 32 meg/L (19-24); iSTAT Arterial Blood Gas pCO2 42 mmHg (35-46); iSTAT Arterial Blood Gas pH 7.48 (7.35-7.45); iSTAT Arterial Blood Gas pO2 62 mmHg (80-95); iSTAT Arterial Blood Gas pO2 C 62; iSTAT Carbon Dioxide 33 mmol/L (24-31); iSTAT FiO2 40 %; iSTAT Hematocrit 45 % (42-52); iSTAT Hemoglobin 15.3 g/dl (14.0-18.0); iSTAT Potassium 4.8 mmol/L (3.3-5.0); iSTAT Site R Radial; iSTAT Sodium 139 mmol/L (135-144)
[2020-09-15 05:57] LABS: Hematocrit (blood only) 41.5 % (42-52); Hemoglobin 14.4 g/dL (14.0-18.0); Mean Corpuscular Hemoglobin 33.7 pg (25-34); Mean Corpuscular Hgb Conc 34.7 g/dL (32-36); Mean Corpuscular Volume 97.2 fL (80-100); Mean Platelet Volume 10.7 fL (7.4-10.4); Nucleated RBC # (auto) 0.25 K/uL (0-0); Nucleated RBC % (auto) 1.2 %; Platelet Count 234 K/uL (130-400); RDW Coefficient of Variation 14.9 % (11.5-14.5); RDW Standard Deviation 52.8 fL (36.4-46.3); Red Blood Count 4.27 M/uL (4.7-6.1); White Blood Count 20.78 K/uL (4.8-10.8)
[2020-09-15 06:18] LABS: Basophils # (auto) 0.09 K/uL (0-0.2); Basophils % (auto) 0.4 %; Echinocytes 1+; Eosinophils # (auto) 0.01 K/uL (0-0.5); Immature Granulocytes # (auto) 0.94 K/uL (0.00-0.02); Immature Granulocytes % (auto) 4.5 %; Lymphocytes # (auto) 1.39 K/uL (1.2-3.4); Lymphocytes % (auto) 6.7 %; Monocytes # (auto) 0.23 K/uL (0.11-0.59); Monocytes % (auto) 1.1 %; Neutrophils # (auto) 18.12 K/uL (1.4-6.5); Neutrophils % (auto) 87.3 %
[2020-09-15 06:25] LABS: BUN Creatinine Ratio 44.8 (10-20); Calcium 7.7 mg/dl (8.5-10.1); Creatinine Clr Calc Pharmacy 50.7 ml/min; Est GFR (African American) 61.2; Est GFR (Non-African American) 52.8; Magnesium 2.7 mg/dl (1.8-2.4); Phosphorus 2.7 mg/dl (2.5-4.9); Potassium 4.6 mmol/L (3.5-5.1)
[2020-09-15 06:29] LABS: Partial Thromboplastin Ratio 1.9
--- NOTE | 2020-09-15 06:32 | Electrocardiogram Report ---
Test Reason : Blood Pressure : / mmHG Vent. Rate : 063 BPM Atrial Rate : 063 BPM P-R Int : 152 ms QRS Dur : 098 ms QT Int : 542 ms P-R-T Axes : 065 -34 052 degrees QTc Int : 554 ms Normal sinus rhythm Left axis deviation Nonspecific T wave abnormality Abnormal ECG When compared with ECG of 13-Sep-2020 14:18, No significant change Confirmed by Lj Fitch ([id number]) on 09/15/2020 6:31:54 AM Referred By: REFERRED SELF Confirmed By:Lj Fitch
[2020-09-15 06:37] LABS: Partial Thromboplastin Time 49.3 Seconds (21.0-31.0)
[2020-09-15] MEDS: HEPARIN SODIUM/DEXTROSE 25,000 UNITS/500 ML BAG IV SCH ×2 (07:50→18:32)
--- NOTE | 2020-09-15 08:31 | XRay Report ---
XR chest 1V portable HISTORY: Respiratory failure. COMPARISON: Chest 09/14/2020. FINDINGS: No pneumothorax. No pleural effusions. The heart is normal in size. Hazy bibasilar airspace opacities persist. Lines and tubes are unchanged in position. Mild interstitial thickening is also u nchanged. IMPRESSION: 1. Satisfactory support line placement. 2. No change in the bibasilar hazy airspace opacities. ACT 112: Negative or not required by law. Electronically signed by: Cresencio Ng M.D. 09/15/2020 8:30 AM
[2020-09-15] MEDS: dexAMETHasone 6 MG in SYRINGE 0 ML IV SCH (08:50)
[2020-09-15] MEDS: CLOPIDOGREL BISULFATE 75 MG TAB PO SCH (08:51)
[2020-09-15] MEDS: FUROSEMIDE 40 MG in SYRINGE 0 ML IV SCH (08:51)
[2020-09-15] MEDS: FAMOTIDINE 20 MG in SYRINGE 3 ML IV SCH ×2 (08:51→22:15)
[2020-09-15] MEDS: ASPIRIN 81 MG CHEW PO SCH (08:51)
[2020-09-15] MEDS: DOPamine / D5W 400 MG/250 ML BAG IV SCH (09:42)
--- NOTE | 2020-09-15 11:12 | Critical Care Progress Note ---
Date of Service September 15, 2020 Assessment & Plan (1) Admitted to intensive care unit: Reason Critically Ill: Patient is a 75-year-old male with acute hypoxic respiratory failure in the setting of COVID-19 pneumonia and non-ST elevation myocardial infarction requiring emergent endotracheal intubation. Unclear how much of the patient's respiratory failure is related to Covid pneumonia and how much may be related to his non-ST elevation DC and fluid issues. Recommendations: NEURO -Patient is currently off all sedation at this time. We are holding Geodon and Celexa due to prolonged QTC. He is moving limbs spontaneously, but not following commands. Will allow for a longer washout period before being able to make a true assessment of his neurological status. CARDIAC/VASCULAR -non-ST elevation myocardial infarction. A temporary pacemaker was placed yesterday due to ongoing junctional rhythms and bradycardia. He now has tachycardia. Levophed has been weaned off. RESPIRATORY -acute hypoxemic respiratory failure with pulmonary infiltrates. Differential would include atypical edema, pulmonary hemorrhage, and infectious etiologies including secondary to Covid pneumonia. 10 days total of Decadron for Covid pneumonia. We will continue to wean the ventilator. He is doing well with spontaneous breathing trials, but mental status precludes him from being able to be extubated. GI/NUTRITION -continue with tube feeds. No current issues. RENAL/LYTES -we will decrease diuretics to 40 mg IV daily -no current issues. Continue to trend I/O. ENDO -glycemic control per protocol HEME -no significant issues. IDreceived remdesivir and Tocilizumab earlier in the hospital course. Blood cultures from 09/08/2020 grew Staphylococcus lugdunensis. Repeat blood cultures have been negative. Likely contaminant. No indication for antibiotics at this time. LINES/IV ACCESS - PIVs x2 Right internal jugular introducer with temporary pacer wire LEFT Subclavian CVL LEFT Radial Arterial Line Colvin ET Tube OG DVT PROPHYLAXIS - Heparin gtt SCDs CRITICAL CARE TIME - I have personally spent 37 minutes of critical care time in the direct management of this patient. This is a life/limb threatening event. This includes time spent evaluating patient, direct bedside care, chart review, placing orders, interpretation of diagnostic studies, discussion with consultants, patient, and family members, as well as other required patient management activities. This time is exclusive of all separately billable procedures, and teaching time and separate from and in addition to any other critical care service time. (2) Acute hypoxemic respiratory failure: (3) Pneumonia due to 2019 novel coronavirus: (4) Acute kidney injury: (5) Acidosis, lactic: (6) Acute non-ST elevation myocardial infarction (NSTEMI): (7) Sinus pause: (8) Junctional bradycardia: (9) Sinus node dysfunction: Admission and Anticipated Discharge Date Admission Date: September 09, 2020 Subjective Patient remains intubated and sedated. He is currently on a pressure support trial and doing reasonably well with settings of 5/5. His Precedex and fentanyl have been weaned off and he is spontaneously moving extremities. He is not really following commands at this time. Review of Systems Review of Systems: Unobtainable due to cognitive status and Unobtainable due to endotracheal tube Physical Exam Constitutional: + mechanically ventilated Neck: trachea midline, no thyromegaly Respiratory: normal respiratory effort Coarse breath sounds on the ventilator. Cardiovascular: RRR, no murmur, no edema Gastrointestinal (Abdomen): normal bowel sounds, soft, nontender, no he patosplenomegaly Musculoskeletal: Extremities: extremities normal to inspection Skin: no rashes, warm and dry Neurologic: Opens eyes spontaneously. No obvious focal deficits Psychiatric: Unable to assess due to intubation status Lymphatic: no cervical lymphadenopathy Results & Data Results & Data ([facility]) Vital Signs (Past 12 Hours) Vital Signs Temp Pulse Resp BP Pulse Ox 09/15/20 10:35 91 H 29 H 89 L 09/15/20 10:00 99.0 F 116 H 90 09/15/20 09:26 60 89 L 09/15/20 09:00 97.9 F 102 H 89 L 09/15/20 08:00 97.9 F 116 H 141/86 H 88 L 09/15/20 07:49 63 19 90 09/15/20 07:33 60 15 92 09/15/20 07:00 97.2 F L 92 H 129/79 88 L 09/15/20 06:00 98.4 F 64 18 138/82 92 09/15/20 05:45 98.2 F 95 H 18 150/91 H 92 09/15/20 05:31 98.4 F 70 18 129/69 91 09/15/20 05:15 98.4 F 64 18 117/64 93 09/15/20 05:00 98.6 F 60 18 120/69 93 09/15/20 04:47 98.6 F 75 18 128/82 89 L 09/15/20 04:30 98.6 F 60 18 103/63 90 09/15/20 04:00 98.6 F 60 18 130/75 94 09/15/20 03:46 98.6 F 60 18 125/71 91 09/15/20 03:30 98.4 F 74 18 132/84 94 09/15/20 03:18 61 20 95 09/15/20 03:15 98.4 F 60 18 150/87 H 96 09/15/20 03:00 98.4 F 60 18 147/95 H 96 09/15/20 02:45 98.4 F 60 18 149/88 H 95 09/15/20 02:30 98.2 F 60 18 174/91 H 98 09/15/20 02:15 98.2 F 62 18 147/80 H 95 09/15/20 02:00 98.2 F 60 18 147/87 H 95 09/15/20 01:45 98.2 F 60 18 117/80 92 09/15/20 01:30 98.1 F 60 18 115/69 91 09/15/20 01:28 98.1 F 60 18 118/67 91 09/15/20 01:26 98.1 F 60 18 107/65 90 09/15/20 01:15 98.1 F 108 H 18 136/88 90 09/15/20 01:00 97.9 F 60 18 156/80 H 95 09/15/20 00:45 97.9 F 63 18 128/71 94 09/15/20 00:30 97.9 F 62 18 131/73 93 09/15/20 00:15 97.7 F 67 18 133/78 93 09/15/20 00:00 97.7 F 61 18 112/78 92 09/14/20 23:45 97.7 F 60 173/88 H 93 09/14/20 23:30 97.7 F 60 158/95 H 90 09/14/20 23:17 97.5 F L 96 H 113/75 90 09/14/20 23:07 62 20 93 I reviewed the vital signs, labs and imaging Coding Level of Care Code Critical Care 1st 30-74 mins Diagnoses Admitted to intensive care unit Z78.9 Acute hypoxemic respiratory failure J96.01 Pneumonia due to 2019 novel coronavirus U07.1; J12.82 Acute kidney injury N17.9 Acidosis, lactic E87.2 Acute non-ST elevation myocardial infarction (NSTEMI) I21.4 Sinus pause I45.5 Junctional bradycardia R00.1 Sinus node dysfunction I49.5 Time Spent (min) 37
[2020-09-15] MEDS: PEPTAMEN INTENSE VHP 1.0 CAL 1,000 ML BAG OG SCH (12:28)
--- NOTE | 2020-09-15 12:37 | Cardiology Progress Note ---
Date of Service September 15, 2020 Assessment & Plan (1) Sinus node dysfunction: (2) Sinus pause: (3) Junctional bradycardia: (4) Acute hypoxemic respiratory failure: (5) Pneumonia due to 2019 novel coronavirus: (6) Acute non-ST elevation myocardial infarction (NSTEMI): Temporary venous pacemaker placed 09/14/2020 without complication. Current threshold is 2.5 MA as assessed at bedside. Output increased to 4.0 MA at a rate of 60 bpm. Recommend maintaining transvenous pacer at this time for heart rate support. Patient improved hemodynamically although required intermittent venous pacing overnight. Norepinephrine and dopamine discontinued. He is awake and agitated on the ventilator. Following commands today. Vent management/possible extubation as per critical care. Continue daily intravenous Lasix to maintain negative fluid balance and optimize oxygenation. Monitor fluid balance, GFR, and electrolytes daily. With history of complex multivessel coronary disease and prior stent thrombosis, recommend continuing dual antiplatelet therapy and intravenous heparin at this time. Repeat ECG without significant changes today. Admission and Anticipated Discharge Date Admission Date: September 09, 2020 Subjective Patient seen and examined at the bedside. Currently awake on the ventilator. Following commands. Dopamine and norepinephrine discontinued. Intermittent ventricular pacing overnight. No sustained tachycardia dysrhythmias. Heart rate elevated in the setting of agitation. Oxygen requirements remained stable. PEEP down to 5 cm H2O pressure. Fluid balance -418 cc. No concerns reported by nursing staff. Review of Systems Review of Systems: Unobtainable due to endotracheal tube Physical Exam Physical Exam: Not performed. Constitutional: well nourished; no acute distress Respiratory: no respiratory distress and no labored breathing Auscultation: + diminished lung sounds; no crackles, no rales, no rhonchi and no wheezes Cardiovascular: Rate/Rhythm: regular rate, regular rhythm and + tachycardic Heart Sounds: normal S1 and normal S2; no murmur Vessels: no JVD Extremities: + edema (Mild bilateral pedal and ankle edema.) Gastrointestinal (Abdomen): Inspection/Auscultation: abdomen normal to inspection and normal bowel sounds; abdomen not distended Percussion/Palpation: abdomen soft; no guarding and abdomen not rigid Neurologic: awake Results & Data ([facility]) Vital Signs (Past 12 Hours) Vital Signs Temp Pulse Resp BP Pulse Ox 09/15/20 12:00 37.5 C 78 28 H 111/59 L 91 09/15/20 11:27 37.4 C 09/15/20 11:00 37.4 C 110 H 87 L 09/15/20 10:35 91 H 29 H 89 L 09/15/20 10:00 37.2 C 116 H 90 09/15/20 09:26 60 89 L 09/15/20 09:00 36.6 C 102 H 89 L 09/15/20 08:00 36.6 C 116 H 141/86 H 88 L 09/15/20 07:49 63 19 90 09/15/20 07:33 60 15 92 09/15/20 07:00 36.2 C L 92 H 129/79 88 L 09/15/20 06:00 36.9 C 64 18 138/82 92 09/15/20 05:45 36.8 C 95 H 18 150/91 H 92 09/15/20 05:31 36.9 C 70 18 129/69 91 09/15/20 05:15 36.9 C 64 18 117/64 93 09/15/20 05:00 37.0 C 60 18 120/69 93 09/15/20 04:47 37.0 C 75 18 128/82 89 L 09/15/20 04:30 37.0 C 60 18 103/63 90 09/15/20 04:00 37.0 C 60 18 130/75 94 09/15/20 03:46 37.0 C 60 18 125/71 91 09/15/20 03:30 36.9 C 74 18 132/84 94 09/15/20 03:18 61 20 95 09/15/20 03:15 36.9 C 60 18 150/87 H 96 09/15/20 03:00 36.9 C 60 18 147/95 H 96 09/15/20 02:45 36.9 C 60 18 149/88 H 95 09/15/20 02:30 36.8 C 60 18 174/91 H 98 09/15/20 02:15 36.8 C 62 18 147/80 H 95 09/15/20 02:00 36.8 C 60 18 147/87 H 95 09/15/20 01:45 36.8 C 60 18 117/80 92 09/15/20 01:30 36.7 C 60 18 115/69 91 09/15/20 01:28 36.7 C 60 18 118/67 91 09/15/20 01:26 36.7 C 60 18 107/65 90 09/15/20 01:15 36.7 C 108 H 18 136/88 90 09/15/20 01:00 36.6 C 60 18 156/80 H 95 09/15/20 00:45 36.6 C 63 18 128/71 94
--- NOTE | 2020-09-15 13:08 | Pharmacy Report ---
Pharmacy Glycemic Short Note 2 - Date of Service September 15, 2020 - Glycemic Short BSG Results (Last 24 hours): 09/14/20 09/14/20 09/15/20 18:22 20:27 00:33 Glucose POC Glucose 177 H POC Glucose (other) 200 H 183 H 09/15/20 09/15/20 09/15/20 04:25 05:25 08:57 Glucose 197 H POC Glucose 139 H 127 H POC Glucose (other) 09/15/20 12:13 Glucose POC Glucose 161 H POC Glucose (other) OUTPATIENT ANTIDIABETIC REGIMEN: * N/a * A1c: 6.1% 09-09-20 ASSESSMENT: * Patient experiencing likely combo of stress/steroid induced hyperglycemia in the setting of COVID-19. Novolog orders were added last evening and BSGs have improved since then. * The patient was intubated on tube feeds, however was extubated around lunchtime today and is NPO. Will continue with novolog scale only for now, especially given NPO status. PLAN FOR INPATIENT GLYCEMIC CONTROL: * Basal insulin * none at this time * Bolus insulin * NovoLog per scale ACHS or Q4hrs while NPO * Goal Range: Low 110 mg/dL - High 140 mg/dL * Correction Factor: 20 mg/dL/unit * Nutritional / Prandial insulin per carb ratio of 1 unit per 7 grams CHO consumed
--- NOTE | 2020-09-15 14:15 | Hospitalist Progress Note ---
Date of Service September 15, 2020 Assessment & Plan (1) Acute hypoxemic respiratory failure: Acute respiratory failure with hypoxia secondary to severe COVID-19 pneumonia Presented with septic Shock and required intubation CXR:Endotracheal tube terminates 4.7 cm superior to the kathy. Left subclavian central venous catheter distal tip terminates in the region of the mid SVC. Extensive bilateral mixed interstitial and alveolar opacities redemonstrated. Blood culture: 06/05: Preliminary--Staph Lugdunensis -Likely contaminant Repeat Blood Cx:no growth to date Initial CPR CRP:13.7 Remdesivir was not given due to critical condition Received Tocilizumab and continue IV dexamethasone Continue IV lasix 40mg BID Appreciate critical care input Status post extubation today Still requiring pressor agents to support blood pressure Remains critically ill Leukocytosis White count is elevated to 20.78 today without any evidence of fever Likely secondary to use of steroid but cannot rule out bacterial infection and lung Will repeat CBC tomorrow and if still elevated will start antibiotic Sinus Bradycardia with 4 second Pause On Dopamine drip Cardiology recommends transvenous pacemaker insertion Status post transvenous pacemaker insertion on 09/14/2020 NSTEMI H/O CAD S/P Stent ECHO: Mild concentric LVH. EF 45%. Moderate size apical wall motion abnormality with hypokinesis of the segments. No pericardial effusion. No significant valvular disease. Continue aspirin, Plavix, statin Imdur, Lisinopril on hold due to low blood pressure Continue IV heparin Elevated D dimer Could not perform CTA due to renal Insufficiency Venous Doppler:No DVT HTN Hypotensive on presentations Received IV fluids Remains on intravenous pressor resents to maintain blood pressure Acute Kidney Injury on CKD III Likely ATN Cr:2.43>1.75>1.2 Avoid nephrotoxic agents as able Kidney function has been normalized Schizophrenia/depression Celexa, Ziprasidone--held today Prediabetes HbA1C:6.1 DVT Px: IV heparin Code Status Full code Status post extubation but is still requiring intravenous pressor agents to maintain blood pressure Remains critically ill We will discuss with the Admission and Anticipated Discharge Date Admission Date: September 09, 2020 Subjective 09/15/2020 The patient was seen and examined in telemetry and Covid unit He is a status post extubation and requiring pressor agents to maintain blood pressure He has been communicating with few words Remains extremely weak and lethargic Review of Systems Review of Systems: Unobtainable due to cognitive status Physical Exam Physical Exam: Lying in bed comfortably Constitutional: + ill appearing and average body habitus; not in distress Eyes: PERRL, conjunctivae normal, anicteric sclerae ENMT: external ear and nose normal, oropharynx normal Neck: trachea midline, no thyromegaly Respiratory: + respiratory distress (Minimal respiratory distress at rest) Auscultation: + diminished lung sounds and + crackles (Bibasilar crackles) Cardiovascular: Rate/Rhythm: regular rate and regular rhythm Heart Sounds: no murmur Extremities: + edema (Trace edema bilaterally) Gastrointestinal (Abdomen): Inspection/Auscultation: normal bowel sounds; abdomen not distended Percussion/Palpation: abdomen soft; abdomen nontender Musculoskeletal: No acute arthritis in any joint Neurologic: Alert and awake. Extremely weak generally. Moving all limbs Lymphatic: no cervical or axillary lymphadenopathy Results & Data Results & Data ([facility]) Vital Signs (Past 12 Hours) Vital Signs Temp Pulse Resp BP Pulse Ox 09/15/20 13:00 37.2 C 81 21 137/73 91 09/15/20 12:00 37.5 C 78 28 H 111/59 L 91 09/15/20 11:27 37.4 C 09/15/20 11:00 37.4 C 110 H 87 L 09/15/20 10:35 91 H 29 H 89 L 09/15/20 10:00 37.2 C 116 H 90 09/15/20 09:26 60 89 L 09/15/20 09:00 36.6 C 102 H 89 L 09/15/20 08:00 36.6 C 116 H 141/86 H 88 L 09/15/20 07:49 63 19 90 09/15/20 07:33 60 15 92 09/15/20 07:00 36.2 C L 92 H 129/79 88 L 09/15/20 06:00 36.9 C 64 18 138/82 92 09/15/20 05:45 36.8 C 95 H 18 150/91 H 92 09/15/20 05:31 36.9 C 70 18 129/69 91 09/15/20 05:15 36.9 C 64 18 117/64 93 09/15/20 05:00 37.0 C 60 18 120/69 93 09/15/20 04:47 37.0 C 75 18 128/82 89 L 09/15/20 04:30 37.0 C 60 18 103/63 90 09/15/20 04:00 37.0 C 60 18 130/75 94 09/15/20 03:46 37.0 C 60 18 125/71 91 09/15/20 03:30 36.9 C 74 18 132/84 94 09/15/20 03:18 61 20 95 09/15/20 03:15 36.9 C 60 18 150/87 H 96 09/15/20 03:00 36.9 C 60 18 147/95 H 96 09/15/20 02:45 36.9 C 60 18 149/88 H 95 09/15/20 02:30 36.8 C 60 18 174/91 H 98 09/15/20 02:15 36.8 C 62 18 147/80 H 95 Laboratory Results Short CBC 09/15/20 Range/Units 05:25 WBC 20.78 H (4.8-10.8) K/uL Hgb 14.4 (14.0-18.0) g/dL Hct 41.5 L (42-52) % Plt Count 234 (130-400) K/uL BMP 09/15/20 05:25 Sodium 140 Potassium 4.6 Chloride 106 Carbon Dioxide 30 BUN 59 H Creatinine 1.32 Glucose 197 H Calcium 7.7 L Medications Administered Current Inpatient Medications Acetaminophen (Acetaminophen 325 Mg Tab) 650 mg PO Q4H PRN PRN Reason: Pain or Fever Stop: 10/09/20 03:51 Aspirin (Aspirin 81 Mg Chew) 81 mg PO DAILY LAUREN Stop: 10/10/20 08:59 Last Admin: 09/15/20 08:51 Dose: 81 mg Documented by: Atorvastatin Calcium (Atorvastatin 20 Mg Tab) 20 mg PO QPM LAUREN Stop: 10/09/20 20:59 Last Admin: 09/14/20 20:28 Dose: 20 mg Documented by: Citalopram Hydrobromide (Citalopram 20 Mg Tab) 20 mg PO HS LAUREN Stop: 10/09/20 20:59 Last Admin: 09/13/20 20:31 Dose: 20 mg Documented by: Clopidogrel Bisulfate (Clopidogrel Bisulfate 75 Mg Tab) 75 mg PO DAILY LAUREN Stop: 10/09/20 08:59 Last Admin: 09/15/20 08:51 Dose: 75 mg Documented by: Dextrose (Dextrose 50% 50 Ml Syringe) 25 - 50 ml IV UD PRN; Protocol PRN Reason: Hypoglycemia Protocol Stop: 10/14/20 19:59 Fentanyl Citrate (Fentanyl Bolus From Bag) 50 mcg IV Q60M PRN PRN Reason: Pain or Agitation Stop: 09/23/20 05:56 Last Admin: 09/15/20 01:20 Dose: 50 mcg Documented by: Glucagon (Glucagon For Inj 1 Mg Vial) 1 mg IM UD PRN; Protocol PRN Reason: Hypoglycemia Protocol Stop: 10/14/20 19:59 Glucose (Glucose 40% Gel 15 Gm Tube) 15 - 30 gm PO UD PRN; Protocol PRN Reason: Hypoglycemia Protocol Stop: 10/14/20 19:59 Glucose (Glucose 10 Tabs/Tube) 4 - 8 tabs PO UD PRN; Protocol PRN Reason: Hypoglycemia Protocol Stop: 10/14/20 19:59 Heparin Sodium (Beef Lung) (Heparin 10 Unit/Ml 5 Ml Flush) 5 ml FLUSH PRN PRN PRN Reason: Flush Stop: 10/09/20 22:57 Heparin Sodium/Dextrose (Heparin Sodium/Dextrose) 25,000 units in 500 mls @ 13 mls/hr IV .Q24H LAUREN; Protocol Stop: 10/09/20 01:14 Last Admin: 09/15/20 07:50 Dose: 650 units/hr, 13 mls/hr Documented by: Promethazine HCl 12.5 mg/ (Sodium Chloride) 50.5 mls @ 202 mls/hr IV Q6H PRN PRN Reason: Nausea And Vomiting Stop: 10/09/20 03:51 Dexamethasone 6 mg/ Syringe 1.5 mls @ 1 mls/min IV DAILY LAUREN Stop: 10/09/20 04:24 Last Admin: 09/15/20 08:50 Dose: 1 mls/min Documented by: Norepinephrine Bitartrate (Levophed/D5w) 8 mg in 508 mls @ 15.526 mls/hr IV .Q24H LAUREN; Protocol Stop: 10/09/20 05:14 Last Titration: 09/15/20 12:14 Dose: 0.05 mcg/kg/min, 15.5 mls/hr Documented by: Fentanyl Citrate (Fentanyl Drip) 1,250 mcg in 250 mls @ 0 mls/hr IV .Q0M LAUREN; Protocol Stop: 09/23/20 05:59 Last Titration: 09/15/20 09:40 Dose: 0 mcg/hr, 0 mls/hr Documented by: Midazolam HCl (Versed) 125 mg in 250 mls @ 0 mls/hr IV .Q0M PRN; Protocol PRN Reason: Agitation Stop: 10/09/20 05:56 Last Titration: 09/15/20 06:53 Dose: 0 mg/hr, 0 mls/hr Documented by: Dopamine HCl/Dextrose (Dopamine / D5w) 400 mg in 250 mls @ 0 mls/hr IV .Q0M LAUREN; Protocol Stop: 10/10/20 13:29 Last Admin: 09/15/20 09:42 Dose: Not Given Documented by: Famotidine 20 mg/ Syringe 5 mls @ 2.5 mls/min IV BID LAUREN Stop: 10/13/20 20:59 Last Admin: 09/15/20 08:51 Dose: 2.5 mls/min Documented by: Dexmedetomidine HCl 400 mcg/ (Sodium Chloride) 100 mls @ 0 mls/hr IV .Q0M LAUREN; Protocol Stop: 09/19/20 01:14 Last Admin: 09/15/20 10:42 Dose: Not Given Documented by: Furosemide 40 mg/ Syringe 4 mls @ 4 mls/min IV DAILY LAUREN Stop: 10/16/20 08:59 Insulin Aspart (Insulin Aspart 100 Units/Ml 3 Ml Pen) 0 units SC Q4 LAUREN; Pr otocol Stop: 10/14/20 19:59 Last Admin: 09/15/20 12:48 Dose: 2 units Documented by: Levalbuterol HCl (Levalbuterol Hcl 0.63 Mg/3 Ml Neb) 0.63 mg NEB Q6R PRN PRN Reason: Shortness Of Breath Or Wheezing Stop: 10/09/20 12:59 Midazolam HCl (Midazolam Bolus From Bag) 2 mg IV Q60M PRN PRN Reason: Sedation Stop: 10/09/20 05:56 Last Admin: 09/11/20 05:25 Dose: 2 mg Documented by: Miscellaneous (Carbohydrates For Hypoglycemia ) 15 - 30 gm PO UD PRN PRN Reason: Hypoglycemia Treatment Stop: 10/14/20 19:59 Miscellaneous Information (Pharmacy Glycemic Mgmt Consult) 1 ea N/A UD PRN PRN Reason: Consult Stop: 10/14/20 19:50 Nutritional Formula (Peptamen Intense Vhp 1.0 Eloy 1,000 Ml Bag) 1,000 ml OG CONT LAUREN; Protocol Stop: 10/11/20 12:29 Last Admin: 09/15/20 12:28 Dose: Not Given Documented by: Sterile Water (Tube Feeding Water Flush) 30 ml GT Q4 LAUREN Stop: 10/11/20 12:29 Last Admin: 09/15/20 12:27 Dose: Not Given Documented by: Ziprasidone (Ziprasidone Hcl 20 Mg Cap) 20 mg PO TID LAUREN Stop: 10/14/20 13:59 Last Admin: 09/15/20 09:48 Dose: 20 mg Documented by:
[2020-09-15] MEDS ORDERED: Nursing to Pharmacy Communication SCH (18:30)
[2020-09-15] MEDS: ATORVASTATIN 20 MG TAB PO SCH (22:15)
[2020-09-16] MEDS: INSULIN ASPART 100 UNITS/ML 3 ML PEN SC SCH ×5 (00:02→20:27)
--- NOTE | 2020-09-16 06:06 | Electrocardiogram Report ---
Test Reason : Blood Pressure : / mmHG Vent. Rate : 091 BPM Atrial Rate : 091 BPM P-R Int : 154 ms QRS Dur : 106 ms QT Int : 408 ms P-R-T Axes : 064 -33 077 degrees QTc Int : 501 ms Normal sinus rhythm Left axis deviation Nonspecific T wave abnormality Prolonged QT Abnormal ECG When compared with ECG of 14-SEP-2020 08:32, QT has shortened Confirmed by Lj Fitch [id number]) on 09/16/2020 6:05:37 AM Referred By: REFERRED SELF Confirmed By:Lj Fitch
[2020-09-16] MEDS: NOREPINEPHRINE/D5W 8 MG/508 ML BAG IV SCH (07:00)
[2020-09-16 07:22] LABS: Hematocrit (blood only) 41.9 % (42-52); Hemoglobin 13.9 g/dL (14.0-18.0); Mean Corpuscular Hemoglobin 32.8 pg (25-34); Mean Corpuscular Hgb Conc 33.2 g/dL (32-36); Mean Corpuscular Volume 98.8 fL (80-100); Mean Platelet Volume 10.5 fL (7.4-10.4); Nucleated RBC # (auto) 0.09 K/uL (0-0); Nucleated RBC % (auto) 0.6 %; Platelet Count 168 K/uL (130-400); RDW Coefficient of Variation 15.2 % (11.5-14.5); Red Blood Count 4.24 M/uL (4.7-6.1)
[2020-09-16 07:42] LABS: Partial Thromboplastin Time 52.7 Seconds (21.0-31.0)
--- NOTE | 2020-09-16 07:49 | XRay Report ---
XR chest 1V portable HISTORY: Respiratory failure. COMPARISON: Chest 09/15/2020. FINDINGS: Endotracheal tube is been removed. Left subclavian central venous catheter and right jugula r transducer remain unchanged in position. Nasogastric tube has also been removed. No pneumothorax. T he heart is normal in size. No evidence for pulmonary edema. Hazy bibasilar densities remain unchange d. IMPRESSION: 1. Interval removal of the endotracheal tube and nasogastric tube. The remaining lines are unchanged in position. 2. Hazy bibasilar densities persist. ACT 112: Negative or not required by law. Electronically signed by: Cresencio Ng M.D. 09/16/2020 7:48 AM
[2020-09-16 07:56] LABS: Albumin Level 2.7 gm/dl (3.4-5.0); BUN Creatinine Ratio 45.8 (10-20); Creatinine Clr Calc Pharmacy 53.5 ml/min; Est GFR (African American) 65.3; Est GFR (Non-African American) 56.4; Magnesium 3.2 mg/dl (1.8-2.4); Potassium 4.9 mmol/L (3.5-5.1)
[2020-09-16 07:58] LABS: Albumin Globulin Ratio 0.9 (0.9-2); Bilirubin,Total 0.9 mg/dl (0.2-1); Globulin 3.1 gm/dl (2.5-4.0); Phosphorus 2.9 mg/dl (2.5-4.9); Total Protein 5.8 gm/dl (6.4-8.2)
[2020-09-16 08:15] LABS: ANC (manual) 13.97 K/uL (1.4-6.5); Lymphocytes % (manual) 2.6 %; Monocytes # (manual) 0.93 K/uL (0.11-0.59); Monocytes % (manual) 6.1 %; Neutrophils # (manual) 13.97 K/uL (1.4-6.5); Neutrophils % (manual) 91.3 %
[2020-09-16] MEDS: dexAMETHasone 6 MG in SYRINGE 0 ML IV SCH (08:15)
[2020-09-16] MEDS: ASPIRIN 81 MG CHEW PO SCH (08:15)
[2020-09-16] MEDS: FUROSEMIDE 40 MG in SYRINGE 0 ML IV SCH (08:15)
[2020-09-16] MEDS: CLOPIDOGREL BISULFATE 75 MG TAB PO SCH (08:16)
[2020-09-16] MEDS: FAMOTIDINE 20 MG in SYRINGE 3 ML IV SCH ×2 (09:09→20:26)
--- NOTE | 2020-09-16 11:32 | Critical Care Progress Note ---
Date of Service September 16, 2020 Assessment & Plan (1) Admitted to intensive care unit: Reason Critically Ill: Patient is a 75-year-old male with acute hypoxic respiratory failure in the setting of COVID-19 pneumonia and non-ST elevation myocardial infarction requiring emergent endotracheal intubation. Unclear how much of the patient's respiratory failure is related to Covid pneumonia and how much may be related to his non-ST elevation OH and fluid issues. Recommendations: NEURO -patient is currently extubated. He has altered mental status likely related to metabolic encephalopathy. This is slowly improving. CARDIAC/VASCULAR -non-ST elevation myocardial infarction. A temporary pacemaker was placed 09/14/2020 due to ongoing junctional rhythms and bradycardia. Heart rhythm is better controlled at this time. He is off vasoactive medications. Continue heparin drip as per cardiology. Unable to give aspirin or Plavix as he does not have an oral route medications at this time. Continue with 40 mg IV Lasix today. He is negative approximately 1 L for the entirety of the hospital stay. RESPIRATORY -acute hypoxemic respiratory failure with pulmonary infiltrates. Differential would include atypical edema, pulmonary hemorrhage, and infectious etiologies including secondary to Covid pneumonia. 10 days total of Decadron for Covid pneumonia. We will trial him off BiPAP and placed on high flow nasal cannula. GI/NUTRITION -remain NPO. May need to place NG tube if unable to swallow or mental status continues to be encephalopathic. RENAL/LYTES -we will decrease diuretics to 40 mg IV daily -no current issues. Continue to trend I/O. ENDO -glycemic control per protocol HEME -no significant issues. IDreceived remdesivir and Tocilizumab earlier in the hospital course. Blood cultures from 09/08/2020 grew Staphylococcus lugdunensis. Repeat blood cultures have been negative. Likely contaminant. No indication for antibiotics at this time. Procalcitonin mildly elevated to 0.51. No clear indication for antibiotics at this time. We will hold off. LINES/IV ACCESS - PIVs x2 Right internal jugular introducer with temporary pacer wire Colvin ET Tube OG DVT PROPHYLAXIS - Heparin gtt SCDs (2) Acute hypoxemic respiratory failure: (3) Pneumonia due to 2019 novel coronavirus: (4) Acute kidney injury: (5) Acidosis, lactic: (6) Acute non-ST elevation myocardial infarction (NSTEMI): (7) Sinus pause: (8) Junctional bradycardia: (9) Sinus node dysfunction: Admission and Anticipated Discharge Date Admission Date: September 09, 2020 Subjective Patient was seen and examined in the Covid unit. He is currently extubated and on BiPAP during this exam. He is following commands intermittently. He is able to squeeze my fingers. Review of systems is very limited. He appears to be in mild distress and has mild tachypnea. He is currently off vasopressors and off sedation. Review of Systems Review of Systems: Unobtainable due to cognitive status Physical Exam Constitutional: Currently on BiPAP. Appears to be in mild distress. Eyes: PERRL, conjunctivae normal, anicteric sclerae ENMT: external ear and nose normal, oropharynx normal Neck: trachea midline, no thyromegaly Respiratory: normal respiratory effort Coarse breath sounds. Mild tachypnea. Cardiovascular: RRR, no murmur, no edema Gastrointestinal (Abdomen): normal bowel sounds, soft, nontender, no hepatosplenomegaly Musculoskeletal: Extremities: extremities normal to inspection Skin: no rashes, warm and dry Neurologic: Opens eyes spontaneously. No obvious focal deficits. Squeeze my fingers bilaterally. 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 Psychiatric: Appears mildly distressed. Alert. He is not oriented. Lymphatic: no cervical lymphadenopathy Results & Data Results & Data ([facility]) Vital Signs (Past 12 Hours) Vital Signs Temp Pulse Pulse Resp BP Pulse Ox 09/16/20 10:35 93 H 19 90 09/16/20 10:30 99.0 F 80 119/73 84 L 09/16/20 10:00 99.0 F 86 108/76 89 L 09/16/20 09:30 98.8 F 82 123/83 90 09/16/20 09:00 98.6 F 81 108/73 91 09/16/20 08:30 98.6 F 91 H 113/68 88 L 09/16/20 08:10 84 30 H 90 09/16/20 08:00 98.6 F 85 113/74 90 09/16/20 07:30 98.4 F 74 118/67 89 L 09/16/20 07:00 98.4 F 80 125/71 88 L 09/16/20 06:01 98.2 F 73 91 09/16/20 06:00 98.2 F 70 119/68 93 09/16/20 05:31 98.1 F 61 91 09/16/20 05:30 98.1 F 62 137/72 91 09/16/20 05:01 98.1 F 70 90 09/16/20 05:00 98.1 F 74 130/89 91 09/16/20 04:31 98.1 F 71 92 09/16/20 04:30 98.1 F 70 140/66 92 09/16/20 04:01 98.1 F 68 92 09/16/20 04:00 98.1 F 67 128/74 92 09/16/20 03:34 68 27 H 92 09/16/20 03:31 98.1 F 68 92 09/16/20 03:30 98.1 F 69 123/69 91 09/16/20 03:01 98.1 F 70 91 09/16/20 03:00 98.1 F 67 129/68 91 09/16/20 02:31 98.1 F 63 89 L 09/16/20 02:30 98.1 F 70 122/66 89 L 09/16/20 02:00 98.1 F 72 127/67 90 09/16/20 01:30 98.1 F 66 92/62 L 88 L 09/16/20 01:01 98.1 F 60 93 09/16/20 01:00 98.1 F 78 128/66 93 09/16/20 00:31 98.1 F 62 93 09/16/20 00:30 98.1 F 63 131/67 93 09/16/20 00:15 61 09/16/20 00:09 70 28 H 93 09/16/20 00:01 97.9 F 63 88 L 09/16/20 00:00 97.9 F 66 126/76 87 L 09/15/20 23:31 97.9 F 65 89 L 09/15/20 23:30 97.9 F 64 138/64 88 L I reviewed the vital signs, labs and imaging Coding Level of Care Code 58357 Subseq Hosp Care Lvl 3 Diagnoses Admitted to intensive care unit Z78.9 Acute hypoxemic respiratory failure J96.01 Pneumonia due to 2019 novel coronavirus U07.1; J12.82 Acute kidney injury N17.9 Acidosis, lactic E87.2 Acute non-ST elevation myocardial infarction (NSTEMI) I21.4 Sinus pause I45.5 Junctional bradycardia R00.1 Sinus node dysfunction I49.5
--- NOTE | 2020-09-16 12:26 | Cardiology Progress Note ---
Date of Service September 16, 2020 Assessment & Plan (1) Sinus node dysfunction: (2) Sinus pause: (3) Junctional bradycardia: (4) Acute hypoxemic respiratory failure: (5) Pneumonia due to 2019 novel coronavirus: (6) Acute non-ST elevation myocardial infarction (NSTEMI): Temporary venous pacemaker placed 09/14/2020 without complication. Current threshold is 1.0 MA as assessed at bedside. Stable position per repeat checks x-ray this a.m. Programmed to 3.0 MA at 60 bpm. Recommend maintaining transvenous pacer at this time for heart rate support. Ongoing assessment regarding need for permanent pacemaker implantation as clinical course unfolds. Continue daily intravenous Lasix to maintain negative fluid balance and optimize oxygenation. Monitor fluid balance, GFR, and electrolytes daily. With history of complex multivessel coronary disease and prior stent thrombosis, recommend continuing dual antiplatelet therapy and intravenous heparin at this time. Consider transition to subcutaneous heparin or Lovenox in a.m. Admission and Anticipated Discharge Date Admission Date: September 09, 2020 Subjective Patient seen and examined at the bedside in the [address] unit. Patient is now extubated. Awake and following commands however remains confused. Ventricular pacing recorded on telemetry overnight. Denies pain however is a poor historian. Transvenous pacemaker thresholds assessed at bedside. Threshold currently 1.0 MA. Chest x-ray reviewed demonstrating stable pacemaker in the right ventricle. Position unchanged. Pacemaker programmed to 3.0 MA at 60 bpm. Fluid balance -2483 cc. Stable renal function. Review of Systems Review of Systems: Unobtainable due to cognitive status Patient denies pain. He is awake however confused. Physical Exam Constitutional: well nourished; no acute distress Respiratory: no respiratory distress and no labored breathing Auscultation: + diminished lung sounds; no crackles, no rales, no rhonchi and no wheezes Cardiovascular: Rate/Rhythm: regular rate, regular rhythm and + tachycardic Heart Sounds: normal S1 and normal S2; no murmur Vessels: no JVD Extremities: + edema (Trace bilateral pedal and ankle edema.) Gastrointestinal (Abdomen): Inspection/Auscultation: abdomen normal to inspection and normal bowel sounds; abdomen not distended Percussion/Palpation: abdomen soft; no guarding and abdomen not rigid Neurologic: awake Results & Data ([facility]) Vital Signs (Past 12 Hours) Vital Signs Temp Pulse Pulse Resp BP Pulse Ox 09/16/20 10:35 93 H 19 90 09/16/20 10:30 37.2 C 80 119/73 84 L 09/16/20 10:00 37.2 C 86 108/76 89 L 09/16/20 09:30 37.1 C 82 123/83 90 09/16/20 09:00 37.0 C 81 108/73 91 09/16/20 08:30 37.0 C 91 H 113/68 88 L 09/16/20 08:10 84 30 H 90 09/16/20 08:00 37.0 C 85 113/74 90 09/16/20 07:30 36.9 C 74 118/67 89 L 09/16/20 07:00 36.9 C 80 125/71 88 L 09/16/20 06:01 36.8 C 73 91 09/16/20 06:00 36.8 C 70 119/68 93 09/16/20 05:31 36.7 C 61 91 09/16/20 05:30 36.7 C 62 137/72 91 09/16/20 05:01 36.7 C 70 90 09/16/20 05:00 36.7 C 74 130/89 91 09/16/20 04:31 36.7 C 71 92 09/16/20 04:30 36.7 C 70 140/66 92 09/16/20 04:01 36.7 C 68 92 09/16/20 04:00 36.7 C 67 128/74 92 09/16/20 03:34 68 27 H 92 09/16/20 03:31 36.7 C 68 92 09/16/20 03:30 36.7 C 69 123/69 91 09/16/20 03:01 36.7 C 70 91 09/16/20 03:00 36.7 C 67 129/68 91 09/16/20 02:31 36.7 C 63 89 L 09/16/20 02:30 36.7 C 70 122/66 89 L 09/16/20 02:00 36.7 C 72 127/67 90 09/16/20 01:30 36.7 C 66 92/62 L 88 L 09/16/20 01:01 36.7 C 60 93 09/16/20 01:00 36.7 C 78 128/66 93 09/16/20 00:31 36.7 C 62 93 09/16/20 00:30 36.7 C 63 131/67 93
--- NOTE | 2020-09-16 14:02 | Hospitalist Progress Note ---
Date of Service September 16, 2020 Assessment & Plan (1) Acute hypoxemic respiratory failure: Acute respiratory failure with hypoxia secondary to severe COVID-19 pneumonia Presented with septic Shock and required intubation CXR:Endotracheal tube terminates 4.7 cm superior to the kathy. Left subclavian central venous catheter distal tip terminates in the region of the mid SVC. Extensive bilateral mixed interstitial and alveolar opacities redemonstrated. Blood culture: 06/05: Preliminary--Staph Lugdunensis -Likely contaminant Repeat Blood Cx:no growth to date Initial CPR CRP:13.7 Remdesivir was not given due to critical condition Received Tocilizumab and continue IV dexamethasone Continue IV lasix 40mg BID Appreciate critical care input Has been feeling much better today and communicating reasonably Still requiring very high flow oxygen to maintain saturation Will start clears orally Leukocytosis White count is elevated to 20.78 today without any evidence of fever Likely secondary to use of steroid but cannot rule out bacterial infection and lung White blood cell count has been improving-will not put any antibiotic for now Sinus Bradycardia with 4 second Pause On Dopamine drip Cardiology recommends transvenous pacemaker insertion Status post transvenous pacemaker insertion on 09/14/2020 NSTEMI H/O CAD S/P Stent ECHO: Mild concentric LVH. EF 45%. Moderate size apical wall motion abnormality with hypokinesis of the segments. No pericardial effusion. No significant valvular disease. Continue aspirin, Plavix, statin Imdur, Lisinopril on hold due to low blood pressure Continue IV heparin Elevated D dimer Could not perform CTA due to renal Insufficiency Venous Doppler:No DVT HTN Hypotensive on presentations Received IV fluids Blood pressure is lower limit of normal without any pressor agents Acute Kidney Injury on CKD III Likely ATN Cr:2.43>1.75>1.2 Avoid nephrotoxic agents as able Kidney function has been normalized Schizophrenia/depression Celexa, Ziprasidone--held today Prediabetes HbA1C:6.1 DVT Px: IV heparin Code Status Full code Status post extubation but is still requiring intravenous pressor agents to maintain blood pressure Remains critically ill We will discuss with the Admission and Anticipated Discharge Date Admission Date: September 09, 2020 Subjective 09/15/2020 The patient was seen and examined in telemetry and Covid unit He is a status post extubation and requiring pressor agents to maintain blood pressure He has been communicating with few words Remains extremely weak and lethargic 09/16/2020 The patient was seen and examined in telemetry and Covid unit He has been feeling much better today and has been communicating reasonably well Still requiring 75% FiO2 that is 40 L/min to maintain saturation Complains of generalized weakness Physical Exam Physical Exam: Lying in bed comfortably Constitutional: + ill appearing and average body habitus; not in distress Eyes: PERRL, conjunctivae normal, anicteric sclerae ENMT: external ear and nose normal, oropharynx normal Neck: trachea midline, no thyromegaly Respiratory: + respiratory distress (Minimal respiratory distress at rest) Auscultation: + diminished lung sounds and + crackles (Bibasilar crackles) Cardiovascular: Rate/Rhythm: regular rate and regular rhythm Heart Sounds: no murmur Extremities: + edema (Trace edema bilaterally) Gastrointestinal (Abdomen): Inspection/Auscultation: normal bowel sounds; abdomen not distended Percussion/Palpation: abdomen soft; abdomen nontender Musculoskeletal: No acute arthritis in any joint Neurologic: Alert and awake. Generally very weak and lethargic Lymphatic: no cervical or axillary lymphadenopathy Results & Data Results & Data ([facility]) Vital Signs (Past 12 Hours) Vital Signs Temp Pulse Pulse Resp BP Pulse Ox 09/16/20 13:30 37.1 C 73 23 93 09/16/20 12:30 37.2 C 82 109/74 91 09/16/20 12:00 37.3 C 90 119/76 92 09/16/20 11:30 37.3 C 80 126/72 92 09/16/20 11:00 37.2 C 93 H 123/78 92 09/16/20 10:35 93 H 19 90 09/16/20 10:30 37.2 C 80 119/73 84 L 09/16/20 10:00 37.2 C 86 108/76 89 L 09/16/20 09:30 37.1 C 82 123/83 90 09/16/20 09:00 37.0 C 81 108/73 91 09/16/20 08:30 37.0 C 91 H 113/68 88 L 09/16/20 08:10 84 30 H 90 09/16/20 08:00 37.0 C 85 113/74 90 09/16/20 07:30 36.9 C 74 118/67 89 L 09/16/20 07:00 36.9 C 80 125/71 88 L 09/16/20 06:01 36.8 C 73 91 09/16/20 06:00 36.8 C 70 119/68 93 09/16/20 05:31 36.7 C 61 91 09/16/20 05:30 36.7 C 62 137/72 91 09/16/20 05:01 36.7 C 70 90 09/16/20 05:00 36.7 C 74 130/89 91 09/16/20 04:31 36.7 C 71 92 09/16/20 04:30 36.7 C 70 140/66 92 09/16/20 04:01 36.7 C 68 92 09/16/20 04:00 36.7 C 67 128/74 92 09/16/20 03:34 68 27 H 92 09/16/20 03:31 36.7 C 68 92 09/16/20 03:30 36.7 C 69 123/69 91 09/16/20 03:01 36.7 C 70 91 09/16/20 03:00 36.7 C 67 129/68 91 09/16/20 02:31 36.7 C 63 89 L 09/16/20 02:30 36.7 C 70 122/66 89 L 09/16/20 02:00 36.7 C 72 127/67 90 Laboratory Results Short CBC 09/16/20 Range/Units 06:32 WBC 15.30 H (4.8-10.8) K/uL Hgb 13.9 L (14.0-18.0) g/dL Hct 41.9 L (42-52) % Plt Count 168 (130-400) K/uL BMP 09/16/20 06:32 Sodium 145 Potassium 4.9 Chloride 110 H Carbon Dioxide 32 BUN 57 H Creatinine 1.25 Glucose 93 Calcium 8.0 L Liver Function 09/16/20 Range/Units 06:32 Total Bilirubin 0.9 (0.2-1) mg/dl AST 47 H (15-37) U/L ALT 36 (12-78) U/L Alkaline Phosphatase 91 (45-117) U/L Albumin 2.7 L (3.4-5.0) gm/dl Medications Administered Current Inpatient Medications Acetaminophen (Acetaminophen 325 Mg Tab) 650 mg PO Q4H PRN PRN Reason: Pain or Fever Stop: 10/09/20 03:51 Last Admin: 09/16/20 13:15 Dose: 650 mg Documented by: Aspirin (Aspirin 81 Mg Chew) 81 mg PO DAILY LAUREN Stop: 10/10/20 08:59 Last Admin: 09/16/20 08:15 Dose: 81 mg Documented by: Atorvastatin Calcium (Atorvastatin 20 Mg Tab) 20 mg PO QPM LAUREN Stop: 10/09/20 20:59 Last Admin: 09/15/20 22:15 Dose: 20 mg Documented by: Citalopram Hydrobromide (Citalopram 20 Mg Tab) 20 mg PO HS LAUREN Stop: 10/09/20 20:59 Last Admin: 09/13/20 20:31 Dose: 20 mg Documented by: Clopidogrel Bisulfate (Clopidogrel Bisulfate 75 Mg Tab) 75 mg PO DAILY LAUREN Stop: 10/09/20 08:59 Last Admin: 09/16/20 08:16 Dose: 75 mg Documented by: Dextrose (Dextrose 50% 50 Ml Syringe) 25 - 50 ml IV UD PRN; Protocol PRN Reason: Hypoglycemia Protocol Stop: 10/14/20 19:59 Glucagon (Glucagon For Inj 1 Mg Vial) 1 mg IM UD PRN; Protocol PRN Reason: Hypoglycemia Protocol Stop: 10/14/20 19:59 Glucose (Glucose 40% Gel 15 Gm Tube) 15 - 30 gm PO UD PRN; Protocol PRN Reason: Hypoglycemia Protocol Stop: 10/14/20 19:59 Glucose (Glucose 10 Tabs/Tube) 4 - 8 tabs PO UD PRN; Protocol PRN Reason: Hypoglycemia Protocol Stop: 10/14/20 19:59 Heparin Sodium (Beef Lung) (Heparin 10 Unit/Ml 5 Ml Flush) 5 ml FLUSH PRN PRN PRN Reason: Flush Stop: 10/09/20 22:57 Heparin Sodium/Dextrose (Heparin Sodium/Dextrose) 25,000 units in 500 mls @ 13 mls/hr IV .Q24H LAUREN; Protocol Stop: 10/09/20 01:14 Last Titration: 09/15/20 19:07 Dose: 650 units/hr, 13 mls/hr Documented by: Promethazine HCl 12.5 mg/ (Sodium Chloride) 50.5 mls @ 202 mls/hr IV Q6H PRN PRN Reason: Nausea And Vomiting Stop: 10/09/20 03:51 Dexamethasone 6 mg/ Syringe 1.5 mls @ 1 mls/min IV DAILY LAUREN Stop: 10/09/20 04:24 Last Admin: 09/16/20 08:15 Dose: 1 mls/min Documented by: Norepinephrine Bitartrate (Levophed/D5w) 8 mg in 508 mls @ 15.526 mls/hr IV .Q24H LAUREN; Protocol Stop: 10/09/20 05:14 Last Admin: 09/16/20 07:00 Dose: Not Given Documented by: Midazolam HCl (Versed) 125 mg in 250 mls @ 0 mls/hr IV .Q0M PRN; Protocol PRN Reason: Agitation Stop: 10/09/20 05:56 Last Titration: 09/16/20 07:00 Dose: Infused Documented by: Famotidine 20 mg/ Syringe 5 mls @ 2.5 mls/min IV BID LAUREN Stop: 10/13/20 20:59 Last Admin: 09/16/20 09:09 Dose: 2.5 mls/min Documented by: Furosemide 40 mg/ Syringe 4 mls @ 4 mls/min IV DAILY [facility] Stop: 10/16/20 08:59 Last Admin: 09/16/20 08:15 Dose: 4 mls/min Documented by: Insulin Aspart (Insulin Aspart 100 Units/Ml 3 Ml Pen) 0 units SC Q6 LAUREN Stop: 10/14/20 19:59 Last Admin: 09/16/20 05:53 Dose: Not Given Documented by: Levalbuterol HCl (Levalbuterol Hcl 0.63 Mg/3 Ml Neb) 0.63 mg NEB Q6R PRN PRN Reason: Shortness Of Breath Or Wheezing Stop: 10/09/20 12:59 Midazolam HCl (Midazolam Bolus From Bag) 2 mg IV Q60M PRN PRN Reason: Sedation Stop: 10/09/20 05:56 Last Admin: 09/11/20 05:25 Dose: 2 mg Documented by: Miscellaneous (Carbohydrates For Hypoglycemia ) 15 - 30 gm PO UD PRN PRN Reason: Hypoglycemia Treatment Stop: 10/14/20 19:59 Miscellaneous Information (Pharmacy Glycemic Mgmt Consult) 1 ea N/A UD PRN PRN Reason: Consult Stop: 10/14/20 19:50 Ziprasidone (Ziprasidone Hcl 20 Mg Cap) 20 mg PO TID LAUREN Stop: 10/14/20 13:59 Last Admin: 09/15/20 09:48 Dose: 20 mg Documented by:
[2020-09-16] MEDS ORDERED: Nursing to Pharmacy Communication SCH (14:45)
[2020-09-16] MEDS: ATORVASTATIN 20 MG TAB PO SCH (20:26)
[2020-09-16] MEDS: HEPARIN SODIUM/DEXTROSE 25,000 UNITS/500 ML BAG IV SCH (20:27)
--- NOTE | 2020-09-17 06:21 | Electrocardiogram Report ---
Test Reason : Blood Pressure : / mmHG Vent. Rate : 068 BPM Atrial Rate : 068 BPM P-R Int : 154 ms QRS Dur : 104 ms QT Int : 448 ms P-R-T Axes : 046 -36 026 degrees QTc Int : 476 ms Normal sinus rhythm Left axis deviation Minimal voltage criteria for LVH, may be normal variant Septal infarct , age undetermined Abnormal ECG When compared with ECG of 15-SEP-2020 05:44, Nonspecific T wave abnormality no longer evident in Lateral leads Confirmed by Lj Fitch [id number]) on 09/17/2020 6:21:33 AM Referred By: REFERRED SELF Confirmed By:Lj Fitch
[2020-09-17] MEDS: NOREPINEPHRINE/D5W 8 MG/508 ML BAG IV SCH ×2 (06:39→23:12)
[2020-09-17 07:32] LABS: Hemoglobin 14.7 g/dL (14.0-18.0); Mean Corpuscular Hemoglobin 33.9 pg (25-34); Mean Corpuscular Hgb Conc 34.2 g/dL (32-36); Mean Corpuscular Volume 99.3 fL (80-100); Mean Platelet Volume 10.7 fL (7.4-10.4); Nucleated RBC # (auto) 0.04 K/uL (0-0); Nucleated RBC % (auto) 0.1 %; Platelet Count 155 K/uL (130-400); RDW Coefficient of Variation 15.1 % (11.5-14.5); RDW Standard Deviation 54.4 fL (36.4-46.3); Red Blood Count 4.33 M/uL (4.7-6.1); White Blood Count 30.77 K/uL (4.8-10.8)
[2020-09-17 07:39] LABS: Partial Thromboplastin Ratio 1.6; Partial Thromboplastin Time 41.6 Seconds (21.0-31.0)
[2020-09-17 07:41] LABS: Basophils # (auto) 0.03 K/uL (0-0.2); Basophils % (auto) 0.1 %; Eosinophils # (auto) 0.01 K/uL (0-0.5); Immature Granulocytes # (auto) 0.17 K/uL (0.00-0.02); Immature Granulocytes % (auto) 0.6 %; Lymphocytes % (auto) 2.3 %; Monocytes # (auto) 0.11 K/uL (0.11-0.59); Monocytes % (auto) 0.4 %; Neutrophils # (auto) 29.75 K/uL (1.4-6.5); Neutrophils % (auto) 96.6 %; Toxic Granulation 1+; Toxic Vacuolation 1+
[2020-09-17] MEDS ORDERED: PIPERACILL/TAZOBAC CONSULT ACTIVE PRN (07:43)
[2020-09-17 07:46] LABS: BUN Creatinine Ratio 41.1 (10-20); Calcium 8.1 mg/dl (8.5-10.1); Est GFR (African American) 51.6; Est GFR (Non-African American) 44.5; Magnesium 3.4 mg/dl (1.8-2.4); Potassium 4.6 mmol/L (3.5-5.1)
[2020-09-17] MEDS ORDERED: PIPERACILLIN/TAZOBACTAM 4.5 GM in DEXTROSE 5% 100 ML IV STA (07:47)
[2020-09-17 07:49] LABS: Phosphorus 3.9 mg/dl (2.5-4.9)
[2020-09-17] MEDS: dexAMETHasone 6 MG in SYRINGE 0 ML IV SCH (08:58)
[2020-09-17] MEDS: FAMOTIDINE 20 MG in SYRINGE 3 ML IV SCH ×2 (08:58→20:42)
[2020-09-17] MEDS: FUROSEMIDE 40 MG in SYRINGE 0 ML IV SCH (08:58)
[2020-09-17] MEDS: ASPIRIN 81 MG CHEW PO SCH (08:59)
[2020-09-17] MEDS: CLOPIDOGREL BISULFATE 75 MG TAB PO SCH (08:59)
[2020-09-17] MEDS: INSULIN ASPART 100 UNITS/ML 3 ML PEN SC SCH ×3 (09:19→18:17)
--- NOTE | 2020-09-17 11:10 | XRay Report ---
XR chest 1V portable CLINICAL HISTORY: hypoxia COMPARISON STUDY: Chest radiograph September 16, 2020. FINDINGS: Right jugular transducer remains in place. Left central line is in place. There is no pneum othorax. Bibasilar opacities and suspected small left pleural effusion persists. Mild interstitial th ickening is unchanged. IMPRESSION: 1. Persistent bibasilar opacities which favor an infectious process. 2. Pulmonary vascular congestion. ACT 112: Negative or not required by law. Electronically signed by: Benjie Calhoun M.D. 09/17/2020 11:09 AM
[2020-09-17] MEDS: PIPERACILLIN/TAZOBACTAM 4.5 GM in DEXTROSE 5% 100 ML IV SCH ×2 (11:44→21:23)
--- NOTE | 2020-09-17 12:06 | Critical Care Progress Note ---
Date of Service September 17, 2020 Assessment & Plan (1) Admitted to intensive care unit: Reason Critically Ill: Patient is a 75-year-old male with acute hypoxic respiratory failure in the setting of COVID-19 pneumonia and non-ST elevation myocardial infarction requiring emergent endotracheal intubation. Unclear how much of the patient's respiratory failure is related to Covid pneumonia and how much may be related to his non-ST elevation [place] and fluid issues. Recommendations: NEURO -slowly improving metabolic encephalopathy. CARDIAC/VASCULAR -non-ST elevation myocardial infarction. A temporary pacemaker was placed 09/14/2020 due to ongoing junctional rhythms and bradycardia. Heart rhythm is better controlled at this time. He is off vasoactive medications. Continue heparin drip as per cardiology. Unable to give aspirin or Plavix as he does not have an oral route medications at this time. We will hold on further Lasix today. RESPIRATORY -acute hypoxemic respiratory failure with pulmonary infiltrates. Differential would include atypical edema, pulmonary hemorrhage, and infectious etiologies including secondary to Covid pneumonia. 10 days total of Decadron for Covid pneumonia. We will reintubate the patient given high amounts of s upport required off BiPAP. Unable to take p.o. medications. Discussed with and she is agreeable. May possibly need tracheostomy next week. GI/NUTRITION -remain NPO. Will place OG tube after reintubated. RENAL/LYTES -hold Lasix today as he is developing hypernatremia and EDUARD. This should improve with tube feedings after intubation. -no current issues. Continue to trend I/O. ENDO -glycemic control per protocol HEME -no significant issues. IDreceived remdesivir and Tocilizumab earlier in the hospital course. Blood cultures from 09/08/2020 grew Staphylococcus lugdunensis. Repeat blood cultures have been negative. Pro-Eloy and white count elevated. Restarted Zosyn. We will repeat MRSA screen. Will repeat UA, blood cultures and sputum cultures. LINES/IV ACCESS - PIVs x2 Right internal jugular introducer with temporary pacer wire Colvin DVT PROPHYLAXIS - Heparin gtt SCDs Disposition: Remain in the ICU. Patient's was updated over the phone. Prognosis very poor. Remains a full code. CRITICAL CARE TIME - I have personally spent 41 minutes of critical care time in the direct management of this patient. This is a life/limb threatening event. This includes time spent evaluating patient, direct bedside care, chart review, placing orders, interpretation of diagnostic studies, discussion with consultants, patient, and family members, as well as other required patient management activities. This time is exclusive of all separately billable procedures, and teaching time and separate from and in addition to any other critical care service time. (2) Acute hypoxemic respiratory failure: (3) Pneumonia due to 2019 novel coronavirus: (4) Acute kidney injury: (5) Acidosis, lactic: (6) Acute non-ST elevation myocardial infarction (NSTEMI): (7) Sinus pause: (8) Junctional bradycardia: (9) Sinus node dysfunction: Admission and Anticipated Discharge Date Admission Date: September 09, 2020 Subjective Patient seen and examined this morning. Requiring high support from the BiPAP machine. Follows commands intermittently and able to squeeze my fingers. Hemodynamically stable at this time and not on any vasopressors. Has right IJ temporary pacemaker in place. Review of Systems Review of Systems: All systems reviewed & are unremarkable except as noted in HPI & below Physical Exam Constitutional: Currently on BiPAP. Appears to be in mild distress. Eyes: PERRL, conjunctivae normal, anicteric sclerae ENMT: external ear and nose normal, oropharynx normal Neck: trachea midline, no thyromegaly Respiratory: normal respiratory effort Coarse breath sounds. Mild tachypnea. Cardiovascular: RRR, no murmur, no edema Gastrointestinal (Abdomen): normal bowel sounds, soft, nontender, no hepatosplenomegaly Musculoskeletal: Extremities: extremities normal to inspection Skin: no rashes, warm and dry Neurologic: Opens eyes spontaneously. No obvious focal deficits. Squeeze my fingers bilaterally. Decreased performance test consultant strength. Psychiatric: Appears mildly distressed. Alert. He is not oriented. Lymphatic: no cervical lymphadenopathy Results & Data Results & Data ([facility]) Vital Signs (Past 12 Hours) Vital Signs Temp Pulse Pulse Resp BP BP Pulse Ox 09/17/20 11:55 97.7 F 100 H 21 100/85 94 09/17/20 11:30 99.3 F 92 H 95 09/17/20 11:16 109 H 26 H 93 09/17/20 11:01 99.3 F 87 94 09/17/20 11:00 99.3 F 93 H 110/85 95 09/17/20 10:00 99.1 F 85 121/83 93 09/17/20 09:00 99.3 F 92 H 107/72 95 09/17/20 08:00 99.0 F 76 135/73 92 09/17/20 07:34 77 19 90 09/17/20 07:00 99.1 F 90 140/77 91 09/17/20 06:00 99.5 F 92 H 122/72 92 09/17/20 05:01 100.0 F H 115 H 92 09/17/20 05:00 100.0 F H 107 H 115/77 92 09/17/20 04:01 100.2 F H 89 96 09/17/20 04:00 100.2 F H 85 137/82 96 09/17/20 03:39 106 H 24 93 09/17/20 03:30 100.0 F H 106 H 40 H 90 09/17/20 03:00 99.7 F H 92 H 41 H 122/74 91 09/17/20 02:01 99.7 F H 84 91 09/17/20 02:00 99.7 F H 94 H 118/76 92 09/17/20 01:01 99.3 F 87 91 09/17/20 01:00 99.3 F 83 130/66 92 09/17/20 00:30 99.3 F 91 H 91 09/17/20 00:00 99.3 F 97 H 132/87 88 L I reviewed vital signs, labs and imaging Coding Level of Care Code Critical Care 1st 30-74 mins Diagnoses Admitted to intensive care unit Z78.9 Acute hypoxemic respiratory failure J96.01 Pneumonia due to 2019 novel coronavirus U07.1; J12.82 Acute kidney injury N17.9 Acidosis, lactic E87.2 Acute non-ST elevation myocardial infarction (NSTEMI) I21.4 Sinus pause I45.5 Junctional bradycardia R00.1 Sinus node dysfunction I49.5 Time Spent (min) 41
--- NOTE | 2020-09-17 12:15 | Cardiology Progress Note ---
Date of Service September 17, 2020 Assessment & Plan (1) Sinus node dysfunction: (2) Sinus pause: (3) Junctional bradycardia: (4) Acute hypoxemic respiratory failure: (5) Pneumonia due to 2019 novel coronavirus: (6) Elevated white blood cell count, unspecified: (7) Acute non-ST elevation myocardial infarction (NSTEMI): Temporary venous pacemaker placed 09/14/2020 without complication. Current threshold is 0.5 MA as assessed at bedside. Stable position per repeat checks x-ray this a.m. Programmed to 2.5 MA. Pacemaker rate reduced to 50 bpm. Recommend maintaining transvenous pacer at this time for heart rate support. Ongoing assessment regarding need for permanent pacemaker implantation as clinical course unfolds. Elevated white blood cell count and low-grade fevers recorded overnight. Recommend repeat blood cultures x2. Fluid balance remains negative. Serum creatinine trending upward today. Recommend discontinuation of IV Lasix. Transition to oral furosemide in a.m. pending review of labs. With history of complex multivessel coronary disease and prior stent thrombosis, recommend continuing dual antiplatelet therapy and intravenous heparin at this time. Consider transition to subcutaneous heparin or Lovenox in a.m. Admission and Anticipated Discharge Date Admission Date: September 09, 2020 Subjective Patient seen and examined at the bedside. Awake and alert on BiPAP. Following commands. Demand ventricular pacing recorded last evening at 9:30 PM. Otherwise he has remained in sinus rhythm. Denies chest discomfort. Edema resolved. Fluid balance -1276 cc. Creatinine trending upward. Elevated white blood cell count noted today. Low-grade fever recorded last evening and early a.m. today. Review of Systems Review of Systems: All systems reviewed & are unremarkable except as noted in Subjective Physical Exam Constitutional: well nourished; no acute distress Respiratory: no respiratory distress and no labored breathing Auscultation: + diminished lung sounds; no crackles, no rales, no rhonchi and no wheezes Cardiovascular: Rate/Rhythm: regular rate, regular rhythm and + tachycardic Heart Sounds: normal S1 and normal S2; no murmur Vessels: no JVD Extremities: + edema (Trace bilateral pedal and ankle edema.) Gastrointestinal (Abdomen): Inspection/Auscultation: abdomen normal to inspection and normal bowel sounds; abdomen not distended Percussion/Palpation: abdomen soft; no guarding and abdomen not rigid Neurologic: awake Results & Data ([facility]) Vital Signs (Past 12 Hours) Vital Signs Temp Pulse Pulse Resp BP BP Pulse Ox 09/17/20 11:55 36.5 C 100 H 21 100/85 94 09/17/20 11:30 37.4 C 92 H 95 09/17/20 11:16 109 H 26 H 93 09/17/20 11:01 37.4 C 87 94 09/17/20 11:00 37.4 C 93 H 110/85 95 09/17/20 10:00 37.3 C 85 121/83 93 09/17/20 09:00 37.4 C 92 H 107/72 95 09/17/20 08:00 37.2 C 76 135/73 92 09/17/20 07:34 77 19 90 09/17/20 07:00 37.3 C 90 140/77 91 09/17/20 06:00 37.5 C 92 H 122/72 92 09/17/20 05:01 37.8 C H 115 H 92 09/17/20 05:00 37.8 C H 107 H 115/77 92 09/17/20 04:01 37.9 C H 89 96 09/17/20 04:00 37.9 C H 85 137/82 96 09/17/20 03:39 106 H 24 93 09/17/20 03:30 37.8 C H 106 H 40 H 90 09/17/20 03:00 37.6 C H 92 H 41 H 122/74 91 09/17/20 02:01 37.6 C H 84 91 09/17/20 02:00 37.6 C H 94 H 118/76 92 09/17/20 01:01 37.4 C 87 91 09/17/20 01:00 37.4 C 83 130/66 92 09/17/20 00:30 37.4 C 91 H 91
--- NOTE | 2020-09-17 12:29 | Hospitalist Progress Note ---
Date of Service September 17, 2020 Assessment & Plan (1) Acute hypoxemic respiratory failure: Acute respiratory failure with hypoxia secondary to severe COVID-19 pneumonia Presented with septic Shock and required intubation CXR:Endotracheal tube terminates 4.7 cm superior to the kathy. Left subclavian central venous catheter distal tip terminates in the region of the mid SVC. Extensive bilateral mixed interstitial and alveolar opacities redemonstrated. Blood culture: 06/05: Preliminary--Staph Lugdunensis -Likely contaminant Repeat Blood Cx:no growth to date Initial CPR CRP:13.7 Remdesivir was not given due to critical condition Received Tocilizumab and continue IV dexamethasone Continue IV lasix 40mg BID Appreciate critical care input Condition deteriorated overnight and was on BiPAP during my examination this morning He will need to be reintubated and there was discussed with the by the ICU doc He was a started with intravenous Zosyn to cover possible bacterial infection Leukocytosis White count is elevated to 20.78 today without any evidence of fever Likely secondary to use of steroid but cannot rule out bacterial infection and lung White blood cell count has been increasing again Zosyn has been added Sinus Bradycardia with 4 second Pause On Dopamine drip Cardiology recommends transvenous pacemaker insertion Status post transvenous pacemaker insertion on 09/14/2020 NSTEMI H/O CAD S/P Stent ECHO: Mild concentric LVH. EF 45%. Moderate size apical wall motion abnormality with hypokinesis of the segments. No pericardial effusion. No significant valvular disease. Continue aspirin, Plavix, statin Imdur, Lisinopril on hold due to low blood pressure Continue IV heparin Elevated D dimer Could not perform CTA due to renal Insufficiency Venous Doppler:No DVT HTN Hypotensive on presentations Received IV fluids Blood pressure is lower limit of normal without any pressor agents Blood pressure remains on the lower side of normal-May need pressor resents again following intubation Acute Kidney Injury on CKD III Likely ATN Cr:2.43>1.75>1.2 Avoid nephrotoxic agents as able Creatinine is going up and it is 1.52 as of 09/17/2020 We will monitor PRP Schizophrenia/depression Celexa, Ziprasidone--held today Prediabetes HbA1C:6.1 DVT Px: IV heparin Code Status Full code Status post extubation but is still requiring intravenous pressor agents to maintain blood pressure Remains critically ill Discussed with the on 09/15/2020 Prognosis remains poor Admission and Anticipated Discharge Date Admission Date: September 09, 2020 Subjective 09/15/2020 The patient was seen and examined in telemetry and Covid unit He is a status post extubation and requiring pressor agents to maintain blood pressure He has been communicating with few words Remains extremely weak and lethargic 09/16/2020 The patient was seen and examined in telemetry and Covid unit He has been feeling much better today and has been communicating reasonably well Still requiring 75% FiO2 that is 40 L/min to maintain saturation Complains of generalized weakness 09/17/2020 The patient was seen and examined in telemetry and Covid unit His condition is deteriorated today and BiPAP treatment did not work and he is going to need intubation He remains weak and lethargic Review of Systems Review of Systems: Has been on BiPAP and going to be intubated soon Physical Exam Physical Exam: Lying in bed on BiPAP and with moderate shortness of breath Constitutional: + ill appearing, average body habitus and + in distress Eyes: PERRL, conjunctivae normal, anicteric sclerae ENMT: external ear and nose normal, oropharynx normal Neck: trachea midline, no thyromegaly Respiratory: + respiratory distress (Minimal respiratory distress at rest) Auscultation: + diminished lung sounds and + crackles (Bibasilar crackles) Cardiovascular: Rate/Rhythm: regular rate and regular rhythm Heart Sounds: no murmur Extremities: + edema (Trace edema bilaterally) Gastrointestinal (Abdomen): Inspection/Auscultation: normal bowel sounds; abdomen not distended Percussion/Palpation: abdomen soft; abdomen nontender Musculoskeletal: No acute arthritis in any joint Neurologic: Alert and awake. Generally very weak and lethargic Lymphatic: no cervical or axillary lymphadenopathy Results & Data Results & Data ([facility]) Vital Signs (Past 12 Hours) Vital Signs Temp Pulse Pulse Resp BP BP Pulse Ox 09/17/20 11:55 36.5 C 100 H 21 100/85 94 09/17/20 11:30 37.4 C 92 H 95 09/17/20 11:16 109 H 26 H 93 09/17/20 11:01 37.4 C 87 94 09/17/20 11:00 37.4 C 93 H 110/85 95 09/17/20 10:00 37.3 C 85 121/83 93 09/17/20 09:00 37.4 C 92 H 107/72 95 09/17/20 08:00 37.2 C 76 135/73 92 09/17/20 07:34 77 19 90 09/17/20 07:00 37.3 C 90 140/77 91 09/17/20 06:00 37.5 C 92 H 122/72 92 09/17/20 05:01 37.8 C H 115 H 92 09/17/20 05:00 37.8 C H 107 H 115/77 92 09/17/20 04:01 37.9 C H 89 96 09/17/20 04:00 37.9 C H 85 137/82 96 09/17/20 03:39 106 H 24 93 09/17/20 03:30 37.8 C H 106 H 40 H 90 09/17/20 03:00 37.6 C H 92 H 41 H 122/74 91 09/17/20 02:01 37.6 C H 84 91 09/17/20 02:00 37.6 C H 94 H 118/76 92 09/17/20 01:01 37.4 C 87 91 09/17/20 01:00 37.4 C 83 130/66 92 09/17/20 00:30 37.4 C 91 H 91 Laboratory Results Short CBC 09/17/20 Range/Units 06:39 WBC 30.77 H* (4.8-10.8) K/uL Hgb 14.7 (14.0-18.0) g/dL Hct 43.0 (42-52) % Plt Count 155 (130-400) K/uL BMP 09/17/20 06:39 Sodium 146 H Potassium 4.6 Chloride 112 H Carbon Dioxide 29 BUN 62 H Creatinine 1.52 H Glucose 124 H Calcium 8.1 L Medications Administered Current Inpatient Medications Acetaminophen (Acetaminophen 325 Mg Tab) 650 mg PO Q4H PRN PRN Reason: Pain or Fever Stop: 10/09/20 03:51 Last Admin: 09/16/20 13:15 Dose: 650 mg Documented by: Aspirin (Aspirin 81 Mg Chew) 81 mg PO DAILY [facility] Stop: 10/10/20 08:59 Last Admin: 09/17/20 08:59 Dose: 81 mg Documented by: Atorvastatin Calcium (Atorvastatin 20 Mg Tab) 20 mg PO QPM [facility] Stop: 10/09/20 20:59 Last Admin: 09/16/20 20:26 Dose: 20 mg Documented by: Citalopram Hydrobromide (Citalopram 20 Mg Tab) 20 mg PO HS [facility] Stop: 10/09/20 20:59 Last Admin: 09/13/20 20:31 Dose: 20 mg Documented by: Clopidogrel Bisulfate (Clopidogrel Bisulfate 75 Mg Tab) 75 mg PO DAILY [facility] Stop: 10/09/20 08:59 Last Admin: 09/17/20 08:59 Dose: 75 mg Documented by: Dextrose (Dextrose 50% 50 Ml Syringe) 25 - 50 ml IV UD PRN; Protocol PRN Reason: Hypoglycemia Protocol Stop: 10/14/20 19:59 Glucagon (Glucagon For Inj 1 Mg Vial) 1 mg IM UD PRN; Protocol PRN Reason: Hypoglycemia Protocol Stop: 10/14/20 19:59 Glucose (Glucose 40% Gel 15 Gm Tube) 15 - 30 gm PO UD PRN; Protocol PRN Reason: Hypoglycemia Protocol Stop: 10/14/20 19:59 Glucose (Glucose 10 Tabs/Tube) 4 - 8 tabs PO UD PRN; Protocol PRN Reason: Hypoglycemia Protocol Stop: 10/14/20 19:59 Heparin Sodium (Beef Lung) (Heparin 10 Unit/Ml 5 Ml Flush) 5 ml FLUSH PRN PRN PRN Reason: Flush Stop: 10/09/20 22:57 Heparin Sodium/Dextrose (Heparin Sodium/Dextrose) 25,000 units in 500 mls @ 14 mls/hr IV .Q24H [facility]; Protocol Stop: 10/09/20 01:14 Last Titration: 09/17/20 07:56 Dose: 700 units/hr, 14 mls/hr Documented by: Promethazine HCl 12.5 mg/ (Sodium Chloride) 50.5 mls @ 202 mls/hr IV Q6H PRN PRN Reason: Nausea And Vomiting Stop: 10/09/20 03:51 Dexamethasone 6 mg/ Syringe 1.5 mls @ 1 mls/min IV DAILY [facility] Stop: 10/09/20 04:24 Last Admin: 09/17/20 08:58 Dose: 1 mls/min Documented by: Famotidine 20 mg/ Syringe 5 mls @ 2.5 mls/min IV BID [facility] Stop: 10/13/20 20:59 Last Admin: 09/17/20 08:58 Dose: 2.5 mls/min Documented by: Piperacillin Sod/Tazobactam (Sod 4.5 gm/ Dextrose) 120 mls @ 30 mls/hr IV Q8H [facility]; Protocol Stop: 09/24/20 11:59 Last Admin: 09/17/20 11:44 Dose: 30 mls/hr Documented by: Insulin Aspart (Insulin Aspart 100 Units/Ml 3 Ml Pen) 0 units SC ACHS [facility] Stop: 10/16/20 16:29 Last Admin: 09/17/20 09:19 Dose: Not Given Documented by: Levalbuterol HCl (Levalbuterol Hcl 0.63 Mg/3 Ml Neb) 0.63 mg NEB Q6R PRN PRN Reason: Shortness Of Breath Or Wheezing Stop: 10/09/20 12:59 Miscellaneous (Carbohydrates For Hypoglycemia ) 15 - 30 gm PO UD PRN PRN Reason: Hypoglycemia Treatment Stop: 10/14/20 19:59 Miscellaneous Information (Pharmacy Glycemic Mgmt Consult) 1 ea N/A UD PRN PRN Reason: Consult Stop: 10/14/20 19:50 Miscellaneous Information (Piperacill/Tazobac Consult Active) 1 ea N/A UD PRN PRN Reason: Consult Stop: 10/17/20 07:42 Ziprasidone (Ziprasidone Hcl 20 Mg Cap) 20 mg PO TID [facility] Stop: 10/14/20 13:59 Last Admin: 09/15/20 09:48 Dose: 20 mg Documented by:
[2020-09-17 13:21] LABS: Partial Thromboplastin Time 26.8 Seconds (21.0-31.0)
[2020-09-17] MEDS ORDERED: ROCURONIUM BROMIDE 10 MG/ML 5 ML VIAL IV ONE (13:30)
[2020-09-17] MEDS ORDERED: ETOMIDATE 2 MG/ML 20 ML VIAL IV ONE ×2 (13:30→13:41)
[2020-09-17] MEDS ORDERED: Nursing to Pharmacy Communication SCH ×2 (13:45→15:15)
--- NOTE | 2020-09-17 13:59 | Pharmacy Report ---
Pharmacy Glycemic Short Note 2 - Date of Service September 17, 2020 - Glycemic Short BSG Results (Last 24 hours): 09/16/20 09/16/20 09/17/20 17:00 20:24 06:39 Glucose 124 H POC Glucose 127 H 107 H 09/17/20 09/17/20 08:04 11:54 Glucose POC Glucose 134 H 182 H OUTPATIENT ANTIDIABETIC REGIMEN: * N/a * A1c: 6.1% 09-09-20 ASSESSMENT: 09/17 * Glycemic control acceptable over the last 24 hrs * PO intake remains poor. IV steroids continue. Heparin gtt continues. Yasmine added this AM as an additional source of dextrose IV. * Mild pre-lunch hyperglycemia noted today. Will not react to this today. However small AM dose of NPH may be useful in the future if this pattern repeats PLAN FOR INPATIENT GLYCEMIC CONTROL: * Basal insulin * none at this time * Bolus insulin * NovoLog per scale ACHS or Q4hrs while NPO * Goal Range: Low 110 mg/dL - High 140 mg/dL * Correction Factor: 20 mg/dL/unit * Nutritional / Prandial insulin per carb ratio of 1 unit per 7 grams CHO consumed
[2020-09-17] MEDS ORDERED: STAT IV Infusion **Titration per Protocol STA ×3 (14:07→23:00)
[2020-09-17] MEDS: DEXMEDETOMIDINE HCL 200 MCG in SODIUM CHLORIDE 0.9% 48 ML IV SCH (14:42)
--- NOTE | 2020-09-17 14:44 | XRay Report ---
XR chest 1V portable HISTORY: s/p intubation COMPARISON: Chest 09/17/2020. FINDINGS: Endotracheal tube terminates approximately 1.2 cm from the kathy. This should be pulled ba ck by approximately 1 to 2 cm. Nasogastric tube terminates in the stomach. Left subclavian Port-A-Cat h terminates in the SVC. Right jugular transducer terminates over the right ventricle. No pneumothora x. Hazy bibasilar densities persist. The heart remains normal in size. There is mild central pulmonar y vascular congestion without overt edema. IMPRESSION: 1. Endotracheal tube terminates approximately 1.2 cm from the kathy. This should be pulled back by 1 to 2 cm. 2. Remaining lines and tubes are in satisfactory position. 3. Hazy bibasilar densities persist. 4. This report was called/faxed to the referring physician following dictation. ACT 112: Negative or not required by law. Electronically signed by: Cresencio Ng M.D. 09/17/2020 2:42 PM
[2020-09-17] MEDS ORDERED: HEPARIN IV BOLUS 6,000 UNITS in SYRINGE 0 ML IV ONE ×2 (16:10→17:45)
[2020-09-17] MEDS: fentaNYL DRIP 1,250 MCG/250 ML BAG IV SCH (16:13)
[2020-09-17] MEDS ORDERED: HEPARIN SOD (PORCINE) 1000 UNIT/ML IV STA (16:36)
[2020-09-17 17:33] LABS: Appearance Urine Turbid (Clear); Bacteria Urine Automated Negative (Negative); Bilirubin Urine Negative (Negative); Blood Urine 3+ (Negative); Color Urine Dark Yellow; Glucose Urine UA Negative (Negative); Ketones Urine Negative (Negative); Leukocyte Esterase Urine 1+ (Negative); Nitrite Urine Negative (Negative); Protein Urine Negative (Negative); RBC Urine Automated >30 /hpf (0-4); Specific Gravity Urine 1.022 (1.000-1.030); Urobilinogen Urine Negative (Negative)
[2020-09-17] MEDS: ATORVASTATIN 20 MG TAB PO SCH (20:42)
[2020-09-18] MEDS ORDERED: MIDAZOLAM HCL 5 MG/ML VIAL IV STA (00:17)
[2020-09-18] MEDS: DEXMEDETOMIDINE HCL 200 MCG in SODIUM CHLORIDE 0.9% 48 ML IV SCH (00:25)
[2020-09-18] MEDS: INSULIN ASPART 100 UNITS/ML 3 ML PEN SC SCH ×4 (00:56→18:13)
[2020-09-18 01:37] LABS: Partial Thromboplastin Ratio > 5.3
[2020-09-18 01:43] LABS: Partial Thromboplastin Time > 139.0 Seconds (21.0-31.0)
[2020-09-18] MEDS: DEXMEDETOMIDINE HCL 400 MCG in 0.9 % SODIUM CHLORIDE 96 ML IV SCH ×6 (02:48→19:49)
[2020-09-18] MEDS: fentaNYL DRIP 1,250 MCG/250 ML BAG IV SCH ×2 (02:49→19:41)
[2020-09-18] MEDS: PIPERACILLIN/TAZOBACTAM 4.5 GM in DEXTROSE 5% 100 ML IV SCH ×3 (03:59→19:40)
[2020-09-18 04:19] LABS: iSTAT Allen Test Pass; iSTAT Arterial Blood Gas HCO3 29 meg/L (19-24); iSTAT Arterial Blood Gas pCO2 45 mmHg (35-46); iSTAT Arterial Blood Gas pH 7.41 (7.35-7.45); iSTAT Arterial Blood Gas pO2 69 mmHg (80-95); iSTAT Carbon Dioxide 30 mmol/L (24-31); iSTAT FiO2 75 %; iSTAT Site R Radial
[2020-09-18 04:56] LABS: Hematocrit (blood only) 45.5 % (42-52); Hemoglobin 14.9 g/dL (14.0-18.0); Mean Corpuscular Hemoglobin 33.2 pg (25-34); Mean Corpuscular Hgb Conc 32.7 g/dL (32-36); Mean Corpuscular Volume 101.3 fL (80-100); Mean Platelet Volume 11.4 fL (7.4-10.4); Nucleated RBC # (auto) 0.02 K/uL (0-0); Nucleated RBC % (auto) 0.1 %; Platelet Count 121 K/uL (130-400); RDW Coefficient of Variation 15.5 % (11.5-14.5); RDW Standard Deviation 57.2 fL (36.4-46.3); Red Blood Count 4.49 M/uL (4.7-6.1); White Blood Count 23.25 K/uL (4.8-10.8)
[2020-09-18 05:10] LABS: Partial Thromboplastin Ratio 1.5; Partial Thromboplastin Time 38.6 Seconds (21.0-31.0)
[2020-09-18 05:13] LABS: BUN Creatinine Ratio 41.8 (10-20); Calcium 7.6 mg/dl (8.5-10.1); Creatinine Clr Calc Pharmacy 35.4 ml/min; Est GFR (African American) 39.6; Est GFR (Non-African American) 34.2; Magnesium 3.7 mg/dl (1.8-2.4)
[2020-09-18 05:15] LABS: Phosphorus 4.5 mg/dl (2.5-4.9)
[2020-09-18 05:27] LABS: Basophils # (auto) 0.01 K/uL (0-0.2); Eosinophils # (auto) 0.03 K/uL (0-0.5); Eosinophils % (auto) 0.1 %; Immature Granulocytes # (auto) 0.13 K/uL (0.00-0.02); Immature Granulocytes % (auto) 0.6 %; Lymphocytes # (auto) 0.81 K/uL (1.2-3.4); Lymphocytes % (auto) 3.5 %; Monocytes # (auto) 0.25 K/uL (0.11-0.59); Monocytes % (auto) 1.1 %; Neutrophils # (auto) 22.02 K/uL (1.4-6.5); Neutrophils % (auto) 94.7 %; Toxic Granulation 1+; Toxic Vacuolation 1+
[2020-09-18] MEDS: HEPARIN SODIUM/DEXTROSE 25,000 UNITS/500 ML BAG IV SCH ×2 (05:48→07:51)
--- NOTE | 2020-09-18 06:16 | Electrocardiogram Report ---
Test Reason : Blood Pressure : / mmHG Vent. Rate : 086 BPM Atrial Rate : 086 BPM P-R Int : 148 ms QRS Dur : 102 ms QT Int : 392 ms P-R-T Axes : 044 -36 044 degrees QTc Int : 469 ms Normal sinus rhythm Left axis deviation Minimal voltage criteria for LVH, may be normal variant Nonspecific ST abnormality Abnormal ECG When compared with ECG of 16-SEP-2020 05:25, No significant change was found Confirmed by Lj Fitch [id number]) on 09/18/2020 6:15:54 AM Referred By: REFERRED SELF Confirmed By:Lj Fitch
[2020-09-18] MEDS: CLOPIDOGREL BISULFATE 75 MG TAB PO SCH (08:06)
[2020-09-18] MEDS: FAMOTIDINE 20 MG in SYRINGE 3 ML IV SCH ×2 (08:06→19:42)
[2020-09-18] MEDS: ASPIRIN 81 MG CHEW PO SCH (08:06)
[2020-09-18] MEDS: dexAMETHasone 6 MG in SYRINGE 0 ML IV SCH (08:06)
[2020-09-18] MEDS: ACETAMINOPHEN 1,000 MG/100 ML VIAL IV PRN (08:17)
--- NOTE | 2020-09-18 09:18 | XRay Report ---
XR chest 1V portable CLINICAL HISTORY: Respiratory failure COMPARISON STUDY: 09/17/2020 FINDINGS: There is an endotracheal tube 5 cm above the kathy. There is an enteric tube within stomac h. There is a left subclavian central venous catheter projected over the superior vena cava. There is a right IJ transducer with its tip projected over the right ventricle. There are bibasilar opacities , similar to the preceding study.[ IMPRESSION: The endotracheal tube has been repositioned and is now located 5 cm above the kathy. The examination remains otherwise stable. ACT 112: Negative or not required by law. Electronically signed by: Augusto Wall M.D. 09/18/2020 9:17 AM
[2020-09-18] MEDS ORDERED: DAPTOmycin 450 MG in SYRINGE 0 ML IV SCH (10:00)
--- NOTE | 2020-09-18 11:15 | Hospitalist Progress Note ---
Date of Service September 18, 2020 Assessment & Plan (1) Acute hypoxemic respiratory failure: Acute respiratory failure with hypoxia secondary to severe COVID-19 pneumonia Presented with septic Shock and required intubation CXR:Endotracheal tube terminates 4.7 cm superior to the kathy. Left subclavian central venous catheter distal tip terminates in the region of the mid SVC. Extensive bilateral mixed interstitial and alveolar opacities redemonstrated. Blood culture: 06/05: Preliminary--Staph Lugdunensis -Likely contaminant Repeat Blood Cx:no growth to date Initial CPR CRP:13.7 Remdesivir was not given due to critical condition Received Tocilizumab and continue IV dexamethasone Continue IV lasix 40mg BID Appreciate critical care input Condition deteriorated overnight and was on BiPAP during my examination this morning He will need to be reintubated and there was discussed with the by the ICU doc Has been on mechanical ventilator since yesterday -09/17/20 Leukocytosis White count is elevated to 20.78 today without any evidence of fever Likely secondary to use of steroid but cannot rule out bacterial infection and lung White blood cell count has been increasing again Zosyn has been added Blood cultures grew staph in clusters and white count increased Will add daptomycin to cover possible MRSA infection Sinus Bradycardia with 4 second Pause On Dopamine drip Cardiology recommends transvenous pacemaker insertion Status post transvenous pacemaker insertion on 09/14/2020 Heart rate remains stable NSTEMI H/O CAD S/P Stent ECHO: Mild concentric LVH. EF 45%. Moderate size apical wall motion abnormality with hypokinesis of the segments. No pericardial effusion. No significant valvular disease. Continue aspirin, Plavix, statin Imdur, Lisinopril on hold due to low blood pressure Continue IV heparin- Elevated D dimer Could not perform CTA due to renal Insufficiency Venous Doppler:No DVT HTN Hypotensive on presentations Received IV fluids Blood pressure is lower limit of normal without any pressor agents Blood pressure remains on the lower side of normal-May need pressor resents again following intubation Acute Kidney Injury on CKD III Likely ATN Cr:2.43>1.75>1.2 Avoid nephrotoxic agents as able Creatinine is going up and it is 1.52 as of 09/17/2020 We will monitor PRP Schizophrenia/depression Celexa, Ziprasidone--held today Nutrition Likely tube start NG tube feeding Prediabetes HbA1C:6.1 DVT Px: IV heparin Code Status Full code Status post extubation but is still requiring intravenous pressor agents to maintain blood pressure Remains critically ill Discussed with the on 09/15/2020 Prognosis remains poor Admission and Anticipated Discharge Date Admission Date: September 09, 2020 Subjective 09/15/2020 The patient was seen and examined in telemetry and Covid unit He is a status post extubation and requiring pressor agents to maintain blood pressure He has been communicating with few words Remains extremely weak and lethargic 09/16/2020 The patient was seen and examined in telemetry and Covid unit He has been feeling much better today and has been communicating reasonably well Still requiring 75% FiO2 that is 40 L/min to maintain saturation Complains of generalized weakness 09/17/2020 The patient was seen and examined in telemetry and Covid unit His condition is deteriorated today and BiPAP treatment did not work and he is going to need intubation He remains weak and lethargic 09/18/2020 The patient was seen and examined in telemetry and Covid unit He required intubation yesterday and remains on mechanical ventilator Sedated and requiring pressors to maintain blood pressure Review of Systems Review of Systems: Unobtainable due to endotracheal tube Physical Exam Physical Exam: Remains sedated on mechanical ventilator Constitutional: + ill appearing, average body habitus and + in distress Eyes: PERRL, conjunctivae normal, anicteric sclerae ENMT: external ear and nose normal, oropharynx normal Neck: trachea midline, no thyromegaly Respiratory: Auscultation: + diminished lung sounds and + crackles (Bibasilar crackles) Cardiovascular: Rate/Rhythm: regular rate and regular rhythm Heart Sounds: no murmur Extremities: + edema (Trace edema bilaterally) Gastrointestinal (Abdomen): Inspection/Auscultation: normal bowel sounds; abdomen not distended Percussion/Palpation: abdomen soft; abdomen nontender Neurologic: Remains sedated on mechanical ventilator Lymphatic: no cervical or axillary lymphadenopathy Results & Data Results & Data ([facility]) Vital Signs (Past 12 Hours) Vital Signs Temp Pulse Resp BP Pulse Ox 09/18/20 09:30 38.2 C H 51 L 152/76 H 96 09/18/20 09:15 38.2 C H 54 L 130/67 95 09/18/20 09:00 38.2 C H 54 L 131/72 95 09/18/20 08:45 38.2 C H 53 L 108/57 L 92 09/18/20 08:30 38.2 C H 52 L 134/66 94 09/18/20 08:15 38.2 C H 52 L 114/64 91 09/18/20 08:00 38.2 C H 56 L 116/67 92 09/18/20 07:45 38.2 C H 52 L 120/64 92 09/18/20 07:42 54 L 28 H 93 09/18/20 07:30 38.2 C H 56 L 120/50 L 88 L 09/18/20 07:15 38.1 C H 56 L 113/65 93 09/18/20 07:00 37.2 C 56 L 119/67 92 09/18/20 06:00 37.4 C 54 L 20 120/62 92 09/18/20 05:30 37.4 C 56 L 104/62 90 09/18/20 05:16 37.3 C 57 L 92 09/18/20 05:15 37.3 C 56 L 117/65 93 09/18/20 05:01 37.4 C 54 L 92 09/18/20 05:00 37.4 C 56 L 119/66 93 09/18/20 04:46 37.3 C 56 L 92 09/18/20 04:45 37.3 C 56 L 115/67 93 09/18/20 04:30 37.2 C 57 L 105/61 92 09/18/20 04:16 37.4 C 55 L 91 09/18/20 04:15 37.4 C 57 L 119/58 L 92 09/18/20 04:01 37.4 C 65 91 09/18/20 04:00 37.4 C 56 L 116/72 91 09/18/20 03:48 51 L 26 H 92 09/18/20 03:46 37.4 C 58 L 94 09/18/20 03:45 37.4 C 56 L 118/59 L 94 09/18/20 03:30 37.3 C 56 L 112/64 93 09/18/20 03:15 37.3 C 58 L 102/60 93 09/18/20 03:01 37.2 C 56 L 93 09/18/20 03:00 37.2 C 57 L 133/72 94 09/18/20 02:45 37.1 C 54 L 103/58 L 92 09/18/20 02:30 37.0 C 55 L 127/70 96 09/18/20 02:15 36.8 C 57 L 117/67 94 09/18/20 02:01 36.8 C 55 L 95 09/18/20 02:00 36.8 C 58 L 120/66 96 09/18/20 01:45 36.7 C 56 L 115/66 94 09/18/20 01:38 36.8 C 58 L 93/51 L 93 09/18/20 01:34 36.9 C 55 L 61/42 L 91 09/18/20 01:31 37.1 C 60 69/46 L 92 09/18/20 01:30 37.1 C 59 L 92 09/18/20 01:01 37.0 C 65 92 09/18/20 01:00 37.0 C 61 85/48 L 92 09/18/20 00:45 36.9 C 68 89 L 09/18/20 00:31 36.8 C 85 90 09/18/20 00:30 36.8 C 87 88/54 L 90 09/18/20 00:15 36.2 C L 89 82 L 09/18/20 00:08 36.8 C 94 H 174/87 H 84 L 09/18/20 00:02 36.7 C 70 186/86 H 83 L 09/18/20 00:00 36.7 C 64 30 H 168/102 H 85 L 09/17/20 23:31 36.5 C 51 L 129/55 L 95 09/17/20 23:30 36.5 C 51 L 94 09/17/20 23:17 36.4 C L 58 L 82/47 L 92 Laboratory Results Short CBC 09/18/20 Range/Units 04:35 WBC 23.25 H (4.8-10.8) K/uL Hgb 14.9 (14.0-18.0) g/dL Hct 45.5 (42-52) % Plt Count 121 L (130-400) K/uL BMP 09/18/20 04:35 Sodium 149 H Potassium 5.0 Chloride 114 H Carbon Dioxide 28 BUN 79 H Creatinine 1.89 H D Glucose 119 H Calcium 7.6 L Urine 09/17/20 Range/Units 17:00 Urine Color Dark Yellow Urine Appearance Turbid A (Clear) Urine pH 5.0 (4.5-7.5) Ur Specific [place] 1.022 (1.000-1.030) Urine Protein Negative (Negative) Urine Glucose (UA) Negative (Negative) Medications Administered Current Inpatient Medications Acetaminophen (Acetaminophen 325 Mg Tab) 650 mg PO Q4H PRN PRN Reason: Pain or Fever Stop: 10/09/20 03:51 Last Admin: 09/16/20 13:15 Dose: 650 mg Documented by: Aspirin (Aspirin 81 Mg Chew) 81 mg PO DAILY [facility] Stop: 10/10/20 08:59 Last Admin: 09/18/20 08:06 Dose: 81 mg Documented by: Atorvastatin Calcium (Atorvastatin 20 Mg Tab) 20 mg PO QPM [facility] Stop: 10/09/20 20:59 Last Admin: 09/17/20 20:42 Dose: Not Given Documented by: Citalopram Hydrobromide (Citalopram 20 Mg Tab) 20 mg PO HS [facility] Stop: 10/09/20 20:59 Last Admin: 09/13/20 20:31 Dose: 20 mg Documented by: Clopidogrel Bisulfate (Clopidogrel Bisulfate 75 Mg Tab) 75 mg PO DAILY [facility]EN Stop: 10/09/20 08:59 Last Admin: 09/18/20 08:06 Dose: 75 mg Documented by: Dextrose (Dextrose 50% 50 Ml Syringe) 25 - 50 ml IV UD PRN; Protocol PRN Reason: Hypoglycemia Protocol Stop: 10/14/20 19:59 Fentanyl Citrate (Fentanyl Bolus From Bag) 50 mcg IV Q60M PRN PRN Reason: Pain or Agitation Stop: 10/01/20 15:13 Glucagon (Glucagon For Inj 1 Mg Vial) 1 mg IM UD PRN; Protocol PRN Reason: Hypoglycemia Protocol Stop: 10/14/20 19:59 Glucose (Glucose 40% Gel 15 Gm Tube) 15 - 30 gm PO UD PRN; Protocol PRN Reason: Hypoglycemia Protocol Stop: 10/14/20 19:59 Glucose (Glucose 10 Tabs/Tube) 4 - 8 tabs PO UD PRN; Protocol PRN Reason: Hypoglycemia Protocol Stop: 10/14/20 19:59 Heparin Sodium (Beef Lung) (Heparin 10 Unit/Ml 5 Ml Flush) 5 ml FLUSH PRN PRN PRN Reason: Flush Stop: 10/09/20 22:57 Heparin Sodium/Dextrose (Heparin Sodium/Dextrose) 25,000 units in 500 mls @ 11 mls/hr IV .Q24H [facility]; Protocol Stop: 10/09/20 01:14 Last Admin: 09/18/20 07:51 Dose: Not Given Documented by: Promethazine HCl 12.5 mg/ (Sodium Chloride) 50.5 mls @ 202 mls/hr IV Q6H PRN PRN Reason: Nausea And Vomiting Stop: 10/09/20 03:51 Dexamethasone 6 mg/ Syringe 1.5 mls @ 1 mls/min IV DAILY [facility] Stop: 10/09/20 04:24 Last Admin: 09/18/20 08:06 Dose: 1 mls/min Documented by: Famotidine 20 mg/ Syringe 5 mls @ 2.5 mls/min IV BID [facility] Stop: 10/13/20 20:59 Last Admin: 09/18/20 08:06 Dose: 2.5 mls/min Documented by: Piperacillin Sod/Tazobactam (Sod 4.5 gm/ Dextrose) 120 mls @ 30 mls/hr IV Q8H [facility]; Protocol Stop: 09/24/20 11:59 Last Infusion: 09/18/20 07:59 Dose: Infused Documented by: Fentanyl Citrate (Fentanyl Drip) 1,250 mcg in 250 mls @ 10 mls/hr IV .Q25H [facility]; Protocol Stop: 10/01/20 15:14 Last Admin: 09/18/20 02:49 Dose: 75 mcg/hr, 15 mls/hr Documented by: Norepinephrine Bitartrate (Levophed/D5w) 8 mg in 508 mls @ 14.021 mls/hr IV .Q24H [facility]; Protocol Stop: 10/17/20 22:59 Last Titration: 09/18/20 09:46 Dose: 0.06 mcg/kg/min, 16.8 mls/hr Documented by: Dexmedetomidine HCl 400 mcg/ (Sodium Chloride) 100 mls @ 27.6 mls/hr IV .Q3H38M [facility]; Protocol Stop: 09/22/20 01:59 Last Admin: 09/18/20 07:28 Dose: 1.5 mcg/kg/hr, 27.6 mls/hr Documented by: Acetaminophen (Ofirmev) 1,000 mg in 100 mls @ 400 mls/hr IV Q8H PRN PRN Reason: Fever Stop: 09/21/20 07:38 Last Infusion: 09/18/20 08:32 Dose: Infused Documented by: Daptomycin 450 mg/ Syringe 9 mls @ 4.5 mls/min IV Q24H [facility]; Protocol Stop: 10/02/20 09:59 Last Admin: 09/18/20 10:21 Dose: 4.5 mls/min Documented by: Insulin Aspart (Insulin Aspart 100 Units/Ml 3 Ml Pen) 0 units SC Q6 [facility] Stop: 10/17/20 17:59 Last Admin: 09/18/20 05:42 Dose: Not Given Documented by: Levalbuterol HCl (Levalbuterol Hcl 0.63 Mg/3 Ml Neb) 0.63 mg NEB Q6R PRN PRN Reason: Shortness Of Breath Or Wheezing Stop: 10/09/20 12:59 Miscellaneous (Carbohydrates For Hypoglycemia ) 15 - 30 gm PO UD PRN PRN Reason: Hypoglycemia Treatment Stop: 10/14/20 19:59 Miscellaneous Information (Pharmacy Glycemic Mgmt Consult) 1 ea N/A UD PRN PRN Reason: Consult Stop: 10/14/20 19:50 Miscellaneous Information (Piperacill/Tazobac Consult Active) 1 ea N/A UD PRN PRN Reason: Consult Stop: 10/17/20 07:42 Miscellaneous Information (Daptomycin Consult Active) 1 ea N/A UD PRN PRN Reason: Consult Stop: 10/18/20 09:57 Ziprasidone (Ziprasidone Hcl 20 Mg Cap) 20 mg PO TID [facility] Stop: 10/14/20 13:59 Last Admin: 09/15/20 09:48 Dose: 20 mg Documented by:
--- NOTE | 2020-09-18 11:31 | Cardiology Progress Note ---
Date of Service September 18, 2020 Assessment & Plan (1) Acute hypoxemic respiratory failure: Patient required reintubation secondary to worsening hypoxia. Currently oxygenating and comfortable on mechanical ventilation without tachycardia or bradycardia arrhythmia. He remains persistently febrile and blood cultures now growing staph aureus as well as from sputum suggesting secondary infection. Patient on antibiotic therapies and currently hemodynamically stable. No requirements for temporary pacemaker over the past 24 hours while mechanically ventilated and sedated. Review of past records reveals bradycardia arrhythmias generally preceded by tachyarrhythmias/sinus tachycardia secondary to extrinsic stimulation suggesting conduction system fatigue. Plan: Continue temporary pacemaker additional 24 hour. Ultimately would like to remove insertion sheath and wire given sepsis but patient with multiple additional sources of infection and insertion site clean, device functioning normal Permanent pacemaker insertion contraindicated. Management of underlying pneumonia per hospitalist and intensive care team (2) Pneumonia due to 2019 novel coronavirus: (3) Tachy-ari syndrome: (4) Staphylococcus aureus bacteremia: (5) Acute kidney injury: (6) Acute non-ST elevation myocardial infarction (NSTEMI): Admission and Anticipated Discharge Date Admission Date: September 09, 2020 Subjective Patient was seen and examined, chart, medications, telemetry reviewed. Clinical course over the past days time noted with reintubation yesterday due to respiratory decline Elevated white cell count with fever, now blood cultures growing staph aureus also present in sputum Patient sedated and intubated and unable to offer additional information Pacemaker functioning appropriately without bradycardia arrhythmias or pacer use. Review of Systems Review of Systems: Unobtainable due to endotracheal tube Physical Exam Constitutional: + mechanically ventilated ENMT: Oral endotracheal tube in place Neck: Right IJ access, pacemaker site without irritation or drainage Respiratory: Coarse airway sounds Cardiovascular: Rate/Rhythm: regular rate and regular rhythm Heart Sounds: normal S1 and normal S2; no murmur Vessels: no JVD Extremities: no edema Results & Data ([facility]) Vital Signs (Past 12 Hours) Vital Signs Temp Pulse Resp BP Pulse Ox 09/18/20 09:30 38.2 C H 51 L 152/76 H 96 09/18/20 09:15 38.2 C H 54 L 130/67 95 09/18/20 09:00 38.2 C H 54 L 131/72 95 09/18/20 08:45 38.2 C H 53 L 108/57 L 92 09/18/20 08:30 38.2 C H 52 L 134/66 94 09/18/20 08:15 38.2 C H 52 L 114/64 91 09/18/20 08:00 38.2 C H 56 L 116/67 92 09/18/20 07:45 38.2 C H 52 L 120/64 92 09/18/20 07:42 54 L 28 H 93 09/18/20 07:30 38.2 C H 56 L 120/50 L 88 L 09/18/20 07:15 38.1 C H 56 L 113/65 93 09/18/20 07:00 37.2 C 56 L 119/67 92 09/18/20 06:00 37.4 C 54 L 20 120/62 92 09/18/20 05:30 37.4 C 56 L 104/62 90 09/18/20 05:16 37.3 C 57 L 92 09/18/20 05:15 37.3 C 56 L 117/65 93 09/18/20 05:01 37.4 C 54 L 92 09/18/20 05:00 37.4 C 56 L 119/66 93 09/18/20 04:46 37.3 C 56 L 92 09/18/20 04:45 37.3 C 56 L 115/67 93 09/18/20 04:30 37.2 C 57 L 105/61 92 09/18/20 04:16 37.4 C 55 L 91 09/18/20 04:15 37.4 C 57 L 119/58 L 92 09/18/20 04:01 37.4 C 65 91 09/18/20 04:00 37.4 C 56 L 116/72 91 09/18/20 03:48 51 L 26 H 92 09/18/20 03:46 37.4 C 58 L 94 09/18/20 03:45 37.4 C 56 L 118/59 L 94 09/18/20 03:30 37.3 C 56 L 112/64 93 09/18/20 03:15 37.3 C 58 L 102/60 93 09/18/20 03:01 37.2 C 56 L 93 09/18/20 03:00 37.2 C 57 L 133/72 94 09/18/20 02:45 37.1 C 54 L 103/58 L 92 09/18/20 02:30 37.0 C 55 L 127/70 96 09/18/20 02:15 36.8 C 57 L 117/67 94 09/18/20 02:01 36.8 C 55 L 95 09/18/20 02:00 36.8 C 58 L 120/66 96 09/18/20 01:45 36.7 C 56 L 115/66 94 09/18/20 01:38 36.8 C 58 L 93/51 L 93 09/18/20 01:34 36.9 C 55 L 61/42 L 91 09/18/20 01:31 37.1 C 60 69/46 L 92 09/18/20 01:30 37.1 C 59 L 92 09/18/20 01:01 37.0 C 65 92 09/18/20 01:00 37.0 C 61 85/48 L 92 09/18/20 00:45 36.9 C 68 89 L 09/18/20 00:31 36.8 C 85 90 09/18/20 00:30 36.8 C 87 88/54 L 90 09/18/20 00:15 36.2 C L 89 82 L 09/18/20 00:08 36.8 C 94 H 174/87 H 84 L 09/18/20 00:02 36.7 C 70 186/86 H 83 L 09/18/20 00:00 36.7 C 64 30 H 168/102 H 85 L 09/17/20 23:31 36.5 C 51 L 129/55 L 95 09/17/20 23:30 36.5 C 51 L 94 Laboratory Results Laboratory Results - last 24 hr 09/17/20 09/17/20 09/17/20 11:54 12:28 12:38 WBC RBC Hgb Hct MCV MCH MCHC RDW Std Deviation RDW Coeff of Shilo Plt Count MPV Immature Gran % (Auto) Neut % (Auto) Lymph % (Auto) Tift % (Auto) Eos % (Auto) Baso % (Auto) Neut # (Auto) Lymph # (Auto) Tift # (Auto) Eos # (Auto) Baso # (Auto) Immature Gran # (Auto) Absolute Nucleated RBC Nucleated RBC % (auto) Toxic Granulation Toxic Vacuolation APTT 26.8 PTT Ratio 1.0 Sample Site POC pH POC pCO2 POC pO2 POC HCO3 POC Total CO2 POC Base Excess POC ABG O2 Sat Richard Test O2 Delivery Device POC O2 Rate Minute Ventilation POC FiO2 Tidal Volume PEEP Sodium Potassium Chloride Carbon Dioxide Anion Gap BUN Creatinine Est Cr Clr Drug Dosing Est GFR ( Amer) Est GFR (Non-Af Amer) BUN/Creatinine Ratio Glucose POC Glucose 182 H Calcium Phosphorus Magnesium Procalcitonin Urine Color Urine Appearance Urine pH Ur Specific [place] Urine Protein Urine Glucose (UA) Urine Ketones Urine Blood Urine Nitrite Urine Bilirubin Urine Urobilinogen Ur Leukocyte Esterase Urine WBC (Auto) Urine RBC (Auto) U Hyaline Cast (Auto) U Epithel Cells (Auto) Urine Bacteria (Auto) Bld Cult Staph aureus PCR Positive A Blood Culture MRSA PCR Negative 09/17/20 09/17/20 09/17/20 17:00 18:06 23:05 WBC RBC Hgb Hct MCV MCH MCHC RDW Std Deviation RDW Coeff of Shilo Plt Count MPV Immature Gran % (Auto) Neut % (Auto) Lymph % (Auto) Tift % (Auto) Eos % (Auto) Baso % (Auto) Neut # (Auto) Lymph # (Auto) Tift # (Auto) Eos # (Auto) Baso # (Auto) Immature Gran # (Auto) Absolute Nucleated RBC Nucleated RBC % (auto) Toxic Granulation Toxic Vacuolation APTT Cancelled PTT Ratio Cancelled Sample Site POC pH POC pCO2 POC pO2 POC HCO3 POC Total CO2 POC Base Excess POC ABG O2 Sat Richard Test O2 Delivery Device POC O2 Rate Minute Ventilation POC FiO2 Tidal Volume PEEP Sodium Potassium Chloride Carbon Dioxide Anion Gap BUN Creatinine Est Cr Clr Drug Dosing Est GFR ( Amer) Est GFR (Non-Af Amer) BUN/Creatinine Ratio Glucose POC Glucose 154 H Calcium Phosphorus Magnesium Procalcitonin Urine Color Dark Yellow Urine Appearance Turbid A Urine pH 5.0 Ur Specific [place] 1.022 Urine Protein Negative Urine Glucose (UA) Negative Urine Ketones Negative Urine Blood 3+ H Urine Nitrite Negative Urine Bilirubin Negative Urine Urobilinogen Negative Ur Leukocyte Esterase 1+ H Urine WBC (Auto) 10-30 H Urine RBC (Auto) >30 H U Hyaline Cast (Auto) 1-5 U Epithel Cells (Auto) 10-20 H Urine Bacteria (Auto) Negative Bld Cult Staph aureus PCR Blood Culture MRSA PCR 09/18/20 09/18/20 09/18/20 00:35 00:47 04:00 WBC RBC Hgb Hct MCV MCH MCHC RDW Std Deviation RDW Coeff of Shilo Plt Count MPV Immature Gran % (Auto) Neut % (Auto) Lymph % (Auto) Tift % (Auto) Eos % (Auto) Baso % (Auto) Neut # (Auto) Lymph # (Auto) Tift # (Auto) Eos # (Auto) Baso # (Auto) Immature Gran # (Auto) Absolute Nucleated RBC Nucleated RBC % (auto) Toxic Granulation Toxic Vacuolation APTT > 139.0 H* PTT Ratio > 5.3 Sample Site R Radial POC pH 7.41 POC pCO2 45 POC pO2 69 L POC HCO3 29 H POC Total CO2 30 POC Base Excess 4.0 H POC ABG O2 Sat 94.0 Richard Test Pass O2 Delivery Device Ventilator POC O2 Rate 20 Minute Ventilation 8.0 POC FiO2 75 Tidal Volume 400 PEEP 8 Sodium Potassium Chloride Carbon Dioxide Anion Gap BUN Creatinine Est Cr Clr Drug Dosing Est GFR ( Amer) Est GFR (Non-Af Amer) BUN/Creatinine Ratio Glucose POC Glucose 125 H Calcium Phosphorus Magnesium Procalcitonin Urine Color Urine Appearance Urine pH Ur Specific [place] Urine Protein Urine Glucose (UA) Urine Ketones Urine Blood Urine Nitrite Urine Bilirubin Urine Urobilinogen Ur Leukocyte Esterase Urine WBC (Auto) Urine RBC (Auto) U Hyaline Cast (Auto) U Epithel Cells (Auto) Urine Bacteria (Auto) Bld Cult Staph aureus PCR Blood Culture MRSA PCR 09/18/20 09/18/20 09/18/20 04:35 04:35 04:35 WBC 23.25 H RBC 4.49 L Hgb 14.9 Hct 45.5 MCV 101.3 H MCH 33.2 MCHC 32.7 RDW Std Deviation 57.2 H RDW Coeff of Shilo 15.5 H Plt Count 121 L MPV 11.4 H Immature Gran % (Auto) 0.6 Neut % (Auto) 94.7 Lymph % (Auto) 3.5 Tift % (Auto) 1.1 Eos % (Auto) 0.1 Baso % (Auto) 0.0 Neut # (Auto) 22.02 H Lymph # (Auto) 0.81 L Tift # (Auto) 0.25 Eos # (Auto) 0.03 Baso # (Auto) 0.01 Immature Gran # (Auto) 0.13 H Absolute Nucleated RBC 0.02 H Nucleated RBC % (auto) 0.1 Toxic Granulation 1+ Toxic Vacuolation 1+ APTT PTT Ratio Sample Site POC pH POC pCO2 POC pO2 POC HCO3 POC Total CO2 POC Base Excess POC ABG O2 Sat Richard Test O2 Delivery Device POC O2 Rate Minute Ventilation POC FiO2 Tidal Volume PEEP Sodium 149 H Potassium 5.0 Chloride 114 H Carbon Dioxide 28 Anion Gap 7.0 BUN 79 H Creatinine 1.89 H D Est Cr Clr Drug Dosing 35.4 Est GFR ( Amer) 39.6 Est GFR (Non-Af Amer) 34.2 BUN/Creatinine Ratio 41.8 H Glucose 119 H POC Glucose Calcium 7.6 L Phosphorus 4.5 Magnesium 3.7 H Procalcitonin 1.37 H Urine Color Urine Appearance Urine pH Ur Specific [place] Urine Protein Urine Glucose (UA) Urine Ketones Urine Blood Urine Nitrite Urine Bilirubin Urine Urobilinogen Ur Leukocyte Esterase Urine WBC (Auto) Urine RBC (Auto) U Hyaline Cast (Auto) U Epithel Cells (Auto) Urine Bacteria (Auto) Bld Cult Staph aureus PCR Blood Culture MRSA PCR 09/18/20 04:35 WBC RBC Hgb Hct MCV MCH MCHC RDW Std Deviation RDW Coeff of Shilo Plt Count MPV Immature Gran % (Auto) Neut % (Auto) Lymph % (Auto) Tift % (Auto) Eos % (Auto) Baso % (Auto) Neut # (Auto) Lymph # (Auto) Tift # (Auto) Eos # (Auto) Baso # (Auto) Immature Gran # (Auto) Absolute Nucleated RBC Nucleated RBC % (auto) Toxic Granulation Toxic Vacuolation APTT 38.6 H PTT Ratio 1.5 Sample Site POC pH POC pCO2 POC pO2 POC HCO3 POC Total CO2 POC Base Excess POC ABG O2 Sat Richard Test O2 Delivery Device POC O2 Rate Minute Ventilation POC FiO2 Tidal Volume PEEP Sodium Potassium Chloride Carbon Dioxide Anion Gap BUN Creatinine Est Cr Clr Drug Dosing Est GFR ( Amer) Est GFR (Non-Af Amer) BUN/Creatinine Ratio Glucose POC Glucose Calcium Phosphorus Magnesium Procalcitonin Urine Color Urine Appearance Urine pH Ur Specific [place] Urine Protein Urine Glucose (UA) Urine Ketones Urine Blood Urine Nitrite Urine Bilirubin Urine Urobilinogen Ur Leukocyte Esterase Urine WBC (Auto) Urine RBC (Auto) U Hyaline Cast (Auto) U Epithel Cells (Auto) Urine Bacteria (Auto) Bld Cult Staph aureus PCR Blood Culture MRSA PCR
--- NOTE | 2020-09-18 11:46 | Critical Care Progress Note ---
Date of Service September 18, 2020 Assessment & Plan (1) Admitted to intensive care unit: Reason Critically Ill: Patient is a 75-year-old male with acute hypoxic respiratory failure in the setting of COVID-19 pneumonia and non-ST elevation myocardial infarction requiring emergent endotracheal intubation. Unclear how much of the patient's respiratory failure is related to Covid pneumonia and how much may be related to his non-ST elevation MT and fluid issues. Recommendations: NEURO -intubated and currently on fentanyl. As needed Versed added for agitation. Continues with altered mental status. CARDIAC/VASCULAR -non-ST elevation myocardial infarction. A temporary pacemaker was placed 09/14/2020 due to ongoing junctional rhythms and bradycardia. Heart rhythm is better controlled at this time. Currently on Levophed to maintain mean arterial pressures above 65. We will stop the heparin drip and start Lovenox. Continue aspirin and Plavix now that he has an OG tube in place. We will hold on further Lasix today. Unfortunately, he is growing staph in his bloodstream likely sources from staph pneumonia. We will leave the pacer wire in place today given her limited options with regard to his bradycardia. This was discussed with the shipping support clerk. RESPIRATORY -acute hypoxemic respiratory failure with pulmonary infiltrates. Differential would include atypical edema, pulmonary hemorrhage, and infectious etiologies including secondary to Covid pneumonia. 10 days total of Decadron for Covid pneumonia. Reintubated 09/17/2020 due to worsening hypoxic respiratory failure and altered mental status. GI/NUTRITION -we will restart trickle tube feeds. RENAL/LYTES -worsening hypernatremia and EDUARD today. We will start D5W at a rate of 80 cc an hour. Tube feeds will help improve this as well. -no current issues. Continue to trend I/O. ENDO -glycemic control per protocol HEME -no significant issues. IDreceived remdesivir and Tocilizumab earlier in the hospital course. Blood cultures from 09/08/2020 grew Staphylococcus lugdunensis. Repeat blood cultures growing staph. MRSA PCR in the blood was negative. Currently on Zosyn. Will likely de-escalate based on sensitivities. He currently has a left subclavian line and a right introducer catheter in his IJ along with pacer wire. Ideally, a line holiday would be pursued, however, he is currently on vasoactive medications and requiring a pacemaker. LINES/IV ACCESS - PIVs x2 Right internal jugular introducer with temporary pacer wire Colvin Left subclavian line DVT PROPHYLAXIS - Lovenox Disposition: Remain in the ICU. Patient's was updated over the phone. Pro gnosis very poor. CODE STATUS changed to DNR. CRITICAL CARE TIME - I have personally spent 38 minutes of critical care time in the direct management of this patient. This is a life/limb threatening event. This includes time spent evaluating patient, direct bedside care, chart review, placing orders, interpretation of diagnostic studies, discussion with consultants, patient, and family members, as well as other required patient management activities. This time is exclusive of all separately billable procedures, and teaching time and separate from and in addition to any other critical care service time. (2) Acute hypoxemic respiratory failure: (3) Pneumonia due to 2019 novel coronavirus: (4) Acute kidney injury: (5) Acidosis, lactic: (6) Acute non-ST elevation myocardial infarction (NSTEMI): (7) Sinus pause: (8) Junctional bradycardia: (9) Sinus node dysfunction: (10) Staphylococcus aureus bacteremia: Admission and Anticipated Discharge Date Admission Date: September 09, 2020 Subjective Patient is sedated on fentanyl this morning. He is intubated. He is on low-do se of Levophed. He is minimally responsive to commands. Unable to obtain review of systems. Discussed with bedside nursing. No acute overnight events at this time. Physical Exam Constitutional: + mechanically ventilated Neck: trachea midline, no thyromegaly Respiratory: normal respiratory effort Coarse breath sounds on the ventilator. Cardiovascular: RRR, no murmur, no edema Gastrointestinal (Abdomen): normal bowel sounds, soft, nontender, no hepatosplenomegaly Musculoskeletal: Extremities: extremities normal to inspection Skin: no rashes, warm and dry Neurologic: Opens eyes spontaneously. No obvious focal deficits Psychiatric: Unable to assess due to intubation status Lymphatic: no cervical lymphadenopathy Results & Data Results & Data ([facility]) Vital Signs (Past 12 Hours) Vital Signs Temp Pulse Resp BP Pulse Ox 09/18/20 11:34 54 L 23 93 09/18/20 09:30 100.8 F H 51 L 152/76 H 96 09/18/20 09:15 100.8 F H 54 L 130/67 95 09/18/20 09:00 100.8 F H 54 L 131/72 95 04/17/21 08:45 100.8 F H 53 L 108/57 L 92 09/18/20 08:30 100.8 F H 52 L 134/66 94 09/18/20 08:15 100.8 F H 52 L 114/64 91 09/18/20 08:00 100.8 F H 56 L 116/67 92 09/18/20 07:45 100.8 F H 52 L 120/64 92 09/18/20 07:42 54 L 28 H 93 09/18/20 07:30 100.8 F H 56 L 120/50 L 88 L 09/18/20 07:15 100.6 F H 56 L 113/65 93 09/18/20 07:00 99.0 F 56 L 119/67 92 09/18/20 06:00 99.3 F 54 L 20 120/62 92 09/18/20 05:30 99.3 F 56 L 104/62 90 09/18/20 05:16 99.1 F 57 L 92 09/18/20 05:15 99.1 F 56 L 117/65 93 09/18/20 05:01 99.3 F 54 L 92 09/18/20 05:00 99.3 F 56 L 119/66 93 09/18/20 04:46 99.1 F 56 L 92 09/18/20 04:45 99.1 F 56 L 115/67 93 09/18/20 04:30 99.0 F 57 L 105/61 92 09/18/20 04:16 99.3 F 55 L 91 09/18/20 04:15 99.3 F 57 L 119/58 L 92 09/18/20 04:01 99.3 F 65 91 09/18/20 04:00 99.3 F 56 L 116/72 91 09/18/20 03:48 51 L 26 H 92 09/18/20 03:46 99.3 F 58 L 94 09/18/20 03:45 99.3 F 56 L 118/59 L 94 09/18/20 03:30 99.1 F 56 L 112/64 93 09/18/20 03:15 99.1 F 58 L 102/60 93 09/18/20 03:01 99.0 F 56 L 93 09/18/20 03:00 99.0 F 57 L 133/72 94 09/18/20 02:45 98.8 F 54 L 103/58 L 92 09/18/20 02:30 98.6 F 55 L 127/70 96 09/18/20 02:15 98.2 F 57 L 117/67 94 09/18/20 02:01 98.2 F 55 L 95 09/18/20 02:00 98.2 F 58 L 120/66 96 09/18/20 01:45 98.1 F 56 L 115/66 94 09/18/20 01:38 98.2 F 58 L 93/51 L 93 09/18/20 01:34 98.4 F 55 L 61/42 L 91 09/18/20 01:31 98.8 F 60 69/46 L 92 09/18/20 01:30 98.8 F 59 L 92 09/18/20 01:01 98.6 F 65 92 09/18/20 01:00 98.6 F 61 85/48 L 92 09/18/20 00:45 98.4 F 68 89 L 09/18/20 00:31 98.2 F 85 90 09/18/20 00:30 98.2 F 87 88/54 L 90 09/18/20 00:15 97.2 F L 89 82 L 09/18/20 00:08 98.2 F 94 H 174/87 H 84 L 09/18/20 00:02 98.1 F 70 186/86 H 83 L 09/18/20 00:00 98.1 F 64 30 H 168/102 H 85 L I reviewed the vital signs, labs and imaging Coding Level of Care Code Critical Care 1st 30-74 mins Diagnoses Admitted to intensive care unit Z78.9 Acute hypoxemic respiratory failure J96.01 Pneumonia due to 2019 novel coronavirus U07.1; J12.82 Acute kidney injury N17.9 Acidosis, lactic E87.2 Acute non-ST elevation myocardial infarction (NSTEMI) I21.4 Sinus pause I45.5 Junctional bradycardia R00.1 Sinus node dysfunction I49.5 Staphylococcus aureus bacteremia R78.81; B95.61 Time Spent (min) 38
[2020-09-18 12:34] LABS: Partial Thromboplastin Ratio 1.4
[2020-09-18] MEDS: DEXTROSE 5% 1,000 ML IV SCH (14:00)
[2020-09-18] MEDS ORDERED: PEPTAMEN 1.5 CAL 1,000 ML BAG OG PRN (16:15)
[2020-09-18] MEDS: TUBE FEEDING WATER FLUSH OG SCH ×2 (16:56→19:40)
[2020-09-18] MEDS: ATORVASTATIN 20 MG TAB PO SCH (19:41)
[2020-09-19] MEDS: DEXMEDETOMIDINE HCL 400 MCG in 0.9 % SODIUM CHLORIDE 96 ML IV SCH ×3 (00:15→20:38)
[2020-09-19] MEDS: NOREPINEPHRINE/D5W 8 MG/508 ML BAG IV SCH (00:16)
[2020-09-19] MEDS: TUBE FEEDING WATER FLUSH OG SCH ×6 (00:16→20:38)
[2020-09-19] MEDS: INSULIN ASPART 100 UNITS/ML 3 ML PEN SC SCH ×4 (00:16→18:58)
[2020-09-19] MEDS: fentaNYL DRIP 1,250 MCG/250 ML BAG IV SCH ×2 (03:07→10:37)
[2020-09-19] MEDS: DEXTROSE 5% 1,000 ML IV SCH (03:08)
[2020-09-19] MEDS: PIPERACILLIN/TAZOBACTAM 4.5 GM in DEXTROSE 5% 100 ML IV SCH (03:12)
[2020-09-19 03:13] LABS: iSTAT Allen Test Pass; iSTAT Art Bld Gas pCO2 Correct 43 mmHg (35-46); iSTAT Art Bld Gas pH Corrected 7.373 (7.35-7.45); iSTAT Arterial Blood Gas HCO3 25 meg/L (19-24); iSTAT Arterial Blood Gas pCO2 42 mmHg (35-46); iSTAT Arterial Blood Gas pH 7.38 (7.35-7.45); iSTAT Arterial Blood Gas pO2 51 mmHg (80-95); iSTAT Arterial Blood Gas pO2 C 52; iSTAT Carbon Dioxide 26 mmol/L (24-31); iSTAT FiO2 55 %; iSTAT Hematocrit 43 % (42-52); iSTAT Hemoglobin 14.6 g/dl (14.0-18.0); iSTAT Potassium 4.7 mmol/L (3.3-5.0); iSTAT Site L Radial; iSTAT Sodium 142 mmol/L (135-144)
[2020-09-19 06:35] LABS: Basophils # (auto) 0.01 K/uL (0-0.2); Eosinophils # (auto) 0.27 K/uL (0-0.5); Eosinophils % (auto) 1.1 %; Hematocrit (blood only) 43.5 % (42-52); Hemoglobin 13.9 g/dL (14.0-18.0); Immature Granulocytes # (auto) 0.13 K/uL (0.00-0.02); Immature Granulocytes % (auto) 0.5 %; Lymphocytes # (auto) 0.92 K/uL (1.2-3.4); Lymphocytes % (auto) 3.9 %; Mean Corpuscular Hemoglobin 32.7 pg (25-34); Mean Corpuscular Volume 102.4 fL (80-100); Mean Platelet Volume 12.1 fL (7.4-10.4); Monocytes # (auto) 0.22 K/uL (0.11-0.59); Monocytes % (auto) 0.9 %; Neutrophils # (auto) 22.32 K/uL (1.4-6.5); Neutrophils % (auto) 93.6 %; Platelet Count 117 K/uL (130-400); RDW Coefficient of Variation 15.1 % (11.5-14.5); RDW Standard Deviation 56.5 fL (36.4-46.3); Red Blood Count 4.25 M/uL (4.7-6.1); Toxic Granulation 1+; White Blood Count 23.87 K/uL (4.8-10.8)
[2020-09-19 06:52] LABS: BUN Creatinine Ratio 39.8 (10-20); Calcium 7.5 mg/dl (8.5-10.1); Creatinine Clr Calc Pharmacy 43.5 ml/min; Est GFR (African American) 50.8; Est GFR (Non-African American) 43.8; Magnesium 3.3 mg/dl (1.8-2.4); Phosphorus 3.2 mg/dl (2.5-4.9); Potassium 4.8 mmol/L (3.5-5.1)
--- NOTE | 2020-09-19 08:54 | XRay Report ---
XR chest 1V portable CLINICAL HISTORY: Respiratory failure COMPARISON STUDY: 09/18/2020 FINDINGS: There is an endotracheal tube 47 mm above the kathy. There is an enteric tube with its tip at the level of the gastric cardia. The cardiac and mediastinal contours remain stable. There is a s uspected small right pleural effusion. There is improvement in the right basilar opacities. There are persistent left mid and lower lung zone airspace opacities.[ IMPRESSION: 1. Persistent left mid and lower lung zone airspace opacities 2. Suspected small right pleural effusion 3. Improving right basilar airspace opacities ACT 112: Negative or not required by law. Electronically signed by: Augusto Wall M.D. 09/19/2020 8:53 AM
[2020-09-19] MEDS: ENOXAPARIN INJ 40 MG/0.4 ML SYR SQ SCH (09:12)
[2020-09-19] MEDS: ASPIRIN 81 MG CHEW PO SCH (09:12)
[2020-09-19] MEDS: dexAMETHasone 6 MG in SYRINGE 0 ML IV SCH (09:12)
[2020-09-19] MEDS: CLOPIDOGREL BISULFATE 75 MG TAB PO SCH (09:12)
[2020-09-19] MEDS: FAMOTIDINE 20 MG in SYRINGE 3 ML IV SCH ×2 (09:12→20:42)
--- NOTE | 2020-09-19 11:07 | Critical Care Progress Note ---
Date of Service September 19, 2020 Assessment & Plan (1) Admitted to intensive care unit: Reason Critically Ill: Patient is a 75-year-old male with acute hypoxic respiratory failure in the setting of COVID-19 pneumonia and non-ST elevation myocardial infarction requiring emergent endotracheal intubation. Unclear how much of the patient's respiratory failure is related to Covid pneumonia and how much may be related to his non-ST elevation RI and fluid issues. Recommendations: NEURO -patient is following commands and lucid today. Continue with Precedex and fentanyl for agitation and pain. CARDIAC/VASCULAR -non-ST elevation myocardial infarction. A temporary pacemaker was placed 09/14/2020 due to ongoing junctional rhythms and bradycardia. Heart rhythm is better controlled at this time. Currently on Levophed to maintain mean arterial pressures above 65. Continue aspirin and Plavix now that he has an OG tube in place. Unfortunately, he is growing staph in his bloodstream likely source from staph pneumonia. We will leave the pacer wire in place at this time given ongoing bradycardia and hypotension. Not a candidate for permanent pacemaker at this time due to the bacteremia. Repeat blood cultures. Repeat echo will unlikely management manager at this time. RESPIRATORY -acute hypoxemic respiratory failure with pulmonary infiltrates. Differential would include atypical edema, pulmonary hemorrhage, and infectious etiologies including secondary to Covid pneumonia. 10 days total of Decadron for Covid pneumonia. Reintubated 09/17/2020 due to worsening hypoxic respiratory failure and altered mental status. Patient placed on pressure support trial with pressure of 8/12. FiO2 75%. Tolerating this very well at this time. GI/NUTRITION -restart trickle tube feeds today. He had issues with tube feeds and his subglottic suction yesterday. RENAL/LYTES -hypernatremia improved with D5W. Will discontinue D5W. EDUARD improving. Creatinine currently 1.54 which is down from 1.89 on 09/18/2020. -no current issues. Continue to trend I/O. ENDO -glycemic control per protocol HEME -no significant issues. IDreceived remdesivir and Tocilizumab earlier in the hospital course. Blood cultures from 09/08/2020 grew Staphylococcus lugdunensis. Repeat blood cultures growing staph. MRSA PCR in the blood was negative. Currently on Zosyn. Sputum cultures growing MSSA. Will de-escalate from Zosyn to Rocephin. He currently has a left subclavian line and a right introducer catheter in his IJ along with pacer wire. Ideally, a line holiday would be pursued, however, he is currently on vasoactive medications and requiring a pacemaker. 48-hour surveillance cultures obtained today. We will place an ID consult. LINES/IV ACCESS - PIVs x2 Right internal jugular sheath with temporary pacer wire Colvin Left subclavian line DVT PROPHYLAXIS - Lovenox Disposition: Remain in the ICU. Patient's was updated over the phone. Prognosis very poor. CODE STATUS currently DNR with intubation. I discussed the case with the hospitalist and the retail warehouse associate. CRITICAL CARE TIME - I have personally spent 42 minutes of critical care time in the direct management of this patient. This is a life/limb threatening event. This includes time spent evaluating patient, direct bedside care, chart review, placing orders, interpretation of diagnostic studies, discussion with consultants, patient, and family members, as well as other required patient management activities. This time is exclusive of all separately billable procedures, and teaching time and separate from and in addition to any other critical care service time. (2) Acute hypoxemic respiratory failure: (3) Pneumonia due to 2019 novel coronavirus: (4) Acute kidney injury: (5) Acidosis, lactic: (6) Acute non-ST elevation myocardial infarction (NSTEMI): (7) Sinus pause: (8) Junctional bradycardia: (9) Sinus node dysfunction: (10) Staphylococcus aureus bacteremia: Admission and Anticipated Discharge Date Admission Date: September 09, 2020 Subjective Patient seen and examined this morning. He is following commands. He is currently on Precedex and 200 mcg of fentanyl an hour. Denies any pain. There is issues with cuff leak yesterday, but that has resolved this morning. Review of Systems Review of Systems: Denies any pain. Otherwise limited due to the intubation status Physical Exam Constitutional: + mechanically ventilated Neck: trachea midline, no thyromegaly Respiratory: normal respiratory effort Coarse breath sounds on the ventilator. Cardiovascular: RRR, no murmur, no edema Gastrointestinal (Abdomen): normal bowel sounds, soft, nontender, no hepatosplenomegaly Musculoskeletal: Extremities: extremities normal to inspection Skin: no rashes, warm and dry Neurologic: Follows commands. Able to certified ophthalmic medical technician my hands bilaterally. Wiggles his toes. Psychiatric: Unable to assess due to intubation status Lymphatic: no cervical lymphadenopathy Results & Data Results & Data ([facility]) Vital Signs (Past 12 Hours) Vital Signs Temp Pulse Resp BP Pulse Ox 09/19/20 09:45 99.3 F 50 L 95/60 L 90 09/19/20 09:30 99.3 F 54 L 116/64 92 09/19/20 09:15 99.3 F 54 L 104/64 91 09/19/20 09:00 99.3 F 53 L 106/61 91 09/19/20 08:45 99.3 F 56 L 99/61 L 93 09/19/20 08:39 55 L 26 H 92 09/19/20 08:30 99.3 F 53 L 95/58 L 85 L 09/19/20 08:15 99.5 F 52 L 102/73 88 L 09/19/20 08:00 99.5 F 54 L 113/62 89 L 09/19/20 07:45 99.5 F 55 L 103/67 89 L 09/19/20 07:30 99.5 F 51 L 71/45 L 85 L 09/19/20 07:15 99.3 F 50 L 86/49 L 86 L 09/19/20 07:00 99.5 F 50 L 99/58 L 88 L 09/19/20 06:30 99.7 F H 50 L 91 09/19/20 06:16 99.7 F H 50 L 71/43 L 82 L 09/19/20 06:01 99.7 F H 51 L 89 L 09/19/20 06:00 99.7 F H 51 L 100/64 90 09/19/20 05:45 99.7 F H 51 L 92/63 L 90 09/19/20 05:30 99.7 F H 50 L 98/61 L 90 09/19/20 05:15 99.7 F H 50 L 115/67 91 09/19/20 05:01 99.7 F H 50 L 91 09/19/20 05:00 99.7 F H 50 L 115/68 91 09/19/20 04:45 99.7 F H 50 L 106/65 90 09/19/20 04:31 99.7 F H 50 L 90 09/19/20 04:30 99.7 F H 50 L 102/66 90 09/19/20 04:15 99.7 F H 50 L 111/61 91 09/19/20 04:00 99.7 F H 50 L 109/69 90 09/19/20 03:45 99.7 F H 51 L 118/66 91 09/19/20 03:30 99.7 F H 51 L 113/69 93 09/19/20 03:15 99.7 F H 50 L 138/72 94 09/19/20 03:01 99.7 F H 50 L 104/66 91 09/19/20 03:00 99.7 F H 51 L 91 09/19/20 02:45 99.5 F 51 L 108/67 84 L 09/19/20 02:35 50 L 24 88 L 09/19/20 02:31 99.5 F 51 L 112/72 89 L 09/19/20 02:30 99.3 F 50 L 90 09/19/20 02:15 99.5 F 50 L 79/53 L 87 L 09/19/20 02:00 99.3 F 50 L 83/63 L 89 L 09/19/20 01:45 99.3 F 50 L 120/59 L 89 L 09/19/20 01:31 99.1 F 50 L 89 L 09/19/20 01:30 99.1 F 50 L 119/71 89 L 09/19/20 01:15 98.6 F 50 L 88/55 L 86 L 09/19/20 01:00 99.0 F 51 L 90/56 L 87 L 09/19/20 00:45 99.5 F 50 L 112/69 89 L 09/19/20 00:36 99.5 F 50 L 104/67 93 09/19/20 00:34 99.5 F 50 L 79/54 L 94 09/19/20 00:33 99.5 F 50 L 70/46 L 86 L 09/19/20 00:32 99.3 F 50 L 76/56 L 87 L 09/19/20 00:30 99.3 F 50 L 66/43 L 86 L 09/19/20 00:15 99.1 F 50 L 74/51 L 89 L 09/19/20 00:05 99.3 F 50 L 85/55 L 88 L 09/19/20 00:00 99.3 F 50 L 60/44 L 91 04/17/21 23:45 99.5 F 50 L 92/59 L 88 L 09/18/20 23:31 99.5 F 50 L 89 L 09/18/20 23:30 99.5 F 50 L 106/61 89 L 09/18/20 23:15 99.5 F 50 L 99/61 L 87 L 09/18/20 23:01 99.5 F 50 L 89 L 09/18/20 23:00 99.5 F 50 L 94/65 L 89 L I reviewed vital signs, labs and imaging Coding Level of Care Code Critical Care 1st 30-74 mins Diagnoses Admitted to intensive care unit Z78.9 Acute hypoxemic respiratory failure J96.01 Pneumonia due to 2019 novel coronavirus U07.1; J12.82 Acute kidney injury N17.9 Acidosis, lactic E87.2 Acute non-ST elevation myocardial infarction (NSTEMI) I21.4 Sinus pause I45.5 Junctional bradycardia R00.1 Sinus node dysfunction I49.5 Staphylococcus aureus bacteremia R78.81; B95.61 Time Spent (min) 42
--- NOTE | 2020-09-19 11:20 | Pharmacy Report ---
Pharmacy Glycemic Sign Off Nt - Date of Service September 19, 2020 - Assessment & Plan ASSESSMENT: * Pharmacy was consulted by Dr Cobos on 09/14/20 for glycemic control and to write orders per [facility] inpatient glycemic control protocol. * Major changes made by pharmacy to antidiabetic regimen include: * initiating SQ bolus insulin per CF/CR * No outpatient antidiabetic agents * A1c indicated "pre-diabetes" * Patient has been receiving/requiring 0 units of insulin per day for adequate glycemic control * BSGs ranging 119-143 mg/dl * Regimen has only required minor adjustments over the past 48hrs to achieve this level of control PLAN FOR INPATIENT GLYCEMIC CONTROL: No changes needed to current regimen. * No basal insulin needed * Continue NovoLog per scale ACHS/Q6hrs while NPO * Goal range = 110 140 mg/dl * CF = 20 mg/dl/unit * CR = 1 unit for ever -- g CHO consumed * Pharmacy is signing off of glycemic consult and will no longer be making adjustments to inpatient regimen. Please feel free to re-consult if needed. Thank you. DISCHARGE RECOMMENDATIONS: * A1c 6.1% % on 09/09/20 * HbA1c of 5.7-6.4% indicates "pre-diabetes" --> ADA recommendation is to insti tute diabetes and atherosclerosis prevention
--- NOTE | 2020-09-19 11:22 | Hospitalist Progress Note ---
Date of Service September 19, 2020 Assessment & Plan (1) Acute hypoxemic respiratory failure: Acute respiratory failure with hypoxia secondary to severe COVID-19 pneumonia Presented with septic Shock and required intubation CXR:Endotracheal tube terminates 4.7 cm superior to the kathy. Left subclavian central venous catheter distal tip terminates in the region of the mid SVC. Extensive bilateral mixed interstitial and alveolar opacities redemonstrated. Blood culture: 06/05: Preliminary--Staph Lugdunensis -Likely contaminant Repeat Blood Cx:no growth to date Initial CPR CRP:13.7 Remdesivir was not given due to critical condition Received Tocilizumab and continue IV dexamethasone Continue IV lasix 40mg BID Appreciate critical care input Condition deteriorated overnight and was on BiPAP during my examination this morning He will need to be reintubated and there was discussed with the by the ICU doc Has been on mechanical ventilator since yesterday -09/17/20 Condition has not been improving and the is being updated by the machine assistant Leukocytosis White count is elevated to 20.78 today without any evidence of fever Likely secondary to use of steroid but cannot rule out bacterial infection and lung White blood cell count has been increasing again Zosyn has been added Blood cultures grew staph in clusters and white count increased Daptomycin was discontinued as because the PCR was negative for any MRSA infection Possible temporary pacemaker wire colonization-likely to take out the pacemaker wire in a day or 2 Antibiotics may be deescalated Sinus Bradycardia with 4 second Pause On Dopamine drip Cardiology recommends transvenous pacemaker insertion Status post transvenous pacemaker insertion on 09/14/2020 Heart rate remains stable NSTEMI H/O CAD S/P Stent ECHO: Mild concentric LVH. EF 45%. Moderate size apical wall motion abnormality with hypokinesis of the segments. No pericardial effusion. No significant valvular disease. Continue aspirin, Plavix, statin Imdur, Lisinopril on hold due to low blood pressure Continue IV heparin- Elevated D dimer Could not perform CTA due to renal Insufficiency Venous Doppler:No DVT HTN Hypotensive on presentations Received IV fluids Blood pressure is lower limit of normal without any pressor agents Blood pressure remains on the lower side of normal-May need pressor resents again following intubation Acute Kidney Injury on CKD III Likely ATN Cr:2.43>1.75>1.2 Avoid nephrotoxic agents as able Creatinine is going up and it is 1.52 as of 09/17/2020 We will monitor PRP Schizophrenia/depression Celexa, Ziprasidone--held today Nutrition Likely tube start NG tube feeding Prediabetes HbA1C:6.1 DVT Px: IV heparin Code Status Full code Status post extubation but is still requiring intravenous pressor agents to maintain blood pressure Remains critically ill Discussed with the on 09/15/2020 . The machine assistant has been updating the Prognosis remains poor Admission and Anticipated Discharge Date Admission Date: September 09, 2020 Subjective 09/15/2020 The patient was seen and examined in telemetry and Covid unit He is a status post extubation and requiring pressor agents to maintain blood pressure He has been communicating with few words Remains extremely weak and lethargic 09/16/2020 The patient was seen and examined in telemetry and Covid unit He has been feeling much better today and has been communicating reasonably well Still requiring 75% FiO2 that is 40 L/min to maintain saturation Complains of generalized weakness 09/17/2020 The patient was seen and examined in telemetry and Covid unit His condition is deteriorated today and BiPAP treatment did not work and he is going to need intubation He remains weak and lethargic 09/18/2020 The patient was seen and examined in telemetry and Covid unit He required intubation yesterday and remains on mechanical ventilator Sedated and requiring pressors to maintain blood pressure 09/19/2020 The patient was seen and examined in telemetry and Covid unit He remains intubated and requiring IV pressors to maintain blood pressure Still having gram-positive staph bacteremia Remains critical Review of Systems Review of Systems: Remains intubated and sedated Physical Exam Physical Exam: Remains sedated on mechanical ventilator Constitutional: + ill appearing, average body habitus and + in distress Eyes: PERRL, conjunctivae normal, anicteric sclerae ENMT: external ear and nose normal, oropharynx normal Neck: trachea midline, no thyromegaly Respiratory: + respiratory distress (Minimal respiratory distress at rest) Auscultation: + diminished lung sounds and + crackles (Bibasilar crackles) Cardiovascular: Rate/Rhythm: regular rate and regular rhythm Heart Sounds: no murmur Extremities: + edema (Trace edema bilaterally) Gastrointestinal (Abdomen): Inspection/Auscultation: normal bowel sounds; abdomen not distended Percussion/Palpation: abdomen soft; abdomen nontender Neurologic: Sedated on mechanical ventilator Lymphatic: no cervical or axillary lymphadenopathy Results & Data Results & Data ([facility]) Vital Signs (Past 12 Hours) Vital Signs Temp Pulse Resp BP Pulse Ox 09/19/20 10:55 52 L 20 90 09/19/20 09:45 37.4 C 50 L 95/60 L 90 09/19/20 09:30 37.4 C 54 L 116/64 92 09/19/20 09:15 37.4 C 54 L 104/64 91 09/19/20 09:00 37.4 C 53 L 106/61 91 09/19/20 08:45 37.4 C 56 L 99/61 L 93 09/19/20 08:39 55 L 26 H 92 09/19/20 08:30 37.4 C 53 L 95/58 L 85 L 09/19/20 08:15 37.5 C 52 L 102/73 88 L 09/19/20 08:00 37.5 C 54 L 113/62 89 L 09/19/20 07:45 37.5 C 55 L 103/67 89 L 09/19/20 07:30 37.5 C 51 L 71/45 L 85 L 09/19/20 07:15 37.4 C 50 L 86/49 L 86 L 09/19/20 07:00 37.5 C 50 L 99/58 L 88 L 09/19/20 06:30 37.6 C H 50 L 91 09/19/20 06:16 37.6 C H 50 L 71/43 L 82 L 09/19/20 06:01 37.6 C H 51 L 89 L 09/19/20 06:00 37.6 C H 51 L 100/64 90 09/19/20 05:45 37.6 C H 51 L 92/63 L 90 09/19/20 05:30 37.6 C H 50 L 98/61 L 90 09/19/20 05:15 37.6 C H 50 L 115/67 91 09/19/20 05:01 37.6 C H 50 L 91 09/19/20 05:00 37.6 C H 50 L 115/68 91 09/19/20 04:45 37.6 C H 50 L 106/65 90 09/19/20 04:31 37.6 C H 50 L 90 09/19/20 04:30 37.6 C H 50 L 102/66 90 09/19/20 04:15 37.6 C H 50 L 111/61 91 09/19/20 04:00 37.6 C H 50 L 109/69 90 09/19/20 03:45 37.6 C H 51 L 118/66 91 09/19/20 03:30 37.6 C H 51 L 113/69 93 09/19/20 03:15 37.6 C H 50 L 138/72 94 09/19/20 03:01 37.6 C H 50 L 104/66 91 09/19/20 03:00 37.6 C H 51 L 91 09/19/20 02:45 37.5 C 51 L 108/67 84 L 09/19/20 02:35 50 L 24 88 L 09/19/20 02:31 37.5 C 51 L 112/72 89 L 09/19/20 02:30 37.4 C 50 L 90 09/19/20 02:15 37.5 C 50 L 79/53 L 87 L 09/19/20 02:00 37.4 C 50 L 83/63 L 89 L 09/19/20 01:45 37.4 C 50 L 120/59 L 89 L 09/19/20 01:31 37.3 C 50 L 89 L 09/19/20 01:30 37.3 C 50 L 119/71 89 L 09/19/20 01:15 37.0 C 50 L 88/55 L 86 L 09/19/20 01:00 37.2 C 51 L 90/56 L 87 L 09/19/20 00:45 37.5 C 50 L 112/69 89 L 09/19/20 00:36 37.5 C 50 L 104/67 93 09/19/20 00:34 37.5 C 50 L 79/54 L 94 09/19/20 00:33 37.5 C 50 L 70/46 L 86 L 09/19/20 00:32 37.4 C 50 L 76/56 L 87 L 09/19/20 00:30 37.4 C 50 L 66/43 L 86 L 09/19/20 00:15 37.3 C 50 L 74/51 L 89 L 09/19/20 00:05 37.4 C 50 L 85/55 L 88 L 09/19/20 00:00 37.4 C 50 L 60/44 L 91 09/18/20 23:45 37.5 C 50 L 92/59 L 88 L 09/18/20 23:31 37.5 C 50 L 89 L 09/18/20 23:30 37.5 C 50 L 106/61 89 L Laboratory Results Short CBC 09/19/20 Range/Units 05:29 WBC 23.87 H (4.8-10.8) K/uL Hgb 13.9 L (14.0-18.0) g/dL Hct 43.5 (42-52) % Plt Count 117 L (130-400) K/uL BMP 09/19/20 05:29 Sodium 141 D Potassium 4.8 Chloride 109 H Carbon Dioxide 28 BUN 61 H Creatinine 1.54 H D Glucose 143 H Calcium 7.5 L Medications Administered Current Inpatient Medications Acetaminophen (Acetaminophen 325 Mg Tab) 650 mg PO Q4H PRN PRN Reason: Pain or Fever Stop: 10/09/20 03:51 Last Admin: 09/16/20 13:15 Dose: 650 mg Documented by: Aspirin (Aspirin 81 Mg Chew) 81 mg PO DAILY LAUREN Stop: 10/10/20 08:59 Last Admin: 09/19/20 09:12 Dose: 81 mg Documented by: Atorvastatin Calcium (Atorvastatin 20 Mg Tab) 20 mg PO QPM LAUREN Stop: 10/09/20 20:59 Last Admin: 09/18/20 19:41 Dose: Not Given Documented by: Citalopram Hydrobromide (Citalopram 20 Mg Tab) 20 mg PO HS LAUREN Stop: 10/09/20 20:59 Last Admin: 09/13/20 20:31 Dose: 20 mg Documented by: Clopidogrel Bisulfate (Clopidogrel Bisulfate 75 Mg Tab) 75 mg PO DAILY LAUREN Stop: 10/09/20 08:59 Last Admin: 09/19/20 09:12 Dose: 75 mg Documented by: Dextrose (Dextrose 50% 50 Ml Syringe) 25 - 50 ml IV UD PRN; Protocol PRN Reason: Hypoglycemia Protocol Stop: 10/14/20 19:59 Enoxaparin Sodium (Enoxaparin Inj 40 Mg/0.4 Ml Syr) 40 mg SQ QAM LAUREN Stop: 10/19/20 08:59 Last Admin: 09/19/20 09:12 Dose: 40 mg Documented by: Enteral Nutritional Formula (Peptamen 1.5 Eloy 1,000 Ml Bag) 1,000 ml OG UD PRN; Protocol PRN Reason: NUTRITION Stop: 10/18/20 16:14 Fentanyl Citrate (Fentanyl Bolus From Bag) 50 mcg IV Q60M PRN PRN Reason: Pain or Agitation Stop: 10/01/20 15:13 Glucagon (Glucagon For Inj 1 Mg Vial) 1 mg IM UD PRN; Protocol PRN Reason: Hypoglycemia Protocol Stop: 10/14/20 19:59 Glucose (Glucose 40% Gel 15 Gm Tube) 15 - 30 gm PO UD PRN; Protocol PRN Reason: Hypoglycemia Protocol Stop: 10/14/20 19:59 Glucose (Glucose 10 Tabs/Tube) 4 - 8 tabs PO UD PRN; Protocol PRN Reason: Hypoglycemia Protocol Stop: 10/14/20 19:59 Heparin Sodium (Beef Lung) (Heparin 10 Unit/Ml 5 Ml Flush) 5 ml FLUSH PRN PRN PRN Reason: Flush Stop: 10/09/20 22:57 Promethazine HCl 12.5 mg/ (Sodium Chloride) 50.5 mls @ 202 mls/hr IV Q6H PRN PRN Reason: Nausea And Vomiting Stop: 10/09/20 03:51 Famotidine 20 mg/ Syringe 5 mls @ 2.5 mls/min IV BID LAUREN Stop: 10/13/20 20:59 Last Admin: 09/19/20 09:12 Dose: 2.5 mls/min Documented by: Fentanyl Citrate (Fentanyl Drip) 1,250 mcg in 250 mls @ 35 mls/hr IV .Q7H9M LAUREN; Protocol Stop: 10/01/20 15:14 Last Admin: 09/19/20 10:37 Dose: 175 mcg/hr, 35 mls/hr Documented by: Norepinephrine Bitartrate (Levophed/D5w) 8 mg in 508 mls @ 14.021 mls/hr IV .Q24H LAUREN; Protocol Stop: 10/17/20 22:59 Last Titration: 09/19/20 06:56 Dose: 0.07 mcg/kg/min, 19.6 mls/hr Documented by: Dexmedetomidine HCl 400 mcg/ (Sodium Chloride) 100 mls @ 9.2 mls/hr IV .[id number] [facility]; Protocol Stop: 09/22/20 01:59 Last Admin: 09/19/20 10:36 Dose: 0.5 mcg/kg/hr, 9.2 mls/hr Documented by: Acetaminophen (Ofirmev) 1,000 mg in 100 mls @ 400 mls/hr IV Q8H PRN PRN Reason: Fever Stop: 09/21/20 07:38 Last Infusion: 09/18/20 08:32 Dose: Infused Documented by: Ceftriaxone Sodium 2,000 mg/ (Dextrose) 70 mls @ 100 mls/hr IV Q24H [facility]; Protocol Stop: 09/26/20 11:59 Insulin Aspart (Insulin Aspart 100 Units/Ml 3 Ml Pen) 0 units SC Q6 [facility] Stop: 10/17/20 17:59 Last Admin: 09/19/20 06:42 Dose: Not Given Documented by: Levalbuterol HCl (Levalbuterol Hcl 0.63 Mg/3 Ml Neb) 0.63 mg NEB Q6R PRN PRN Reason: Shortness Of Breath Or Wheezing Stop: 10/09/20 12:59 Midazolam HCl (Midazolam Hcl 1 Mg/Ml 2ml Vial) 1 mg IV Q2H PRN PRN Reason: Agitation Stop: 10/18/20 11:33 Miscellaneous (Carbohydrates For Hypoglycemia ) 15 - 30 gm PO UD PRN PRN Reason: Hypoglycemia Treatment Stop: 10/14/20 19:59 Sterile Water (Tube Feeding Water Flush) 30 ml OG Q4H [facility] Stop: 10/18/20 16:14 Last Admin: 09/19/20 07:33 Dose: Not Given Documented by: Ziprasidone (Ziprasidone Hcl 20 Mg Cap) 20 mg PO TID [facility] Stop: 10/14/20 13:59 Last Admin: 09/15/20 09:48 Dose: 20 mg Documented by:
--- NOTE | 2020-09-19 11:35 | Procedure Note ---
Procedure Note Date of Service September 17, 2020 Note INTUBATION PROCEDURE NOTE: Dr. Cesar Cobos A time-out was completed verifying correct patient, procedure, site, positioning. Patient was evaluated and required intubation for acute hypoxemic respiratory failure and altered mental status. Sedative agent used: Etomidate Paralysis agent used: Rocuronium Emergent consent was implied given patients rapidly declining clinical status and need for airway protection. The patient was prepared in the appropriate fashion. Sedation was achieved utilizing etomidate and rocuronium. The patient was easily ventilated using [id number] to achieve adequate oxygenation. A 7.5 K[place]z endotracheal tube was placed under glide scope guidance to 23 cm at the lip. The stylette was removed and balloon was inflated with 10mL of air. Appropriate Colorimetric change was appreciated. Bilateral breath sounds were heard without air sounds in the abdomen. Post Intubation Chest X-ray ordered Patient tolerated the procedure well and there were no immediate complications. Coding CPT Codes Resuscitation - Resuscitation: 92667 Endotracheal Intubation, emergency ([id number][place] [facility]odes ([place]es) Resuscitation Resuscitation: 77596 Endotracheal Intubation, emergency
--- NOTE | 2020-09-19 11:57 | Cardiology Progress Note ---
Date of Service September 19, 2020 Assessment & Plan (1) Acute hypoxemic respiratory failure: Low requirements for temporary pacemaker over the past 24 hours while mechanically ventilated and sedated. Review of past records reveals bradycardia arrhythmias generally preceded by tachyarrhythmias/sinus tachycardia secondary to extrinsic stimulation suggesting conduction system fatigue. Plan: Continue temporary pacemaker Ultimately would like to remove insertion sheath and wire given sepsis but patient with multiple additional sources of infection and insertion site clean, device functioning normal Permanent pacemaker insertion contraindicated. Reduce pacing rate to 45 bpm assess use. Underlying sinus mechanism approximately 5060 bpm Management of underlying pneumonia per hospitalist and intensive care team (2) Pneumonia due to 2019 novel coronavirus: (3) Tachy-ari syndrome: (4) Staphylococcus aureus bacteremia: (5) Acute kidney injury: (6) Acute non-ST elevation myocardial infarction (NSTEMI): Admission and Anticipated Discharge Date Admission Date: September 09, 2020 Subjective Patient was seen and examined, chart, medications, telemetry reviewed. Appears brighter today still mechanically ventilated and requiring hemodynamic support with norepinephrine Pacemaker interrogated and functioning appropriately. Telemetry reviewed demonstrates relatively lower heart rates but no profound bradycardia with normally functioning VVI pacemaker at rate of 50 Physical Exam Constitutional: + mechanically ventilated Neck: IJ pacemaker access site without erythema or drainage. Cardiovascular: Rate/Rhythm: regular rate and regular rhythm Heart Sounds: normal S1 and normal S2; no murmur Vessels: no JVD Extremities: no edema Results & Data ([facility]) Vital Signs (Past 12 Hours) Vital Signs Temp Pulse Resp BP Pulse Ox 09/19/20 10:55 52 L 20 90 09/19/20 09:45 37.4 C 50 L 95/60 L 90 09/19/20 09:30 37.4 C 54 L 116/64 92 09/19/20 09:15 37.4 C 54 L 104/64 91 09/19/20 09:00 37.4 C 53 L 106/61 91 09/19/20 08:45 37.4 C 56 L 99/61 L 93 09/19/20 08:39 55 L 26 H 92 09/19/20 08:30 37.4 C 53 L 95/58 L 85 L 09/19/20 08:15 37.5 C 52 L 102/73 88 L 09/19/20 08:00 37.5 C 54 L 113/62 89 L 09/19/20 07:45 37.5 C 55 L 103/67 89 L 09/19/20 07:30 37.5 C 51 L 71/45 L 85 L 09/19/20 07:15 37.4 C 50 L 86/49 L 86 L 09/19/20 07:00 37.5 C 50 L 99/58 L 88 L 09/19/20 06:30 37.6 C H 50 L 91 09/19/20 06:16 37.6 C H 50 L 71/43 L 82 L 09/19/20 06:01 37.6 C H 51 L 89 L 09/19/20 06:00 37.6 C H 51 L 100/64 90 09/19/20 05:45 37.6 C H 51 L 92/63 L 90 09/19/20 05:30 37.6 C H 50 L 98/61 L 90 09/19/20 05:15 37.6 C H 50 L 115/67 91 09/19/20 05:01 37.6 C H 50 L 91 09/19/20 05:00 37.6 C H 50 L 115/68 91 09/19/20 04:45 37.6 C H 50 L 106/65 90 09/19/20 04:31 37.6 C H 50 L 90 09/19/20 04:30 37.6 C H 50 L 102/66 90 09/19/20 04:15 37.6 C H 50 L 111/61 91 09/19/20 04:00 37.6 C H 50 L 109/69 90 09/19/20 03:45 37.6 C H 51 L 118/66 91 09/19/20 03:30 37.6 C H 51 L 113/69 93 09/19/20 03:15 37.6 C H 50 L 138/72 94 09/19/20 03:01 37.6 C H 50 L 104/66 91 09/19/20 03:00 37.6 C H 51 L 91 09/19/20 02:45 37.5 C 51 L 108/67 84 L 09/19/20 02:35 50 L 24 88 L 09/19/20 02:31 37.5 C 51 L 112/72 89 L 09/19/20 02:30 37.4 C 50 L 90 09/19/20 02:15 37.5 C 50 L 79/53 L 87 L 09/19/20 02:00 37.4 C 50 L 83/63 L 89 L 09/19/20 01:45 37.4 C 50 L 120/59 L 89 L 09/19/20 01:31 37.3 C 50 L 89 L 09/19/20 01:30 37.3 C 50 L 119/71 89 L 09/19/20 01:15 37.0 C 50 L 88/55 L 86 L 09/19/20 01:00 37.2 C 51 L 90/56 L 87 L 09/19/20 00:45 37.5 C 50 L 112/69 89 L 09/19/20 00:36 37.5 C 50 L 104/67 93 09/19/20 00:34 37.5 C 50 L 79/54 L 94 09/19/20 00:33 37.5 C 50 L 70/46 L 86 L 09/19/20 00:32 37.4 C 50 L 76/56 L 87 L 09/19/20 00:30 37.4 C 50 L 66/43 L 86 L 09/19/20 00:15 37.3 C 50 L 74/51 L 89 L 09/19/20 00:05 37.4 C 50 L 85/55 L 88 L 09/19/20 00:00 37.4 C 50 L 60/44 L 91
[2020-09-19] MEDS ORDERED: cefTRIAXone SODIUM 2,000 MG in DEXTROSE 5% 50 ML IV SCH (12:00)
[2020-09-19] MEDS: ATORVASTATIN 20 MG TAB PO SCH (20:39)
[2020-09-20] MEDS: NOREPINEPHRINE/D5W 8 MG/508 ML BAG IV SCH ×2 (00:27→22:19)
[2020-09-20] MEDS: TUBE FEEDING WATER FLUSH OG SCH ×6 (00:28→21:32)
[2020-09-20] MEDS: INSULIN ASPART 100 UNITS/ML 3 ML PEN SC SCH ×4 (00:28→18:41)
[2020-09-20] MEDS: fentaNYL DRIP 1,250 MCG/250 ML BAG IV SCH ×6 (02:19→22:20)
[2020-09-20 04:06] LABS: iSTAT Allen Test Pass; iSTAT Art Bld Gas pCO2 Correct 53 mmHg (35-46); iSTAT Art Bld Gas pH Corrected 7.317 (7.35-7.45); iSTAT Arterial Blood Gas HCO3 27 meg/L (19-24); iSTAT Arterial Blood Gas pCO2 52 mmHg (35-46); iSTAT Arterial Blood Gas pH 7.32 (7.35-7.45); iSTAT Arterial Blood Gas pO2 47 mmHg (80-95); iSTAT Arterial Blood Gas pO2 C 48; iSTAT Carbon Dioxide 28 mmol/L (24-31); iSTAT FiO2 80 %; iSTAT Hematocrit 40 % (42-52); iSTAT Hemoglobin 13.6 g/dl (14.0-18.0); iSTAT Potassium 5.4 mmol/L (3.3-5.0); iSTAT Site L Radial; iSTAT Sodium 140 mmol/L (135-144)
[2020-09-20 07:16] LABS: Basophils # (auto) 0.01 K/uL (0-0.2); Basophils % (auto) 0.1 %; Eosinophils # (auto) 0.25 K/uL (0-0.5); Eosinophils % (auto) 1.3 %; Hematocrit (blood only) 41.7 % (42-52); Hemoglobin 13.4 g/dL (14.0-18.0); Immature Granulocytes % (auto) 0.5 %; Lymphocytes # (auto) 0.99 K/uL (1.2-3.4); Mean Corpuscular Hemoglobin 32.9 pg (25-34); Mean Corpuscular Hgb Conc 32.1 g/dL (32-36); Mean Corpuscular Volume 102.5 fL (80-100); Mean Platelet Volume 11.9 fL (7.4-10.4); Monocytes # (auto) 0.38 K/uL (0.11-0.59); Monocytes % (auto) 1.9 %; Neutrophils % (auto) 91.2 %; Platelet Count 117 K/uL (130-400); RDW Coefficient of Variation 14.8 % (11.5-14.5); RDW Standard Deviation 56.3 fL (36.4-46.3); Red Blood Count 4.07 M/uL (4.7-6.1); White Blood Count 19.73 K/uL (4.8-10.8)
[2020-09-20 08:03] LABS: BUN Creatinine Ratio 48.4 (10-20); Bilirubin Direct 0.3 mg/dl (0-0.2); Bilirubin,Total 0.9 mg/dl (0.2-1); Calcium 7.5 mg/dl (8.5-10.1); Creatinine Clr Calc Pharmacy 49.2 ml/min; Est GFR (Non-African American) 50.9; Magnesium 3.2 mg/dl (1.8-2.4); Phosphorus 3.5 mg/dl (2.5-4.9); Potassium 5.7 mmol/L (3.5-5.1)
[2020-09-20] MEDS: DEXMEDETOMIDINE HCL 400 MCG in 0.9 % SODIUM CHLORIDE 96 ML IV SCH ×7 (08:11→19:02)
[2020-09-20] MEDS ORDERED: SODIUM POLYSTYRENE SULFONATE 15G/60ML SUSP PO STA (09:01)
[2020-09-20] MEDS: CLOPIDOGREL BISULFATE 75 MG TAB PO SCH (09:03)
[2020-09-20] MEDS: FAMOTIDINE 20 MG in SYRINGE 3 ML IV SCH ×2 (09:05→21:33)
[2020-09-20] MEDS: ENOXAPARIN INJ 40 MG/0.4 ML SYR SQ SCH (09:05)
[2020-09-20] MEDS: ASPIRIN 81 MG CHEW PO SCH (09:05)
--- NOTE | 2020-09-20 09:19 | XRay Report ---
XR chest 1V portable CLINICAL HISTORY: Respiratory failure COMPARISON STUDY: 09/19/2020 FINDINGS: There is an endotracheal tube 36 mm above the kathy. The heart is the upper limits of norm al in size. There is a left subclavian central venous catheter. There is an enteric tube positioned w ithin the stomach. There is a right-sided catheter with an electrode projected over the right ventric le. There is slight progression in the bilateral pulmonary airspace opacities with a mid to lower risa g zone predominance.[ IMPRESSION: 1. Slight progression in the bilateral pulmonary airspace opacities ACT 112: Negative or not required by law. Electronically signed by: Augusto Wall M.D. 09/20/2020 9:18 AM
[2020-09-20] MEDS: ACETAMINOPHEN 1,000 MG/100 ML VIAL IV PRN (10:16)
[2020-09-20] MEDS ORDERED: ENOXAPARIN INJ 40 MG/0.4 ML SYR SQ SCH (10:45)
[2020-09-20] MEDS: MIDAZOLAM HCL 1 MG/ML 2ML VIAL IV PRN (11:27)
[2020-09-20] MEDS: ceFAZolin 2000MG 2,000 MG/15 ML SYR IV SCH ×2 (11:45→21:32)
--- NOTE | 2020-09-20 12:05 | Critical Care Progress Note ---
Date of Service September 20, 2020 Assessment & Plan (1) Admitted to intensive care unit: Reason Critically Ill: Patient is a 75-year-old male with acute hypoxic respiratory failure in the setting of COVID-19 pneumonia and non-ST elevation myocardial infarction requiring emergent endotracheal intubation. Unclear how much of the patient's respiratory failure is related to Covid pneumonia and how much may be related to his non-ST elevation DE and fluid issues. Recommendations: NEURO - Continue with Precedex and fentanyl Will take MICU CARDIAC/VASCULAR - -- Non-ST elevation myocardial infarction. Continue aspirin and Plavix now that he has an OG tube in place --Tachybradycardia syndrome A temporary pacemaker was placed 09/14/2020 due to ongoing junctional rhythms and bradycardia. --Shock Seems to be coming from sedation Patient is also having MSSA bacteremia as of 09/17/2020 Continue with vasopressor support to keep MAP greater than 65 RESPIRATORY - --VDRF secondary to acute hypoxemic respiratory failure with pulmonary inf iltrates Patient had COVID-19 pneumonia, s/p Decadron for 10 days Reintubated on 09/17/2020 due to worsening respiratory failure and altered mental status Continue with vent support GI/NUTRITION - Continue with tube feeds RENAL/LYTES - EDUARD improving Monitor BUNs/creatinine Monitor electrolytes and replace as needed - Strict in and out ENDO - ICU hyperglycemia protocol HEME - -- Thrombocytopenia New onset likely from sepsis Monitor ID --COVID-19 pneumonia received remdesivir and Tocilizumab earlier in the hospital course. Blood cultures from 09/08/2020 grew Staphylococcus lugdunensis. Repeat blood cultures 09/17/20 MSSA He currently has a left subclavian line and a right introducer catheter in his IJ along with pacer wire. Ideally, a line holiday would be pursued, however, he is currently on vasoactive medications and requiring a pacemaker. ID on board. Will follow recommendation CODE STATUS: DNR --Prophylaxis VTE: Lovenox, therapeutic GI: Pepcid Lines: Left subclavian, right IJ pacer, Colvin Diet: Trickle tube feeds Plan: In/out: +1.5 L, urine output 950 Patient was on D5 for hypernatremia. Not on any IV fluids since yesterday. Patient's hypoxia is significant compared to the infiltrates appreciated on the chest x-ray Pulmonary embolism is in the differential. I will change to Lovenox therapeutic. If the patient's creatinine is stable will consider CTA tomorrow Hyperkalemia, Kayexalate 30 g given. We will repeat BMP later today. Blood culture from 09/19/2020 are negative to date. I think it is reasonable wait for 48 hours since the repeat blood culture to see if there is any growth. If there is no growth then we will have to discontinue the lines and put new one in. Patient has very poor access and the only access he has is a central line. Case was discussed with Dr Miller and Dr Daily. Overall prognosis is guarded I have personally spent 46 minutes of critical care time in the direct management of this patient. This is a life/limb threatening event. This includes time spent evaluating patient, direct bedside care, chart review, placing orders, interpretation of diagnostic studies, discussion with consultants, patient, and family members, as well as other required patient management activities. This time is exclusive of all separately billable procedures, and teaching time and separate from and in addition to any other critical care service time. (2) Acute hypoxemic respiratory failure: (3) Pneumonia due to 2019 novel coronavirus: (4) Acute kidney injury: (5) Acidosis, lactic: (6) Acute non-ST elevation myocardial infarction (NSTEMI): (7) Sinus pause: (8) Junctional bradycardia: (9) Sinus node dysfunction: (10) Staphylococcus aureus bacteremia: Admission and Anticipated Discharge Date Admission Date: September 09, 2020 Subjective Patient seen and examined at bedside. No acute distress. Patient was on 200 of fentanyl, 0.5 Precedex at the time of examination He was alert and following simple commands. Did not complain of any pain at that time. No headache. The max 37.7 On Levophed 0.07 the time of examination Review of Systems Review of Systems: All systems reviewed & are unremarkable except as noted in Subjective Physical Exam Physical Exam: Constitutional: No acute distress HEENT: EOMI, PERRLA, positive ETT Respiratory system: Decreased air entry bilaterally, no wheeze, no rhonchi, positive crackles bilaterally CVS: S1-S2 positive, no murmurs or gallops Abdomen: Soft, nontender, nondistended, positive bowel sounds x4 Extremities: +2 pulses bilaterally radialis/ dorsalis pedis, no cyanosis, +1 pitting edema Neuro: Awake, breathing over the vent, following commands Psych: Normal mood and affect G/U: Positive Colvin Skin: no rashes, warm and dry Lymphatic: no cervical or axillary lymphadenopathy Results & Data Results & Data ([facility]) Vital Signs (Past 12 Hours) Vital Signs Temp Pulse Resp BP Pulse Ox 09/20/20 10:08 74 24 88 L 09/20/20 08:15 37.7 C H 46 L 106/57 L 92 09/20/20 08:00 37.7 C H 52 L 101/48 L 89 L 09/20/20 07:55 58 L 20 89 L 09/20/20 07:50 47 L 21 87 L 09/20/20 07:45 37.7 C H 45 L 105/47 L 89 L 09/20/20 07:30 37.6 C H 54 L 102/51 L 91 09/20/20 07:15 37.6 C H 53 L 101/49 L 90 09/20/20 07:00 37.6 C H 55 L 101/51 L 90 09/20/20 06:45 37.6 C H 53 L 95/45 L 89 L 09/20/20 06:31 37.5 C 79 88 L 09/20/20 06:30 37.5 C 80 130/76 88 L 09/20/20 06:16 37.5 C 52 L 90 09/20/20 06:15 37.5 C 51 L 101/53 L 90 09/20/20 06:00 37.5 C 51 L 96/51 L 90 09/20/20 05:45 37.5 C 81 127/73 90 09/20/20 05:31 37.5 C 53 L 90 09/20/20 05:30 37.5 C 50 L 106/54 L 92 09/20/20 05:15 37.5 C 52 L 99/55 L 92 09/20/20 05:01 37.5 C 48 L 90 09/20/20 05:00 37.5 C 49 L 107/57 L 91 09/20/20 04:45 37.5 C 51 L 98/49 L 93 09/20/20 04:31 37.4 C 50 L 93 09/20/20 04:30 37.4 C 48 L 114/56 L 94 09/20/20 04:15 37.4 C 49 L 105/48 L 92 09/20/20 04:01 37.4 C 51 L 91 09/20/20 04:00 37.4 C 56 L 127/59 L 92 09/20/20 03:45 37.4 C 70 110/49 L 94 09/20/20 03:42 48 L 16 93 09/20/20 03:31 37.4 C 53 L 93 09/20/20 03:30 37.4 C 51 L 118/55 L 93 09/20/20 03:15 37.4 C 51 L 115/58 L 94 09/20/20 03:01 37.4 C 52 L 93 09/20/20 03:00 37.4 C 52 L 112/55 L 93 09/20/20 02:45 37.3 C 53 L 111/57 L 94 09/20/20 02:31 37.3 C 52 L 92 09/20/20 02:30 37.3 C 48 L 115/51 L 90 09/20/20 02:15 37.3 C 48 L 106/56 L 93 09/20/20 02:01 37.3 C 48 L 91 09/20/20 02:00 37.3 C 50 L 110/58 L 91 09/20/20 01:45 37.3 C 54 L 113/64 91 09/20/20 01:31 37.3 C 47 L 90 09/20/20 01:30 37.3 C 48 L 118/60 91 09/20/20 01:15 37.3 C 47 L 122/55 L 90 09/20/20 01:00 37.3 C 51 L 111/60 92 09/20/20 00:45 37.3 C 50 L 113/54 L 91 09/20/20 00:30 37.3 C 49 L 118/60 91 09/20/20 00:16 37.4 C 50 L 91 09/20/20 00:15 37.4 C 50 L 117/61 92 09/20/20 00:00 37.4 C 48 L 113/54 L 91 09/19/20 23:58 49 L 19 92 09/20/20 06:51 09/20/20 06:51 Coding Level of Care Code Critical Care 1st 30-74 mins Diagnoses Admitted to intensive care unit Z78.9 Acute hypoxemic respiratory failure J96.01 Pneumonia due to 2019 novel coronavirus U07.1; J12.82 Acute kidney injury N17.9 Acidosis, lactic E87.2 Acute non-ST elevation myocardial infarction (NSTEMI) I21.4 Sinus pause I45.5 Junctional bradycardia R00.1 Sinus node dysfunction I49.5 Staphylococcus aureus bacteremia R78.81; B95.61 Time Spent (min) 46
--- NOTE | 2020-09-20 12:22 | Palliative Care Consultation ---
Date of Consultation September 20, 2020 Assessment & Plan (1) Palliative care encounter: Mr. Bill is a 75 year old male who presented to the [facility] with COVID-19 PNA and respiratory failure. On admission, he was hypoxia and intubated. He was extubated and reintubated on 09/17/20 as he was hypoxic. He also experienced an NSTEMI on admission and now has a temporary pacemaker that was placed on 09/14 due to ongoing junctional rhythms and bradycardia. For COVID treatment he has received Decadron, Remdesivir, and Tocilizumab. Unfortunately, he has also had positive blood cultures on 09/08 that grew Staph Lugdunesis and also MSSA. Additional PMH includes: DM2, CAD, schizophrenia, GERD, depression, & HLD. Palliative Care was consulted to discuss goals of care. I met with the patient in room 209. He is intubated and sedated with 200mcg of Fentanyl per hour. The patients nurse was in the room as well. The patient continues to show hypoxemia and positive infiltrated on the chest x- ray and per discussion with Dr. Goldsmith he has concerns for a PE. If the patients creatinine is stable, a CTA will be considered. Ultimately, this patient has been reintubated and may require a tracheostomy if this aligns with the patients wishes. This case was discussed with Dr. Goldsmith who wishes for palliative medicine to touch base tomorrow to reach out to the family. patient has been established a conditional code as the patient is already intubated, family confirmed no CPR or shocking. Palliative care will follow with a detailed synopsis of family discussion regarding patient wishes and goals of care when discussion is held. (2) Hypoxia: (3) Pneumonia due to 2019 novel coronavirus: (4) Bradycardia: History of Present Illness Reason for Consultation: goals of care Requesting Physician: Dr. Cobos Attending Physician: Orin Daily MD History of Present Illness Mr. Bill is a 75 year old male who presented to the [facility] with COVID-19 PNA and respiratory failure. On admission, he was hypoxia and intubated. He was extubated and reintubated on 09/17/20 as he was hypoxic. He also experienced an NSTEMI on admission and now has a temporary pacemaker that was placed on 09/14 due to ongoing junctional rhythms and bradycardia. For COVID treatment he has received Decadron, Remdesivir, and Tocilizumab. Unfortunately, he has also had positive blood cultures on 09/08 that grew Staph Lugdunesis and also MSSA. Additional PMH includes: DM2, CAD, schizophrenia, GERD, depression, & HLD. Palliative Care was consulted to discuss goals of care. Please see A/P for further details. Thank you for involving palliative medicine with this individual. Allergies Allergy/AdvReac Type Severity Reaction Status Date / Time codeine Allergy Unknown UNKNOWN Verified 09/08/20 22:48 morphine Allergy Unknown unknown Verified 09/08/20 22:48 Home Medications Medication Instructions Recorded Confirmed Type albuterol sulfate [ProAir HFA] 2 puff INHALATION Q4 PRN 09/08/20 09/08/20 History aspirin [Baby Aspirin] 81 mg PO DAILY 09/08/20 09/08/20 History atorvastatin [Lipitor] 20 mg PO QPM 09/08/20 09/08/20 History citalopram 20 mg PO HS 09/08/20 09/08/20 History clopidogrel 75 mg PO DAILY 09/08/20 09/08/20 History cyclobenzaprine 10 mg PO UD PRN 09/08/20 09/08/20 History isosorbide mononitrate 30 mg PO DAILY 09/08/20 09/08/20 History lisinopril 5 mg PO DAILY 09/08/20 09/08/20 History nitroglycerin [Nitrostat] 0.4 mg SUBLINGUAL UD PRN 09/08/20 09/08/20 History tamsulosin 0.4 mg PO DAILY 09/08/20 09/08/20 History triamcinolone acetonide 1 applic TOPICAL BID 09/08/20 09/08/20 History ziprasidone HCl [Geodon] 60 mg PO BID 09/08/20 09/08/20 History Patient History Medical History (Updated 09/20/20 @ 12:21 by JESUS Aguayo) Bradycardia CAD (coronary artery disease) "echo 08/29/2013- LV EF =50-55%" CKD (chronic kidney disease), stage III Depression DM type 2 (diabetes mellitus, type 2) Duodenal ulcer "seen on EGD with GI bleeding 08/2013" Dyslipidemia GERD (gastroesophageal reflux disease) Glaucoma Palliative care encounter Paranoid schizophrenia Surgical History H/O cataract removal with insertion of prosthetic lens H/O colonoscopy Hx of heart artery stent SAMARA to RCA and OM in 2011 SAMARA to LAD and diagonal branch vessel in 2014 S/P cardiac cath "10/20/2011- SAMARA to RCA and OM 12/10/2014- SAMARA to LAD and diagonal branch vessel. 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 to diagonal branch vessel" S/P tonsillectomy and adenoidectomy Family History Other Cancer Diabetes Hypertension Social History Smoking Status: Never smoker Second Hand Exposure: No; Hx Alcohol Use: No Hx Substance Use: No Preferred Language: Italian Communication Ability: Effective Staff Midwife/Apprenticeship Director Required: No Beliefs That Will Affect Care: None marital status: Current Living Situation: Spouse current occupational status: retired Other Information That Helps Us Care for You: No Feels Safe at Home: Yes Safety Concerns: Feels Safe At This Time Assistive Devices: Oxygen - Continuous Review of Systems Review of Systems: Unobtainable due to endotracheal tube Physical Exam Constitutional: + ill appearing and + frail appearing Neck: trachea midline, no thyromegaly Respiratory: + cough Auscultation: + rhonchi Cardiovascular: Rate/Rhythm: + bradycardic (temporary pacemaker) Extremities: normal capillary refill Gastrointestinal (Abdomen): normal bowel sounds, soft, nontender, no hepatosplenomegaly Percussion/Palpation: abdomen soft Skin: + pallor Psychiatric: Orientation: + not alert and + not oriented x 3 Results & Data ([facility]) Vital Signs (Past 12 Hours) Vital Signs Temp Pulse Resp BP Pulse Ox 09/20/20 10:08 74 24 88 L 09/20/20 08:15 37.7 C H 46 L 106/57 L 92 09/20/20 08:00 37.7 C H 52 L 101/48 L 89 L 09/20/20 07:55 58 L 20 89 L 09/20/20 07:50 47 L 21 87 L 09/20/20 07:45 37.7 C H 45 L 105/47 L 89 L 09/20/20 07:30 37.6 C H 54 L 102/51 L 91 09/20/20 07:15 37.6 C H 53 L 101/49 L 90 09/20/20 07:00 37.6 C H 55 L 101/51 L 90 09/20/20 06:45 37.6 C H 53 L 95/45 L 89 L 09/20/20 06:31 37.5 C 79 88 L 09/20/20 06:30 37.5 C 80 130/76 88 L 09/20/20 06:16 37.5 C 52 L 90 09/20/20 06:15 37.5 C 51 L 101/53 L 90 09/20/20 06:00 37.5 C 51 L 96/51 L 90 09/20/20 05:45 37.5 C 81 127/73 90 09/20/20 05:31 37.5 C 53 L 90 09/20/20 05:30 37.5 C 50 L 106/54 L 92 09/20/20 05:15 37.5 C 52 L 99/55 L 92 09/20/20 05:01 37.5 C 48 L 90 09/20/20 05:00 37.5 C 49 L 107/57 L 91 09/20/20 04:45 37.5 C 51 L 98/49 L 93 09/20/20 04:31 37.4 C 50 L 93 09/20/20 04:30 37.4 C 48 L 114/56 L 94 09/20/20 04:15 37.4 C 49 L 105/48 L 92 09/20/20 04:01 37.4 C 51 L 91 09/20/20 04:00 37.4 C 56 L 127/59 L 92 09/20/20 03:45 37.4 C 70 110/49 L 94 09/20/20 03:42 48 L 16 93 09/20/20 03:31 37.4 C 53 L 93 09/20/20 03:30 37.4 C 51 L 118/55 L 93 09/20/20 03:15 37.4 C 51 L 115/58 L 94 09/20/20 03:01 37.4 C 52 L 93 09/20/20 03:00 37.4 C 52 L 112/55 L 93 09/20/20 02:45 37.3 C 53 L 111/57 L 94 09/20/20 02:31 37.3 C 52 L 92 09/20/20 02:30 37.3 C 48 L 115/51 L 90 09/20/20 02:15 37.3 C 48 L 106/56 L 93 09/20/20 02:01 37.3 C 48 L 91 09/20/20 02:00 37.3 C 50 L 110/58 L 91 09/20/20 01:45 37.3 C 54 L 113/64 91 09/20/20 01:31 37.3 C 47 L 90 09/20/20 01:30 37.3 C 48 L 118/60 91 09/20/20 01:15 37.3 C 47 L 122/55 L 90 09/20/20 01:00 37.3 C 51 L 111/60 92 09/20/20 00:45 37.3 C 50 L 113/54 L 91 09/20/20 00:30 37.3 C 49 L 118/60 91 PG Care Time/CCT Total # of Minutes Spent Total Time Spent with Patient: Total time spent is greater than 50% in coordination of care (as documented) at patient's floor/unit and/or counseling patient: 50 minutes with > 50% of that time spent assessing the patient, discussing plan of care with IDT Coding Level of Care Code 99524 Inpt Consult Level 2 Diagnoses Palliative care encounter Z51.5 Hypoxia R09.02 Pneumonia due to 2019 novel coronavirus U07.1; J12.82 Bradycardia R00.1 Time Spent (min) 50
--- NOTE | 2020-09-20 12:54 | Cardiology Progress Note ---
Date of Service September 20, 2020 Assessment & Plan (1) Acute hypoxemic respiratory failure: Low requirements for temporary pacemaker over the past 24 hours while mechanically ventilated and sedated. Review of past records reveals bradycardia arrhythmias generally preceded by tachyarrhythmias/sinus tachycardia secondary to extrinsic stimulation suggesting conduction system fatigue, ischemia not excluded Plan: Continue temporary pacemaker additional 24 hours. Setting at 35 bpm as onset of pacing Ongoing sepsis raises concerns regarding presence of line suspect may be able to at least temporarily remove device. Decision to reinsert pacemaker will depend on clinical course over the next 24 hours. Permanent pacemaker currently contraindicated due to ongoing infectious process (2) Pneumonia due to 2019 novel coronavirus: (3) Tachy-ari syndrome: (4) Staphylococcus aureus bacteremia: (5) Acute kidney injury: (6) Acute non-ST elevation myocardial infarction (NSTEMI): Admission and Anticipated Discharge Date Admission Date: September 09, 2020 Subjective Patient was seen and examined, chart, medications, telemetry reviewed. Patient remains ventilated but responsive Telemetry reveals extremely rare pacing with pacemaker set at 45 Review of Systems Review of Systems: Unobtainable due to endotracheal tube Physical Exam Constitutional: + mechanically ventilated Eyes: PERRL, conjunctivae normal, anicteric sclerae Neck: Right IJ pacemaker site without drainage or erythema Respiratory: Coarse airway sounds Cardiovascular: Rate/Rhythm: regular rate and regular rhythm Heart Sounds: normal S1 and normal S2; no murmur Vessels: no JVD Extremities: no edema Gastrointestinal (Abdomen): Inspection/Auscultation: abdomen not distended Percussion/Palpation: abdomen soft Results & Data ([facility]) Vital Signs (Past 12 Hours) Vital Signs Temp Pulse Resp BP Pulse Ox 09/20/20 12:30 38.1 C H 52 L 85/52 L 87 L 09/20/20 12:15 38.1 C H 48 L 74/42 L 89 L 09/20/20 12:00 38.1 C H 55 L 89/46 L 91 09/20/20 11:47 38.0 C H 51 L 100/62 91 09/20/20 11:45 38.0 C H 55 L 76/49 L 91 09/20/20 11:15 37.6 C H 63 112/60 88 L 09/20/20 11:00 37.6 C H 57 L 98/56 L 89 L 09/20/20 10:45 37.6 C H 64 121/61 89 L 09/20/20 10:30 37.7 C H 56 L 107/53 L 92 09/20/20 10:15 37.7 C H 55 L 125/62 91 09/20/20 10:08 74 24 88 L 09/20/20 10:00 37.7 C H 72 138/75 85 L 09/20/20 09:45 37.8 C H 59 L 116/62 90 09/20/20 09:30 37.8 C H 45 L 115/51 L 85 L 09/20/20 09:15 37.7 C H 47 L 102/51 L 89 L 09/20/20 09:00 37.7 C H 57 L 108/54 L 90 09/20/20 08:45 37.7 C H 56 L 106/54 L 91 09/20/20 08:30 37.7 C H 52 L 97/45 L 89 L 09/20/20 08:15 37.7 C H 46 L 106/57 L 92 09/20/20 08:00 37.7 C H 52 L 101/48 L 89 L 09/20/20 07:55 58 L 20 89 L 09/20/20 07:50 47 L 21 87 L 09/20/20 07:45 37.7 C H 45 L 105/47 L 89 L 09/20/20 07:30 37.6 C H 54 L 102/51 L 91 09/20/20 07:15 37.6 C H 53 L 101/49 L 90 09/20/20 07:00 37.6 C H 55 L 101/51 L 90 09/20/20 06:45 37.6 C H 53 L 95/45 L 89 L 09/20/20 06:31 37.5 C 79 88 L 09/20/20 06:30 37.5 C 80 130/76 88 L 09/20/20 06:16 37.5 C 52 L 90 09/20/20 06:15 37.5 C 51 L 101/53 L 90 09/20/20 06:00 37.5 C 51 L 96/51 L 90 09/20/20 05:45 37.5 C 81 127/73 90 09/20/20 05:31 37.5 C 53 L 90 09/20/20 05:30 37.5 C 50 L 106/54 L 92 09/20/20 05:15 37.5 C 52 L 99/55 L 92 09/20/20 05:01 37.5 C 48 L 90 09/20/20 05:00 37.5 C 49 L 107/57 L 91 09/20/20 04:45 37.5 C 51 L 98/49 L 93 09/20/20 04:31 37.4 C 50 L 93 09/20/20 04:30 37.4 C 48 L 114/56 L 94 09/20/20 04:15 37.4 C 49 L 105/48 L 92 09/20/20 04:01 37.4 C 51 L 91 09/20/20 04:00 37.4 C 56 L 127/59 L 92 09/20/20 03:45 37.4 C 70 110/49 L 94 09/20/20 03:42 48 L 16 93 09/20/20 03:31 37.4 C 53 L 93 09/20/20 03:30 37.4 C 51 L 118/55 L 93 09/20/20 03:15 37.4 C 51 L 115/58 L 94 09/20/20 03:01 37.4 C 52 L 93 09/20/20 03:00 37.4 C 52 L 112/55 L 93 09/20/20 02:45 37.3 C 53 L 111/57 L 94 09/20/20 02:31 37.3 C 52 L 92 09/20/20 02:30 37.3 C 48 L 115/51 L 90 09/20/20 02:15 37.3 C 48 L 106/56 L 93 09/20/20 02:01 37.3 C 48 L 91 09/20/20 02:00 37.3 C 50 L 110/58 L 91 09/20/20 01:45 37.3 C 54 L 113/64 91 09/20/20 01:31 37.3 C 47 L 90 09/20/20 01:30 37.3 C 48 L 118/60 91 09/20/20 01:15 37.3 C 47 L 122/55 L 90 09/20/20 01:00 37.3 C 51 L 111/60 92
--- NOTE | 2020-09-20 13:43 | Hospitalist Progress Note ---
Date of Service September 20, 2020 Assessment & Plan (1) Acute hypoxemic respiratory failure: Acute respiratory failure with hypoxia secondary to severe COVID-19 pneumonia Presented with septic Shock and required intubation CXR:Endotracheal tube terminates 4.7 cm superior to the kathy. Left subclavian central venous catheter distal tip terminates in the region of the mid SVC. Extensive bilateral mixed interstitial and alveolar opacities redemonstrated. Blood culture: 06/05: Preliminary--Staph Lugdunensis -Likely contaminant Repeat Blood Cx:no growth to date Initial CPR CRP:13.7 Remdesivir was not given due to critical condition Received Tocilizumab and continue IV dexamethasone Continue IV lasix 40mg BID Appreciate critical care input Condition deteriorated overnight and was on BiPAP during my examination this morning He will need to be reintubated and there was discussed with the by the ICU doc Has been on mechanical ventilator since yesterday -09/17/20 Condition remains critical Palliative care has been consulted Leukocytosis White count is elevated to 20.78 today without any evidence of fever Likely secondary to use of steroid but cannot rule out bacterial infection and lung White blood cell count has been increasing again Zosyn has been added Blood cultures grew staph in clusters and white count increased Daptomycin was discontinued as because the PCR was negative for any MRSA infection Possible temporary pacemaker wire colonization-likely to take out the pacemaker wire in a day or 2 Antibiotics changed to cefazolin Will repeat blood culture tomorrow and if remains positive will have to discontinue intravenous line ID consult has been requested Sinus Bradycardia with 4 second Pause On Dopamine drip Cardiology recommends transvenous pacemaker insertion Status post transvenous pacemaker insertion on 09/14/2020 Heart rate remains stable NSTEMI H/O CAD S/P Stent ECHO: Mild concentric LVH. EF 45%. Moderate size apical wall motion abnormality with hypokinesis of the segments. No pericardial effusion. No significant valvular disease. Continue aspirin, Plavix, statin Imdur, Lisinopril on hold due to low blood pressure Continue IV heparin-has been changed to subcu Lovenox from 09/20/2020 Elevated D dimer Could not perform CTA due to renal Insufficiency Venous Doppler:No DVT HTN Hypotensive on presentations Received IV fluids Blood pressure is lower limit of normal without any pressor agents Blood pressure remains on the lower side of normal-May need pressor resents again following intubation Has been requiring pressor resents to maintain blood pressure Acute Kidney Injury on CKD III Likely ATN Cr:2.43>1.75>1.2 Avoid nephrotoxic agents as able Creatinine is going up and it is 1.52 as of 09/17/2020 We will monitor PRP-creatinine has been better today but potassium is elevated Schizophrenia/depression Celexa, Ziprasidone--held today Nutrition Likely tube start NG tube feeding Prediabetes HbA1C:6.1 DVT Px: IV heparin Code Status Full code Status post extubation but is still requiring intravenous pressor agents to maintain blood pressure Remains critically ill Discussed with the on 09/15/2020 . The microcomputer technician has been updating the Prognosis remains poor- is being updated regularly by the microcomputer technician Admission and Anticipated Discharge Date Admission Date: September 09, 2020 Subjective 09/15/2020 The patient was seen and examined in telemetry and Covid unit He is a status post extubation and requiring pressor agents to maintain blood pressure He has been communicating with few words Remains extremely weak and lethargic 09/16/2020 The patient was seen and examined in telemetry and Covid unit He has been feeling much better today and has been communicating reasonably well Still requiring 75% FiO2 that is 40 L/min to maintain saturation Complains of generalized weakness 09/17/2020 The patient was seen and examined in telemetry and Covid unit His condition is deteriorated today and BiPAP treatment did not work and he is going to need intubation He remains weak and lethargic 09/18/2020 The patient was seen and examined in telemetry and Covid unit He required intubation yesterday and remains on mechanical ventilator Sedated and requiring pressors to maintain blood pressure 09/19/2020 The patient was seen and examined in telemetry and Covid unit He remains intubated and requiring IV pressors to maintain blood pressure Still having gram-positive staph bacteremia Remains critical 09/20/2020 The patient was seen and examined in telemetry and Covid unit He remains intubated and sedated Open eyes with commands but does not follow any other commands Review of Systems Review of Systems: Remains intubated and sedated Physical Exam Physical Exam: Remains sedated on mechanical ventilator Constitutional: + ill appearing, average body habitus and + in distress Eyes: PERRL, conjunctivae normal, anicteric sclerae ENMT: external ear and nose normal, oropharynx normal Neck: trachea midline, no thyromegaly Respiratory: + respiratory distress (Minimal respiratory distress at rest) Auscultation: + diminished lung sounds and + crackles (Bibasilar crackles) Cardiovascular: Rate/Rhythm: regular rate and regular rhythm Heart Sounds: no murmur Extremities: + edema (Trace edema bilaterally) Gastrointestinal (Abdomen): Inspection/Auscultation: normal bowel sounds; abdomen not distended Percussion/Palpation: abdomen soft; abdomen nontender Neurologic: Remains sedated on mechanical ventilator Lymphatic: no cervical or axillary lymphadenopathy Results & Data Results & Data ([facility]) Vital Signs (Past 12 Hours) Vital Signs Temp Pulse Resp BP Pulse Ox 09/20/20 12:30 38.1 C H 52 L 85/52 L 87 L 09/20/20 12:15 38.1 C H 48 L 74/42 L 89 L 09/20/20 12:00 38.1 C H 55 L 89/46 L 91 09/20/20 11:47 38.0 C H 51 L 100/62 91 09/20/20 11:45 38.0 C H 55 L 76/49 L 91 09/20/20 11:15 37.6 C H 63 112/60 88 L 09/20/20 11:00 37.6 C H 57 L 98/56 L 89 L 09/20/20 10:45 37.6 C H 64 121/61 89 L 09/20/20 10:30 37.7 C H 56 L 107/53 L 92 09/20/20 10:15 37.7 C H 55 L 125/62 91 09/20/20 10:08 74 24 88 L 09/20/20 10:00 37.7 C H 72 138/75 85 L 09/20/20 09:45 37.8 C H 59 L 116/62 90 09/20/20 09:30 37.8 C H 45 L 115/51 L 85 L 09/20/20 09:15 37.7 C H 47 L 102/51 L 89 L 09/20/20 09:00 37.7 C H 57 L 108/54 L 90 09/20/20 08:45 37.7 C H 56 L 106/54 L 91 09/20/20 08:30 37.7 C H 52 L 97/45 L 89 L 09/20/20 08:15 37.7 C H 46 L 106/57 L 92 09/20/20 08:00 37.7 C H 52 L 101/48 L 89 L 09/20/20 07:55 58 L 20 89 L 09/20/20 07:50 47 L 21 87 L 09/20/20 07:45 37.7 C H 45 L 105/47 L 89 L 09/20/20 07:30 37.6 C H 54 L 102/51 L 91 09/20/20 07:15 37.6 C H 53 L 101/49 L 90 09/20/20 07:00 37.6 C H 55 L 101/51 L 90 09/20/20 06:45 37.6 C H 53 L 95/45 L 89 L 09/20/20 06:31 37.5 C 79 88 L 09/20/20 06:30 37.5 C 80 130/76 88 L 09/20/20 06:16 37.5 C 52 L 90 09/20/20 06:15 37.5 C 51 L 101/53 L 90 09/20/20 06:00 37.5 C 51 L 96/51 L 90 09/20/20 05:45 37.5 C 81 127/73 90 09/20/20 05:31 37.5 C 53 L 90 09/20/20 05:30 37.5 C 50 L 106/54 L 92 09/20/20 05:15 37.5 C 52 L 99/55 L 92 09/20/20 05:01 37.5 C 48 L 90 09/20/20 05:00 37.5 C 49 L 107/57 L 91 09/20/20 04:45 37.5 C 51 L 98/49 L 93 09/20/20 04:31 37.4 C 50 L 93 09/20/20 04:30 37.4 C 48 L 114/56 L 94 09/20/20 04:15 37.4 C 49 L 105/48 L 92 09/20/20 04:01 37.4 C 51 L 91 09/20/20 04:00 37.4 C 56 L 127/59 L 92 09/20/20 03:45 37.4 C 70 110/49 L 94 09/20/20 03:42 48 L 16 93 09/20/20 03:31 37.4 C 53 L 93 09/20/20 03:30 37.4 C 51 L 118/55 L 93 09/20/20 03:15 37.4 C 51 L 115/58 L 94 09/20/20 03:01 37.4 C 52 L 93 09/20/20 03:00 37.4 C 52 L 112/55 L 93 09/20/20 02:45 37.3 C 53 L 111/57 L 94 09/20/20 02:31 37.3 C 52 L 92 09/20/20 02:30 37.3 C 48 L 115/51 L 90 09/20/20 02:15 37.3 C 48 L 106/56 L 93 09/20/20 02:01 37.3 C 48 L 91 09/20/20 02:00 37.3 C 50 L 110/58 L 91 09/20/20 01:45 37.3 C 54 L 113/64 91 Laboratory Results Short CBC 09/20/20 Range/Units 06:51 WBC 19.73 H (4.8-10.8) K/uL Hgb 13.4 L (14.0-18.0) g/dL Hct 41.7 L (42-52) % Plt Count 117 L (130-400) K/uL BMP 09/20/20 06:51 Sodium 139 Potassium 5.7 H D Chloride 110 H Carbon Dioxide 26 BUN 66 H Creatinine 1.36 Glucose 104 H Calcium 7.5 L Liver Function 09/20/20 Range/Units 06:51 Total Bilirubin 0.9 (0.2-1) mg/dl Direct Bilirubin 0.3 H (0-0.2) mg/dl AST 38 H (15-37) U/L ALT 40 (12-78) U/L Alkaline Phosphatase 141 H (45-117) U/L Albumin 2.0 L (3.4-5.0) gm/dl Medications Administered Current Inpatient Medications Acetaminophen (Acetaminophen 325 Mg Tab) 650 mg PO Q4H PRN PRN Reason: Pain or Fever Stop: 10/09/20 03:51 Last Admin: 09/16/20 13:15 Dose: 650 mg Documented by: Aspirin (Aspirin 81 Mg Chew) 81 mg PO DAILY LAUREN Stop: 10/10/20 08:59 Last Admin: 09/20/20 09:05 Dose: 81 mg Documented by: Atorvastatin Calcium (Atorvastatin 20 Mg Tab) 20 mg PO QPM LAUREN Stop: 10/09/20 20:59 Last Admin: 09/19/20 20:39 Dose: 20 mg Documented by: Citalopram Hydrobromide (Citalopram 20 Mg Tab) 20 mg PO HS LAUREN Stop: 10/09/20 20:59 Last Admin: 09/13/20 20:31 Dose: 20 mg Documented by: Clopidogrel Bisulfate (Clopidogrel Bisulfate 75 Mg Tab) 75 mg PO DAILY LAUREN Stop: 10/09/20 08:59 Last Admin: 09/20/20 09:03 Dose: 75 mg Documented by: Dextrose (Dextrose 50% 50 Ml Syringe) 25 - 50 ml IV UD PRN; Protocol PRN Reason: Hypoglycemia Protocol Stop: 10/14/20 19:59 Enoxaparin Sodium (Enoxaparin Inj 40 Mg/0.4 Ml Syr) 40 mg SQ .ADDITIONAL DOSE X 1 LAUREN Stop: 10/20/20 10:44 Enoxaparin Sodium (Enoxaparin 80 Mg/0.8 Ml Syr) 80 mg SQ Q12H LAUREN Stop: 10/20/20 20:59 Enteral Nutritional Formula (Peptamen 1.5 Eloy 1,000 Ml Bag) 1,000 ml OG UD PRN; Protocol PRN Reason: NUTRITION Stop: 10/18/20 16:14 Last Admin: 09/19/20 12:00 Dose: 1,000 ml Documented by: Fentanyl Citrate (Fentanyl Bolus From Bag) 50 mcg IV Q60M PRN PRN Reason: Pain or Agitation Stop: 10/01/20 15:13 Glucagon (Glucagon For Inj 1 Mg Vial) 1 mg IM UD PRN; Protocol PRN Reason: Hypoglycemia Protocol Stop: 10/14/20 19:59 Glucose (Glucose 40% Gel 15 Gm Tube) 15 - 30 gm PO UD PRN; Protocol PRN Reason: Hypoglycemia Protocol Stop: 10/14/20 19:59 Glucose (Glucose 10 Tabs/Tube) 4 - 8 tabs PO UD PRN; Protocol PRN Reason: Hypoglycemia Protocol Stop: 10/14/20 19:59 Heparin Sodium (Beef Lung) (Heparin 10 Unit/Ml 5 Ml Flush) 5 ml FLUSH PRN PRN PRN Reason: Flush Stop: 10/09/20 22:57 Promethazine HCl 12.5 mg/ (Sodium Chloride) 50.5 mls @ 202 mls/hr IV Q6H PRN PRN Reason: Nausea And Vomiting Stop: 10/09/20 03:51 Famotidine 20 mg/ Syringe 5 mls @ 2.5 mls/min IV BID [facility] Stop: 10/13/20 20:59 Last Admin: 09/20/20 09:05 Dose: 2.5 mls/min Documented by: Fentanyl Citrate (Fentanyl Drip) 1,250 mcg in 250 mls @ 40 mls/hr IV .Q6H15M [facility]; Protocol Stop: 10/01/20 15:14 Last Admin: 09/20/20 10:16 Dose: 200 mcg/hr, 40 mls/hr Documented by: Norepinephrine Bitartrate (Levophed/D5w) 8 mg in 508 mls @ 14.021 mls/hr IV .Q24H [facility]; Protocol Stop: 10/17/20 22:59 Last Titration: 09/20/20 12:53 Dose: 0.08 mcg/kg/min, 22.4 mls/hr Documented by: Dexmedetomidine HCl 400 mcg/ (Sodium Chloride) 100 mls @ 14.72 mls/hr IV .Q6H48M [facility]; Protocol Stop: 09/22/20 01:59 Last Admin: 09/20/20 13:15 Dose: 0.8 mcg/kg/hr, 14.7 mls/hr Documented by: Acetaminophen (Ofirmev) 1,000 mg in 100 mls @ 400 mls/hr IV Q8H PRN PRN Reason: Fever Stop: 09/21/20 07:38 Last Infusion: 09/20/20 10:31 Dose: Infused Documented by: Cefazolin Sodium (Ancef 2000mg) 2,000 mg in 15 mls @ 3.75 mls/min IV Q8H LAUREN Stop: 10/04/20 11:59 Last Admin: 09/20/20 11:45 Dose: 3.75 mls/min Documented by: Insulin Aspart (Insulin Aspart 100 Units/Ml 3 Ml Pen) 0 units SC Q6 [facility] Stop: 10/17/20 17:59 Last Admin: 09/20/20 12:30 Dose: Not Given Documented by: Levalbuterol HCl (Levalbuterol Hcl 0.63 Mg/3 Ml Neb) 0.63 mg NEB Q6R PRN PRN Reason: Shortness Of Breath Or Wheezing Stop: 10/09/20 12:59 Midazolam HCl (Midazolam Hcl 1 Mg/Ml 2ml Vial) 1 mg IV Q2H PRN PRN Reason: Agitation Stop: 10/18/20 11:33 Last Admin: 09/20/20 11:27 Dose: 1 mg Documented by: Miscellaneous (Carbohydrates For Hypoglycemia ) 15 - 30 gm PO UD PRN PRN Reason: Hypoglycemia Treatment Stop: 10/14/20 19:59 Sterile Water (Tube Feeding Water Flush) 30 ml OG Q4H LAUREN Stop: 10/18/20 16:14 Last Admin: 09/20/20 13:11 Dose: 30 ml Documented by: Ziprasidone (Ziprasidone Hcl 20 Mg Cap) 20 mg PO TID LAUREN Stop: 10/14/20 13:59 Last Admin: 09/15/20 09:48 Dose: 20 mg Documented by:
[2020-09-20] MEDS ORDERED: FUROSEMIDE 20 MG in SYRINGE 0 ML IV ONE (15:31)
--- NOTE | 2020-09-20 15:36 | Communication Note ---
Date of Service: September 20, 2020 Contacted regarding patient having transient bradycardia. Telemetry reviewed demonstrated brief episode of profound bradycardia and 2-1 AV block. Pacemaker reset at 50 bpm Findings reflect ongoing need for indwelling pacemaker
[2020-09-20] MEDS ORDERED: FUROSEMIDE 40 MG/4 ML VIAL IV ONE (15:45)
[2020-09-20 15:49] LABS: BUN Creatinine Ratio 42.6 (10-20); Calcium 7.5 mg/dl (8.5-10.1); Creatinine Clr Calc Pharmacy 41.1 ml/min; Est GFR (African American) 47.4; Est GFR (Non-African American) 40.9; Potassium 5.2 mmol/L (3.5-5.1)
[2020-09-20] MEDS ORDERED: STAT IV Infusion **Titration per Protocol STA (15:50)
[2020-09-20] MEDS: VASOPRESSIN 20 UNITS in 0.9 % SODIUM CHLORIDE 100 ML IV SCH (16:22)
[2020-09-20] MEDS: ATORVASTATIN 20 MG TAB PO SCH (21:33)
[2020-09-20] MEDS: ENOXAPARIN 80 MG/0.8 ML SYR SQ SCH (21:34)
--- NOTE | 2020-09-20 22:56 | Procedure Note ---
Procedure Note Date of Service September 20, 2020 Procedure: Arterial Line Placement Attending: Dr. Goldsmith APC: Cyrus Williamson PA-C Indication: Monitoring on Pressors Anesthesia: Lidocaine 1% Emergent consent implied in the setting of escalating vasopressor requirement, need for frequent ABGs, and accurate assessment of BP in the critically ill patient. A time-out was completed verifying correct patient, procedure, site, positioning, and implant(s) or special equipment if applicable. Allens test was performed to ensure adequate perfusion. Patients LEFT wrist was prepped and draped in the usual sterile fashion. Ultrasound guidance was used to aid needle placement. A 20g Arrow arterial line was introduced into the LEFT radial artery. Catheter was threaded, and the needle was removed with appropriate blood return. Good waveform was observed. The patient tolerated the procedure well. Confirmation of placement with ultrasound. Blood Loss: Minimal Complications: None Procedural Ultrasound Guidance: Procedure Date: 09/20/2020 Indication: Pressors, ABGs, Frequent Labs Attending: Dr. Goldsmith APC: Cyrus Williamson PA-C Artery Identified: YES Line confirmed in Artery with ultrasound: YES Complications: NONE Patient tolerated procedure: WELL Coding CPT Codes Tubes, Drains, and Vasc Access - Tubes, Drains, and Vasc Access: [id number] Place Catheter In Artery ([id number]) [facility] Procedure Codes (Charges) Tubes, Drains, and Vasc Access Procedure 3: Tubes, Drains, and Vasc Access: [id number] Place Catheter In Artery
[2020-09-21] MEDS: DEXMEDETOMIDINE HCL 400 MCG in 0.9 % SODIUM CHLORIDE 96 ML IV SCH ×8 (00:04→19:39)
[2020-09-21] MEDS: VASOPRESSIN 20 UNITS in 0.9 % SODIUM CHLORIDE 100 ML IV SCH ×3 (00:05→17:23)
[2020-09-21] MEDS: INSULIN ASPART 100 UNITS/ML 3 ML PEN SC SCH ×4 (00:05→18:11)
[2020-09-21] MEDS: TUBE FEEDING WATER FLUSH OG SCH ×6 (00:06→20:08)
[2020-09-21] MEDS: ceFAZolin 2000MG 2,000 MG/15 ML SYR IV SCH ×3 (04:00→20:10)
[2020-09-21] MEDS: fentaNYL DRIP 1,250 MCG/250 ML BAG IV SCH ×8 (04:00→23:57)
[2020-09-21 07:15] LABS: Hemoglobin 12.9 g/dL (14.0-18.0); Mean Corpuscular Hemoglobin 32.8 pg (25-34); Mean Corpuscular Hgb Conc 32.3 g/dL (32-36); Mean Corpuscular Volume 101.8 fL (80-100); Mean Platelet Volume 12.3 fL (7.4-10.4); Platelet Count 129 K/uL (130-400); RDW Standard Deviation 56.4 fL (36.4-46.3); Red Blood Count 3.93 M/uL (4.7-6.1); White Blood Count 17.09 K/uL (4.8-10.8)
[2020-09-21 07:16] LABS: Basophils # (auto) 0.01 K/uL (0-0.2); Basophils % (auto) 0.1 %; Eosinophils # (auto) 0.15 K/uL (0-0.5); Eosinophils % (auto) 0.9 %; Immature Granulocytes # (auto) 0.06 K/uL (0.00-0.02); Immature Granulocytes % (auto) 0.4 %; Lymphocytes # (auto) 0.96 K/uL (1.2-3.4); Lymphocytes % (auto) 5.6 %; Monocytes # (auto) 0.13 K/uL (0.11-0.59); Monocytes % (auto) 0.8 %; Neutrophils # (auto) 15.78 K/uL (1.4-6.5); Neutrophils % (auto) 92.2 %; Platelet Estimate Decreased (Normal)
[2020-09-21 07:23] LABS: BUN Creatinine Ratio 39.2 (10-20); Calcium 7.4 mg/dl (8.5-10.1); Creatinine Clr Calc Pharmacy 31.6 ml/min; Est GFR (African American) 34.5; Est GFR (Non-African American) 29.8; Magnesium 3.1 mg/dl (1.8-2.4); Potassium 5.3 mmol/L (3.5-5.1)
[2020-09-21 07:25] LABS: Phosphorus 5.1 mg/dl (2.5-4.9)
[2020-09-21] MEDS: ASPIRIN 81 MG CHEW PO SCH (08:04)
[2020-09-21] MEDS: CLOPIDOGREL BISULFATE 75 MG TAB PO SCH (08:04)
[2020-09-21] MEDS: ENOXAPARIN 80 MG/0.8 ML SYR SQ SCH (08:06)
[2020-09-21] MEDS: FAMOTIDINE 20 MG in SYRINGE 3 ML IV SCH (08:23)
--- NOTE | 2020-09-21 08:59 | XRay Report ---
XR chest 1V portable CLINICAL HISTORY: f/u COMPARISON STUDY: Chest radiograph September 20, 2020. FINDINGS: Tip of the endotracheal tube is 3.7 cm above the kathy. A right internal jugular transveno us pacer is in place. Left subclavian central venous catheter is in place. Nasogastric tube is coiled within the stomach. Tip projects in the gastric cardia. Cardiomediastinal silhouette is stable. Ther e is no pneumothorax. Interstitial thickening multifocal bilateral airspace opacities are again noted . Right lower lung opacity is slightly progressed. Left perihilar opacity has slightly decreased. IMPRESSION: 1. Satisfactory positioning of lines and tubes. 2. No pneumothorax. 3. No significant change in bilateral airspace opacities and interstitial thickening suggestive of an infectious process. ACT 112: Negative or not required by law. Electronically signed by: Benjie Calhoun M.D. 09/21/2020 8:58 AM
[2020-09-21] MEDS: NOREPINEPHRINE/D5W 8 MG/508 ML BAG IV SCH ×3 (10:44→23:59)
[2020-09-21 10:46] LABS: iSTAT Arterial Blood Gas HCO3 24 meg/L (19-24); iSTAT Arterial Blood Gas pCO2 52 mmHg (35-46); iSTAT Arterial Blood Gas pH 7.27 (7.35-7.45); iSTAT Arterial Blood Gas pO2 60 mmHg (80-95); iSTAT Carbon Dioxide 25 mmol/L (24-31); iSTAT FiO2 100 %; iSTAT Site Art Line
[2020-09-21] MEDS ORDERED: SENNOSIDES 8.8 MG/5 ML UDC PO ONE (11:00)
[2020-09-21] MEDS ORDERED: PATIROMER CALCIUM SORBITEX 8.4 GM PACK PO ONE (11:00)
[2020-09-21] MEDS ORDERED: DOCUSATE SODIUM SYRUP 100 MG/10 ML UDC PO ONE (11:00)
--- NOTE | 2020-09-21 11:19 | Critical Care Progress Note ---
Date of Service September 21, 2020 Assessment & Plan (1) Admitted to intensive care unit: Reason Critically Ill: Patient is a 75-year-old male with acute hypoxic respiratory failure in the setting of COVID-19 pneumonia and non-ST elevation myocardial infarction requiring emergent endotracheal intubation. Unclear how much of the patient's respiratory failure is related to Covid pneumonia and how much may be related to his non-ST elevation [place] and fluid issues. Recommendations: NEURO - Continue with Precedex and fentanyl Will take MICU CARDIAC/VASCULAR - -- Non-ST elevation myocardial infarction. Continue aspirin and Plavix now that he has an OG tube in place --Tachybradycardia syndrome A temporary pacemaker was placed 09/14/2020 due to ongoing junctional rhythms and bradycardia. --Shock Seems to be coming from sedation Patient is also having MSSA bacteremia as of 09/17/2020 Continue with vasopressor support to keep MAP greater than 65 RESPIRATORY - --VDRF secondary to acute hypoxemic respiratory failure with pulmonary inf iltrates Patient had COVID-19 pneumonia, s/p Decadron for 10 days Reintubated on 09/17/2020 due to worsening respiratory failure and altered mental status Continue with vent support GI/NUTRITION - Continue with tube feeds RENAL/LYTES - EDUARD --> getting worse Monitor BUNs/creatinine Monitor electrolytes and replace as needed - Strict in and out ENDO - ICU hyperglycemia protocol HEME - -- Thrombocytopenia New onset likely from sepsis Monitor ID --COVID-19 pneumonia received remdesivir and Tocilizumab earlier in the hospital course. Blood cultures from 09/08/2020 grew Staphylococcus lugdunensis. Repeat blood cultures 09/17/20 MSSA --> 09/29/20 +ve for MSSA He currently has a left subclavian line and a right introducer catheter in his IJ along with pacer wire. Ideally, a line holiday would be pursued, however, he is currently on vasoactive medications and requiring a pacemaker. ID on board. Will follow recommendation CODE STATUS: DNR --Prophylaxis VTE: Lovenox, therapeutic --> changed to heparin drip starting 09/22/20 GI: Pepcid Lines: Left subclavian removed 09/21/2020, right femoral 09/21/2020, left radial 09/20/2020, right IJ pacer, Colvin Diet: Trickle tube feeds Plan: In/out: +2.2 L, urine output 315 ABG 7.32/52/47 on PEEP 10, 80% Chest x-ray showing worsening infiltrate with possible pleural effusion. Likely fluid overload. Patient creatinine is getting worse. It seems he is going into renal failure. Hold diuretics. Will order urine lites. Give 1 more dose of patiromer. For distended belly give a dose of lactulose. Start the patient on Colace senna. Hold feeding and put the OGT to intermittent suction. For bacteremia continue with Ancef. Left subclavian line has been removed. Right femoral line has been placed in Cardiology will change the pacer as patient still needs it. This will depend on how the dog goes with the palliative care. Palliative care is going to speak with the family today. Overall prognosis is guarded Case discussed with Dr Miller. I have personally spent 41 minutes of critical care time in the direct management of this patient. This is a life/limb threatening event. This includes time spent evaluating patient, direct bedside care, chart review, placing orders, interpretation of diagnostic studies, discussion with consultants, patient, and family members, as well as other required patient management activities. This time is exclusive of all separately billable procedures, and teaching time and separate from and in addition to any other critical care service time. (2) Acute hypoxemic respiratory failure: (3) Pneumonia due to 2019 novel coronavirus: (4) Acute kidney injury: (5) Acidosis, lactic: (6) Acute non-ST elevation myocardial infarction (NSTEMI): (7) Sinus pause: (8) Junctional bradycardia: (9) Sinus node dysfunction: (10) Staphylococcus aureus bacteremia: Admission and Anticipated Discharge Date Admission Date: September 09, 2020 Subjective Patient seen and examined at bedside. On fentanyl 250, Precedex 1 Patient is still spiking fever 38.5. Repeat blood culture on 09/19 was also positive for MSSA. We will remove the lines today. Patient creatinine is getting worse with decrease in urine output. Patient on 2 vasopressor support Levophed along with vasopressin. Patient has temporary pacemaker with rate at 50 patient's rate was 55-56 at the time of examination. Review of Systems Review of Systems: Unobtainable due to endotracheal tube Physical Exam Physical Exam: Constitutional: No acute distress HEENT: EOMI, PERRLA, positive ETT Respiratory system: Decreased air entry bilaterally, no wheeze, no rhonchi, p ositive crackles bilaterally CVS: S1-S2 positive, no murmurs or gallops Abdomen: Soft, nontender, distended, nontympanic, decreased bowel sounds Extremities: +2 pulses bilaterally radialis/ dorsalis pedis, no cyanosis, +1 pitting edema Neuro: RASS -2, breathing over the vent, positive corneal, positive gag Psych: Unable to assess G/U: Positive Colvin Skin: no rashes, warm and dry Lymphatic: no cervical or axillary lymphadenopathy Results & Data Results & Data ([facility]) Vital Signs (Past 12 Hours) Vital Signs Temp Pulse Resp BP Pulse Ox 09/21/20 10:58 61 24 92 09/21/20 10:30 38.5 C H 65 92 09/21/20 10:00 38.5 C H 61 105/77 92 09/21/20 09:30 38.5 C H 63 90 09/21/20 09:01 38.4 C H 61 106/43 L 89 L 09/21/20 08:30 38.5 C H 62 92 09/21/20 08:00 38.5 C H 63 90/59 L 92 09/21/20 07:30 38.4 C H 63 94 09/21/20 07:27 62 23 94 09/21/20 07:00 38.4 C H 63 103/65 91 09/21/20 06:45 38.4 C H 64 91 09/21/20 06:30 38.5 C H 62 90 09/21/20 06:15 38.5 C H 59 L 92 09/21/20 06:01 38.5 C H 62 92 09/21/20 06:00 38.5 C H 63 114/68 92 09/21/20 05:45 38.5 C H 63 92 09/21/20 05:30 38.5 C H 62 91 09/21/20 05:15 38.5 C H 63 91 09/21/20 05:00 38.5 C H 64 111/67 90 09/21/20 04:45 38.6 C H 64 91 09/21/20 04:30 38.6 C H 68 92 09/21/20 04:15 38.6 C H 72 93 09/21/20 04:00 38.6 C H 71 117/65 91 09/21/20 03:45 38.6 C H 64 90 09/21/20 03:30 38.6 C H 65 127/67 91 09/21/20 03:26 64 26 H 89 L 09/21/20 03:15 38.6 C H 58 L 123/77 89 L 09/21/20 03:01 38.6 C H 59 L 89 L 09/21/20 03:00 38.6 C H 60 127/76 90 09/21/20 02:45 38.6 C H 60 122/68 90 09/21/20 02:30 38.7 C H 61 128/65 91 09/21/20 02:15 38.7 C H 59 L 127/78 90 09/21/20 02:01 38.7 C H 62 90 09/21/20 02:00 38.7 C H 61 122/67 90 09/21/20 01:45 38.7 C H 64 109/63 89 L 09/21/20 01:30 38.7 C H 60 98/63 L 88 L 09/21/20 01:15 38.7 C H 62 120/71 89 L 09/21/20 01:01 38.7 C H 61 90 09/21/20 01:00 38.7 C H 61 111/73 90 09/21/20 00:45 38.7 C H 62 98/66 L 91 09/21/20 00:31 38.7 C H 65 90 09/21/20 00:30 38.7 C H 65 131/75 90 09/21/20 00:16 38.7 C H 64 87 L 09/21/20 00:15 38.7 C H 64 97/69 L 87 L 09/21/20 00:01 38.7 C H 67 89 L 09/21/20 00:00 38.7 C H 65 114/61 88 L 09/20/20 23:45 38.6 C H 64 106/65 85 L 09/20/20 23:30 38.6 C H 64 119/61 88 L 09/20/20 23:16 38.6 C H 64 87 L 09/20/20 23:15 38.6 C H 68 120/68 89 L 09/21/20 06:33 09/21/20 06:33 Coding Level of Care Code Critical Care 1st 30-74 mins Diagnoses Admitted to intensive care unit Z78.9 Acute hypoxemic respiratory failure J96.01 Pneumonia due to 2019 novel coronavirus U07.1; J12.82 Acute kidney injury N17.9 Acidosis, lactic E87.2 Acute non-ST elevation myocardial infarction (NSTEMI) I21.4 Sinus pause I45.5 Junctional bradycardia R00.1 Sinus node dysfunction I49.5 Staphylococcus aureus bacteremia R78.81; B95.61 Time Spent (min) 41
--- NOTE | 2020-09-21 11:38 | Procedure Note ---
Procedure Note Date of Service September 21, 2020 Procedure: Inserting ultrasound-guided central long line teamster: Dr. Steven Goldsmith Indication: Bacteremia with septic shock Consent: Emergent, patient's family was informed that if the blood cultures are positive we will have to change the lines and they were okay with it. Anesthesia: 1% lidocaine without epinephrine local. Procedure: Consent was verified and timeout performed. Appropriate imaging studies were reviewed prior to the procedure. Under aseptic and sterile condition, right femoral vein was accessed under direct ultrasound guidance. Guidewire was confirmed to be within the lumen of vein with the help of ultrasound. Catheter was introduced via Seldinger technique. Guide a wire was removed. Good non-pulsatile blood flow was appreciated from all the ports. The catheter was placed at 26 cm and sutured in place. BioPatch was applied to the catheter and a sterile Tegaderm dressing was applied over the catheter with careful attention to sterility. Patient tolerated the procedure well. Blood loss: Less than 2 cc Complications: None Coding CPT Codes Tubes, Drains, and Vasc Access - Tubes, Drains, and Vasc Access: [id number] Place catheter in vein superior or inferior vena cava ([id number]) Tubes, Drains, and Vasc Access - Tubes, Drains, and Vasc Access: [id number] Ultrasound Guidance For Vascular ([id number]) [facility] Procedure Codes (Charges) Tubes, Drains, and Vasc Access Procedure 1: Tubes, Drains, and Vasc Access: [id number] Place catheter in vein superior or inferior vena cava Procedure 2: Tubes, Drains, and Vasc Access: [id number] Ultrasound Guidance For Vascular
[2020-09-21] MEDS: MIDAZOLAM HCL 1 MG/ML 2ML VIAL IV PRN (13:14)
--- NOTE | 2020-09-21 13:31 | Hospitalist Progress Note ---
Date of Service September 21, 2020 Assessment & Plan (1) Acute hypoxemic respiratory failure: Acute respiratory failure with hypoxia secondary to severe COVID-19 pneumonia Presented with septic Shock and required intubation CXR:Endotracheal tube terminates 4.7 cm superior to the kathy. Left subclavian central venous catheter distal tip terminates in the region of the mid SVC. Extensive bilateral mixed interstitial and alveolar opacities redemonstrated. Blood culture: 06/05: Preliminary--Staph Lugdunensis -Likely contaminant Repeat Blood Cx:no growth to date Initial CPR CRP:13.7 Remdesivir was not given due to critical condition Received Tocilizumab and continue IV dexamethasone Continue IV lasix 40mg BID Appreciate critical care input Condition deteriorated overnight and was on BiPAP during my examination this morning He will need to be reintubated and there was discussed with the by the ICU doc Has been on mechanical ventilator since yesterday -09/17/20 Condition remains critical and seems to be worsening Appreciate palliative care input and recommendation Leukocytosis White count is elevated to 20.78 today without any evidence of fever Likely secondary to use of steroid but cannot rule out bacterial infection and lung White blood cell count has been increasing again Zosyn has been added Blood cultures grew staph in clusters and white count increased Daptomycin was discontinued as because the PCR was negative for any MRSA infection Possible temporary pacemaker wire colonization-likely to take out the pacemaker wire in a day or 2 Antibiotics changed to cefazolin Will repeat blood culture tomorrow and if remains positive will have to discontinue intravenous line ID consult has been requested-awaiting response 1 out of 2 repeat blood cultures is positive for Staph aureus Left subclavian line removed, right femoral line has been placed Cardiology will change the pacer line as this is needed Sinus Bradycardia with 4 second Pause On Dopamine drip Cardiology recommends transvenous pacemaker insertion Status post transvenous pacemaker insertion on 09/14/2020 Heart rate remains stable Pacer line needs to be changed due to ongoing bacteremia-cardiology will change the line as soon as possible NSTEMI H/O CAD S/P Stent ECHO: Mild concentric LVH. EF 45%. Moderate size apical wall motion abnormality with hypokinesis of the segments. No pericardial effusion. No significant valvular disease. Continue aspirin, Plavix, statin Imdur, Lisinopril on hold due to low blood pressure Continue IV heparin-has been changed to subcu Lovenox from 09/20/2020 Elevated D dimer Could not perform CTA due to renal Insufficiency Venous Doppler:No DVT HTN Hypotensive on presentations Received IV fluids Blood pressure is lower limit of normal without any pressor agents Blood pressure remains on the lower side of normal-May need pressor resents aga in following intubation Has been requiring pressor resents to maintain blood pressure Acute Kidney Injury on CKD III Likely ATN Cr:2.43>1.75>1.2 Avoid nephrotoxic agents as able Creatinine is going up and it is 1.52 as of 09/17/2020 We will monitor PRP-creatinine has been better today but potassium is elevated Kidney function has been getting worse-likely going to worse multiorgan failure Schizophrenia/depression Celexa, Ziprasidone--held today Nutrition Likely tube start NG tube feeding Prediabetes HbA1C:6.1 DVT Px: IV heparin Code Status Full code Status post extubation but is still requiring intravenous pressor agents to maintain blood pressure Remains critically ill Discussed with the on 09/15/2020 . The pre press manager has been updating the Prognosis remains poor- is being updated regularly by the pre press manager Prognosis remains extremely poor and the palliative care provider is going to discuss that with the for further management from this point Admission and Anticipated Discharge Date Admission Date: September 09, 2020 Subjective 09/15/2020 The patient was seen and examined in telemetry and Covid unit He is a status post extubation and requiring pressor agents to maintain blood pressure He has been communicating with few words Remains extremely weak and lethargic 09/16/2020 The patient was seen and examined in telemetry and Covid unit He has been feeling much better today and has been communicating reasonably well Still requiring 75% FiO2 that is 40 L/min to maintain saturation Complains of generalized weakness 09/17/2020 The patient was seen and examined in telemetry and Covid unit His condition is deteriorated today and BiPAP treatment did not work and he is going to need intubation He remains weak and lethargic 09/18/2020 The patient was seen and examined in telemetry and Covid unit He required intubation yesterday and remains on mechanical ventilator Sedated and requiring pressors to maintain blood pressure 09/19/2020 The patient was seen and examined in telemetry and Covid unit He remains intubated and requiring IV pressors to maintain blood pressure Still having gram-positive staph bacteremia Remains critical 09/20/2020 The patient was seen and examined in telemetry and Covid unit He remains intubated and sedated Open eyes with commands but does not follow any other commands 09/21/2020 The patient was seen and examined in telemetry and Covid unit He remains intubated and sedated and requiring 2 pressor resents to maintain blood pressure Continues to have fever Response to vocal commands by nodding head Review of Systems Review of Systems: Unobtainable due to endotracheal tube Physical Exam Physical Exam: Remains sedated on mechanical ventilator Constitutional: + ill appearing, average body habitus and + in distress Eyes: PERRL, conjunctivae normal, anicteric sclerae ENMT: external ear and nose normal, oropharynx normal Neck: trachea midline, no thyromegaly Respiratory: + respiratory distress (Minimal respiratory distress at rest) Auscultation: + diminished lung sounds and + crackles (Bibasilar crackles) Cardiovascular: Rate/Rhythm: regular rate and regular rhythm Heart Sounds: no murmur Extremities: + edema (Trace edema bilaterally) Gastrointestinal (Abdomen): Inspection/Auscultation: normal bowel sounds; abdomen not distended Percussion/Palpation: abdomen soft; abdomen nontender Neurologic: Remains sedated on mechanical ventilator. Nods head with commands Lymphatic: no cervical or axillary lymphadenopathy Results & Data Results & Data ([facility]) Vital Signs (Past 12 Hours) Vital Signs Temp Pulse Resp BP Pulse Ox 09/21/20 10:58 61 24 92 09/21/20 10:30 38.5 C H 65 92 09/21/20 10:00 38.5 C H 61 105/77 92 09/21/20 09:30 38.5 C H 63 90 09/21/20 09:01 38.4 C H 61 106/43 L 89 L 09/21/20 08:30 38.5 C H 62 92 09/21/20 08:00 38.5 C H 63 90/59 L 92 09/21/20 07:30 38.4 C H 63 94 09/21/20 07:27 62 23 94 09/21/20 07:00 38.4 C H 63 103/65 91 09/21/20 06:45 38.4 C H 64 91 09/21/20 06:30 38.5 C H 62 90 09/21/20 06:15 38.5 C H 59 L 92 09/21/20 06:01 38.5 C H 62 92 09/21/20 06:00 38.5 C H 63 114/68 92 09/21/20 05:45 38.5 C H 63 92 09/21/20 05:30 38.5 C H 62 91 09/21/20 05:15 38.5 C H 63 91 09/21/20 05:00 38.5 C H 64 111/67 90 09/21/20 04:45 38.6 C H 64 91 09/21/20 04:30 38.6 C H 68 92 09/21/20 04:15 38.6 C H 72 93 09/21/20 04:00 38.6 C H 71 117/65 91 09/21/20 03:45 38.6 C H 64 90 09/21/20 03:30 38.6 C H 65 127/67 91 09/21/20 03:26 64 26 H 89 L 09/21/20 03:15 38.6 C H 58 L 123/77 89 L 09/21/20 03:01 38.6 C H 59 L 89 L 09/21/20 03:00 38.6 C H 60 127/76 90 09/21/20 02:45 38.6 C H 60 122/68 90 09/21/20 02:30 38.7 C H 61 128/65 91 09/21/20 02:15 38.7 C H 59 L 127/78 90 09/21/20 02:01 38.7 C H 62 90 09/21/20 02:00 38.7 C H 61 122/67 90 09/21/20 01:45 38.7 C H 64 109/63 89 L 09/21/20 01:30 38.7 C H 60 98/63 L 88 L Laboratory Results Short CBC 09/21/20 Range/Units 06:33 WBC 17.09 H (4.8-10.8) K/uL Hgb 12.9 L (14.0-18.0) g/dL Hct 40.0 L (42-52) % Plt Count 129 L (130-400) K/uL BMP 09/20/20 09/21/20 14:55 06:33 Sodium 141 139 Potassium 5.2 H 5.3 H Chloride 110 H 109 H Carbon Dioxide 24 25 BUN 69 H 83 H Creatinine 1.63 H 2.12 H D Glucose 156 H 132 H Calcium 7.5 L 7.4 L Medications Administered Current Inpatient Medications Acetaminophen (Acetaminophen 325 Mg Tab) 650 mg PO Q4H PRN PRN Reason: Pain or Fever Stop: 10/09/20 03:51 Last Admin: 09/16/20 13:15 Dose: 650 mg Documented by: Aspirin (Aspirin 81 Mg Chew) 81 mg PO DAILY LAUREN Stop: 10/10/20 08:59 Last Admin: 09/21/20 08:04 Dose: 81 mg Documented by: Atorvastatin Calcium (Atorvastatin 20 Mg Tab) 20 mg PO QPM LAUREN Stop: 10/09/20 20:59 Last Admin: 09/20/20 21:33 Dose: 20 mg Documented by: Citalopram Hydrobromide (Citalopram 20 Mg Tab) 20 mg PO HS LAUREN Stop: 10/09/20 20:59 Last Admin: 09/13/20 20:31 Dose: 20 mg Documented by: Clopidogrel Bisulfate (Clopidogrel Bisulfate 75 Mg Tab) 75 mg PO DAILY LAUREN Stop: 10/09/20 08:59 Last Admin: 09/21/20 08:04 Dose: 75 mg Documented by: Dextrose (Dextrose 50% 50 Ml Syringe) 25 - 50 ml IV UD PRN; Protocol PRN Reason: Hypoglycemia Protocol Stop: 10/14/20 19:59 Docusate Sodium (Docusate Sodium Syrup 100 Mg/10 Ml Udc) 100 mg PO BID LAUREN Stop: 10/21/20 20:59 Enteral Nutritional Formula (Peptamen 1.5 Eloy 1,000 Ml Bag) 1,000 ml OG UD PRN; Protocol PRN Reason: NUTRITION Stop: 10/18/20 16:14 Last Admin: 09/19/20 12:00 Dose: 1,000 ml Documented by: Fentanyl Citrate (Fentanyl Bolus From Bag) 50 mcg IV Q60M PRN PRN Reason: Pain or Agitation Stop: 10/01/20 15:13 Glucagon (Glucagon For Inj 1 Mg Vial) 1 mg IM UD PRN; Protocol PRN Reason: Hypoglycemia Protocol Stop: 10/14/20 19:59 Glucose (Glucose 40% Gel 15 Gm Tube) 15 - 30 gm PO UD PRN; Protocol PRN Reason: Hypoglycemia Protocol Stop: 10/14/20 19:59 Glucose (Glucose 10 Tabs/Tube) 4 - 8 tabs PO UD PRN; Protocol PRN Reason: Hypoglycemia Protocol Stop: 10/14/20 19:59 Heparin Sodium (Beef Lung) (Heparin 10 Unit/Ml 5 Ml Flush) 5 ml FLUSH PRN PRN PRN Reason: Flush Stop: 10/09/20 22:57 Heparin Sodium/Dextrose (Heparin Iv Standard *No* Bolus) 1 ea IV ONE ONE; Protocol Stop: 09/22/20 09:01 Promethazine HCl 12.5 mg/ (Sodium Chloride) 50.5 mls @ 202 mls/hr IV Q6H PRN PRN Reason: Nausea And Vomiting Stop: 10/09/20 03:51 Fentanyl Citrate (Fentanyl Drip) 1,250 mcg in 250 mls @ 40 mls/hr IV .Q6H15M LAUREN; Protocol Stop: 10/01/20 15:14 Last Admin: 09/21/20 12:10 Dose: Not Given Documented by: Norepinephrine Bitartrate (Levophed/D5w) 8 mg in 508 mls @ 14.021 mls/hr IV .Q24H LAUREN; Protocol Stop: 10/17/20 22:59 Last Admin: 09/21/20 10:44 Dose: 0.19 mcg/kg/min, 53.3 mls/hr Documented by: Dexmedetomidine HCl 400 mcg/ (Sodium Chloride) 100 mls @ 14.72 mls/hr IV .Q6H48M LAUREN; Protocol Stop: 09/22/20 01:59 Last Admin: 09/21/20 12:00 Dose: Not Given Documented by: Cefazolin Sodium (Ancef 2000mg) 2,000 mg in 15 mls @ 3.75 mls/min IV Q8H LAUREN Stop: 09/21/20 20:30 Last Admin: 09/21/20 12:40 Dose: 3.75 mls/min Documented by: Vasopressin 20 units/ Sodium (Chloride) 101 mls @ 9.09 mls/hr IV .Q11H7M LAUREN; Protocol Stop: 10/20/20 15:59 Last Admin: 09/21/20 08:36 Dose: 0.04 unit/min, 12.1 mls/hr Documented by: Heparin Sodium/Dextrose (Heparin Sodium/Dextrose) 25,000 units in 500 mls @ 27 mls/hr IV .[id number] [facility]; Protocol Stop: 10/22/20 08:59 Famotidine 20 mg/ Syringe 5 mls @ 2.5 mls/min IV QAM [facility] Stop: 10/22/20 08:59 Cefazolin Sodium (Ancef 2000mg) 2,000 mg in 15 mls @ 3.75 mls/min IV Q12H [facility] Stop: 10/06/20 07:59 Insulin Aspart (Insulin Aspart 100 Units/Ml 3 Ml Pen) 0 units SC Q6 LAUREN Stop: 10/17/20 17:59 Last Admin: 09/21/20 07:02 Dose: Not Given Documented by: Levalbuterol HCl (Levalbuterol Hcl 0.63 Mg/3 Ml Neb) 0.63 mg NEB Q6R PRN PRN Reason: Shortness Of Breath Or Wheezing Stop: 10/09/20 12:59 Midazolam HCl (Midazolam Hcl 1 Mg/Ml 2ml Vial) 1 mg IV Q2H PRN PRN Reason: Agitation Stop: 10/18/20 11:33 Last Admin: 09/21/20 13:14 Dose: 1 mg Documented by: Miscellaneous (Carbohydrates For Hypoglycemia ) 15 - 30 gm PO UD PRN PRN Reason: Hypoglycemia Treatment Stop: 10/14/20 19:59 Sennosides (Sennosides 8.8 Mg/5 Ml Udc) 8.8 mg PO BID [facility] Stop: 10/21/20 20:59 Sterile Water (Tube Feeding Water Flush) 30 ml OG Q4H [facility] Stop: 10/18/20 16:14 Last Admin: 09/21/20 08:04 Dose: 30 ml Documented by: Ziprasidone (Ziprasidone Hcl 20 Mg Cap) 20 mg PO TID [facility] Stop: 10/14/20 13:59 Last Admin: 09/15/20 09:48 Dose: 20 mg Documented by:
[2020-09-21 14:02] LABS: Chloride Random Urine < 10 mmol/L; Sodium Random Urine 21 mmol/L; Uric Acid Urine Random 18.4 mg/dl
--- NOTE | 2020-09-21 14:02 | Electrocardiogram Report ---
Test Reason : Blood Pressure : / mmHG Vent. Rate : 062 BPM Atrial Rate : 072 BPM P-R Int : 154 ms QRS Dur : 112 ms QT Int : 378 ms P-R-T Axes : 051 -41 081 degrees QTc Int : 383 ms Sinus rhythm with marked sinus arrhythmia with occasional ventricular-paced complexes Left axis deviation Left ventricular hypertrophy with repolarization abnormality Abnormal ECG When compared with ECG of 17-SEP-2020 05:48, Electronic ventricular pacemaker has replaced Sinus rhythm Confirmed by Hilario Sandhu ([id number] on 09/21/2020 2:02:28 PM Referred By: REFERRED SELF Confirmed By:Francis Sandhu
--- NOTE | 2020-09-21 15:02 | Cardiology Progress Note ---
Date of Service September 21, 2020 Assessment & Plan (1) Acute hypoxemic respiratory failure: Low requirements for temporary pacemaker over the past 24 hours while mechanically ventilated and sedated. Review of past records reveals bradycardia arrhythmias generally preceded by tachyarrhythmias/sinus tachycardia secondary to extrinsic stimulation suggesting conduction system fatigue, ischemia not excluded Plan: Patient continued to demonstrate need for pacemaker on attempted withdrawal yesterday. Will require ongoing presence of temporary transvenous pacemaker. Palliative care discussing with family ongoing process and overall declining prognosis given worsening renal function and higher demand for pressors. If continued aggressive management considered would likely remove transvenous pacemaker from right IJ and reimplant treatment port (question left IJ) Current pacemaker lead functioning appropriately demand threshold less than 0.5 m amp (2) Pneumonia due to 2019 novel coronavirus: (3) Tachy-ari syndrome: (4) Staphylococcus aureus bacteremia: (5) Acute kidney injury: (6) Acute non-ST elevation myocardial infarction (NSTEMI): Admission and Anticipated Discharge Date Admission Date: September 09, 2020 Subjective Patient was seen and examined, chart, medications, telemetry reviewed. Patient with worsening status overnight requiring higher dose pressors. Remains persistently febrile with persistent bacteremia by repeat cultures. Renal function now declining Left subclavian line switch to a femoral access today Currently not using transvenous pacing. Attempted withdrawal of pacemaker by reduction in rate yesterday resulted in marked bradycardia on 2 events. Physical Exam Constitutional: + mechanically ventilated Eyes: PERRL, conjunctivae normal, anicteric sclerae Neck: Right IJ pacemaker port and access without drainage or purulence Cardiovascular: Rate/Rhythm: regular rate and regular rhythm Heart Sounds: normal S1 and normal S2; no murmur Vessels: no JVD Extremities: no edema Gastrointestinal (Abdomen): Inspection/Auscultation: abdomen not distended Percussion/Palpation: abdomen soft Results & Data ([facility]) Vital Signs (Past 12 Hours) Vital Signs Temp Pulse Resp BP Pulse Ox 09/21/20 14:01 38.2 C H 70 94 09/21/20 13:30 38.3 C H 70 90 09/21/20 13:10 38.2 C H 106 H 103/77 91 09/21/20 13:00 38.3 C H 80 91 09/21/20 12:30 38.3 C H 67 92 09/21/20 12:00 38.4 C H 64 110/85 91 09/21/20 11:30 38.4 C H 64 93 09/21/20 11:00 38.4 C H 62 87/63 L 93 09/21/20 10:58 61 24 92 09/21/20 10:30 38.5 C H 65 92 09/21/20 10:00 38.5 C H 61 105/77 92 09/21/20 09:30 38.5 C H 63 90 09/21/20 09:01 38.4 C H 61 106/43 L 89 L 09/21/20 08:30 38.5 C H 62 92 09/21/20 08:00 38.5 C H 63 90/59 L 92 09/21/20 07:30 38.4 C H 63 94 09/21/20 07:27 62 23 94 09/21/20 07:00 38.4 C H 63 103/65 91 09/21/20 06:45 38.4 C H 64 91 09/21/20 06:30 38.5 C H 62 90 09/21/20 06:15 38.5 C H 59 L 92 09/21/20 06:01 38.5 C H 62 92 09/21/20 06:00 38.5 C H 63 114/68 92 09/21/20 05:45 38.5 C H 63 92 09/21/20 05:30 38.5 C H 62 91 09/21/20 05:15 38.5 C H 63 91 09/21/20 05:00 38.5 C H 64 111/67 90 09/21/20 04:45 38.6 C H 64 91 09/21/20 04:30 38.6 C H 68 92 09/21/20 04:15 38.6 C H 72 93 09/21/20 04:00 38.6 C H 71 117/65 91 09/21/20 03:45 38.6 C H 64 90 09/21/20 03:30 38.6 C H 65 127/67 91 09/21/20 03:26 64 26 H 89 L 09/21/20 03:15 38.6 C H 58 L 123/77 89 L 09/21/20 03:01 38.6 C H 59 L 89 L 09/21/20 03:00 38.6 C H 60 127/76 90 Laboratory Results Laboratory Results - last 24 hr 09/19/20 09/20/20 09/20/20 05:29 14:55 18:26 WBC RBC Hgb Hct MCV MCH MCHC RDW Std Deviation RDW Coeff of Shilo Plt Count MPV Immature Gran % (Auto) Neut % (Auto) Lymph % (Auto) [place] % (Auto) Eos % (Auto) Baso % (Auto) Neut # (Auto) Lymph # (Auto) [place] # (Auto) Eos # (Auto) Baso # (Auto) Immature Gran # (Auto) Platelet Estimate Sample Site POC pH POC pCO2 POC pO2 POC HCO3 POC Total CO2 POC Base Excess POC ABG O2 Sat Richard Test O2 Delivery Device POC O2 Rate Minute Ventilation POC FiO2 Tidal Volume PEEP Sodium 141 Potassium 5.2 H Chloride 110 H Carbon Dioxide 24 Anion Gap 7.0 BUN 69 H Creatinine 1.63 H Est Cr Clr Drug Dosing 41.1 Est GFR ( Amer) 47.4 Est GFR (Non-Af Amer) 40.9 BUN/Creatinine Ratio 42.6 H Glucose 156 H POC Glucose 124 H Calcium 7.5 L Phosphorus Magnesium Procalcitonin Urine Osmolality Ur Random Creatinine Ur Random Sodium Ur Random Potassium Ur Random Chloride Ur Random Uric Acid Bld Cult Staph aureus PCR Positive A Blood Culture MRSA PCR Negative 09/21/20 09/21/20 09/21/20 03:40 06:33 06:33 WBC 17.09 H RBC 3.93 L Hgb 12.9 L Hct 40.0 L MCV 101.8 H MCH 32.8 MCHC 32.3 RDW Std Deviation 56.4 H RDW Coeff of Shilo 15.0 H Plt Count 129 L MPV 12.3 H Immature Gran % (Auto) 0.4 Neut % (Auto) 92.2 Lymph % (Auto) 5.6 [place] % (Auto) 0.8 Eos % (Auto) 0.9 Baso % (Auto) 0.1 Neut # (Auto) 15.78 H Lymph # (Auto) 0.96 L [place] # (Auto) 0.13 Eos # (Auto) 0.15 Baso # (Auto) 0.01 Immature Gran # (Auto) 0.06 H Platelet Estimate Decreased L Sample Site Art Line POC pH 7.27 L POC pCO2 52 H POC pO2 60 L POC HCO3 24 POC Total CO2 25 POC Base Excess -3.0 POC ABG O2 Sat 87.0 L Richard Test NA O2 Delivery Device Ventilator POC O2 Rate 20 Minute Ventilation 8 POC FiO2 100 Tidal Volume 400 PEEP 14 Sodium 139 Potassium 5.3 H Chloride 109 H Carbon Dioxide 25 Anion Gap 6.0 BUN 83 H Creatinine 2.12 H D Est Cr Clr Drug Dosing 31.6 Est GFR ( Amer) 34.5 Est GFR (Non-Af Amer) 29.8 BUN/Creatinine Ratio 39.2 H Glucose 132 H POC Glucose Calcium 7.4 L Phosphorus 5.1 H D Magnesium 3.1 H Procalcitonin Urine Osmolality Ur Random Creatinine Ur Random Sodium Ur Random Potassium Ur Random Chloride Ur Random Uric Acid Bld Cult Staph aureus PCR Blood Culture MRSA PCR 09/21/20 09/21/20 09/21/20 06:33 11:03 Unknown WBC RBC Hgb Hct MCV MCH MCHC RDW Std Deviation RDW Coeff of Shilo Plt Count MPV Immature Gran % (Auto) Neut % (Auto) Lymph % (Auto) [place] % (Auto) Eos % (Auto) Baso % (Auto) Neut # (Auto) Lymph # (Auto) [place] # (Auto) Eos # (Auto) Baso # (Auto) Immature Gran # (Auto) Platelet Estimate Sample Site POC pH POC pCO2 POC pO2 POC HCO3 POC Total CO2 POC Base Excess POC ABG O2 Sat Richard Test O2 Delivery Device POC O2 Rate Minute Ventilation POC FiO2 Tidal Volume PEEP Sodium Potassium Chloride Carbon Dioxide Anion Gap BUN Creatinine Est Cr Clr Drug Dosing Est GFR ( Amer) Est GFR (Non-Af Amer) BUN/Creatinine Ratio Glucose POC Glucose 115 H Calcium Phosphorus Magnesium Procalcitonin 0.95 H Urine Osmolality 478 L Ur Random Creatinine Ur Random Sodium Ur Random Potassium Ur Random Chloride Ur Random Uric Acid Bld Cult Staph aureus PCR Blood Culture MRSA PCR 09/21/20 Unknown WBC RBC Hgb Hct MCV MCH MCHC RDW Std Deviation RDW Coeff of Shilo Plt Count MPV Immature Gran % (Auto) Neut % (Auto) Lymph % (Auto) [place] % (Auto) Eos % (Auto) Baso % (Auto) Neut # (Auto) Lymph # (Auto) [place] # (Auto) Eos # (Auto) Baso # (Auto) Immature Gran # (Auto) Platelet Estimate Sample Site POC pH POC pCO2 POC pO2 POC HCO3 POC Total CO2 POC Base Excess POC ABG O2 Sat Richard Test O2 Delivery Device POC O2 Rate Minute Ventilation POC FiO2 Tidal Volume PEEP Sodium Potassium Chloride Carbon Dioxide Anion Gap BUN Creatinine Est Cr Clr Drug Dosing Est GFR ( Amer) Est GFR (Non-Af Amer) BUN/Creatinine Ratio Glucose POC Glucose Calcium Phosphorus Magnesium Procalcitonin Urine Osmolality Ur Random Creatinine 124.0 Ur Random Sodium 21 Ur Random Potassium 46.0 Ur Random Chloride < 10 Ur Random Uric Acid 18.4 Bld Cult Staph aureus PCR Blood Culture MRSA PCR
--- NOTE | 2020-09-21 15:40 | Palliative Care Progress Note ---
Date of Service September 21, 2020 Assessment & Plan (1) Palliative care encounter: I spoke with Mrs. Bill on the phone and updated her on the changes in his condition and extremely poor prognosis. She tells me that she has been expecting this. She confirms that she would not want him to have CPR. She has her children supporting her and they are at the house with her. They will discuss as a family this evening. They understand that at this point, it appears that the best course of treatment for Nolan, would be to focus on comfort. Palliative care will followup with family tomorrow regarding transition to comfort directed care. Admission and Anticipated Discharge Date Admission Date: September 09, 2020 Subjective Remains on vent support with high oxygen demand. He has a positive fluid balance by approximately 2 liters, pacer wire and central line have been changed due to Staph bacteremia. He remains on pressors with hypotension and now has progressive renal failure. Review of Systems Review of Systems: Unobtainable due to endotracheal tube Physical Exam Physical Exam: deferred due to covid 19 pandemic Results & Data ([facility]) Vital Signs (Past 12 Hours) Vital Signs Temp Pulse Resp BP Pulse Ox 09/21/20 15:23 75 23 96 09/21/20 15:00 100.8 F H 69 101/71 94 09/21/20 14:30 100.8 F H 69 94 09/21/20 14:01 100.8 F H 70 94 09/21/20 13:30 100.9 F H 70 90 09/21/20 13:10 100.8 F H 106 H 103/77 91 09/21/20 13:00 100.9 F H 80 91 09/21/20 12:30 100.9 F H 67 92 09/21/20 12:00 101.1 F H 64 110/85 91 09/21/20 11:30 101.1 F H 64 93 09/21/20 11:00 101.1 F H 62 87/63 L 93 09/21/20 10:58 61 24 92 09/21/20 10:30 101.3 F H 65 92 09/21/20 10:00 101.3 F H 61 105/77 92 09/21/20 09:30 101.3 F H 63 90 09/21/20 09:01 101.1 F H 61 106/43 L 89 L 09/21/20 08:30 101.3 F H 62 92 09/21/20 08:00 101.3 F H 63 90/59 L 92 09/21/20 07:30 101.1 F H 63 94 09/21/20 07:27 62 23 94 09/21/20 07:00 101.1 F H 63 103/65 91 09/21/20 06:45 101.1 F H 64 91 09/21/20 06:30 101.3 F H 62 90 09/21/20 06:15 101.3 F H 59 L 92 09/21/20 06:01 101.3 F H 62 92 09/21/20 06:00 101.3 F H 63 114/68 92 09/21/20 05:45 101.3 F H 63 92 09/21/20 05:30 101.3 F H 62 91 09/21/20 05:15 101.3 F H 63 91 09/21/20 05:00 101.3 F H 64 111/67 90 09/21/20 04:45 101.5 F H 64 91 09/21/20 04:30 101.5 F H 68 92 09/21/20 04:15 101.5 F H 72 93 09/21/20 04:00 101.5 F H 71 117/65 91 09/21/20 03:45 101.5 F H 64 90 PG Care Time/CCT Total # of Minutes Spent Total Time Spent with Patient: Total time spent is greater than 50% in coordination of care (as documented) at patient's floor/unit and/or counseling patient: Coding Level of Care Code 03238 Subseq Hosp Care Lvl 2 Diagnoses Palliative care encounter Z51.5
[2020-09-21] MEDS: ATORVASTATIN 20 MG TAB PO SCH (20:08)
[2020-09-21] MEDS: DOCUSATE SODIUM SYRUP 100 MG/10 ML UDC PO SCH (20:08)
[2020-09-21] MEDS: SENNOSIDES 8.8 MG/5 ML UDC PO SCH (20:08)
[2020-09-22] MEDS: TUBE FEEDING WATER FLUSH OG SCH ×4 (03:02→12:41)
[2020-09-22] MEDS: INSULIN ASPART 100 UNITS/ML 3 ML PEN SC SCH ×5 (03:02→23:58)
[2020-09-22] MEDS: NOREPINEPHRINE/D5W 8 MG/508 ML BAG IV SCH ×3 (03:05→10:21)
[2020-09-22] MEDS: VASOPRESSIN 20 UNITS in 0.9 % SODIUM CHLORIDE 100 ML IV SCH ×3 (03:18→20:21)
[2020-09-22 03:39] LABS: iSTAT Allen Test Pass; iSTAT Arterial Blood Gas HCO3 22 meg/L (19-24); iSTAT Arterial Blood Gas pCO2 54 mmHg (35-46); iSTAT Arterial Blood Gas pH 7.21 (7.35-7.45); iSTAT Arterial Blood Gas pO2 96 mmHg (80-95); iSTAT Carbon Dioxide 23 mmol/L (24-31); iSTAT FiO2 100 %; iSTAT Site Art Line
[2020-09-22] MEDS ORDERED: STAT IV Infusion **Titration per Protocol STA (06:20)
[2020-09-22 06:25] LABS: Hematocrit (blood only) 35.2 % (42-52); Hemoglobin 11.4 g/dL (14.0-18.0); Mean Corpuscular Hemoglobin 33.2 pg (25-34); Mean Corpuscular Hgb Conc 32.4 g/dL (32-36); Mean Corpuscular Volume 102.6 fL (80-100); Mean Platelet Volume 12.2 fL (7.4-10.4); Platelet Count 128 K/uL (130-400); RDW Coefficient of Variation 15.4 % (11.5-14.5); Red Blood Count 3.43 M/uL (4.7-6.1)
[2020-09-22] MEDS: fentaNYL DRIP 1,250 MCG/250 ML BAG IV SCH ×7 (06:31→20:21)
[2020-09-22] MEDS: DEXMEDETOMIDINE HCL 200 MCG in SODIUM CHLORIDE 0.9% 48 ML IV SCH ×3 (06:40→17:59)
[2020-09-22 06:44] LABS: Basophils # (auto) 0.01 K/uL (0-0.2); Basophils % (auto) 0.1 %; Dohle Bodies 1+; Eosinophils # (auto) 0.19 K/uL (0-0.5); Eosinophils % (auto) 1.2 %; Immature Granulocytes # (auto) 0.07 K/uL (0.00-0.02); Immature Granulocytes % (auto) 0.4 %; Lymphocytes # (auto) 0.81 K/uL (1.2-3.4); Monocytes # (auto) 0.12 K/uL (0.11-0.59); Monocytes % (auto) 0.7 %; Neutrophils % (auto) 92.6 %; Toxic Granulation 2+
[2020-09-22 06:45] LABS: Albumin Level 1.7 gm/dl (3.4-5.0); BUN Creatinine Ratio 34.1 (10-20); Bilirubin Direct 1.1 mg/dl (0-0.2); Calcium 6.4 mg/dl (8.5-10.1); Creatinine Clr Calc Pharmacy 24.6 ml/min; Est GFR (African American) 25.5; Magnesium 2.7 mg/dl (1.8-2.4); Potassium 4.8 mmol/L (3.5-5.1)
[2020-09-22 06:48] LABS: Bilirubin,Total 1.7 mg/dl (0.2-1); Total Protein 4.7 gm/dl (6.4-8.2)
[2020-09-22] MEDS: FAMOTIDINE 20 MG in SYRINGE 3 ML IV SCH (07:42)
[2020-09-22] MEDS: ceFAZolin 2000MG 2,000 MG/15 ML SYR IV SCH ×2 (07:42→19:47)
[2020-09-22] MEDS: DOCUSATE SODIUM SYRUP 100 MG/10 ML UDC PO SCH ×2 (08:14→20:21)
[2020-09-22] MEDS: SENNOSIDES 8.8 MG/5 ML UDC PO SCH ×2 (08:14→20:21)
[2020-09-22] MEDS: ASPIRIN 81 MG CHEW PO SCH (08:15)
[2020-09-22] MEDS: CLOPIDOGREL BISULFATE 75 MG TAB PO SCH (08:15)
[2020-09-22] MEDS ORDERED: Heparin IV Adult Wt-Based Standard *NO* Bolus Protocol IV ONE ×2 (09:00→09:55)
[2020-09-22] MEDS: HEPARIN SODIUM/DEXTROSE 25,000 UNITS/500 ML BAG IV SCH (09:30)
[2020-09-22] MEDS: LACTULOSE SYRUP 20 GM/30 ML UDC PO SCH (09:42)
--- NOTE | 2020-09-22 10:00 | XRay Report ---
XR chest 1V portable HISTORY: Covid pneumonia. Respiratory failure. Follow-up. COMPARISON: Chest 09/21/2020. FINDINGS: Endotracheal tube terminates approximately 3 cm from the kathy. Right jugular transducer i s unchanged in position and is likely within the right atrium. Nasogastric tube is curled within the proximal stomach. No pneumothorax. Hazy bilateral airspace opacities persist. The heart remains mildl y enlarged. IMPRESSION: 1. No change in the hazy bilateral airspace opacities. This favors a pneumonia. 2. Lines and tubes remain unchanged in position. ACT 112: Negative or not required by law. Electronically signed by: Cresencio Ng M.D. 09/22/2020 9:58 AM
--- NOTE | 2020-09-22 10:52 | Critical Care Progress Note ---
Date of Service September 22, 2020 Assessment & Plan (1) Admitted to intensive care unit: Reason Critically Ill: Patient is a 75-year-old male with acute hypoxic respiratory failure in the setting of COVID-19 pneumonia and non-ST elevation myocardial infarction requiring emergent endotracheal intubation. Unclear how much of the patient's respiratory failure is related to Covid pneumonia and how much may be related to his non-ST elevation OH and fluid issues. Recommendations: NEURO - Continue with Precedex and fentanyl Monitor CAM ICU CARDIAC/VASCULAR - -- Non-ST elevation myocardial infarction. Continue aspirin and Plavix now that he has an OG tube in place --Tachybradycardia syndrome A temporary pacemaker was placed 09/14/2020 due to ongoing junctional rhythms and bradycardia. --Shock Combination of sepsis and from sedation Patient is also having MSSA bacteremia as of 09/17/2020 Continue with vasopressor support to keep MAP greater than 65 RESPIRATORY - --VDRF secondary to acute hypoxemic respiratory failure with pulmonary infiltrates Patient had COVID-19 pneumonia, s/p Decadron for 10 days Reintubated on 09/17/2020 due to worsening respiratory failure and altered mental status Continue with vent support GI/NUTRITION - Tube feeds on hold since 2020-09-21 for distended belly T bili is going up could be multiorgan failure from the sepsis RENAL/LYTES - EDUARD --> getting worse Monitor BUNs/creatinine Monitor electrolytes and replace as needed - Strict in and out ENDO - ICU hyperglycemia protocol HEME - -- Thrombocytopenia New onset likely from sepsis Monitor ID --COVID-19 pneumonia received remdesivir and Tocilizumab earlier in the hospital course. Blood cultures from 09/08/2020 grew Staphylococcus lugdunensis. Repeat blood cultures 09/17/20 MSSA --> 09/29/20 +ve for MSSA He currently has a left subclavian line and a right introducer catheter in his IJ along with pacer wire. Ideally, a line holiday would be pursued, however, he is currently on vasoactive medications and requiring a pacemaker. ID on board. CODE STATUS: DNR --Prophylaxis VTE: Heparin drip GI: Pepcid Lines: Left subclavian removed 09/21/2020, right femoral 09/21/2020, left radial 09/20/2020, right IJ pacer, Colvin Diet: Trickle tube feeds Plan: In/out: +3 L, urine output 620 ABG 7.21/54/96 Sedation was we will try to go down on Precedex and try to turn it off. Go up on fentanyl if need be. Patient is also on as needed Ativan. Titrate down Levophed to goal map of 65 and above. Unfortunately patient is requiring increasing need of oxygen. He is on PEEP of 14 right now and 90% FiO2. I went up on the respiratory to 2016 tidal volume 420 for the respiratory acidosis. Chest x-ray showing mild bilateral pleural effusion along with bilateral opacities. Worsening from the last couple of days. Creatinine still on the incline. Patient is oliguric Patient has metabolic acidosis today as well. We will get lactate level. We will consider giving him bicarb. Total bilirubin is going up likely from sepsis and Ancef can also give elevated bilirubin. We will keep a close eye on it. Give 1 more dose of patiromer No bowel movement. Continue with Colace and senna. For bacteremia continue with Ancef. Left subclavian line has been removed. Right femoral line has been placed in Right-sided pacer is still in place. Family planning for comfort measures possibly today. Palliative care on board. Overall prognosis is guarded I have personally spent 40 minutes of critical care time in the direct management of this patient. This is a life/limb threatening event. This includes time spent evaluating patient, direct bedside care, chart review, placing orders, interpretation of diagnostic studies, discussion with consultants, patient, and family members, as well as other required patient management activities. This time is exclusive of all separately billable procedures, and teaching time and separate from and in addition to any other critical care service time. (2) Acute hypoxemic respiratory failure: (3) Pneumonia due to 2019 novel coronavirus: (4) Acute kidney injury: (5) Acute non-ST elevation myocardial infarction (NSTEMI): (6) Sinus pause: (7) Junctional bradycardia: (8) Sinus node dysfunction: (9) Staphylococcus aureus bacteremia: Admission and Anticipated Discharge Date Admission Date: September 09, 2020 Subjective Patient seen and examined at bedside. He was on 200 of fentanyl and 0.7 of Precedex at the time of examination. Levophed 0.5, vasopressin 0.04, map was in the 80s. Patient is nodding to simple commands. Review of Systems Review of Systems: Unobtainable due to endotracheal tube Physical Exam Physical Exam: Constitutional: No acute distress HEENT: EOMI, PERRLA, positive ETT Respiratory system: Decreased air entry bilaterally, no wheeze, no rhonchi, positive crackles bilaterally CVS: S1-S2 positive, no murmurs or gallops Abdomen: Soft, nontender, distended, nontympanic, decreased bowel sounds Extremities: +2 pulses bilaterally radialis/ dorsalis pedis, no cyanosis, +1 pitting edema, cold and clammy feet with skin mottling. Neuro: RASS -2, breathing over the vent, positive corneal, positive gag Psych: Unable to assess G/U: Positive Colvin Skin: no rashes, warm and dry Lymphatic: no cervical or axillary lymphadenopathy Results & Data Results & Data ([facility]) Vital Signs (Past 12 Hours) Vital Signs Temp Pulse Resp BP Pulse Ox 09/22/20 10:00 37.0 C 77 165/74 H 91 09/22/20 09:01 37.0 C 96 H 139/96 88 L 09/22/20 08:14 37.1 C 85 99/81 L 90 09/22/20 08:00 85 09/22/20 07:47 85 26 H 90 09/22/20 07:08 37.2 C 97 H 87/65 L 88 L 09/22/20 06:00 37.3 C 83 91 09/22/20 05:30 37.4 C 79 92 09/22/20 05:01 37.4 C 84 88 L 09/22/20 05:00 37.4 C 86 107/83 89 L 09/22/20 04:30 37.4 C 77 93 09/22/20 04:01 37.5 C 84 93 09/22/20 04:00 37.5 C 81 150/86 H 91 09/22/20 03:45 37.5 C 83 95 09/22/20 03:38 24 09/22/20 03:30 37.5 C 83 94 09/22/20 03:15 37.5 C 86 95 09/22/20 03:14 86 24 95 09/22/20 03:00 37.5 C 82 131/79 95 09/22/20 02:45 37.6 C H 83 95 09/22/20 02:30 37.6 C H 81 93 09/22/20 02:15 37.6 C H 83 91 09/22/20 02:00 37.6 C H 76 113/78 87 L 09/22/20 01:45 37.6 C H 80 91 09/22/20 01:30 37.6 C H 79 91 09/22/20 01:22 37.6 C H 84 118/66 89 L 09/22/20 01:15 37.6 C H 79 96 09/22/20 01:01 37.6 C H 79 95 09/22/20 01:00 37.6 C H 79 133/71 95 09/22/20 00:45 37.6 C H 81 96 09/22/20 00:30 37.6 C H 80 94 09/22/20 00:15 37.7 C H 80 94 09/22/20 00:01 37.7 C H 80 90 09/22/20 00:00 37.7 C H 80 138/75 91 09/21/20 23:45 37.7 C H 79 91 09/21/20 23:30 37.7 C H 86 89 L 09/21/20 23:24 80 23 94 09/21/20 23:23 37.7 C H 85 104/82 95 09/21/20 23:15 37.7 C H 82 95 09/21/20 23:00 37.7 C H 80 94 09/22/20 05:55 09/22/20 05:55 Coding Level of Care Code Critical Care 1st 30-74 mins Diagnoses Admitted to intensive care unit Z78.9 Acute hypoxemic respiratory failure J96.01 Pneumonia due to 2019 novel coronavirus U07.1; J12.82 Acute kidney injury N17.9 Acute non-ST elevation myocardial infarction (NSTEMI) I21.4 Sinus pause I45.5 Junctional bradycardia R00.1 Sinus node dysfunction I49.5 Staphylococcus aureus bacteremia R78.81; B95.61 Time Spent (min) 40
[2020-09-22] MEDS ORDERED: PATIROMER CALCIUM SORBITEX 8.4 GM PACK PO ONE (12:00)
[2020-09-22] MEDS ORDERED: SODIUM CHLORIDE 0.9% 1000ML 250 ML IV ONE (12:42)
--- NOTE | 2020-09-22 13:27 | Cardiology Progress Note ---
Date of Service September 22, 2020 Assessment & Plan (1) Acute hypoxemic respiratory failure: Low requirements for temporary pacemaker over the past 24 hours while mechanically ventilated and sedated. Review of past records reveals bradycardia arrhythmias generally preceded by tachyarrhythmias/sinus tachycardia secondary to extrinsic stimulation suggesting conduction system fatigue, ischemia not excluded Plan: No further pacemaker use over the past 24 hours. Patient has continued ongoing multifactorial decline. Persistent staph aureus bacteremia. Optimally would change pacemaker to alternate site but current plans underway regarding ongoing prognosis and possible palliative care. Will await results of discussion (2) Pneumonia due to 2019 novel coronavirus: (3) Tachy-ari syndrome: (4) Staphylococcus aureus bacteremia: (5) Acute kidney injury: (6) Acute non-ST elevation myocardial infarction (NSTEMI): Admission and Anticipated Discharge Date Admission Date: September 09, 2020 Subjective Patient was seen and examined, chart, medications, telemetry reviewed. Patient remains sedated and mechanically ventilated with higher ventilatory demands No use of transvenous pacing in the past 24 hours. Device still functioning appropriately with pacing demand level of less than 0.5 mA Patient now more oliguric with declining renal function as well Physical Exam Constitutional: + mechanically ventilated; no acute distress Sedated Eyes: PERRL, conjunctivae normal, anicteric sclerae Cardiovascular: Rate/Rhythm: regular rate and regular rhythm Heart Sounds: normal S1 and normal S2; no murmur Vessels: no JVD Extremities: no edema Gastrointestinal (Abdomen): Inspection/Auscultation: abdomen not distended Percussion/Palpation: abdomen soft Results & Data ([facility]) Vital Signs (Past 12 Hours) Vital Signs Temp Pulse Resp BP Pulse Ox 09/22/20 13:00 36.6 C 72 128/65 92 09/22/20 12:01 36.8 C 71 115/68 92 09/22/20 11:34 36.8 C 76 103/67 93 09/22/20 11:31 88 27 H 93 09/22/20 10:48 36.4 C L 09/22/20 10:00 37.0 C 77 165/74 H 91 09/22/20 09:01 37.0 C 96 H 139/96 88 L 09/22/20 08:14 37.1 C 85 99/81 L 90 09/22/20 08:00 85 09/22/20 07:47 85 26 H 90 09/22/20 07:08 37.2 C 97 H 87/65 L 88 L 09/22/20 06:00 37.3 C 83 91 09/22/20 05:30 37.4 C 79 92 09/22/20 05:01 37.4 C 84 88 L 09/22/20 05:00 37.4 C 86 107/83 89 L 09/22/20 04:30 37.4 C 77 93 09/22/20 04:01 37.5 C 84 93 09/22/20 04:00 37.5 C 81 150/86 H 91 09/22/20 03:45 37.5 C 83 95 09/22/20 03:38 24 09/22/20 03:30 37.5 C 83 94 09/22/20 03:15 37.5 C 86 95 09/22/20 03:14 86 24 95 09/22/20 03:00 37.5 C 82 131/79 95 09/22/20 02:45 37.6 C H 83 95 09/22/20 02:30 37.6 C H 81 93 09/22/20 02:15 37.6 C H 83 91 09/22/20 02:00 37.6 C H 76 113/78 87 L 09/22/20 01:45 37.6 C H 80 91 09/22/20 01:30 37.6 C H 79 91 Laboratory Results Laboratory Results - last 24 hr 09/21/20 09/21/20 09/21/20 18:04 Unknown Unknown WBC RBC Hgb Hct MCV MCH MCHC RDW Std Deviation RDW Coeff of Shilo Plt Count MPV Immature Gran % (Auto) Neut % (Auto) Lymph % (Auto) Lewis % (Auto) Eos % (Auto) Baso % (Auto) Neut # (Auto) Lymph # (Auto) Lewis # (Auto) Eos # (Auto) Baso # (Auto) Immature Gran # (Auto) Toxic Granulation Dohle Bodies Sample Site POC pH POC pCO2 POC pO2 POC HCO3 POC Total CO2 POC Base Excess POC ABG O2 Sat Richard Test O2 Delivery Device POC O2 Rate Minute Ventilation POC FiO2 Tidal Volume PEEP Sodium Potassium Chloride Carbon Dioxide Anion Gap BUN Creatinine Est Cr Clr Drug Dosing Est GFR ( Amer) Est GFR (Non-Af Amer) BUN/Creatinine Ratio Glucose POC Glucose 135 H POC Glucose (other) Lactate Calcium Phosphorus Magnesium Total Bilirubin Direct Bilirubin AST ALT Alkaline Phosphatase Total Protein Albumin Procalcitonin Urine Osmolality 478 L Ur Random Creatinine 124.0 Ur Random Sodium 21 Ur Random Potassium 46.0 Ur Random Chloride < 10 Ur Random Uric Acid 18.4 09/22/20 09/22/20 09/22/20 03:23 05:55 05:55 WBC 16.20 H RBC 3.43 L Hgb 11.4 L Hct 35.2 L MCV 102.6 H MCH 33.2 MCHC 32.4 RDW Std Deviation 58.0 H RDW Coeff of Shilo 15.4 H Plt Count 128 L MPV 12.2 H Immature Gran % (Auto) 0.4 Neut % (Auto) 92.6 Lymph % (Auto) 5.0 Lewis % (Auto) 0.7 Eos % (Auto) 1.2 Baso % (Auto) 0.1 Neut # (Auto) 15.00 H Lymph # (Auto) 0.81 L Lewis # (Auto) 0.12 Eos # (Auto) 0.19 Baso # (Auto) 0.01 Immature Gran # (Auto) 0.07 H Toxic Granulation 2+ Dohle Bodies 1+ Sample Site Art Line POC pH 7.21 L POC pCO2 54 H POC pO2 96 H POC HCO3 22 POC Total CO2 23 L POC Base Excess -6.0 POC ABG O2 Sat 96.0 H Richard Test Pass O2 Delivery Device Ventilator POC O2 Rate 20 Minute Ventilation 8.0 POC FiO2 100 Tidal Volume 400 PEEP 14 Sodium 136 Potassium 4.8 Chloride 108 H Carbon Dioxide 19 L Anion Gap 9.0 BUN 93 H Creatinine 2.72 H D Est Cr Clr Drug Dosing 24.6 Est GFR ( Amer) 25.5 Est GFR (Non-Af Amer) 22.0 BUN/Creatinine Ratio 34.1 H Glucose 137 H POC Glucose POC Glucose (other) Lactate Calcium 6.4 L Phosphorus 6.0 H Magnesium 2.7 H Total Bilirubin 1.7 H D Direct Bilirubin 1.1 H D AST 36 ALT 7 L Alkaline Phosphatase 112 Total Protein 4.7 L Albumin 1.7 L Procalcitonin Urine Osmolality Ur Random Creatinine Ur Random Sodium Ur Random Potassium Ur Random Chloride Ur Random Uric Acid 09/22/20 09/22/20 09/22/20 05:55 11:13 12:48 WBC RBC Hgb Hct MCV MCH MCHC RDW Std Deviation RDW Coeff of Shilo Plt Count MPV Immature Gran % (Auto) Neut % (Auto) Lymph % (Auto) Lewis % (Auto) Eos % (Auto) Baso % (Auto) Neut # (Auto) Lymph # (Auto) Lewis # (Auto) Eos # (Auto) Baso # (Auto) Immature Gran # (Auto) Toxic Granulation Dohle Bodies Sample Site POC pH POC pCO2 POC pO2 POC HCO3 POC Total CO2 POC Base Excess POC ABG O2 Sat Richard Test O2 Delivery Device POC O2 Rate Minute Ventilation POC FiO2 Tidal Volume PEEP Sodium Potassium Chloride Carbon Dioxide Anion Gap BUN Creatinine Est Cr Clr Drug Dosing Est GFR ( Amer) Est GFR (Non-Af Amer) BUN/Creatinine Ratio Glucose POC Glucose POC Glucose (other) 143 H Lactate 2.9 H* Calcium Phosphorus Magnesium Total Bilirubin Direct Bilirubin AST ALT Alkaline Phosphatase Total Protein Albumin Procalcitonin 1.52 H Urine Osmolality Ur Random Creatinine Ur Random Sodium Ur Random Potassium Ur Random Chloride Ur Random Uric Acid
[2020-09-22] MEDS ORDERED: SODIUM CHLORIDE 0.9% 1000ML 500 ML IV ONE (13:35)
[2020-09-22] MEDS: NOREPINEPHRINE/D5W 32 MG/250 ML BAG IV SCH (16:06)
[2020-09-22] MEDS: MIDAZOLAM HCL 1 MG/ML 2ML VIAL IV PRN ×2 (16:14→22:24)
--- NOTE | 2020-09-22 16:18 | Hospitalist Progress Note ---
Date of Service September 22, 2020 Assessment & Plan (1) Acute hypoxemic respiratory failure: Acute respiratory failure with hypoxia secondary to severe COVID-19 pneumonia Presented with septic Shock and required intubation CXR:Endotracheal tube terminates 4.7 cm superior to the kathy. Left subclavian central venous catheter distal tip terminates in the region of the mid SVC. Extensive bilateral mixed interstitial and alveolar opacities redemonstrated. Initial CPR CRP:13.7 Remdesivir was not given due to critical condition Received Tocilizumab and continue IV dexamethasone - completed 10 days Continue IV lasix 40mg BID Critical care team is on board. Overall poor prognosis. Palliative team is on board as well. Currently plan is to continue with the management Persistenet Leukocytosis MSSA bacteremia Possibly in the setting of steroid use. (Has L subslavian line, R introducer catheter in IJ, pacer wires). Continue remains on Ancef Blood cultures grew staph in clusters and white count increased Repeat blood cultures from 09/19 remain positive with staph aureus. Sinus Bradycardia Currently remains on dopamine. Cardiology recommends transvenous pacemaker insertion Status post transvenous pacemaker insertion on 09/14/2020 Pacer line needs to be changed due to ongoing bacteremia-cardiology following. NSTEMI H/O CAD S/P Stent ECHO: Mild concentric LVH. EF 45%. Moderate size apical wall motion abnormality with hypokinesis of the segments. No pericardial effusion. No significant valvular disease. 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 Acute Kidney Injury on CKD III Likely ATN Cr:2.72 today; worsening Avoid nephrotoxic agents as able Continue monitor ins and outs. Schizophrenia/depression Celexa, Ziprasidone Nutrition Likely tube start NG tube feeding Prediabetes HbA1C:6.1 DVT Px: IV heparin Admission and Anticipated Discharge Date Admission Date: September 09, 2020 Subjective Patient remains intubated, sedated and on pressors. Review of Systems Review of Systems: Unobtainable due to endotracheal tube Physical Exam Physical Exam: General: Remains intubated HENT: NCAT, MMM, EOMI Eyes: PERRLA Neck: Supple, normal range of motion CVS: normal rate and rhythm Resp: b/l crackles of breath Abdomen: Soft, ND/NT, +BS Extremities: Trace lower extremity edema Neuro: Patient is sedated Skin: warm and dry, no rashes/lesions/errythema MSK: no joint swelling/erythema Results & Data Results & Data ([facility]) Vital Signs (Past 12 Hours) Vital Signs Temp Pulse Resp BP Pulse Ox 09/22/20 15:54 81 29 H 92 09/22/20 15:00 36.2 C L 71 135/63 94 09/22/20 14:00 36.4 C L 75 144/65 H 94 09/22/20 13:00 36.6 C 72 128/65 92 09/22/20 12:01 36.8 C 71 115/68 92 09/22/20 11:34 36.8 C 76 103/67 93 09/22/20 11:31 88 27 H 93 09/22/20 10:48 36.4 C L 09/22/20 10:00 37.0 C 77 165/74 H 91 09/22/20 09:01 37.0 C 96 H 139/96 88 L 09/22/20 08:14 37.1 C 85 99/81 L 90 09/22/20 08:00 85 09/22/20 07:47 85 26 H 90 09/22/20 07:08 37.2 C 97 H 87/65 L 88 L 09/22/20 06:00 37.3 C 83 91 09/22/20 05:30 37.4 C 79 92 09/22/20 05:01 37.4 C 84 88 L 09/22/20 05:00 37.4 C 86 107/83 89 L 09/22/20 04:30 37.4 C 77 93
--- NOTE | 2020-09-22 16:34 | Palliative Care Progress Note ---
Date of Service September 22, 2020 Assessment & Plan (1) Palliative care encounter: I spoke with his and family on the phone. They would like to have zoom meeting with him today. Discussed with RN in covid unit who will coordinate zoom meeting. Though he is off sedation and has decreased FiO2, his renal failure has progressed, he has persistent Staph bacteremia and prognosis is poor. Family is frustrated with mixed messages and would like to see him via zoom today and discuss together. Continue current level of care at this time. Admission and Anticipated Discharge Date Admission Date: September 09, 2020 Subjective Nolan is awake and answers questions appropriately. He nods when asked if comfortable. Review of Systems Review of Systems: Unobtainable due to endotracheal tube Physical Exam Constitutional: + ill appearing and + mechanically ventilated Cardiovascular: pacemaker Gastrointestinal (Abdomen): Percussion/Palpation: abdomen nontender Neurologic: awake Genitourinary: Colvin catheter, decreased urine output Results & Data ([facility]) Vital Signs (Past 12 Hours) Vital Signs Temp Pulse Resp BP Pulse Ox 09/22/20 15:54 81 29 H 92 09/22/20 15:00 97.2 F L 71 135/63 94 09/22/20 14:00 97.5 F L 75 144/65 H 94 09/22/20 13:00 97.9 F 72 128/65 92 09/22/20 12:01 98.2 F 71 115/68 92 09/22/20 11:34 98.2 F 76 103/67 93 09/22/20 11:31 88 27 H 93 09/22/20 10:48 97.5 F L 09/22/20 10:00 98.6 F 77 165/74 H 91 09/22/20 09:01 98.6 F 96 H 139/96 88 L 09/22/20 08:14 98.8 F 85 99/81 L 90 09/22/20 08:00 85 09/22/20 07:47 85 26 H 90 09/22/20 07:08 99.0 F 97 H 87/65 L 88 L 09/22/20 06:00 99.1 F 83 91 09/22/20 05:30 99.3 F 79 92 09/22/20 05:01 99.3 F 84 88 L 09/22/20 05:00 99.3 F 86 107/83 89 L PG Care Time/CCT Total # of Minutes Spent Total Time Spent with Patient: Total time spent is greater than 50% in coordination of care (as documented) at patient's floor/unit and/or counseling patient: Coding Level of Care Code 27805 Subseq Hosp Care Lvl 2 Diagnoses Palliative care encounter Z51.5
[2020-09-22] MEDS: ATORVASTATIN 20 MG TAB PO SCH (20:21)
[2020-09-22 21:35] LABS: Partial Thromboplastin Ratio 3.2
[2020-09-22 21:43] LABS: Partial Thromboplastin Time 84.6 Seconds (21.0-31.0)
[2020-09-23] MEDS: fentaNYL DRIP 1,250 MCG/250 ML BAG IV SCH ×7 (01:48→23:08)
[2020-09-23 03:59] LABS: iSTAT Arterial Blood Gas HCO3 19 meg/L (19-24); iSTAT Arterial Blood Gas pCO2 48 mmHg (35-46); iSTAT Arterial Blood Gas pH 7.21 (7.35-7.45); iSTAT Arterial Blood Gas pO2 70 mmHg (80-95); iSTAT Carbon Dioxide 21 mmol/L (24-31); iSTAT FiO2 70 %; iSTAT Site Art Line
[2020-09-23 04:31] LABS: Hematocrit (blood only) 34.6 % (42-52); Hemoglobin 11.7 g/dL (14.0-18.0); Mean Corpuscular Hemoglobin 34.3 pg (25-34); Mean Corpuscular Hgb Conc 33.8 g/dL (32-36); Mean Corpuscular Volume 101.5 fL (80-100); Platelet Count 132 K/uL (130-400); RDW Coefficient of Variation 15.4 % (11.5-14.5); Red Blood Count 3.41 M/uL (4.7-6.1)
[2020-09-23] MEDS: VASOPRESSIN 20 UNITS in 0.9 % SODIUM CHLORIDE 100 ML IV SCH ×2 (04:37→13:49)
[2020-09-23 04:50] LABS: Partial Thromboplastin Ratio 3.7
[2020-09-23 04:55] LABS: Albumin Level 1.6 gm/dl (3.4-5.0); BUN Creatinine Ratio 28.3 (10-20); Bilirubin Direct 0.8 mg/dl (0-0.2); Bilirubin,Total 1.1 mg/dl (0.2-1); Calcium 6.9 mg/dl (8.5-10.1); Creatinine Clr Calc Pharmacy 18.2 ml/min; Est GFR (African American) 17.7; Est GFR (Non-African American) 15.3; Magnesium 2.9 mg/dl (1.8-2.4); Phosphorus 8.7 mg/dl (2.5-4.9); Potassium 5.9 mmol/L (3.5-5.1)
[2020-09-23 05:01] LABS: Basophils # (auto) 0.01 K/uL (0-0.2); Basophils % (auto) 0.1 %; Dohle Bodies 1+; Eosinophils # (auto) 0.02 K/uL (0-0.5); Eosinophils % (auto) 0.1 %; Immature Granulocytes % (auto) 0.5 %; Lymphocytes % (auto) 1.5 %; Monocytes # (auto) 0.61 K/uL (0.11-0.59); Monocytes % (auto) 3.1 %; Neutrophils # (auto) 18.76 K/uL (1.4-6.5); Neutrophils % (auto) 94.7 %; Toxic Granulation 1+
[2020-09-23 05:02] LABS: Partial Thromboplastin Time 97.6 Seconds (21.0-31.0)
[2020-09-23] MEDS ORDERED: DEXTROSE 50% 50 ML SYRINGE IV STA (06:19)
[2020-09-23] MEDS ORDERED: CALCIUM CHLORIDE 10% 1,000 MG in SODIUM CHLORIDE 0.9% 50 ML IV STA (06:19)
[2020-09-23] MEDS ORDERED: INSULIN HUMAN REGULAR PER UNIT 6 UNITS in SYRINGE 5.94 ML IV STA (06:19)
[2020-09-23] MEDS: INSULIN ASPART 100 UNITS/ML 3 ML PEN SC SCH ×3 (06:59→17:30)
[2020-09-23] MEDS: HEPARIN SODIUM/DEXTROSE 25,000 UNITS/500 ML BAG IV SCH ×2 (07:28→17:10)
[2020-09-23] MEDS ORDERED: SODIUM BICARB 8.4% INJ 50 MEQ/50 ML SYR IV STA (08:16)
[2020-09-23] MEDS: ceFAZolin 2000MG 2,000 MG/15 ML SYR IV SCH (08:20)
[2020-09-23] MEDS: FAMOTIDINE 20 MG in SYRINGE 3 ML IV SCH (08:21)
[2020-09-23] MEDS: NOREPINEPHRINE/D5W 32 MG/250 ML BAG IV SCH (08:40)
[2020-09-23] MEDS ORDERED: PATIROMER CALCIUM SORBITEX 8.4 GM PACK PO SCH ×2 (09:00→18:15)
--- NOTE | 2020-09-23 09:23 | XRay Report ---
XR chest 1V portable HISTORY: Respiratory failure. Follow-up. Covid pneumonia. COMPARISON: Chest 09/22/2020. FINDINGS: Endotracheal tube terminates approximately 4.5 cm from the kathy. Nasogastric tube termina jamari below the diaphragm. The tip is not included on this study. Right jugular transducer is unchanged in position. The heart is normal in size. Suspect trace bilateral pleural fusions. Hazy bilateral ai rspace opacities persist. IMPRESSION: 1. Satisfactory support line placement. 2. Persistent hazy bilateral airspace opacities consistent with a pneumonia. ACT 112: Negative or not required by law. Electronically signed by: Cresencio Ng M.D. 09/23/2020 9:22 AM
[2020-09-23] MEDS ORDERED: SODIUM CHLORIDE 0.9% 1000ML 500 ML IV ONE (09:44)
[2020-09-23] MEDS ORDERED: CALCIUM CARBONATE 1,250 MG/5 ML UDC PO SCH (10:00)
[2020-09-23] MEDS ORDERED: NOVASOURCE RENAL 2.0 CAL 1000ML BAG OG SCH (10:15)
[2020-09-23 10:40] LABS: Partial Thromboplastin Ratio 3.1
[2020-09-23 10:44] LABS: Partial Thromboplastin Time 80.9 Seconds (21.0-31.0)
[2020-09-23 10:49] LABS: BUN Creatinine Ratio 31.5 (10-20); Calcium 7.5 mg/dl (8.5-10.1); Creatinine Clr Calc Pharmacy 18.9 ml/min; Est GFR (African American) 18.6; Potassium 5.3 mmol/L (3.5-5.1)
--- NOTE | 2020-09-23 10:54 | Critical Care Progress Note ---
Date of Service September 23, 2020 Assessment & Plan (1) Admitted to intensive care unit: Reason Critically Ill: Patient is a 75-year-old male with acute hypoxic respiratory failure in the setting of COVID-19 pneumonia and non-ST elevation myocardial infarction requiring emergent endotracheal intubation. Unclear how much of the patient's respiratory failure is related to Covid pneumonia and how much may be related to his non-ST elevation AK and fluid issues. Recommendations: NEURO - Continue with Precedex and fentanyl Monitor CAM ICU CARDIAC/VASCULAR - -- Non-ST elevation myocardial infarction. Continue aspirin and Plavix now that he has an OG tube in place --Tachybradycardia syndrome A temporary pacemaker was placed 09/14/2020 due to ongoing junctional rhythms and bradycardia. --Shock Combination of sepsis and from sedation Patient is also having MSSA bacteremia as of 09/17/2020 Continue with vasopressor support to keep MAP greater than 65 RESPIRATORY - -- VDRF secondary to acute hypoxemic respiratory failure with pulmonary infiltrates Patient had COVID-19 pneumonia, s/p Decadron for 10 days Reintubated on 09/17/2020 due to worsening respiratory failure and altered mental status Continue with vent support GI/NUTRITION - Tube feeds on hold since 2020-09-21 for distended belly--> resumed trophic feeds today T bili is going up could be multiorgan failure from the sepsis Ancef can also increase bilirubin RENAL/LYTES - EDUARD --> getting worse --> Bladder scan on 09/22/20 showed distended bladder, montoya was changed leading to output of 1L Monitor BUNs/creatinine Monitor electrolytes and replace as needed - Strict in and out ENDO - ICU hyperglycemia protocol HEME - -- Thrombocytopenia Improving New onset likely from sepsis Monitor ID -- COVID-19 pneumonia received remdesivir and Tocilizumab earlier in the hospital course. Blood cultures from 09/08/2020 grew Staphylococcus lugdunensis. Repeat blood cultures 09/17/20 MSSA --> 09/29/20 +ve for MSSA He currently has a left subclavian line and a right introducer catheter in his IJ along with pacer wire. Ideally, a line holiday would be pursued, however, he is currently on vasoactive medications and requiring a pacemaker. ID on board. CODE STATUS: DNR --Prophylaxis VTE: Heparin drip for possible PE/DVT GI: Pepcid Lines: Left subclavian removed 09/21/2020, right femoral 09/21/2020, left radial 09/20/2020, right IJ pacer, Montoya Diet: Trickle tube feeds resume 09/23/20 Plan: In/out: +1525, Urine output 1830 ABG 7.21/48/70 420, 14 PEEP Precedex has been turned off. Try to keep fentanyl to RASS -1 Titrate down Levophed to goal map of 65 and above. Try to titrate down PEEP and Oxygen to keep SPO2 > 90% Hyperkalaemia :- Dextrose, Insulin, Calcium carbonate and Patiromer given Hyperphosphataemia:- calcium carbonate as sevelemer cannot be given as Total bilirubin is going up likely from sepsis and Ancef can also give elevated bilirubin. We will keep a close eye on it. Resume trophic feeds. Continue with Ancef. Tbili is elevated. Trending down little. Right-sided pacer is still in place. Palliative care on board. Overall prognosis is guarded Fly Connor and daughter Sheila Koehler were called and updated about the current condition and prognosis. I have personally spent 45 minutes of critical care time in the direct tigist gement of this patient. This is a life/limb threatening event. This includes time spent evaluating patient, direct bedside care, chart review, placing orders, interpretation of diagnostic studies, discussion with consultants, patient, and family members, as well as other required patient management activities. This time is exclusive of all separately billable procedures, and teaching time and separate from and in addition to any other critical care service time. (2) Acute hypoxemic respiratory failure: (3) Pneumonia due to 2019 novel coronavirus: (4) Acute kidney injury: (5) Acute non-ST elevation myocardial infarction (NSTEMI): (6) Sinus pause: (7) Junctional bradycardia: (8) Sinus node dysfunction: (9) Staphylococcus aureus bacteremia: Admission and Anticipated Discharge Date Admission Date: September 09, 2020 Subjective Patient seen and examined at bedside. On Levophed 0.35, Vasopressin 0.04 Fentanyl 175mcg Patient is nodding yes or no to certain questions. No following commands. Montoya changed yesterday 09/22/20 Review of Systems Review of Systems: All systems reviewed & are unremarkable except as noted in Subjective Physical Exam Physical Exam: Constitutional: No acute distress HEENT: EOMI, PERRLA, positive ETT Respiratory system: Decreased air entry bilaterally, no wheeze, no rhonchi, positive crackles bilaterally CVS: S1-S2 positive, no murmurs or gallops Abdomen: Soft, nontender, distended (Better than before), non tympanic, decreased bowel sounds Extremities: +1 pulses bilaterally radialis/ dorsalis pedis, no cyanosis, +1 pitting edema, Feet cold less mottled than before, + 1 edema RUE Neuro: RASS -2, breathing over the vent, positive corneal, positive gag Psych: Unable to assess G/U: Positive Montoya Skin: no rashes, warm and dry Lymphatic: no cervical or axillary lymphadenopathy Results & Data Results & Data ([facility]) Vital Signs (Past 12 Hours) Vital Signs Temp Pulse Resp BP Pulse Ox 09/23/20 10:00 84 98/62 L 89 L 09/23/20 09:30 84 105/55 L 90 09/23/20 09:00 92 H 137/67 90 09/23/20 08:15 97 H 28 H 93 09/23/20 08:00 92 H 124/56 L 93 09/23/20 07:30 91 H 114/69 93 09/23/20 07:00 93 H 120/76 93 09/23/20 06:00 92 H 116/62 94 09/23/20 05:31 95 H 94 09/23/20 05:30 95 H 128/74 94 09/23/20 05:16 93 H 111/65 93 09/23/20 05:01 97 H 93 09/23/20 05:00 36.6 C 96 H 120/65 93 09/23/20 04:32 99 H 91 09/23/20 04:31 98 H 120/35 L 91 09/23/20 04:30 99 H 91 09/23/20 04:20 100 H 111/65 90 09/23/20 04:01 104 H 90 09/23/20 04:00 36.0 C L 104 H 137/73 90 09/23/20 03:31 92 H 110/51 L 90 09/23/20 03:30 105 H 94 09/23/20 03:27 97 H 28 H 97 09/23/20 03:00 89 116/64 93 09/23/20 02:30 91 H 113/64 94 09/23/20 02:01 93 H 97/68 L 93 09/23/20 01:30 94 H 120/71 93 09/23/20 01:26 94 H 110/61 93 09/23/20 01:00 96 H 127/56 L 93 09/23/20 00:30 98 H 126/77 94 09/23/20 00:05 98 H 117/69 92 09/23/20 00:01 97 H 92 09/23/20 00:00 36.6 C 09/22/20 23:54 96 H 126/70 92 09/22/20 23:30 92 H 109/60 91 09/22/20 23:00 99 H 107/59 L 93 09/22/20 22:53 91 H 26 H 93 09/23/20 04:07 09/23/20 09:59 Coding Level of Care Code Critical Care 1st 30-74 mins Diagnoses Admitted to intensive care unit Z78.9 Acute hypoxemic respiratory failure J96.01 Pneumonia due to 2019 novel coronavirus U07.1; J12.82 Acute kidney injury N17.9 Acute non-ST elevation myocardial infarction (NSTEMI) I21.4 Sinus pause I45.5 Junctional bradycardia R00.1 Sinus node dysfunction I49.5 Staphylococcus aureus bacteremia R78.81; B95.61 Time Spent (min) 45
--- NOTE | 2020-09-23 11:13 | Hospitalist Progress Note ---
Date of Service September 23, 2020 Assessment & Plan (1) Acute hypoxemic respiratory failure: Acute respiratory failure with hypoxia secondary to severe COVID-19 pneumonia Presented with septic Shock and required intubation. Extubated but reintubated on 09/17. Initial CPR CRP:13.7 Remdesivir was not given due to critical condition Received Tocilizumab and continue IV dexamethasone - completed 10 days Continue IV lasix 40mg BID Overall poor prognosis. Palliative team is on board as well. Currently plan is to continue with the management Critical care team is on board. Precedex is off for now and fentanyl is also decreased today. Septic Giovany Currently remains on Vasopressor and Levo. Persistenet Leukocytosis MSSA bacteremia Possibly in the setting of steroid use. (Has L subslavian line, R introducer catheter in IJ, pacer wires). Corrently remains on Ancef. Blood cultures 09/08 grew staph in clusters, 09/17: MSSSA, 09/19 MSSA; 09/22 pending ID is on board. Tachy/Jose syndorme Currently remains on dopamine. Cardiology recommends transvenous pacemaker insertion Status post transvenous pacemaker insertion on 09/14/2020 Pacer line needs to be changed due to ongoing bacteremia-cardiology following. NSTEMI H/O CAD S/P Stent ECHO: Mild concentric LVH. EF 45%. Moderate size apical wall motion abnormality with hypokinesis of the segments. No pericardial effusion. No significant valvular disease. 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 Acute Kidney Injury on CKD III Likely ATN Cr:3.54 today; worsening Avoid nephrotoxic agents as able Continue monitor ins and outs. Schizophrenia/depression Celexa, Ziprasidone Nutrition Likely tube start NG tube feeding Prediabetes HbA1C:6.1 DVT Px: IV heparin Admission and Anticipated Discharge Date Admission Date: September 09, 2020 Subjective Patient remains intubated. He was awake today. Was able to nod his head to answer questions. Denies any chest pain, difficulty breathing or abdominal pain. Review of system was limited. Review of Systems Review of Systems: Unobtainable due to endotracheal tube Physical Exam Physical Exam: General: Remains intubated, opened eyes and able to node his head HENT: NCAT, MMM, EOMI Eyes: PERRLA Neck: Supple, normal range of motion CVS: normal rate and rhythm Resp: b/l crackles of breath Abdomen: Soft, ND/NT, +BS Extremities: Trace lower extremity edema Neuro: intubated Skin: warm and dry, no rashes/lesions/errythema MSK: no joint swelling/erythema Results & Data Results & Data ([facility]) Vital Signs (Past 12 Hours) Vital Signs Temp Pulse Resp BP Pulse Ox 09/23/20 10:00 84 98/62 L 89 L 09/23/20 09:30 84 105/55 L 90 09/23/20 09:00 92 H 137/67 90 09/23/20 08:15 97 H 28 H 93 09/23/20 08:00 92 H 124/56 L 93 09/23/20 07:30 91 H 114/69 93 09/23/20 07:00 93 H 120/76 93 09/23/20 06:00 92 H 116/62 94 09/23/20 05:31 95 H 94 09/23/20 05:30 95 H 128/74 94 09/23/20 05:16 93 H 111/65 93 09/23/20 05:01 97 H 93 09/23/20 05:00 36.6 C 96 H 120/65 93 09/23/20 04:32 99 H 91 09/23/20 04:31 98 H 120/35 L 91 09/23/20 04:30 99 H 91 09/23/20 04:20 100 H 111/65 90 09/23/20 04:01 104 H 90 09/23/20 04:00 36.0 C L 104 H 137/73 90 09/23/20 03:31 92 H 110/51 L 90 09/23/20 03:30 105 H 94 09/23/20 03:27 97 H 28 H 97 09/23/20 03:00 89 116/64 93 09/23/20 02:30 91 H 113/64 94 09/23/20 02:01 93 H 97/68 L 93 09/23/20 01:30 94 H 120/71 93 09/23/20 01:26 94 H 110/61 93 09/23/20 01:00 96 H 127/56 L 93 09/23/20 00:30 98 H 126/77 94 09/23/20 00:05 98 H 117/69 92 09/23/20 00:01 97 H 92 09/23/20 00:00 36.6 C 09/22/20 23:54 96 H 126/70 92 09/22/20 23:30 92 H 109/60 91
[2020-09-23] MEDS: CLOPIDOGREL BISULFATE 75 MG TAB PO SCH (11:50)
[2020-09-23] MEDS: DOCUSATE SODIUM SYRUP 100 MG/10 ML UDC PO SCH (11:50)
[2020-09-23] MEDS: SENNOSIDES 8.8 MG/5 ML UDC PO SCH (11:50)
[2020-09-23] MEDS: LACTULOSE SYRUP 20 GM/30 ML UDC PO SCH (11:51)
[2020-09-23] MEDS: ASPIRIN 81 MG CHEW PO SCH (11:51)
[2020-09-23] MEDS: TUBE FEEDING WATER FLUSH OG SCH ×2 (12:00→16:45)
[2020-09-23] MEDS ORDERED: SEVELAMER HCL 800 MG TABLET PO SCH (12:00)
--- NOTE | 2020-09-23 12:07 | Palliative Care Progress Note ---
Date of Service September 23, 2020 Assessment & Plan (1) Palliative care encounter: Dr. Goldsmith and I spoke to pt , Geeta and daughter, Sheila on the phone. Discussed pt current status and lab result update. His external pacer wires were removed today. Unfortunately, prognosis remains poor due to worsening kidney function and him requiring pressure support. Patient does interact minimally with nodding, shaking head for pain questions; unsure how reliably his response otherwise is due to sedative on board. He does require vasoactive medications as well. Discussed in detail what a meaningful life would be for Nolan. His said his grandchildren are the bright spot in his life and he would want to be able to do things with them. Discussed trach placement, dialysis, and extermination supervisor care. Geeta said they have not talked about these sensitive topics prior to his illness, but did say during the call to Sheila " i think we need to let him go". It has been challenging for them because he has been in the COVID unit. We plan to move him down to SICU in room 106 so that the family can come for a window visit. Sheila called me back to say that the 4 siblings and would come to the hospital tomorrow SundaySeptember 24 at 1400 for a window visit and discussion regarding possibly withdraw of care. Confirmed DNR for now. computer help desk representative updated regarding the following visitation at 2PM: Geeta, Sheila, Israel Muñiz and Monique. IDT updated with timeframe. Admission and Anticipated Discharge Date Admission Date: September 09, 2020 Subjective Pt remains intubated and requiring ventilator support. His external pacer wires were removed today. Unfortunately, prognosis remains poor due to worsening kidney function and him requiring pressure support. Patient does interact minimally with nodding, shaking head for pain questions; unsure how reliably his response otherwise is due to sedative. Review of Systems Review of Systems: Unobtainable due to endotracheal tube Physical Exam Constitutional: + ill appearing and + frail appearing Neck: trachea midline, no thyromegaly Respiratory: + cough Auscultation: + rhonchi Cardiovascular: Rate/Rhythm: + bradycardic (temporary pacemaker) Extremities: normal capillary refill Gastrointestinal (Abdomen): normal bowel sounds, soft, nontender, no hepatosplenomegaly Percussion/Palpation: abdomen soft Skin: + pallor Psychiatric: Orientation: + not alert and + not oriented x 3 Results & Data ([facility]) Vital Signs (Past 12 Hours) Vital Signs Temp Pulse Resp BP Pulse Ox 09/23/20 11:19 76 27 H 92 09/23/20 10:00 84 98/62 L 89 L 09/23/20 09:30 84 105/55 L 90 09/23/20 09:00 92 H 137/67 90 09/23/20 08:15 97 H 28 H 93 09/23/20 08:00 92 H 124/56 L 93 09/23/20 07:30 91 H 114/69 93 09/23/20 07:00 93 H 120/76 93 09/23/20 06:00 92 H 116/62 94 09/23/20 05:31 95 H 94 09/23/20 05:30 95 H 128/74 94 09/23/20 05:16 93 H 111/65 93 09/23/20 05:01 97 H 93 09/23/20 05:00 36.6 C 96 H 120/65 93 09/23/20 04:32 99 H 91 09/23/20 04:31 98 H 120/35 L 91 09/23/20 04:30 99 H 91 09/23/20 04:20 100 H 111/65 90 09/23/20 04:01 104 H 90 09/23/20 04:00 36.0 C L 104 H 137/73 90 09/23/20 03:31 92 H 110/51 L 90 09/23/20 03:30 105 H 94 09/23/20 03:27 97 H 28 H 97 09/23/20 03:00 89 116/64 93 09/23/20 02:30 91 H 113/64 94 09/23/20 02:01 93 H 97/68 L 93 09/23/20 01:30 94 H 120/71 93 09/23/20 01:26 94 H 110/61 93 09/23/20 01:00 96 H 127/56 L 93 09/23/20 00:30 98 H 126/77 94 PG Care Time/CCT Total # of Minutes Spent Total Time Spent with Patient: Total time spent is greater than 50% in coordination of care (as documented) at patient's floor/unit and/or counseling patient: 45 minutes with > 50% of that time spent assessing the patient, discussing goals of care and collaborating with IDT. Coding Level of Care Code 86012 Subseq Hosp Care Lvl 3 Diagnoses Palliative care encounter Z51.5 Time Spent (min) 45
--- NOTE | 2020-09-23 13:48 | Cardiology Progress Note ---
Date of Service September 23, 2020 Assessment & Plan (1) Acute hypoxemic respiratory failure: Low requirements for temporary pacemaker over the past 24 hours while mechanically ventilated and sedated. Review of past records reveals bradycardia arrhythmias generally preceded by tachyarrhythmias/sinus tachycardia secondary to extrinsic stimulation suggesting conduction system fatigue, ischemia not excluded Plan: Now approaching 72 hours. Heart rates are trending higher no further atrial arrhythmias. Given concerns regarding staph bacteremia we will removed pacemaker today if need be reinserted. Overall prognosis however is poor and declining. Care plans being addressed with family (2) Pneumonia due to 2019 novel coronavirus: (3) Tachy-ari syndrome: (4) Staphylococcus aureus bacteremia: (5) Acute kidney injury: (6) Acute non-ST elevation myocardial infarction (NSTEMI): Admission and Anticipated Discharge Date Admission Date: September 09, 2020 Subjective Patient was seen and examined, chart, medications, telemetry reviewed. Patient remains sedated and mechanically ventilated No use of transvenous pacing in past 3 days Device still functioning appr opriately No atrial fibrillation Multiple other factors reflecting progressive decline including increased lactate, decreased albumin (1.6) worsening renal insufficiency Review of Systems Review of Systems: Unobtainable due to endotracheal tube Physical Exam Constitutional: + mechanically ventilated; no acute distress Eyes: PERRL, conjunctivae normal, anicteric sclerae Respiratory: Coarse airway sounds with each inspiration/ventilation Cardiovascular: Rate/Rhythm: regular rate and regular rhythm Heart Sounds: normal S1 and normal S2; no murmur Vessels: no JVD Extremities: no edema Gastrointestinal (Abdomen): Inspection/Auscultation: abdomen not distended Percussion/Palpation: abdomen soft Results & Data ([facility]) Vital Signs (Past 12 Hours) Vital Signs Temp Pulse Resp BP Pulse Ox 09/23/20 13:37 92 H 09/23/20 13:30 78 111/57 L 88 L 09/23/20 13:00 80 130/95 89 L 09/23/20 12:30 73 118/58 L 89 L 09/23/20 12:00 78 124/54 L 90 09/23/20 11:30 84 119/81 92 09/23/20 11:19 76 27 H 92 09/23/20 11:00 80 107/52 L 92 09/23/20 10:30 83 117/64 91 09/23/20 10:00 84 98/62 L 89 L 09/23/20 09:30 84 105/55 L 90 09/23/20 09:00 92 H 137/67 90 09/23/20 08:15 97 H 28 H 93 09/23/20 08:00 92 H 124/56 L 93 09/23/20 07:30 91 H 114/69 93 09/23/20 07:00 93 H 120/76 93 09/23/20 06:00 92 H 116/62 94 09/23/20 05:31 95 H 94 09/23/20 05:30 95 H 128/74 94 09/23/20 05:16 93 H 111/65 93 09/23/20 05:01 97 H 93 09/23/20 05:00 36.6 C 96 H 120/65 93 09/23/20 04:32 99 H 91 09/23/20 04:31 98 H 120/35 L 91 09/23/20 04:30 99 H 91 09/23/20 04:20 100 H 111/65 90 09/23/20 04:01 104 H 90 09/23/20 04:00 36.0 C L 104 H 137/73 90 09/23/20 03:31 92 H 110/51 L 90 09/23/20 03:30 105 H 94 09/23/20 03:27 97 H 28 H 97 09/23/20 03:00 89 116/64 93 09/23/20 02:30 91 H 113/64 94 09/23/20 02:01 93 H 97/68 L 93 Laboratory Results Laboratory Results - last 24 hr 09/22/20 09/22/20 09/22/20 14:52 14:52 18:06 WBC RBC Hgb Hct MCV MCH MCHC RDW Std Deviation RDW Coeff of Shilo Plt Count MPV Immature Gran % (Auto) Neut % (Auto) Lymph % (Auto) Morgan % (Auto) Eos % (Auto) Baso % (Auto) Neut # (Auto) Lymph # (Auto) Morgan # (Auto) Eos # (Auto) Baso # (Auto) Immature Gran # (Auto) Toxic Granulation Dohle Bodies APTT 131.0 H* PTT Ratio 5.0 Sample Site POC pH POC pCO2 POC pO2 POC HCO3 POC Total CO2 POC Base Excess POC ABG O2 Sat Richard Test O2 Delivery Device POC O2 Rate POC FiO2 Tidal Volume PEEP Sodium Potassium Chloride Carbon Dioxide Anion Gap BUN Creatinine Est Cr Clr Drug Dosing Est GFR ( Amer) Est GFR (Non-Af Amer) BUN/Creatinine Ratio Glucose POC Glucose (other) 100 H Lactate 2.2 H* Calcium Phosphorus Magnesium Total Bilirubin Direct Bilirubin AST ALT Alkaline Phosphatase Total Protein Albumin Procalcitonin 09/22/20 09/22/20 09/23/20 20:45 23:54 03:43 WBC RBC Hgb Hct MCV MCH MCHC RDW Std Deviation RDW Coeff of Shilo Plt Count MPV Immature Gran % (Auto) Neut % (Auto) Lymph % (Auto) Morgan % (Auto) Eos % (Auto) Baso % (Auto) Neut # (Auto) Lymph # (Auto) Morgan # (Auto) Eos # (Auto) Baso # (Auto) Immature Gran # (Auto) Toxic Granulation Dohle Bodies APTT 84.6 H* PTT Ratio 3.2 Sample Site Art Line POC pH 7.21 L POC pCO2 48 H POC pO2 70 L POC HCO3 19 POC Total CO2 21 L POC Base Excess -9.0 POC ABG O2 Sat 89.0 L Richard Test NA O2 Delivery Device Ventilator POC O2 Rate 26 POC FiO2 70 Tidal Volume 420 PEEP 14 Sodium Potassium Chloride Carbon Dioxide Anion Gap BUN Creatinine Est Cr Clr Drug Dosing Est GFR ( Amer) Est GFR (Non-Af Amer) BUN/Creatinine Ratio Glucose POC Glucose (other) 105 H Lactate Calcium Phosphorus Magnesium Total Bilirubin Direct Bilirubin AST ALT Alkaline Phosphatase Total Protein Albumin Procalcitonin 09/23/20 09/23/20 09/23/20 04:07 04:07 04:07 WBC 19.80 H RBC 3.41 L Hgb 11.7 L Hct 34.6 L MCV 101.5 H MCH 34.3 H MCHC 33.8 RDW Std Deviation 57.0 H RDW Coeff of Shilo 15.4 H Plt Count 132 MPV 12.0 H Immature Gran % (Auto) 0.5 Neut % (Auto) 94.7 Lymph % (Auto) 1.5 Morgan % (Auto) 3.1 Eos % (Auto) 0.1 Baso % (Auto) 0.1 Neut # (Auto) 18.76 H Lymph # (Auto) 0.30 L Morgan # (Auto) 0.61 H Eos # (Auto) 0.02 Baso # (Auto) 0.01 Immature Gran # (Auto) 0.10 H Toxic Granulation 1+ Dohle Bodies 1+ APTT 97.6 H* PTT Ratio 3.7 Sample Site POC pH POC pCO2 POC pO2 POC HCO3 POC Total CO2 POC Base Excess POC ABG O2 Sat Richard Test O2 Delivery Device POC O2 Rate POC FiO2 Tidal Volume PEEP Sodium 133 L Potassium 5.9 H D Chloride 103 Carbon Dioxide 18 L Anion Gap 12.0 H BUN 104 H Creatinine 3.68 H D Est Cr Clr Drug Dosing 18.2 Est GFR ( Amer) 17.7 Est GFR (Non-Af Amer) 15.3 BUN/Creatinine Ratio 28.3 H Glucose 114 H POC Glucose (other) Lactate Calcium 6.9 L Phosphorus 8.7 H D Magnesium 2.9 H Total Bilirubin 1.1 H Direct Bilirubin 0.8 H AST 40 H ALT 6 L Alkaline Phosphatase 122 H Total Protein 5.0 L Albumin 1.6 L Procalcitonin 09/23/20 09/23/20 09/23/20 04:07 04:07 06:14 WBC RBC Hgb Hct MCV MCH MCHC RDW Std Deviation RDW Coeff of Shilo Plt Count MPV Immature Gran % (Auto) Neut % (Auto) Lymph % (Auto) Morgan % (Auto) Eos % (Auto) Baso % (Auto) Neut # (Auto) Lymph # (Auto) Morgan # (Auto) Eos # (Auto) Baso # (Auto) Immature Gran # (Auto) Toxic Granulation Dohle Bodies APTT PTT Ratio Sample Site POC pH POC pCO2 POC pO2 POC HCO3 POC Total CO2 POC Base Excess POC ABG O2 Sat Richard Test O2 Delivery Device POC O2 Rate POC FiO2 Tidal Volume PEEP Sodium Potassium Chloride Carbon Dioxide Anion Gap BUN Creatinine Est Cr Clr Drug Dosing Est GFR ( Amer) Est GFR (Non-Af Amer) BUN/Creatinine Ratio Glucose POC Glucose (other) 107 H Lactate 3.6 H* Calcium Phosphorus Magnesium Total Bilirubin Direct Bilirubin AST ALT Alkaline Phosphatase Total Protein Albumin Procalcitonin 2.78 H 09/23/20 09/23/20 09/23/20 08:49 09:59 09:59 WBC RBC Hgb Hct MCV MCH MCHC RDW Std Deviation RDW Coeff of Shilo Plt Count MPV Immature Gran % (Auto) Neut % (Auto) Lymph % (Auto) Morgan % (Auto) Eos % (Auto) Baso % (Auto) Neut # (Auto) Lymph # (Auto) Morgan # (Auto) Eos # (Auto) Baso # (Auto) Immature Gran # (Auto) Toxic Granulation Dohle Bodies APTT 80.9 H* PTT Ratio 3.1 Sample Site POC pH POC pCO2 POC pO2 POC HCO3 POC Total CO2 POC Base Excess POC ABG O2 Sat Richard Test O2 Delivery Device POC O2 Rate POC FiO2 Tidal Volume PEEP Sodium 135 L Potassium 5.3 H Chloride 103 Carbon Dioxide 23 Anion Gap 9.0 BUN 112 H Creatinine 3.54 H Est Cr Clr Drug Dosing 18.9 Est GFR ( Amer) 18.6 Est GFR (Non-Af Amer) 16.0 BUN/Creatinine Ratio 31.5 H Glucose 131 H POC Glucose (other) 219 H Lactate Calcium 7.5 L Phosphorus Magnesium Total Bilirubin Direct Bilirubin AST ALT Alkaline Phosphatase Total Protein Albumin Procalcitonin
--- NOTE | 2020-09-23 15:59 | Communication Note ---
Date of Service: September 23, 2020 Heparin gtt held for 90 minutes. Transvenous pacer and Right IJ venous intraducer sheath removed without difficulty Pacer tip sent for culture Pressure held and occlusive dressing placed Heparin gtt restarted without bolus
[2020-09-23 17:04] LABS: Partial Thromboplastin Ratio 1.8
[2020-09-23 17:07] LABS: BUN Creatinine Ratio 36.7 (10-20); Calcium 7.4 mg/dl (8.5-10.1); Creatinine Clr Calc Pharmacy 23.6 ml/min; Est GFR (African American) 24.3; Potassium 5.6 mmol/L (3.5-5.1)
[2020-09-23 17:13] LABS: Partial Thromboplastin Time 48.1 Seconds (21.0-31.0)
[2020-09-23 17:19] LABS: iSTAT Arterial Blood Gas HCO3 22 meg/L (19-24); iSTAT Arterial Blood Gas pCO2 47 mmHg (35-46); iSTAT Arterial Blood Gas pH 7.27 (7.35-7.45); iSTAT Arterial Blood Gas pO2 58 mmHg (80-95); iSTAT Carbon Dioxide 23 mmol/L (24-31)
--- NOTE | 2020-09-23 17:30 | XRay Report ---
SINGLE VIEW CHEST CLINICAL HISTORY: Dyspnea. Hypoxia. FINDINGS: An AP, portable, upright chest radiograph is compared to study performed earlier the same d ay 09/23/2020. An endotracheal tube and an enteric tube are unchanged in position. The heart is top no rmal for projection noting atherosclerotic calcification of the thoracic aorta. Multifocal airspace c onsolidation is again seen throughout both lungs. This is unchanged to modestly increased as compared to today's earlier examination. Small pleural effusions are noted. No pneumothorax is seen. The skel etal structures are osteopenic. The bony thorax is grossly intact. IMPRESSION: 1. Stable lines and tubes. 2. Multifocal airspace consolidation is again seen throughout both lungs. This is unchanged to modest ly increased from today's earlier study. 3. Small pleural effusions. ACT 112: Negative or not required by law. Electronically signed by: Sohail Bush M.D. 09/23/2020 5:28 PM
[2020-09-23] MEDS ORDERED: FUROSEMIDE 40 MG TAB PO ONE (18:18)
[2020-09-23] MEDS: MIDAZOLAM HCL 1 MG/ML 2ML VIAL IV PRN ×2 (18:58→22:16)
[2020-09-23] MEDS ORDERED: LORazepam 0.5 MG TAB PO PRN (20:31)
[2020-09-23] MEDS ORDERED: haloperidoL 1 MG TAB PO PRN (20:31)
[2020-09-23] MEDS ORDERED: LORazepam 0.5 MG/1 ML VIAL IV PRN (20:31)
[2020-09-23] MEDS ORDERED: ONDANSETRON 4 MG OD TAB SL PRN (20:31)
[2020-09-23] MEDS ORDERED: ONDANSETRON INJ 2 MG/ML 2 ML VIAL IV PRN (20:31)
--- NOTE | 2020-09-23 20:31 | Communication Note ---
Date of Service: September 23, 2020 Unfortunately, this evening the patient has become increasingly bradycardic despite max dose on 2 vasopressors, still remains hypotensive. He remains hypox ic as well despite on 100 percent FiO2. Patient was previously made DNR, and was being followed by palliative care. Family was scheduled to come to the bedside tomorrow afternoon, and potential withdrawal of care has been discussed. With patient's current condition, unsure if he would survive to this point. I did contact the patient's , Geeta, and she was made aware of his current condition. Patient's , expressed wishes to discontinue current therapy with transition to comfort care with withdrawal of life-sustaining support at this time. Per family wishes will transition to comfort care tonight with terminal extubation and discontinuation of vasopressors. As he is still on airborne precautions due to COVID-19 pneumonia, no visitors are currently allowed in the patient's room. However, he was moved to room 106 today and I did offer to allow family to visit from window tonight. However, as they cannot actually be at the bedside, patient's declined and nursing staff will provide Zoom call. CRITICAL CARE TIME - I have personally spent 30 minutes of critical care time in the direct management of this patient. This is a life/limb threatening event. This includes time spent evaluating patient, direct bedside care, chart review, placing orders, interpretation of diagnostic studies, discussion with consultants, patient, and family members, as well as other required patient management activities. This time is exclusive of all separately billable procedures, and teaching time and separate from and in addition to any other critical care service time. Coding Level of Care Code Critical Care juan j [email or web address] 30 min
[2020-09-23] MEDS ORDERED: LORazepam 2 MG/4 ML VIAL IV PRN (23:23)
[2020-09-23] MEDS ORDERED: LORazepam 2 MG/4 ML VIAL ONE (23:27)
--- NOTE | 2020-09-24 00:27 | Discharge Summary ---
Date of Service September 24, 2020 Admission HPI Per Admitting Provider History obtained from patient, family, and records. Medical history significant for CAD status post stenting, hypertension, hyperlipidemia, CRI (baseline creatinine 1.7), schizophrenia, depression. Last confinement November 2018 for chest pain. 2 days history of dry cough symptoms with worsening shortness of breath, poor appetite. No chest pain. No fever. Some chills. No known recent COVID-19 contacts. Patient noted to be in respiratory distress upon EMS arrival at home. O2 sats 20s as per report. BiPAP initiated by EMS. Patient hypotensive upon arrival at the ER. Decadron and Zosyn given at the ER. SBP currently 100s. Patient feeling much better. MEDICAL HISTORY: As above. SURGERIES: He has had tonsillectomy, adenoidectomy, cataract surgery, goniotomy FAMILY HISTORY: heart disease, diabetes. PERSONAL AND SOCIAL HISTORY: Nonsmoker, no chronic intake of alcoholic beverages. Retired [employer]/ vet. Discharge Data Consultations 09/08/20 23:22 ED Decision to Admit Stat 09/09/20 05:15 Consult Director Digital Catalogue Routine 09/10/20 09:48 Consult Cardiology Routine 09/19/20 11:08 Consult Infectious Diseases Routine 09/19/20 11:13 Consult Palliative Care Routine Procedures Performed Operation Date: 09/14/20 15:00 Actual Procedures p Temporary Transcutaneous Pacing - Abdi Henry DO Hospital Course (1) Acute hypoxemic respiratory failure: Multiorgan failure secondary to severe COVID-19 pneumonia. Patient transitioned to comfort measures tonight after patient updated of worsening status by ICU provider. Patient pronounced by 2 nurses at 11:53 PM, 09/23/20. Undersigned will accomplish electronic certificate. Documentation below as per 09/[address] Etienne. Acute respiratory failure with hypoxia secondary to severe COVID-19 pneumonia Presented with septic Shock and required intubation. Extubated but reintubated on 09/17. Initial CPR CRP:13.7 Remdesivir was not given due to critical condition Received Tocilizumab and continue IV dexamethasone - completed 10 days Continue IV lasix 40mg BID Overall poor prognosis. Palliative team is on board as well. Currently plan is to continue with the management Critical care team is on board. Precedex is off for now and fentanyl is also decreased today. Septic Shock Currently remains on Vasopressor and Levo. Persistent Leukocytosis MSSA bacteremia Possibly in the setting of steroid use. (Has L subslavian line, R introducer catheter in IJ, pacer wires). Corrently remains on Ancef. Blood cultures 09/08 grew staph in clusters, 09/17: MSSSA, 09/19 MSSA; 09/22 pending ID is on board. Tachy/Jose syndorme Currently remains on dopamine. Cardiology recommends transvenous pacemaker insertion Status post transvenous pacemaker insertion on 09/14/2020 Pacer line needs to be changed due to ongoing bacteremia-cardiology following. NSTEMI H/O CAD S/P Stent ECHO: Mild concentric LVH. EF 45%. Moderate size apical wall motion abnormality with hypokinesis of the segments. No pericardial effusion. No significant valvular disease. Continue aspirin, Plavix, statin Imdur, Lisinopril on hold due to low blood pressure Continue IV heparin Elevated D dimer Could not perform CTA due to renal Insufficiency Venous Doppler:No DVT HTN Hold [employer] antihypertensive regimen in the setting of shock. Acute Kidney Injury on CKD III Likely ATN Cr:3.54 today; worsening Avoid nephrotoxic agents as able Continue monitor ins and outs. Schizophrenia/depression Celexa, Ziprasidone Nutrition Likely tube start NG tube feeding Prediabetes HbA1C:6.1 DVT Px: IV heparin Total time to prepare this discharge summary was less than 10 minutes.
--- NOTE | 2020-09-24 01:22 | Communication Note ---
Date of Service: September 24, 2020 Was notified by nursing staff that patient had . Patient was pronounced by RN x2 at [id number]. Patient's , Geeta, has been contacted and aware. Primary team made aware. Coding Level of Care Code None
== END 2020-09-23 23:59 | disposition expired | DRG 981 ==
LOC: ED 21:31 → 2E 09-09 00:36 → SUATTDRO 09-09 00:36 → 2E 09-09 02:54 → 1E 09-23 14:22
PROC: CLB.TTP (2020-09-14 15:00)